=== PATIENT | female | born 1950 | race Caucasian/White ===

== ENCOUNTER 2020-03-03 10:57 | Outpatient (REF) | payer MEDICARE, SELFPAY ==
[2020-03-03 13:29] LABS: MANUAL DIFF FLAG NO
[2020-03-03 13:38] LABS: Basophils Percent Auto 0.2 % (0-2); Eosinophils Absolute Auto 0.1 X10*3/uL (0.0-0.4); Hematocrit 36.9 % (37-47); Hemoglobin 12.3 g/dl (12.0-16.0); Imm Gran Abs Auto 0.02 X10*3/uL (0.00-0.03); Imm Gran Pct Auto 0.3 % (0.0-0.4); Lymphocytes Absolute Auto 1.6 X10*3/uL (1.2-4.9); Lymphocytes Percent Auto 24.6 % (20-40); Mean Corpuscular HGB Conc 33.3 g/dl (31.0-35.0); Mean Corpuscular Hemoglobin 30.8 pg (27.0-33.0); Mean Corpuscular Volume 92.5 fL (80-98); Mean Platelet Volume 10.7 fL (9.4-12.3); Monocytes Absolute Auto 0.4 X10*3/uL (0.1-1.2); Monocytes Percent Auto 6.6 % (2-11); Neutrophils Absolute Auto 4.4 X10*3/uL (2.0-8.3); Neutrophils Percent Auto 66.3 % (45-73); Platelet Count 148 X10*3/uL (160-400); Red Blood Count 3.99 X10*6/uL (4.20-5.50); Red Cell Distribution Width 12.3 % (11.0-16.0); White Blood Count 6.6 X10*3/uL (4.8-10.8)
[2020-03-03 13:40] LABS: Estimated Average Glucose 189 mg/dL; Hemoglobin A1c % 8.2 %
[2020-03-03 13:51] LABS: Alanine Aminotransferase 34 U/L (0-31); Albumin Level 4.2 g/dL (3.5-5.0); Alkaline Phosphatase 72 U/L (39-117); Anion Gap 11 (12-20); Aspartate Amino Transferase 40 U/L (5-31); Bilirubin Total 0.8 mg/dL (0.0-1.0); Blood Urea Nitrogen 23 mg/dL (9-16); Calcium 8.8 mg/dL (8.4-10.2); Carbon Dioxide 27 mmol/L (22-29); Chloride 101 mmol/L (96-108); Estimated Glomerular Filt Rate 45; Glucose Random 300 mg/dL (60-115); Potassium 4.3 mmol/l (3.3-5.1); Sodium 135 mmol/L (135-145); Total Protein 8.7 g/dL (6.5-8.0)
== END 2020-03-03 10:58 | disposition home or self-care (01) ==
LOC: HO.LAB 10:57
PROVIDERS: PCP Internal Medicine; Visit Provider Internal Medicine
DX: N18.9 Chronic kidney disease, unspecified (principal); R79.89 Other specified abnormal findings of blood chemistry; E11.9 Type 2 diabetes mellitus without complications
CPT/HCPCS: 36415; 80053; 83036; 85025

== ENCOUNTER 2020-04-09 10:47 | Outpatient (REF) | payer MEDICARE, SELFPAY ==
[2020-04-09 11:32] LABS: Prothrombin Time 12.4 SEC (10.8-13.0)
[2020-04-09 11:50] LABS: Blood Urea Nitrogen 21 mg/dL (9-16); Estimated Glomerular Filt Rate 41
[2020-04-11 19:11] LABS: Alpha Fetoprotein 5.3 ng/mL
== END 2020-04-09 10:48 | disposition home or self-care (01) ==
LOC: HO.LAB 10:47
PROVIDERS: PCP Internal Medicine; Visit Provider Internal Medicine
DX: K74.60 Unspecified cirrhosis of liver (principal); K76.89 Other specified diseases of liver; R93.2 Abnormal findings on diagnostic imaging of liver and biliary tract
CPT/HCPCS: 36415; 82105; 82565; 84520; 85610

== ENCOUNTER 2020-04-14 08:09 | Outpatient (REF) | payer MEDICARE, SELFPAY ==
--- NOTE | 2020-04-14 08:15 | MR_ITS ---
EXAMINATION: MR ABDOMEN WITHOUT AND WITH CONTRAST CLINICAL INFORMATION: Cirrhosis of the liver with ascites. Liver nodule. COMPARISON: Multiple priors, most recently MRI from 10/15/2019 TECHNIQUE: MR abdomen was performed without and with use of 8 mL intravenous Gadavist gadolinium contrast. Postcontrast images are performed in multiphase dynamic sequences. Imaging was performed in 3 planes. FINDINGS: LUNG BASES: The visualized lung bases are unremarkable. LIVER, GALLBLADDER, AND BILIARY TREE: Cirrhotic morphology of the liver is again noted. There is signal dropout on out of phase imaging, consistent with hepatic steatosis. No biliary ductal dilatation. No focal arterially enhancing lesion. No areas of early washout. The portal vein is patent. The hepatic veins are patent. The gallbladder is absent. PANCREAS: Postsurgical changes of Whipple procedure. Mild atrophy of the pancreatic body and tail with no focal abnormality. SPLEEN: Normal. ADRENAL GLANDS: Normal. KIDNEYS AND URETERS: The kidneys are normal in size, shape, and enhance symmetrically. No hydronephrosis. No perinephric stranding. GASTROINTESTINAL TRACT: No bowel obstruction. No ascites or fluid collection. Postsurgical changes of the stomach with gastrojejunostomy. ABDOMINAL WALL: No significant hernia is appreciated. LYMPH NODES: No lymphadenopathy. Small lymph nodes posterior to the right lobe of the liver are again noted, similar to previous imaging. Mild stranded appearance of the root of the mesentery is similar to previous. VASCULAR: Unremarkable. OSSEOUS STRUCTURES: Marrow signal normal. MR/MR abdomen wo/w con IMPRESSION: Cirrhotic liver with no suspicious liver lesions. Postsurgical changes of Whipple procedure.
== END 2020-04-14 08:10 | disposition home or self-care (01) ==
LOC: HO.MRI 08:09
PROVIDERS: Visit Provider Internal Medicine
DX: K74.60 Unspecified cirrhosis of liver (principal); K76.89 Other specified diseases of liver; R93.2 Abnormal findings on diagnostic imaging of liver and biliary tract
CPT/HCPCS: 74183; A9585

== ENCOUNTER 2020-06-02 06:02 | Outpatient (REF) | payer MEDICARE, SELFPAY ==
[2020-06-02 07:26] LABS: MANUAL DIFF FLAG NO
[2020-06-02 07:42] LABS: Basophils Percent Auto 0.3 % (0-2); Eosinophils Absolute Auto 0.2 X10*3/uL (0.0-0.4); Eosinophils Percent Auto 2.9 % (0-4); Hematocrit 35.9 % (37-47); Imm Gran Abs Auto 0.02 X10*3/uL (0.00-0.03); Imm Gran Pct Auto 0.3 % (0.0-0.4); Lymphocytes Absolute Auto 1.8 X10*3/uL (1.2-4.9); Lymphocytes Percent Auto 28.8 % (20-40); Mean Corpuscular HGB Conc 33.4 g/dl (31.0-35.0); Mean Corpuscular Hemoglobin 30.3 pg (27.0-33.0); Mean Corpuscular Volume 90.7 fL (80-98); Mean Platelet Volume 10.4 fL (9.4-12.3); Monocytes Absolute Auto 0.5 X10*3/uL (0.1-1.2); Monocytes Percent Auto 7.6 % (2-11); Neutrophils Absolute Auto 3.7 X10*3/uL (2.0-8.3); Neutrophils Percent Auto 60.1 % (45-73); Platelet Count 158 X10*3/uL (160-400); Red Blood Count 3.96 X10*6/uL (4.20-5.50); Red Cell Distribution Width 12.5 % (11.0-16.0); White Blood Count 6.2 X10*3/uL (4.8-10.8)
[2020-06-02 07:42] LABS: Glucose Urine UA NEG (NEG); Leukocyte Esterase Urine NEG (NEG); Nitrite Urine NEG (NEG); PH 5.5 (5.0-8.0); Specific Gravity - Urine 1.025 (1.005-1.025); Urine Blood NEG (NEG); Urine Ketones NEG (NEG); Urine Protein NEG (NEG-TRACE)
[2020-06-02 07:43] LABS: Appearance Urine CLEAR; Color Urine YELLOW
[2020-06-02 08:00] LABS: Creatinine Urine 133.73 mg/dL; Microalbum/Creatinine Ratio Ur 7.4 ug/mg cr
[2020-06-02 08:09] LABS: Alanine Aminotransferase 39 U/L (0-31); Alkaline Phosphatase 76 U/L (39-117); Anion Gap 14 (12-20); Aspartate Amino Transferase 43 U/L (5-31); Bilirubin Total 0.7 mg/dL (0.0-1.0); Blood Urea Nitrogen 21 mg/dL (9-16); Calcium 8.8 mg/dL (8.4-10.2); Carbon Dioxide 27 mmol/L (22-29); Chloride 103 mmol/L (96-108); Cholesterol 118 mg/dL; Estimated Glomerular Filt Rate 46; Glucose Fasting 171 mg/dL (60-99); HDL Cholesterol 42 mg/dL; LDL Cholesterol Calculated 52 mg/dl; Potassium 4.7 mmol/l (3.3-5.1); Sodium 139 mmol/L (135-145); Total Protein 8.8 g/dL (6.5-8.0); Triglycerides 120 mg/dL
[2020-06-02 08:20] LABS: Free T4 (Free Thyroxine) 1.34 ng/dL (0.71-1.85); Thyroid Stimulating Hormone 2.21 uIU/mL (0.32-4.0)
[2020-06-02 08:48] LABS: Estimated Average Glucose 200 mg/dL; Hemoglobin A1c % 8.6 %
[2020-06-03 11:37] LABS: Alpha Fetoprotein 5.2 ng/mL
== END 2020-06-02 06:03 | disposition home or self-care (01) ==
LOC: HO.LAB 06:02
PROVIDERS: Visit Provider Internal Medicine
DX: E11.65 Type 2 diabetes mellitus with hyperglycemia (principal); I10 Essential (primary) hypertension; E03.9 Hypothyroidism, unspecified
CPT/HCPCS: 36415; 80053; 80061; 81003; 82043; 82105; 83036; 84439; 84443; 85025

== ENCOUNTER 2020-08-18 09:43 | Outpatient (REF) | payer MEDICARE, SELFPAY ==
[2020-08-18 10:54] LABS: MANUAL DIFF FLAG NO
[2020-08-18 11:03] LABS: Basophils Percent Auto 0.5 % (0-2); Eosinophils Absolute Auto 0.1 X10*3/uL (0.0-0.4); Hematocrit 35.1 % (37-47); Hemoglobin 11.8 g/dl (12.0-16.0); Imm Gran Abs Auto 0.02 X10*3/uL (0.00-0.03); Imm Gran Pct Auto 0.3 % (0.0-0.4); Lymphocytes Absolute Auto 1.7 X10*3/uL (1.2-4.9); Lymphocytes Percent Auto 24.9 % (20-40); Mean Corpuscular HGB Conc 33.6 g/dl (31.0-35.0); Mean Corpuscular Hemoglobin 30.4 pg (27.0-33.0); Mean Corpuscular Volume 90.5 fL (80-98); Mean Platelet Volume 10.5 fL (9.4-12.3); Monocytes Absolute Auto 0.3 X10*3/uL (0.1-1.2); Monocytes Percent Auto 5.1 % (2-11); Neutrophils Absolute Auto 4.5 X10*3/uL (2.0-8.3); Neutrophils Percent Auto 67.2 % (45-73); Platelet Count 142 X10*3/uL (160-400); Red Blood Count 3.88 X10*6/uL (4.20-5.50); Red Cell Distribution Width 12.8 % (11.0-16.0); White Blood Count 6.6 X10*3/uL (4.8-10.8)
[2020-08-18 11:19] LABS: Estimated Average Glucose 174 mg/dL; Hemoglobin A1c % 7.7 %
[2020-08-18 11:21] LABS: Alanine Aminotransferase 33 U/L (0-31); Albumin Level 4.1 g/dL (3.5-5.0); Alkaline Phosphatase 72 U/L (39-117); Anion Gap 13 (12-20); Aspartate Amino Transferase 36 U/L (5-31); Bilirubin Total 0.9 mg/dL (0.0-1.0); Blood Urea Nitrogen 21 mg/dL (9-16); Calcium 8.9 mg/dL (8.4-10.2); Carbon Dioxide 27 mmol/L (22-29); Chloride 101 mmol/L (96-108); Estimated Glomerular Filt Rate 46; Glucose Random 291 mg/dL (60-115); Potassium 4.7 mmol/L (3.3-5.1); Sodium 136 mmol/L (135-145)
== END 2020-08-18 09:44 | disposition home or self-care (01) ==
LOC: HO.LAB 09:43
PROVIDERS: PCP Internal Medicine; Visit Provider Internal Medicine
DX: I12.9 Hypertensive chronic kidney disease with stage 1 through stage 4 chronic kidney disease, or unspecified chronic kidney disease (principal); E11.22 Type 2 diabetes mellitus with diabetic chronic kidney disease; N18.9 Chronic kidney disease, unspecified; R79.89 Other specified abnormal findings of blood chemistry
CPT/HCPCS: 36415; 80053; 83036; 85025

== ENCOUNTER 2020-10-28 08:57 | Outpatient (REF) | payer MEDICARE, SELFPAY ==
[2020-10-28 10:17] LABS: Blood Urea Nitrogen 22 mg/dL (9-16); Estimated Glomerular Filt Rate 39
== END 2020-10-28 08:58 | disposition home or self-care (01) ==
LOC: HO.LAB 08:57
PROVIDERS: PCP Internal Medicine; Visit Provider Internal Medicine
DX: K74.60 Unspecified cirrhosis of liver (principal); K76.89 Other specified diseases of liver; I89.8 Other specified noninfective disorders of lymphatic vessels and lymph nodes; R93.2 Abnormal findings on diagnostic imaging of liver and biliary tract
CPT/HCPCS: 36415; 82105; 82565; 84520

== ENCOUNTER 2020-11-03 09:32 | Outpatient (REF) | payer MEDICARE, SELFPAY ==
--- NOTE | ~2020-11-03 | MR_ITS ---
EXAMINATION: MR ABDOMEN WITHOUT AND WITH CONTRAST CLINICAL INFORMATION: Cirrhosis with ascites. Question liver nodule seen on CT. COMPARISON: Previous abdominal MRI most recent March 2020, abdominal ultrasound February 2019, CT of the abdomen and pelvis November 2017 TECHNIQUE: MR abdomen was performed without and with use of 8 mL intravenous Gadavist gadolinium contrast. Postcontrast images are performed in multiphase dynamic sequences. Imaging was performed in 3 planes. FINDINGS: LUNG BASES: The visualized lung bases are clear. There are small right cardiophrenic angle or anterior diaphragmatic lymph nodes that are stable. The largest measures 4 x 5 mm. LIVER, GALLBLADDER, AND BILIARY TREE: The liver has a slightly irregular contour and there is hypertrophy of the left lobe of the liver suggestive of mild cirrhosis. There is signal loss in the liver on [id number] sequences suggestive of mild fatty infiltration. There are several areas of early arterial phase enhancement seen in the posterior segment of the right lobe of the liver. The largest measures 1 x 1.8 cm axial image 62 series 2. This is not seen on later sequences postcontrast and is not seen on precontrast-enhanced sequences and likely represents a transient perfusion effect. The gallbladder has been removed. There is no biliary duct dilatation. PANCREAS: Postsurgical changes from Whipple procedure. The remaining body and tail of the pancreas are unremarkable. The main pancreatic duct does not appear dilated. SPLEEN: Normal. ADRENAL GLANDS: Normal. KIDNEYS AND URETERS: The right renal pelvis is prominent. This is similar to previous exams. No renal mass seen. GASTROINTESTINAL TRACT: No bowel obstruction. No ascites or fluid collection. ABDOMINAL WALL: No significant hernia is appreciated. LYMPH NODES: Small periportal lymph nodes, similar to previous exam. Largest measures 1 cm axial image 42 series 100. Small right cardiophrenic angle and anterior diaphragmatic lymph nodes largest measuring 5 mm, also stable. There are small, small bowel mesentery lymph nodes and some abnormal signal in the small bowel mesentery. This is unchanged, as well. There is a small 4 mm peritoneal nodule adjacent to the right kidney and posterior segment of the right lobe of the liver, for example axial image 68 series 100 postcontrast. This does not demonstrate evidence of enhancement and is unchanged from old exams. There is no ascites. VASCULAR: Unremarkable. The hepatic veins are patent. There is question of a small amount of thrombus seen in the main portal vein axial image 58 postcontrast series 101 and 102. OSSEOUS STRUCTURES: There are degenerative changes of the spine. MR/MR abdomen wo/w con IMPRESSION: Cirrhotic-appearing liver with mild fatty infiltration. Several areas of early arterial phase enhancement seen in the posterior segment of the right lobe of the liver. These are not seen on later sequences postcontrast or on noncontrast sequences and likely represent transient perfusion effects. Question small thrombus in the main portal vein. No ascites. Stable small lymph nodes in the right cardiophrenic angle/anterior diaphragmatic, periportal and small bowel mesentery regions. Stable postsurgical changes following Whipple procedure. Stable fullness of the right renal pelvis.
== END 2020-11-03 09:33 | disposition home or self-care (01) ==
LOC: HO.MRI 09:32
PROVIDERS: PCP Internal Medicine; Visit Provider Internal Medicine
DX: K74.60 Unspecified cirrhosis of liver (principal); K76.89 Other specified diseases of liver; I89.8 Other specified noninfective disorders of lymphatic vessels and lymph nodes; R93.2 Abnormal findings on diagnostic imaging of liver and biliary tract
CPT/HCPCS: 74183; A9585

== ENCOUNTER 2020-12-01 09:02 | Outpatient (REF) | payer MEDICARE, SELFPAY ==
[2020-12-01 10:09] LABS: Imm Gran Abs Auto 0.02 X10*3/uL (0.00-0.03); Imm Gran Pct Auto 0.3 % (0.0-0.4); MANUAL DIFF FLAG SCAN; Mean Corpuscular Volume 91.7 fL (80-98); PLT CLUMP 1
[2020-12-01 10:11] LABS: Basophils Percent Auto 0.1 % (0-2); Eosinophils Absolute Auto 0.1 X10*3/uL (0.0-0.4); Eosinophils Percent Auto 1.7 % (0-4); Hematocrit 35.3 % (37-47); Hemoglobin 11.9 g/dl (12.0-16.0); Lymphocytes Absolute Auto 1.5 X10*3/uL (1.2-4.9); Lymphocytes Percent Auto 22.2 % (20-40); Mean Corpuscular HGB Conc 33.7 g/dl (31.0-35.0); Mean Corpuscular Hemoglobin 30.9 pg (27.0-33.0); Mean Platelet Volume 10.3 fL (9.4-12.3); Monocytes Absolute Auto 0.5 X10*3/uL (0.1-1.2); Monocytes Percent Auto 7.6 % (2-11); Neutrophils Absolute Auto 4.7 X10*3/uL (2.0-8.3); Neutrophils Percent Auto 68.1 % (45-73); Red Blood Count 3.85 X10*6/uL (4.20-5.50); Red Cell Distribution Width 12.9 % (11.0-16.0); White Blood Count 6.9 X10*3/uL (4.8-10.8)
[2020-12-01 10:15] LABS: Platelet Count 140 X10*3/uL (160-400)
[2020-12-01 10:18] LABS: Estimated Average Glucose 200 mg/dL; Hemoglobin A1c % 8.6 %
[2020-12-01 10:27] LABS: Anion Gap 13 (12-20); Blood Urea Nitrogen 15 mg/dL (9-16); Calcium 9.3 mg/dL (8.4-10.2); Carbon Dioxide 25 mmol/L (22-29); Chloride 103 mmol/L (96-108); Estimated Glomerular Filt Rate 48; Glucose Random 195 mg/dL (60-115); Iron 81 mcg/dL (30-160); Percent Iron Saturation 25 % (15-50); Potassium 4.5 mmol/L (3.3-5.1); Sodium 136 mmol/L (135-145); Total Iron Binding Capacity 323 mcg/dL (228-428); Unsaturated Iron Binding 242 ug/dL
[2020-12-01 10:33] LABS: Creatinine Urine 47.69 mg/dL; Microalbum/Creatinine Ratio Ur 46.1 ug/mg cr
[2020-12-01 10:36] LABS: SLIDE REVIEW VERIFIED
== END 2020-12-01 09:03 | disposition home or self-care (01) ==
LOC: HO.LAB 09:02
PROVIDERS: PCP Internal Medicine; Visit Provider Internal Medicine
DX: E11.22 Type 2 diabetes mellitus with diabetic chronic kidney disease (principal); N18.9 Chronic kidney disease, unspecified; D63.1 Anemia in chronic kidney disease
CPT/HCPCS: 36415; 80048; 82043; 83036; 83540; 85025

== ENCOUNTER 2020-12-08 09:36 | Outpatient (REF) | payer MEDICARE, SELFPAY ==
[2020-12-08 13:34] LABS: Glucose Urine UA 100 MG/DL (NEG); Leukocyte Esterase Urine NEG (NEG); Nitrite Urine POS (NEG); PH 5.5 (5.0-8.0); Specific Gravity - Urine 1.025 (1.005-1.025); UACC Culture Trigger YES; Urine Blood NEG (NEG); Urine Ketones NEG (NEG); Urine Protein 1+ MG/DL (NEG-TRACE)
[2020-12-08 13:35] LABS: Appearance Urine HAZY; Color Urine DARK YELLOW
[2020-12-08 14:01] LABS: Amorphous Sediment Urine 3+ /LPF; Bacteria Urine 1+ /LPF; RBC Urine 0 /HPF (0); Squamous Epithelial Cell Urine 3+ /LPF
== END 2020-12-08 09:37 | disposition home or self-care (01) ==
LOC: HO.10HDL 09:36
PROVIDERS: Visit Provider Internal Medicine
DX: R30.0 Dysuria (principal)
CPT/HCPCS: 81001; 81003; 87086

== ENCOUNTER 2020-12-22 08:54 | Outpatient (REF) | payer MEDICARE, SELFPAY ==
--- NOTE | ~2020-12-22 | MM_ITS ---
EXAMINATION: MM DIAGNOSTIC DIGITAL BREAST TOMOSYNTHESIS, BILATERAL CLINICAL INFORMATION: Due for yearly. Also follow-up probable benign calcifications right breast upper outer quadrant. The lifetime risk of breast cancer based on the Tyrer-Cuzick Model is 6%. COMPARISON: Mammography: 12/04/2019, 09/05/2018, 08/28/2018 (BI-RADS 0), 08/15/2017, 06/08/2016 TECHNIQUE: Digital breast tomosynthesis is performed in both the craniocaudal and mediolateral oblique views along with computer-aided detection (CAD). Synthesized 2D images are generated from the tomosynthesis. Additional right magnification CC and right magnification ML views are obtained. FINDINGS: There are scattered areas of fibroglandular density (ACR BI-RADS breast composition Category b). Parenchymal pattern is similar to prior studies. No developing density or interval mass or architectural. No interval abnormal calcifications. The calcifications on the right for follow-up are stable from prior diagnostic study and now considered benign. The axilla and skin contours are unremarkable. Results are provided to the patient at time of visit by the technologist. MM/MM tomosynthesis diagnostic BI IMPRESSION: 1. No mammographic evidence of malignancy. 2. The right breast calcifications for follow-up are stable from prior diagnostic exams and now considered to be benign. ASSESSMENT: BI-RADS 2: Benign RECOMMENDATION: Routine annual mammography screening. This patient's information was entered into a reminder system with a target due date for their next mammogram.
== END 2020-12-22 08:55 | disposition home or self-care (01) ==
LOC: HO.MAMMO 08:54
PROVIDERS: PCP Internal Medicine; Visit Provider Internal Medicine
DX: R92.1 Mammographic calcification found on diagnostic imaging of breast (principal)
CPT/HCPCS: 77062; 77066

== ENCOUNTER 2020-12-29 09:50 | Outpatient (REF) | payer MEDICARE, SELFPAY ==
[2020-12-29 11:09] LABS: Estimated Average Glucose 209 mg/dL; Hemoglobin A1c % 8.9 %
[2020-12-29 11:55] LABS: Anion Gap 11 (12-20); Blood Urea Nitrogen 17 mg/dL (9-16); Calcium 9.3 mg/dL (8.4-10.2); Carbon Dioxide 27 mmol/L (22-29); Chloride 103 mmol/L (96-108); Estimated Glomerular Filt Rate 39; Glucose Random 296 mg/dL (60-115); Sodium 136 mmol/L (135-145)
== END 2020-12-29 09:51 | disposition home or self-care (01) ==
LOC: HO.LAB 09:50
PROVIDERS: PCP Internal Medicine; Visit Provider Internal Medicine
DX: E11.9 Type 2 diabetes mellitus without complications (principal); N18.9 Chronic kidney disease, unspecified
CPT/HCPCS: 36415; 80048; 83036

== ENCOUNTER 2021-03-23 09:52 | Outpatient (REF) | payer MEDICARE, SELFPAY ==
[2021-03-23 13:54] LABS: MANUAL DIFF FLAG NO
[2021-03-23 14:06] LABS: Basophils Percent Auto 0.5 % (0-2); Eosinophils Absolute Auto 0.1 X10*3/uL (0.0-0.4); Eosinophils Percent Auto 1.6 % (0-4); Hematocrit 35.1 % (37-47); Imm Gran Abs Auto 0.02 X10*3/uL (0.00-0.03); Imm Gran Pct Auto 0.3 % (0.0-0.4); Lymphocytes Absolute Auto 1.7 X10*3/uL (1.2-4.9); Lymphocytes Percent Auto 26.6 % (20-40); Mean Corpuscular HGB Conc 34.2 g/dl (31.0-35.0); Mean Corpuscular Hemoglobin 31.4 pg (27.0-33.0); Mean Corpuscular Volume 91.9 fL (80-98); Monocytes Absolute Auto 0.5 X10*3/uL (0.1-1.2); Monocytes Percent Auto 7.6 % (2-11); Neutrophils Percent Auto 63.4 % (45-73); Platelet Count 135 X10*3/uL (160-400); Red Blood Count 3.82 X10*6/uL (4.20-5.50); Red Cell Distribution Width 12.5 % (11.0-16.0); White Blood Count 6.3 X10*3/uL (4.8-10.8)
[2021-03-23 14:10] LABS: Estimated Average Glucose 223 mg/dL; Hemoglobin A1c % 9.4 %
[2021-03-23 14:17] LABS: Appearance Urine CLEAR; Color Urine YELLOW; Glucose Urine UA 500 MG/DL (NEG); Leukocyte Esterase Urine NEG (NEG); Nitrite Urine NEG (NEG); PH 5.5 (5.0-8.0); Specific Gravity - Urine 1.025 (1.005-1.025); Urine Blood NEG (NEG); Urine Ketones NEG (NEG); Urine Protein TRACE MG/DL (NEG-TRACE)
[2021-03-23 14:46] LABS: Creatinine Urine 129.54 mg/dL; Microalbum/Creatinine Ratio Ur 59.4 ug/mg cr
[2021-03-23 14:49] LABS: Alanine Aminotransferase 55 U/L (0-31); Albumin Level 3.9 g/dL (3.5-5.0); Alkaline Phosphatase 80 U/L (39-117); Anion Gap 11 (12-20); Aspartate Amino Transferase 59 U/L (5-31); Blood Urea Nitrogen 18 mg/dL (9-16); C Reactive Protein 0.45 mg/dL (< or = 0.50); Calcium 8.8 mg/dL (8.4-10.2); Carbon Dioxide 26 mmol/L (22-29); Chloride 102 mmol/L (96-108); Estimated Glomerular Filt Rate 42; Glucose Random 330 mg/dL (60-115); Potassium 4.3 mmol/L (3.3-5.1); Sodium 135 mmol/L (135-145); Total Protein 8.9 g/dL (6.5-8.0)
[2021-03-23 14:57] LABS: Free T4 (Free Thyroxine) 1.57 ng/dL (0.71-1.85); Thyroid Stimulating Hormone 0.63 uIU/mL (0.32-4.0)
== END 2021-03-23 09:53 | disposition home or self-care (01) ==
LOC: HO.10HDL 09:52
PROVIDERS: Visit Provider Internal Medicine
DX: R10.9 Unspecified abdominal pain (principal); E03.9 Hypothyroidism, unspecified; E78.00 Pure hypercholesterolemia, unspecified; R79.89 Other specified abnormal findings of blood chemistry; I12.9 Hypertensive chronic kidney disease with stage 1 through stage 4 chronic kidney disease, or unspecified chronic kidney disease; E11.22 Type 2 diabetes mellitus with diabetic chronic kidney disease; N18.9 Chronic kidney disease, unspecified
CPT/HCPCS: 36415; 80053; 81003; 82043; 83036; 84439; 84443; 85025; 86140; 87086

== ENCOUNTER 2021-04-12 09:26 | Outpatient (REF) | payer MEDICARE, SELFPAY ==
--- NOTE | ~2021-04-12 | MR_ITS ---
EXAMINATION: MR ABDOMEN WITHOUT AND WITH CONTRAST CLINICAL INFORMATION: Cirrhosis of the liver with ascites. Liver nodule. COMPARISON: 11/03/2020 TECHNIQUE: MR abdomen was performed without and with use of 8 mL intravenous Gadavist gadolinium contrast. Postcontrast images are performed in multiphase dynamic sequences. Imaging was performed in 3 planes. FINDINGS: LUNG BASES: The visualized lung bases are clear. Small lymph nodes are again seen in the epicardial fat. LIVER, GALLBLADDER, AND BILIARY TREE: Slight nodularity to the contour of the liver is again noted. Left lobe hypertrophy consistent with the history of cirrhosis. There is signal dropout on out of phase imaging consistent with hepatic steatosis. The previous areas of subtle arterial hyperenhancement are no longer visualized. These may have been transient intensity differences. There is no focal hepatic lesion identified. No biliary ductal dilatation. There is redemonstration of the small filling defect within the main portal vein as seen on series 101 image 61. This is unchanged from prior. This could be artifactual from metal associated with previous surgery. The portal vein appears patent. The gallbladder is absent. There is no ascites at this time. PANCREAS: Postsurgical changes status post Whipple procedure. Somewhat atrophic body and tail. SPLEEN: Normal. ADRENAL GLANDS: Normal. KIDNEYS AND URETERS: The kidneys are normal in size, shape, and enhance symmetrically. No hydronephrosis. No perinephric stranding. GASTROINTESTINAL TRACT: Postsurgical changes associated with Whipple procedure. No bowel obstruction. No focal abnormality. ABDOMINAL WALL: No significant hernia is appreciated. LYMPH NODES: No lymphadenopathy. VASCULAR: Unremarkable. OSSEOUS STRUCTURES: Marrow signal normal. MR/MR abdomen wo/w con IMPRESSION: Cirrhotic liver. No ascites. No hepatic lesions identified. Additional chronic changes as above.
== END 2021-04-12 09:27 | disposition home or self-care (01) ==
LOC: HO.MRI 09:26
PROVIDERS: Visit Provider Internal Medicine
DX: K74.60 Unspecified cirrhosis of liver (principal); K76.89 Other specified diseases of liver; I89.8 Other specified noninfective disorders of lymphatic vessels and lymph nodes
CPT/HCPCS: 74183; A9585

== ENCOUNTER 2021-04-27 14:44 | Outpatient (REF) | payer MEDICARE, SELFPAY | END 2021-04-27 14:45 | disposition home or self-care (01) | LOC: HO.LAB 14:44 | PROVIDERS: PCP Internal Medicine; Visit Provider Internal Medicine | DX: Z20.822 Contact with and (suspected) exposure to COVID-19 (principal) | CPT/HCPCS: C9803; U0003; U0005 ==

== ENCOUNTER 2021-09-08 06:15 | Outpatient (REF) | payer MEDICARE, SELFPAY ==
[2021-09-08 06:57] LABS: MANUAL DIFF FLAG NO
[2021-09-08 07:30] LABS: Basophils Percent Auto 0.4 % (0-2); Eosinophils Absolute Auto 0.1 X10*3/uL (0.0-0.4); Eosinophils Percent Auto 2.4 % (0-4); Hematocrit 34.4 % (37.0-47.0); Hemoglobin 11.7 g/dl (12.0-16.0); Imm Gran Abs Auto 0.02 X10*3/uL (0.00-0.03); Imm Gran Pct Auto 0.4 % (0.0-0.4); Lymphocytes Absolute Auto 1.5 X10*3/uL (1.2-4.9); Lymphocytes Percent Auto 28.1 % (20-40); Mean Corpuscular Hemoglobin 31.3 pg (27.0-33.0); Mean Platelet Volume 10.2 fL (9.4-12.3); Monocytes Absolute Auto 0.4 X10*3/uL (0.1-1.2); Monocytes Percent Auto 6.8 % (2-11); Neutrophils Absolute Auto 3.4 x10*3/uL (2.0-8.3); Neutrophils Percent Auto 61.9 % (45-73); Platelet Count 125 X10*3/uL (160-400); Red Blood Count 3.74 X10*6/uL (4.20-5.50); Red Cell Distribution Width 12.9 % (11.0-16.0); White Blood Count 5.5 X10*3/uL (4.8-10.8)
[2021-09-08 07:38] LABS: Prothrombin Time 11.8 SEC (9.9-13.0)
[2021-09-08 07:48] LABS: Creatinine Urine 120.46 mg/dL; Microalbum/Creatinine Ratio Ur 82.1 ug/mg cr
[2021-09-08 07:54] LABS: Alanine Aminotransferase 62 U/L (0-31); Albumin Level 3.8 g/dL (3.5-5.0); Alkaline Phosphatase 77 U/L (39-117); Anion Gap 11 (12-20); Aspartate Amino Transferase 51 U/L (5-31); Bilirubin Direct 0.4 mg/dL (0.0-0.5); Bilirubin Total 0.6 mg/dL (0.0-1.0); Blood Urea Nitrogen 21 mg/dL (9-16); Carbon Dioxide 26 mmol/L (22-29); Chloride 104 mmol/L (96-108); Estimated Average Glucose 240 mg/dL; Estimated Glomerular Filt Rate 47; Glucose Random 224 mg/dL (60-115); Potassium 4.6 mmol/L (3.3-5.1); Sodium 136 mmol/L (135-145); Total Protein 9.2 g/dL (6.5-8.0)
[2021-09-12 12:42] LABS: Alpha Fetoprotein 6.8 ng/mL
== END 2021-09-08 06:16 | disposition home or self-care (01) ==
LOC: HO.LAB 06:15
PROVIDERS: PCP Internal Medicine; Visit Provider Internal Medicine
DX: I12.9 Hypertensive chronic kidney disease with stage 1 through stage 4 chronic kidney disease, or unspecified chronic kidney disease (principal); N18.9 Chronic kidney disease, unspecified; E11.22 Type 2 diabetes mellitus with diabetic chronic kidney disease; E03.9 Hypothyroidism, unspecified; K70.30 Alcoholic cirrhosis of liver without ascites
CPT/HCPCS: 36415; 80053; 82043; 82105; 82248; 83036; 84439; 84443; 85025; 85610

== ENCOUNTER 2021-10-11 07:54 | Outpatient (REF) | payer MEDICARE, SELFPAY ==
--- NOTE | ~2021-10-11 | MR_ITS ---
EXAMINATION: MR ABDOMEN WITHOUT AND WITH CONTRAST CLINICAL INFORMATION: Cirrhosis. Elevated liver enzymes. COMPARISON: Previous MR of the abdomen most recent March 2021 TECHNIQUE: MR abdomen was performed without and with use of 7.5 mL intravenous Gadavist gadolinium contrast. Postcontrast images are performed in multiphase dynamic sequences. Imaging was performed in 3 planes. FINDINGS: LUNG BASES: The visualized lung bases are unremarkable. LIVER, GALLBLADDER, AND BILIARY TREE: The liver appears cirrhotic. There is mild fatty infiltration of the liver. No focal liver lesion is seen. There is a small filling defect in the main portal vein questionable for small amount of thrombus versus metal artifact from previous surgery. This is similar to March 2021 exam. The portal and hepatic veins are otherwise patent. The gallbladder is not seen and has presumably been removed. There is no intra or extrahepatic biliary duct dilatation. PANCREAS: Postsurgical changes of Whipple procedure. No focal pancreatic mass or main pancreatic duct dilatation seen. SPLEEN: Normal. ADRENAL GLANDS: Normal. KIDNEYS AND URETERS: The kidneys are normal in size, shape, and enhance symmetrically. No hydronephrosis. No perinephric stranding. GASTROINTESTINAL TRACT: No bowel obstruction. No ascites or fluid collection. ABDOMINAL WALL: No significant hernia is appreciated. LYMPH NODES: There are inflammatory changes and small lymph nodes in the small bowel mesentery. There is no ascites. VASCULAR: The abdominal aorta is normal in caliber. Small amount of thrombus in the main portal vein. OSSEOUS STRUCTURES: Marrow signal normal. MR/MR abdomen wo/w con IMPRESSION: Cirrhotic appearing liver and mild fatty infiltration. No focal liver lesion. Stable small filling defect in the main portal vein questionable for small chronic thrombus versus metal artifact. Postsurgical changes from a Whipple procedure. Stable inflammatory changes in the small bowel mesentery
== END 2021-10-11 07:55 | disposition home or self-care (01) ==
LOC: HO.MRI 07:54
PROVIDERS: Visit Provider Internal Medicine
DX: K74.60 Unspecified cirrhosis of liver (principal); R74.8 Abnormal levels of other serum enzymes; K76.0 Fatty (change of) liver, not elsewhere classified; K76.9 Liver disease, unspecified; C17.0 Malignant neoplasm of duodenum
CPT/HCPCS: 74183; A9585

== ENCOUNTER 2021-12-14 08:37 | Outpatient (REF) | payer MEDICARE, SELFPAY ==
[2021-12-14 10:55] LABS: Estimated Average Glucose 163 mg/dL; Hemoglobin A1c % 7.3 %
[2021-12-14 10:59] LABS: Alanine Aminotransferase 34 U/L (0-31); Albumin Level 3.8 g/dL (3.5-5.0); Alkaline Phosphatase 76 U/L (39-117); Anion Gap 8 (12-20); Aspartate Amino Transferase 39 U/L (5-31); Bilirubin Total 0.8 mg/dL (0.0-1.0); Blood Urea Nitrogen 19 mg/dL (9-16); Calcium 8.6 mg/dL (8.4-10.2); Carbon Dioxide 27 mmol/L (22-29); Chloride 104 mmol/L (96-108); Estimated Glomerular Filt Rate 41; Glucose Random 220 mg/dL (60-115); Potassium 4.8 mmol/L (3.3-5.1); Sodium 134 mmol/L (135-145); Total Protein 9.7 g/dL (6.5-8.0)
== END 2021-12-14 08:38 | disposition home or self-care (01) ==
LOC: HO.10HDL 08:37
PROVIDERS: Visit Provider Internal Medicine
DX: I12.9 Hypertensive chronic kidney disease with stage 1 through stage 4 chronic kidney disease, or unspecified chronic kidney disease (principal); N18.9 Chronic kidney disease, unspecified; E11.22 Type 2 diabetes mellitus with diabetic chronic kidney disease
CPT/HCPCS: 36415; 80053; 83036

== ENCOUNTER 2021-12-28 07:24 | Outpatient (REF) | payer MEDICARE, SELFPAY ==
--- NOTE | ~2021-12-28 | MM_ITS ---
EXAMINATION: MM SCREENING DIGITAL BREAST TOMOSYNTHESIS, BILATERAL CLINICAL INFORMATION: Screening. Asymptomatic. The lifetime risk of breast cancer based on the Tyrer-Cuzick Model is 5.0%. COMPARISON: Mammography: December 22, 2020 and studies dating back to May 24, 2014 TECHNIQUE: Digital breast tomosynthesis is performed in both the craniocaudal and mediolateral oblique views along with computer-aided detection (CAD). Synthesized 2D images are generated from the tomosynthesis. FINDINGS: There are scattered areas of fibroglandular density (ACR BI-RADS breast composition Category b). There are no significant masses, abnormal calcifications, or other abnormalities. MM/MM tomosynthesis screening BI IMPRESSION: There are no significant changes from prior study. ASSESSMENT: BI-RADS 1: Negative RECOMMENDATION: Routine annual mammography screening. This patient's information was entered into a reminder system with a target due date for their next mammogram.
== END 2021-12-28 07:25 | disposition home or self-care (01) ==
LOC: HO.MAMMO 07:24
PROVIDERS: PCP Internal Medicine; Visit Provider Internal Medicine
DX: Z12.31 Encounter for screening mammogram for malignant neoplasm of breast (principal)
CPT/HCPCS: 77063; 77067

== ENCOUNTER 2022-04-06 06:12 | Outpatient (REF) | payer MEDICARE, SELFPAY ==
[2022-04-06 06:30] LABS: MANUAL DIFF FLAG NO
[2022-04-06 07:35] LABS: Basophils Percent Auto 0.3 % (0-2); Eosinophils Absolute Auto 0.2 X10*3/uL (0.0-0.4); Eosinophils Percent Auto 2.5 % (0-4); Hemoglobin 11.1 g/dl (12.0-16.0); Imm Gran Abs Auto 0.02 X10*3/uL (0.00-0.03); Imm Gran Pct Auto 0.3 % (0.0-0.4); Lymphocytes Percent Auto 31.6 % (20-40); Mean Corpuscular HGB Conc 34.7 g/dl (31.0-35.0); Mean Corpuscular Hemoglobin 31.9 pg (27.0-33.0); Monocytes Absolute Auto 0.4 X10*3/uL (0.1-1.2); Monocytes Percent Auto 6.2 % (2-11); Neutrophils Absolute Auto 3.8 x10*3/uL (2.0-8.3); Neutrophils Percent Auto 59.1 % (45-73); Platelet Count 154 X10*3/uL (160-400); Red Blood Count 3.48 X10*6/uL (4.20-5.50); Red Cell Distribution Width 12.4 % (11.0-16.0); White Blood Count 6.4 X10*3/uL (4.8-10.8)
[2022-04-06 07:42] LABS: INTERNATIONAL NORM RATIO 1.1 (0.9-1.1); Prothrombin Time 12.4 SEC (10.0-13.1)
[2022-04-06 07:52] LABS: Creatinine Urine 147.06 mg/dL; Microalbum/Creatinine Ratio Ur 30.5 ug/mg cr
[2022-04-06 07:57] LABS: Estimated Average Glucose 143 mg/dL; Hemoglobin A1c % 6.6 %
[2022-04-06 07:58] LABS: Alanine Aminotransferase 30 U/L (0-31); Albumin Level 3.8 g/dL (3.5-5.0); Alkaline Phosphatase 73 U/L (39-117); Anion Gap 12 (12-20); Aspartate Amino Transferase 35 U/L (5-31); Bilirubin Total 0.9 mg/dL (0.0-1.0); Blood Urea Nitrogen 21 mg/dL (9-16); Carbon Dioxide 26 mmol/L (22-29); Chloride 103 mmol/L (96-108); Cholesterol 121 mg/dL; Estimated Glomerular Filt Rate 49; Glucose Fasting 132 mg/dL (60-99); HDL Cholesterol 42 mg/dL; LDL Cholesterol Calculated 61 mg/dl; Potassium 4.9 mmol/L (3.3-5.1); Sodium 136 mmol/L (135-145); Total Protein 10.6 g/dL (6.5-8.0); Triglycerides 94 mg/dL
[2022-04-06 08:02] LABS: Alanine Aminotransferase 29 U/L (0-31); Albumin Level 3.7 g/dL (3.5-5.0); Alkaline Phosphatase 65 U/L (39-117); Aspartate Amino Transferase 32 U/L (5-31); Bilirubin Direct 0.3 mg/dL (0.0-0.5); Bilirubin Total 0.6 mg/dL (0.0-1.0); Blood Urea Nitrogen 21 mg/dL (9-16); Estimated Glomerular Filt Rate 49; Total Protein 10.4 g/dL (6.5-8.0)
[2022-04-06 08:13] LABS: Free T4 (Free Thyroxine) 1.45 ng/dL (0.71-1.85); Thyroid Stimulating Hormone 0.43 uIU/mL (0.32-4.0)
[2022-04-11 13:45] LABS: Alpha Fetoprotein 4.3 ng/mL
== END 2022-04-06 06:13 | disposition home or self-care (01) ==
LOC: HO.LAB 06:12
PROVIDERS: Absent Provider Internal Medicine; PCP Internal Medicine; Visit Provider Internal Medicine
DX: I12.9 Hypertensive chronic kidney disease with stage 1 through stage 4 chronic kidney disease, or unspecified chronic kidney disease (principal); E11.22 Type 2 diabetes mellitus with diabetic chronic kidney disease; N18.9 Chronic kidney disease, unspecified; E03.9 Hypothyroidism, unspecified
CPT/HCPCS: 36415; 80053; 80061; 80076; 82043; 82105; 82565; 83036; 84439; 84443; 84520; 85025; 85610

== ENCOUNTER 2022-04-26 08:05 | Outpatient (REF) | payer MEDICARE, SELFPAY ==
--- NOTE | ~2022-04-26 | MR_ITS ---
EXAMINATION: MR ABDOMEN WITHOUT AND WITH CONTRAST CLINICAL INFORMATION: Cirrhosis with ascites. Fatty liver. COMPARISON: Previous MR of the abdomen most recent September 2021 TECHNIQUE: MR abdomen was performed without and with use of 7 mL intravenous Gadavist gadolinium contrast. Postcontrast images are performed in multiphase dynamic sequences. Imaging was performed in 3 planes. FINDINGS: LUNG BASES: The visualized lung bases are unremarkable. LIVER, GALLBLADDER, AND BILIARY TREE: There are mild cirrhotic changes of the liver with hypertrophy of the left lobe and slightly lobular contour. Liver signal is normal. No focal liver lesion is seen. There is no intra or extrahepatic biliary duct dilatation. The gallbladder has been removed. PANCREAS: There are postsurgical changes following resection of the head of the pancreas. There are atrophic changes of the body and tail of the pancreas. No focal pancreatic lesion. No main pancreatic duct dilatation. SPLEEN: Normal. ADRENAL GLANDS: Normal. KIDNEYS AND URETERS: The kidneys are normal in size, shape, and enhance symmetrically. Small bilateral renal cysts. No hydronephrosis. No perinephric stranding. GASTROINTESTINAL TRACT: Question ahaustral appearance of the colon suggestive of inflammatory colitis. Postsurgical changes to the bowel. No bowel obstruction. No ascites or fluid collection. ABDOMINAL WALL: Postsurgical changes to the anterior abdominal wall. LYMPH NODES: There is mild fat stranding and small small bowel mesentery lymph nodes. This is unchanged. There are small periportal lymph nodes. No enlarged lymph nodes are seen.. VASCULAR: Unremarkable.. Signal loss adjacent to the main portal vein probably representing artifact from surgical clip. OSSEOUS STRUCTURES: Marrow signal normal. MR/MR abdomen wo/w con IMPRESSION: Mild cirrhotic changes of the liver. No ascites. No evidence of fatty infiltration of the liver. Stable postsurgical changes from Whipple procedure. Mild fat stranding of the small bowel mesentery and shotty lymphadenopathy that is stable. Small stable periportal and peripancreatic lymph nodes. No enlarged lymph nodes. New ahaustral appearance of the colon and wall thickening questionable for inflammatory colitis.
== END 2022-04-26 08:06 | disposition home or self-care (01) ==
LOC: HO.MRI 08:05
PROVIDERS: Visit Provider Internal Medicine
DX: K74.60 Unspecified cirrhosis of liver (principal); K76.0 Fatty (change of) liver, not elsewhere classified
CPT/HCPCS: 74183; A9585

== ENCOUNTER 2022-08-27 10:30 | Outpatient (REF) | payer MEDICARE, SELFPAY ==
[2022-08-27 10:52] LABS: MANUAL DIFF FLAG NO
[2022-08-27 11:52] LABS: Estimated Average Glucose 134 mg/dL; Hemoglobin A1c % 6.3 %
[2022-08-27 12:00] LABS: Basophils Percent Auto 0.2 % (0-2); Eosinophils Absolute Auto 0.1 X10*3/uL (0.0-0.4); Eosinophils Percent Auto 1.6 % (0-4); Hematocrit 29.2 % (37.0-47.0); Hemoglobin 9.8 g/dl (12.0-16.0); Imm Gran Abs Auto 0.03 X10*3/uL (0.00-0.03); Imm Gran Pct Auto 0.5 % (0.0-0.4); Lymphocytes Absolute Auto 1.7 X10*3/uL (1.2-4.9); Lymphocytes Percent Auto 26.8 % (20-40); Mean Corpuscular HGB Conc 33.6 g/dl (31.0-35.0); Mean Corpuscular Hemoglobin 31.6 pg (27.0-33.0); Mean Corpuscular Volume 94.2 fL (80.0-98.0); Mean Platelet Volume 9.9 fL (9.4-12.3); Monocytes Absolute Auto 0.5 X10*3/uL (0.1-1.2); Monocytes Percent Auto 8.6 % (2-11); Neutrophils Absolute Auto 3.8 x10*3/uL (2.0-8.3); Neutrophils Percent Auto 62.3 % (45-73); Platelet Count 139 X10*3/uL (160-400); Red Cell Distribution Width 13.4 % (11.0-16.0); White Blood Count 6.2 X10*3/uL (4.8-10.8)
[2022-08-27 12:13] LABS: Alanine Aminotransferase 27 U/L (0-31); Albumin Level 3.6 g/dL (3.5-5.0); Alkaline Phosphatase 72 U/L (39-117); Anion Gap 7 (12-20); Aspartate Amino Transferase 34 U/L (5-31); Bilirubin Total 0.8 mg/dL (0.0-1.0); Blood Urea Nitrogen 20 mg/dL (9-16); Calcium 8.8 mg/dL (8.4-10.2); Carbon Dioxide 26 mmol/L (22-29); Chloride 105 mmol/L (96-108); Estimated Glomerular Filt Rate 42; Glucose Random 121 mg/dL (60-115); Potassium 4.4 mmol/L (3.3-5.1); Sodium 134 mmol/L (135-145); Total Protein 11.1 g/dL (6.5-8.0)
[2022-08-27 14:24] LABS: Creatinine Urine 265.58 mg/dL; Microalbum/Creatinine Ratio Ur 48.9 ug/mg cr
== END 2022-08-27 10:31 | disposition home or self-care (01) ==
LOC: HO.LAB 10:30
PROVIDERS: PCP Internal Medicine; Visit Provider Internal Medicine
DX: E11.9 Type 2 diabetes mellitus without complications (principal); I10 Essential (primary) hypertension
CPT/HCPCS: 36415; 80053; 82043; 83036; 85025

== ENCOUNTER 2022-09-13 12:06 | Outpatient (REF) | payer MEDICARE, SELFPAY ==
[2022-09-13 13:19] LABS: Free T4 (Free Thyroxine) 1.39 ng/dL (0.71-1.85); Thyroid Stimulating Hormone 0.11 uIU/mL (0.32-4.0)
[2022-09-18 21:43] LABS: IgA 75 mg/dL (70-320); IgG 6344 mg/dL (600-1540); IgM 25 mg/dL (50-300)
== END 2022-09-13 12:07 | disposition home or self-care (01) ==
LOC: HO.LAB 12:06
PROVIDERS: PCP Internal Medicine; Visit Provider Internal Medicine
DX: E88.09 Other disorders of plasma-protein metabolism, not elsewhere classified (principal); E03.9 Hypothyroidism, unspecified
CPT/HCPCS: 36415; 82784; 84439; 84443; 86334

== ENCOUNTER 2022-12-08 10:24 | Outpatient (REF) | payer MEDICARE, SELFPAY ==
[2022-12-08 10:47] LABS: MANUAL DIFF FLAG NO
[2022-12-08 11:01] LABS: Basophils Percent Auto 0.2 % (0-2); Eosinophils Absolute Auto 0.1 X10*3/uL (0.0-0.4); Eosinophils Percent Auto 2.1 % (0-4); Hematocrit 29.7 % (37.0-47.0); Hemoglobin 10.1 g/dl (12.0-16.0); Imm Gran Abs Auto 0.03 X10*3/uL (0.00-0.03); Imm Gran Pct Auto 0.7 % (0.0-0.4); Lymphocytes Absolute Auto 1.2 X10*3/uL (1.2-4.9); Lymphocytes Percent Auto 29.1 % (20-40); Mean Corpuscular Hemoglobin 31.9 pg (27.0-33.0); Mean Corpuscular Volume 93.7 fL (80.0-98.0); Monocytes Absolute Auto 0.6 X10*3/uL (0.1-1.2); Monocytes Percent Auto 14.6 % (2-11); Neutrophils Absolute Auto 2.2 x10*3/uL (2.0-8.3); Neutrophils Percent Auto 53.3 % (45-73); Platelet Count 127 X10*3/uL (160-400); Red Blood Count 3.17 X10*6/uL (4.20-5.50); Red Cell Distribution Width 14.8 % (11.0-16.0); White Blood Count 4.2 X10*3/uL (4.8-10.8)
[2022-12-08 11:13] LABS: Estimated Average Glucose 137 mg/dL; Hemoglobin A1c % 6.4 %
[2022-12-08 11:48] LABS: Alanine Aminotransferase 46 U/L (0-31); Albumin Level 3.8 g/dL (3.5-5.0); Alkaline Phosphatase 117 U/L (39-117); Anion Gap 11 (12-20); Aspartate Amino Transferase 32 U/L (5-31); Bilirubin Total 0.6 mg/dL (0.0-1.0); Blood Urea Nitrogen 21 mg/dL (9-16); Calcium 9.3 mg/dL (8.4-10.2); Carbon Dioxide 27 mmol/L (22-29); Chloride 107 mmol/L (96-108); Estimated Glomerular Filt Rate > 60; Glucose Random 102 mg/dL (60-115); Magnesium 2.5 mg/dL (1.6-2.6); Potassium 3.6 mmol/L (3.3-5.1); Sodium 141 mmol/L (135-145); Total Protein 7.3 g/dL (6.5-8.0)
[2022-12-08 12:07] LABS: Free T4 (Free Thyroxine) 1.26 ng/dL (0.71-1.85); Thyroid Stimulating Hormone 1.38 uIU/mL (0.32-4.0); Vitamin B12 541 pg/mL (200-900)
== END 2022-12-08 10:25 | disposition home or self-care (01) ==
LOC: HO.LAB 10:24
PROVIDERS: PCP Internal Medicine; Visit Provider Internal Medicine
DX: I12.9 Hypertensive chronic kidney disease with stage 1 through stage 4 chronic kidney disease, or unspecified chronic kidney disease (principal); E11.22 Type 2 diabetes mellitus with diabetic chronic kidney disease; N18.9 Chronic kidney disease, unspecified; E03.9 Hypothyroidism, unspecified
CPT/HCPCS: 36415; 80053; 82607; 83036; 83735; 84439; 84443; 85025

== ENCOUNTER → 2022-12-21 06:57 | Outpatient (REF) | payer MEDICARE, SELFPAY ==
--- NOTE | 2022-12-21 07:00 | HM_ITS ---
Conclusion: 1. Patient was monitored for total period of 3 days 2. Baseline was normal sinus rhythm with average heart of 67 beats per minute 3. Rare PACs noted 4. 1 pause of 3.13 seconds noted at 15:49 on day 1 5. No patient reported events MTDD
== END ==
LOC: HO.CARD 06:57
PROVIDERS: PCP Internal Medicine; Visit Provider Internal Medicine
DX: R00.2 Palpitations (principal)
CPT/HCPCS: 93242

== ENCOUNTER → 2022-12-21 07:00 | Outpatient (BNV) | payer MEDICARE, SELFPAY | PROVIDERS: PCP Internal Medicine; Visit Provider Internal Medicine Cardiovascular Disease | DX: I49.1 Atrial premature depolarization (principal) | CPT/HCPCS: 93244 ==

== ENCOUNTER 2023-01-18 07:57 | Outpatient (REF) | payer MEDICARE, SELFPAY ==
--- NOTE | ~2023-01-18 | MM_ITS ---
EXAMINATION: MM SCREENING DIGITAL BREAST TOMOSYNTHESIS, BILATERAL CLINICAL INFORMATION: Screening. Asymptomatic. COMPARISON: Mammography: This study is compared with prior exams dating back to 2019. TECHNIQUE: Digital breast tomosynthesis is performed in both the craniocaudal and mediolateral oblique views along with computer-aided detection (CAD). Synthesized 2D images are generated from the tomosynthesis. FINDINGS: There are scattered areas of fibroglandular density (ACR BI-RADS breast composition Category b). There are no significant masses, abnormal calcifications, or other abnormalities. There are unchanged, benign calcifications in the lateral aspect of the right breast. MM/MM tomosynthesis screening BI IMPRESSION: No mammographic evidence of malignancy. ASSESSMENT: BI-RADS BI-RADS 2 - Benign Findings RECOMMENDATION: Routine annual mammography screening. 1 year F/U This examination should not preclude the clinical evaluation of a suspicious palpable abnormality. This patient's information was entered into a reminder system with a target due date for their next mammogram.
== END 2023-01-18 07:58 | disposition home or self-care (01) ==
LOC: HO.MAMMO 07:57
PROVIDERS: PCP Internal Medicine; Visit Provider Internal Medicine
DX: Z12.31 Encounter for screening mammogram for malignant neoplasm of breast (principal)
CPT/HCPCS: 77063; 77067

== ENCOUNTER → 2023-01-18 08:00 | Outpatient (BNV) | payer MEDICARE, SELFPAY | PROVIDERS: PCP Internal Medicine; Visit Provider Radiology Diagnostic Radiology | DX: Z12.31 Encounter for screening mammogram for malignant neoplasm of breast (principal) | CPT/HCPCS: 77063; 77067 ==

== ENCOUNTER 2023-03-08 10:03 | Outpatient (REF) | payer MEDICARE, SELFPAY ==
[2023-03-08 10:47] LABS: Appearance Urine Clear; Color Urine Dark Yellow; Glucose Urine UA >=1000 mg/dL (Negative); Leukocyte Esterase Urine Negative (Negative); Nitrite Urine Negative (Negative); PH 5.5 (5.0-9.0); Specific Gravity - Urine >= 1.030 (1.005-1.025); UMIC TRIGGER UACC YES; Urine Blood Negative (Negative); Urine Ketones Negative (Negative); Urine Protein 30 (1+) mg/dL (Neg-Trace)
[2023-03-08 10:52] LABS: Bacteria Urine None Seen (None Seen); Hyaline Casts Urine 0-2 /LPF (0-2); WBC Urine 0-5 /HPF (0-5)
[2023-03-08 12:05] LABS: Estimated Average Glucose 128 mg/dL; Hemoglobin A1c % 6.1 % (<6.0)
[2023-03-08 12:25] LABS: Alanine Aminotransferase 48 U/L (0-31); Albumin Level 4.1 g/dL (3.5-5.0); Alkaline Phosphatase 99 U/L (39-117); Anion Gap 16 (12-20); Aspartate Amino Transferase 32 U/L (5-31); Bilirubin Total 1.1 mg/dL (0.0-1.0); Blood Urea Nitrogen 18 mg/dL (9-16); Calcium 8.8 mg/dL (8.4-10.2); Carbon Dioxide 24 mmol/L (22-29); Chloride 105 mmol/L (96-108); Estimated Glomerular Filt Rate > 60; Glucose Random 262 mg/dL (60-115); Potassium 3.9 mmol/L (3.3-5.1); Sodium 141 mmol/L (135-145); Total Protein 6.1 g/dL (6.5-8.0)
[2023-03-08 12:32] LABS: Free T4 (Free Thyroxine) 1.26 ng/dL (0.71-1.85); Thyroid Stimulating Hormone 0.13 uIU/mL (0.32-4.0)
== END 2023-03-08 10:04 | disposition home or self-care (01) ==
LOC: HO.10HDL 10:03
PROVIDERS: Visit Provider Internal Medicine
DX: E11.22 Type 2 diabetes mellitus with diabetic chronic kidney disease (principal); I12.9 Hypertensive chronic kidney disease with stage 1 through stage 4 chronic kidney disease, or unspecified chronic kidney disease; N18.9 Chronic kidney disease, unspecified; R79.89 Other specified abnormal findings of blood chemistry; R31.9 Hematuria, unspecified; E03.9 Hypothyroidism, unspecified
CPT/HCPCS: 36415; 80053; 81001; 83036; 84439; 84443; 87086

== ENCOUNTER 2023-06-07 09:43 | Outpatient (REF) | payer MEDICARE, SELFPAY ==
[2023-06-07 10:36] LABS: Basophils Percent Auto 0.6 % (0-2); Eosinophils Absolute Auto 0.1 X10*3/uL (0.0-0.4); Eosinophils Percent Auto 7.9 % (0-4); Hematocrit 29.2 % (37.0-47.0); Hemoglobin 10.1 g/dl (12.0-16.0); Imm Gran Abs Auto 0.01 X10*3/uL (0.00-0.03); Imm Gran Pct Auto 0.6 % (0.0-0.4); Lymphocytes Absolute Auto 0.6 X10*3/uL (1.2-4.9); Lymphocytes Percent Auto 31.6 % (20-40); MANUAL DIFF FLAG SCAN; Mean Corpuscular HGB Conc 34.6 g/dl (31.0-35.0); Mean Corpuscular Hemoglobin 32.8 pg (27.0-33.0); Mean Corpuscular Volume 94.8 fL (80.0-98.0); Mean Platelet Volume 11.8 fL (9.4-12.3); Monocytes Absolute Auto 0.3 X10*3/uL (0.1-1.2); Monocytes Percent Auto 16.4 % (2-11); Neutrophils Absolute Auto 0.8 x10*3/uL (2.0-8.3); Neutrophils Percent Auto 42.9 % (45-73); Red Blood Count 3.08 X10*6/uL (4.20-5.50); Red Cell Distribution Width 14.6 % (11.0-16.0); SCAN SMEAR FLAG 1
[2023-06-07 10:38] LABS: White Blood Count 1.8 X10*3/uL (4.8-10.8)
[2023-06-07 10:47] LABS: Estimated Average Glucose 105 mg/dL; Hemoglobin A1c % 5.3 % (<6.0)
[2023-06-07 10:49] LABS: Appearance Urine Clear; Color Urine Dark Yellow; Glucose Urine UA Negative (Negative); Leukocyte Esterase Urine Negative (Negative); Nitrite Urine Negative (Negative); PH 5.5 (5.0-9.0); Specific Gravity - Urine 1.025 (1.005-1.025); UMIC TRIGGER UA YES; Urine Blood Negative (Negative); Urine Ketones Negative (Negative); Urine Protein 30 (1+) mg/dL (Neg-Trace)
[2023-06-07 10:53] LABS: Bacteria Urine 1+ (None Seen); Hyaline Casts Urine 0-2 /LPF (0-2); RBC Urine 0-2 /HPF (0-2); WBC Urine 0-5 /HPF (0-5)
[2023-06-07 11:09] LABS: Alanine Aminotransferase 48 U/L (0-31); Albumin Level 3.7 g/dL (3.5-5.0); Alkaline Phosphatase 126 U/L (39-117); Anion Gap 11 (12-20); Aspartate Amino Transferase 47 U/L (5-31); Bilirubin Total 1.4 mg/dL (0.0-1.0); Blood Urea Nitrogen 21 mg/dL (9-16); Calcium 8.9 mg/dL (8.4-10.2); Carbon Dioxide 30 mmol/L (22-29); Chloride 105 mmol/L (96-108); Estimated Glomerular Filt Rate > 60; Glucose Random 170 mg/dL (60-115); Potassium 3.7 mmol/L (3.3-5.1); Sodium 142 mmol/L (135-145); Total Protein 5.6 g/dL (6.5-8.0)
[2023-06-07 11:10] LABS: Platelet Count 85 X10*3/uL (160-400)
[2023-06-07 11:11] LABS: SLIDE REVIEW VERIFIED
[2023-06-07 11:25] LABS: Free T4 (Free Thyroxine) 1.22 ng/dL (0.71-1.85); Thyroid Stimulating Hormone 0.64 uIU/mL (0.32-4.0)
[2023-06-07 11:28] LABS: Creatinine Urine 175.01 mg/dL; Microalbum/Creatinine Ratio Ur 50.2 ug/mg cr (<30)
== END 2023-06-07 09:44 | disposition home or self-care (01) ==
LOC: HO.10HDL 09:43
PROVIDERS: Visit Provider Internal Medicine
DX: E11.9 Type 2 diabetes mellitus without complications (principal); D64.9 Anemia, unspecified; E03.9 Hypothyroidism, unspecified
CPT/HCPCS: 36415; 80053; 81001; 82043; 82570; 83036; 84439; 84443; 85025

== ENCOUNTER 2023-06-14 11:29 | Outpatient (REF) | payer MEDICARE, SELFPAY ==
[2023-06-19 08:13] LABS: Alpha Fetoprotein 4.3 ng/mL
== END 2023-06-14 11:30 | disposition home or self-care (01) ==
LOC: HO.10HDL 11:29
PROVIDERS: Visit Provider Internal Medicine
DX: K74.60 Unspecified cirrhosis of liver (principal)
CPT/HCPCS: 36415; 82105

== ENCOUNTER 2024-01-24 08:10 | Outpatient (REF) | payer MEDICARE, SELFPAY ==
--- NOTE | ~2024-01-24 | MM_ITS ---
EXAMINATION: MM SCREENING DIGITAL BREAST TOMOSYNTHESIS, BILATERAL CLINICAL INFORMATION: Screening. Asymptomatic. COMPARISON: Mammography: Comparison is made with available priors TECHNIQUE: Digital breast tomosynthesis is performed in both the craniocaudal and mediolateral oblique views along with computer-aided detection (CAD). Synthesized 2D images are generated from the tomosynthesis. FINDINGS: There are scattered areas of fibroglandular density (ACR BI-RADS breast composition Category b). There are no significant masses, abnormal calcifications, or other abnormalities. MM/MM tomosynthesis screening BI IMPRESSION: No mammographic evidence of malignancy. ASSESSMENT: BI-RADS BI-RADS 1 - Negative RECOMMENDATION: Routine annual mammography screening. 1 year F/U This examination should not preclude the clinical evaluation of a suspicious palpable abnormality. This patient's information was entered into a reminder system with a target due date for their next mammogram. Electronically signed by: Charlene Colorado DO 02/14/2024 10:12 PM EDT
== END 2024-01-24 08:11 | disposition home or self-care (01) ==
LOC: HO.MAMMO 08:10
PROVIDERS: PCP Internal Medicine; Visit Provider Internal Medicine
DX: Z12.31 Encounter for screening mammogram for malignant neoplasm of breast (principal)
CPT/HCPCS: 77063; 77067

== ENCOUNTER → 2024-01-24 08:15 | Outpatient (BNV) | payer MEDICARE, SELFPAY | PROVIDERS: PCP Internal Medicine; Visit Provider Internal Medicine | DX: Z12.31 Encounter for screening mammogram for malignant neoplasm of breast (principal) | CPT/HCPCS: 77063; 77067 ==

== ENCOUNTER 2024-01-29 15:08 | Outpatient (REF) | payer MEDICARE, SELFPAY ==
[2024-01-29 16:15] LABS: Estimated Average Glucose 111 mg/dL; Hemoglobin A1c % 5.5 % (<6.0)
[2024-01-29 16:46] LABS: Alanine Aminotransferase 66 U/L (0-31); Albumin Level 4.1 g/dL (3.5-5.0); Alkaline Phosphatase 190 U/L (39-117); Anion Gap 14 (12-20); Aspartate Amino Transferase 46 U/L (5-31); Bilirubin Total 1.3 mg/dL (0.0-1.0); Blood Urea Nitrogen 22 mg/dL (9-16); Calcium 9.8 mg/dL (8.4-10.2); Carbon Dioxide 26 mmol/L (22-29); Chloride 110 mmol/L (96-108); Estimated Glomerular Filt Rate 47; Glucose Random 158 mg/dL (60-115); Potassium 4.9 mmol/L (3.3-5.1); Sodium 145 mmol/L (135-145); Total Protein 6.1 g/dL (6.5-8.0)
[2024-01-29 17:02] LABS: Free T4 (Free Thyroxine) 1.16 ng/dL (0.71-1.85); Thyroid Stimulating Hormone 0.44 uIU/mL (0.32-4.0)
== END 2024-01-29 15:09 | disposition home or self-care (01) ==
LOC: HO.LAB 15:08
PROVIDERS: PCP Internal Medicine; Visit Provider Internal Medicine
DX: E11.9 Type 2 diabetes mellitus without complications (principal); I10 Essential (primary) hypertension; E03.9 Hypothyroidism, unspecified
CPT/HCPCS: 36415; 80053; 83036; 84439; 84443

== ENCOUNTER 2024-02-14 09:27 | Outpatient (REF) | payer MEDICARE, SELFPAY ==
[2024-02-14 11:35] LABS: Blood Urea Nitrogen 16 mg/dL (9-16); Estimated Glomerular Filt Rate > 60
[2024-02-17 13:08] LABS: Alpha Fetoprotein 3.4 ng/mL
== END 2024-02-14 09:28 | disposition home or self-care (01) ==
LOC: HO.LAB 09:27
PROVIDERS: PCP Internal Medicine; Visit Provider Internal Medicine
DX: I89.8 Other specified noninfective disorders of lymphatic vessels and lymph nodes (principal); K74.60 Unspecified cirrhosis of liver; R93.2 Abnormal findings on diagnostic imaging of liver and biliary tract; K76.89 Other specified diseases of liver; K76.9 Liver disease, unspecified
CPT/HCPCS: 36415; 82105; 82565; 84520

== ENCOUNTER 2024-02-21 09:39 | Outpatient (REF) | payer MEDICARE, SELFPAY ==
--- NOTE | ~2024-02-21 | MR_ITS ---
EXAMINATION: MR ABDOMEN WITHOUT AND WITH CONTRAST CLINICAL INFORMATION: Multiple myeloma. Ascites. Cirrhosis. Abnormal liver. COMPARISON: MRI abdomen dated April 26, 2022 TECHNIQUE: MR abdomen was performed without and with use of 6.5 mL intravenous Gadavist gadolinium contrast without reported immediate complications. Postcontrast images are performed in multiphase dynamic sequences. Imaging was performed in 3 planes. FINDINGS: . Submitted for interpretation on March 27, 2024. There are a few, less than 4 mm enhancing nodules in the right lung base/middle lung lobe right anterior lateral mediastinum region. There is a 6 mm enhancing nodule in the posterior right perihepatic region. LIVER, GALLBLADDER, AND BILIARY TREE: Liver measures 14 cm. There is a subtle nodular surface. There is a parenchymal defect abnormality in the right hepatic lobe without focal enhancing lesion or restricted diffusion. The portal vein, hepatic veins and intrahepatic portion of the IVC are patent. No intrahepatic biliary ductal dilatation. Gallbladder is absent.. PANCREAS: No focal pancreatic mass in the body or tail no or peripancreatic fluid collections or main pancreatic ductal dilatation. SPLEEN: Measures 11 cm without mass. ADRENAL GLANDS: No nodular lesions. KIDNEYS AND URETERS: No enhancing renal mass. No hydronephrosis. Subcentimeter cyst, both kidneys. GASTROINTESTINAL TRACT: Stool within the large intestine. No intestinal obstruction pattern. Trace amount of ascites in the perihepatic and perisplenic. ABDOMINAL WALL: Diastases abdominal rectus muscles in the periumbilical region. LYMPH NODES: No retroperitoneal lymphadenopathy. VASCULAR: No aneurysm or dissection, abdominal aorta. MR/MR abdomen wo/w con IMPRESSION: Perihepatic nodules, the largest in the posterior right perihepatic region measures 8 mm. Tumor infiltration cannot be excluded. Stable appearance of the liver without enhancing mass. Ascites, trace volume. Electronically signed by: Arvind Alcantar MD 03/27/2024 01:45 PM EDT
[2024-02-21] MEDS: gadobutroL 7.5 ML VIAL IVPUSH (10:28)
== END 2024-02-21 09:40 | disposition home or self-care (01) ==
LOC: HO.MRI 09:39
PROVIDERS: PCP Internal Medicine; Visit Provider Internal Medicine
DX: I89.8 Other specified noninfective disorders of lymphatic vessels and lymph nodes (principal); K74.60 Unspecified cirrhosis of liver
CPT/HCPCS: 74183; A9585

== ENCOUNTER → 2024-02-21 10:00 | Outpatient (BNV) | payer MEDICARE, SELFPAY | PROVIDERS: PCP Internal Medicine; Visit Provider Radiology Diagnostic Radiology | DX: K76.89 Other specified diseases of liver (principal); R18.8 Other ascites | CPT/HCPCS: 74183 ==

== ENCOUNTER 2024-06-08 11:32 | Outpatient (REF) | payer MEDICARE, SELFPAY ==
--- NOTE | ~2024-06-08 | XR_ITS ---
EXAMINATION: XR RIBS, LEFT, chest CLINICAL INFORMATION: S/P FALL COMPARISON: None available. TECHNIQUE: 3 views of the left ribs were obtained. FINDINGS: Lungs are clear. No consolidation, pneumothorax, or pleural effusion. The cardiomediastinal silhouette and pulmonary vasculature are normal. There is a right central venous port with its tip in mid SVC. There is moderate spondylosis mid dorsal spine. Multiple views of left ribs reveal no visible fracture or bony abnormality. XR/XR ribs LT min 3V w CXR1V IMPRESSION: Aidan chest exam. No right rib fractures seen. Electronically signed by: Washington Marrufo MD 06/08/2024 12:09 PM EST
--- OUTSIDE RECORDS SUMMARY | 2024-06-08 13:42 | XMS_ITS ---
Author Organization [facility] Address [address] [place] [address] Care Team Providers Care Ediphone Operator Name Role Phone Emiliano Guzman MD Primary Care Provider Guille Martin [phone] ALLERGIES Allergen (clinical drug ingredient) Drug/Non Drug Allergy documented on EMR Reaction Allergy Type Onset Date Status Sulfa Unknown Drug Allergy Active meperidine Demerol Unknown Drug Allergy Active sulfamethoxazole / trimethoprim Bactrim Unknown Drug Allergy Active CT scan dye (uncoded) Unknown Allergy Active Shellfish (FN) shrimp (uncoded) Unknown Allergy Active REASON FOR VISIT Patient presents today for CIRRHOSIS MEDICATIONS Medication SIG (Take, Route, Frequency, Duration) Notes Start Date End Date Status Carvedilol 6.25 MG 1 Orally BID Active Furosemide 20mg 1 tablet Once a day Active Levothyroxine Sodium 150 MCG 1 tablet in the morning on an empty stomach Orally Once a day for 30 day(s) Active amLODIPine Besylate 5 MG 1 tablet Orally Once a day Active LORazepam 1 MG 1 tablet Orally prn Active dexAMETHasone Active Aspirin Low Dose 81 MG TAKE 1 TABLET BY MOUTH EVERY DAY Oral for 90 Active Ozempic (0.25 or 0.5 MG/DOSE) 2 MG/3ML INJECT 0.25 MG SUBCUTANEOUSLY ONE TIME PER WEEK Subcutaneous for 28 Active Daratumumab Active Velcade Active glipiZIDE 10 MG 1 tablet Orally twic e a day Active Valsartan 160 MG 1 null Orally Once a day for 30 day(s) Active Vitamin D 1000 UNIT 1 tablet Orally Once a day for 30 day(s) Not-Taking Acyclovir 400 MG Oral for 90 A ctive Lenalidomide 25 MG Oral for 28 Active VITAL SIGNS BMI 25.86 kg/m2 01/31/2024 Blood pressure systolic 00 mm Hg 01/31/20 24 Blood pressure diastolic 00 mm Hg 024 Height 63 in 01/31/2024 Weight 146 lbs 01/31/2024 Encounters Encounter Location Date Provider Diagnosis [facility] [address] [place] [address] 01/31/2024 Guille Schuler Chylous ascites I89. 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) 01/31/2024 Cirrhosis of liver with ascites, unspecified hepatic cirrhosis type (ICD-10 - K74.60) 01/31/[address] of liver (ICD-10 - R93.2) 01/31/2024 Liver nodule (ICD-10 - K76.89) 01/31/2024 Liver lesion (ICD-10 - K76.9) PLAN OF TREATMENT Pending Test Test Name Order Date BUN 01/31/2024 ALPHA-FETOPROTEIN,TUMOR MARKER MRI ABD W&WO CONTRAST 01/31/2024 Creatinine 01/31/2024 Next Appt Details Follow Up: 6 Months, Reason: Provider Name:Guille Schuler , 08/07/2024 02:40:00 PM, [address], [address], [place], [address], Progress Notes * Examination Category Sub-Category Detail Notes General Examination GENERAL APPEARANCE: pleasant , well nourished, well developed, in no acute distress EYES: sclera non-icteric NECK/THYROID: no cervical lymphade nopathy, neck supple HEART: S1, S2 normal LUNGS: clear to auscultatio n bilaterally ABDOMEN: normal bowel sounds, no guarding or rigidity, no hepatosplenomegaly, no masses palpable, soft, nontender, nondistended NEUROLOGIC: alert and oriented SKIN: nonjaundiced, no spi peter angiomata. EXTREMITIES: no edema ORAL CAVITY: mucosa moist
--- OUTSIDE RECORDS SUMMARY | 2024-06-08 13:42 | XMS_ITS | Continuity of Care Document ---
Author Organization [facility] Address [address] [place] [address]- Care Team Providers Care Carbon Accountant Name Role Phone Emiliano Guzman MD Primary Care Physician [phone] Encounter [facility] [place] Date(s): 09/09/23 - 05/15/24 [facility] [address] [place] [id number] Discharge Disposition: A-D/C Home Attending Physician: Leonora BERKOWITZ(Hem/Onc), [facility] Admitting Physician: Leonora BERKOWITZ(Hem/Onc), [facility] Referring Physician: Emiliano Guzman MD Encounter Type: Disch Recurring OP Allergies, Adverse Reactions, Alerts Substance Criticality Severity Reaction Reaction Severity Status sulfa drugs Active Demerol HCl Active Shrimp Facial swelling Acti ve Contrast Dye Hives Active Immunizations Given and Recorded Vaccine Date Status Refusal Reason influenza virus vaccine, inactivated 03/07/23 Give n SARS-CoV-2 (COVID-19) mRNA BNT-162b2 vac 09/21/21 Recorded SARS-CoV-2 (COVID-19) mRNA BNT-162b2 vac 02/17/21 Recorded SARS-CoV-2 (COVID-19) mRNA BNT-162b2 vac 07/14/20 Recorded SARS-CoV-2 (COVID-19) mRNA BNT-162b2 vac 06/23/20 Recorded Medications Acetaminophen Tablet 650 mg, Tablet, By Mouth, Chemo To Be Scheduled, Day 1, Routine, 04/09/24 9:00:00 AM EST Start Date: 04/09/24 Stop Date: 04/16/24 Status: Completed Repeat number: 1 acyclovir 400 mg oral tablet 1 tablet, By Mouth, 2 times a day, PLENTY OF FLUIDS., # 180 tablet, 2 Refills, Maintenance, 02/03/24 7:48:00 AM EDT, [id number], 167.64, cm, 01/23/24 8:49:00 EDT, Height, 65.5, kg, 01/09/24 8:47:00 EDT, Dry Weight Start Date: 02/03/24 Status: Ordered Quantity: 180.0 Unit: tablet Repeat number: 1 amLODIPine 2.5 mg oral tablet 2.5 mg, 1, tablet, By Mouth, Daily, Refills 0, Maintenance, 01/24/23 2:35:00 PM EDT, Partial fill upon patient request if the prescription is for a schedule II opioid drug. Start Date: 01/24/23 Status: Ordered Repeat number: 1 AmLODipine Tablet 5 mg, By Mouth, Daily in AM, Maintenance, 12/14/11 3:35:38 PM EDT Start Date: 12/14/11 Status: Ordered Repeat number: 1 Aspirin Low Dose 81 mg oral delayed release tablet 1 tablet, By Mouth, Daily, # 90 tablet, 3 Refills, Maintenance, 10/15/23 4:32:00 PM EDT, [facility]/pharmacy #[id number], 167.64, cm, 10/03/23 8:58:00 EDT, Height, 67, kg, 09/05/23 10:25:00 EDT, Dry Weight Start Date: 10/15/23 Status: Ordered Quantity: 90.0 Unit: tablet Repeat number: 4 Ativan Tablet PRN Sleep, 0 Refills, Maintenance, 12/14/11 3:37:13 PM EDT Start Date: 12/14/11 Status: Ordered Repeat number: 1 biotin 5000 mcg oral capsule 1 capsule = 5,000 mcg, By Mouth, Daily in AM, 0 Refills, Maintenance, 05/02/22 12:16:00 PM EST, Partial fill upon patient request if the prescription is for a schedule II opioid drug. Start Date: 05/02/22 Status: Ordered Repeat number: 1 carvedilol 6.25 mg oral tablet 6.25 mg, 1, tablet, By Mouth, 2 times a day, Refills 0, Maintenance, 05/02/22 12:14:00 PM EST, Partial fill upon patient request if the prescription is for a schedule II opioid drug. Start Date: 05/02/22 Status: Ordered Repeat number: 1 dexamethasone 4 mg oral tablet See Instructions, take 2 tablets by mouth on day 2 and day 16 of each chemotherapy cycle. Take withfood., # 30 tablet, 1 Refills, Maintenance, 03/19/24 9:27:00 AM EDT, [facility] ([facility]) #[id number], Partial fill upon patient request if the prescription is for a schedule II opioid drug., 167.64, cm, 03/19/24 8:56:00 EDT, Height, 65.6, kg, 03/05/24 8:25:00 EDT, Dry Weight Start Date: 03/19/24 Status: Ordered Quantity: 30.0 Unit: tablet Repeat number: 2 Furosemide Tablet 20 mg, By Mouth, Daily in AM, Maintenance, 12/14/11 3:35:58 PM EDT Start Date: 12/14/11 Status: Ordered Repeat number: 1 glipiZIDE 5 mg oral tablet 5 mg, 1, tablet, By Mouth, 2 times a day, Refills 0, Maintenance, 05/02/22 12:12:00 PM EST, Partial fill upon patient request if the prescription is for a schedule II opioid drug. Start Date: 05/02/22 Status: Ordered Repeat number: 1 lidocaine-prilocaine 2.5%-2.5% topical cream See Instructions, Apply dime-sized amount over port and cover with plastic, 1 hour before port use,# 30 Gm, 1 Refills, Maintenance, 10/03/23 4:37:00 PM EDT, [facility]/pharmacy #[id number], Partial fill upon patient request if the prescription is for a schedule II opioid drug., Apply dime-sized amount over port and cover with plastic, 1 hour before port use, 167.64, cm, 10/03/23 8:58:00 EDT, Height, 67, kg, 09/05/23 10:25:00 EDT, Dry Weight Start Date: 10/03/23 Status: Ordered Quantity: 30.0 Unit: g Repeat number: 2 Ozempic = 0.25 mg, Subcutaneous Infusion, Every 7 days, takes on Saturday, 0 Refills, Maintenance, 05/02/22 12:13:00 PM EST, Partial fill upon patient request if the prescription is for a schedule II opioid drug. Start Date: 05/02/22 Status: Ordered Repeat number: 1 prochlorperazine 5 mg oral tablet 1 or 2 tablets, By Mouth, Every 6 hours, PRN Nausea, # 30 tablet, 1 Refills, Maintenance, 11/09/22 8:21:00 AM EDT, [facility]/pharmacy #[id number], Partial fill upon patient request if the prescription is for a schedule II opioid drug., 167.64, cm, 10/17/22 9:17:00 EDT, Height, 68, kg, 10/17/22 9:17:00 EDT, Dry Weight Start Date: 11/09/22 Status: Ordered Quantity: 30.0 Unit: tablet Repeat number: 2 Revlimid 25 mg oral capsule 1 capsule = 25 mg, By Mouth, Daily, Take for 21 days. Then break for 7 days do not break, chew, or open capsules., # 21 capsule, 0 Refills, Maintenance, 05/13/24 9:16:00 AM EST, Capsule, [facility] ([facility]) #[id number], Auth # [id number], 167.64, cm, 04/30/24 10:15:00 EST, Height, 65.1, kg, 04/16/24 8:49:00 EST, Dry Weight Start Date: 05/13/24 Stop Date: 06/03/24 Status: Ordered Quantity: 21.0 Unit: capsule Repeat number: 1 Revlimid 25 mg oral capsule 1 capsule = 25 mg, By Mouth, Daily, Take for 21 days. The off x 7 days, # 21 capsule, 0 Refills, Maintenance, 08/05/23 12:48:00 PM EDT, Capsule, Partial fill upon patient request if the prescription is for a schedule II opioid drug. Start Date: 08/05/23 Stop Date: 09/02/23 Status: Ordered Quantity: 21.0 Unit: capsule Repeat number: 1 Synthroid Tablet = 150 mcg, By Mouth, Daily in AM, 0 Refills, Maintenance, 12/14/11 3:34:04 PM EDT Start Date: 12/14/11 Status: Ordered Repeat number: 1 valsartan 320 mg oral tablet 1 tablet = 320 mg, By Mouth, Daily, # 90 tablet, 3 Refills, Maintenance, 12/21/13 9:41:18 AM EDT, [facility] Start Date: 7/28/14 Stop Date: 12/16/14 Status: Ordered Quantity: 90.0 Unit: tablet Repeat number: 4 Problem List Condition Confirmation Course Effective Dates Status H ealth Status Informant Acquired hypothyroidism Confirmed Active Benign Essential Hypertension Confirmed Active Duodenal cancer Confirmed Active Hyperlipidemia Confirmed Active Vital Signs Most recent to oldest [Reference Range]: 1 2 3 Height 167.64 cm (05/14/24 10:50 AM) 167.64 cm (05/14/24 8:23 AM) 167.64 cm (04/30/24 9:14 AM) Weight 64.2 kg (05/14/24 8:23 AM) 65.1 kg (04/16/24 8:40 AM) 65.6 kg (03/05/24 8:25 AM) Oxygen Saturation [94-100 %] 100 % (05/14/24 8:23 AM) 100 % (04/30/24 9:14 AM) 100 % (04/16/24 8:40 AM) Pulse Rate [55-90 bpm] 60 bpm (05/14/24 8:23 AM) 64 bpm (04/30/24 9:14 AM) 63 bpm (04/16/24 8:40 AM) Body Mass Index [18.5-24.99 kg/m2] 22.84 kg/m2 (05/14/24 8:23 AM) 23.16 kg/m2 (04/16/24 8:40 AM) 23.34 kg/m2 (03/05/24 8:25 AM) Blood Pressure [90-138/55-84 mm Hg] 142/80mm Hg *H* (05/14/24 8:23 AM) 144/62mm Hg *H* (04/30/24 9:14 AM) 160/55mm Hg *H* (04/16/24 9:10 AM) Respiratory Rate [16-30 br/min] 20 br/min (04/30/24 9:14 AM) 20 br/min (04/16/24 10:55 AM) 18 br/min (03/19/24 8:56 AM) Temperature [96.8-100.4 DegF] 97.3 DegF (05/14/24 8:23 AM) 97.2 DegF (04/30/24 9:14 AM) 97.6 DegF (04/16/24 8:40 AM) Mode of Delivery (Oxygen) Room air (05/14/24 8:23 AM) Room air (04/30/24 9:14 AM) Room air (04/16/24 8:40 AM) Blood pressure sites Arm, left (05/14/24 8:23 AM) Arm, right (04/30/24 9:14 AM) Arm, right (04/16/24 9:10 AM) Temperature Route Temporal (05/14/24 10:50 AM) Temporal (05/14/24 8:23 AM) Temporal (04/30/24 9:14 AM) Dry Weight 64.2 kg (05/14/24 8:23 AM) 65.1 kg (04/16/24 8:40 AM) 65.6 kg (03/05/24 8:25 AM) Weight Obtained Via Standing scale (05/14/24 8:23 AM) Standing scale (04/16/24 8:40 AM) Standing scale (03/05/24 8:25 AM) Dry Weight Obtained Via Standing scale (05/14/24 8:23 AM) Standing scale (04/16/24 8:40 AM) Standing scale (03/05/24 8:25 AM) Social History Social History Type Response Smoking Status Former smoker, quit more than 30 days ago entered on: 04/11/23 Sex Sex Representation Female (finding) Patient Care team information Care Team Personnel Name: Emiliano Green MD Position: [facility] Physician - General Surgery Member Role: Lifetime Consulting Physician Name: Emiliano Guzman MD Position: [facility] Outreach Member Role: PCP Address: [address] [place] [address] [place] [address] [place] Telecom: Name: Elizabeth Choe RN Position: [facility] Onco RN Member Role: Primary Care Nurse Name: Desire Cheek RN Position: [facility] Onco RN Member Role: Primary Care Nurse Name: Kyle Kent RN Position: [facility] Onco RN Member Role: Primary Care Nurse Name: Janine Maldonado RN Position: [facility] Onco RN Member Role: Primary Care Nurse Name: Otoniel Young MD Position: [facility] Cardiology MD Member Role: Lifetime Consulting Physician Address: [address] [place] [address] [place] [address] Telecom: Name: Anastacia Trevizo RN Position: [facility] RN Member Role: Primary Care Nurse Care Team Related Persons Name: CRISTINE SNOW Insurance Providers Guarantor name: JAMES SNOW [employer] Plan Information #: 1 Payer: MEDICARE PART B OUTPT Member Number: [id number] Policy Number: NA Group Number: Health Plan Information #: 2 Payer: MEDEX Member Number: [id number] Policy Number: NA Group Number: [id number]
--- OUTSIDE RECORDS SUMMARY | 2024-06-08 13:42 | XMS_ITS ---
Author Organization [facility] Address [address] [place] [address] Care Team Providers Care Medical Review Coordinator Name Role Phone Emiliano Guzman MD Primary Care Provider Guille Martin Unavailable [phone] REASON FOR VISIT MRI 04/13 left msg Encounters Encounter Location Date Provider Diagnosis [facility] [address] [place] [address] 04/10/2024 Guille Schuler PLAN OF TREATMENT Next Appt Details Provider Name:Guille Schuler , 08/07/2024 02:40:00 PM, [address], [address], [place], [address],
--- OUTSIDE RECORDS SUMMARY | 2024-06-08 13:42 | XMS_ITS ---
Author Organization [facility] Address [address] [place] [address] Care Team Providers Care Flight Manager Name Role Phone Emiliano Guzman MD Primary Care Provider Guille Martin [phone] ALLERGIES Allergen (clinical drug ingredient) Drug/Non Drug Allergy documented on EMR Reaction Allergy Type Onset Date Status Sulfa Unknown Drug Allergy Active meperidine Demerol Unknown Drug Allergy Active sulfamethoxazole / trimethoprim Bactrim Unknown Drug Allergy Active CT scan dye (uncoded) Unknown Allergy Active Shellfish (FN) shrimp (uncoded) Unknown Allergy Active REASON FOR VISIT Patient presents today for a f/u for cirrhosis MEDICATIONS Medication SIG (Take, Route, Frequency, Duration) Notes Start Date End Date Status Carvedilol 6.25 MG 1 Orally BID Active LORazepam 1 MG 1 tablet Orally prn Active glipiZIDE 10 MG 1 tablet Orally twic e a day Active Furosemide 20mg 1 tablet Once a day Active amLODIPine Besylate 5 MG 1 tablet Orally Once a day Active Levothyroxine Sodium 150 MCG 1 tablet in the morning on an empty stomach Orally Once a day for 30 day(s) Active Ozempic (0.25 or 0.5 MG/DOSE) 2 MG/3ML INJECT 0.25 MG SUBCUTANEOUSLY ONE TIME PER WEEK Subcutaneous for 28 Active Ozempic Active Aspirin Low Dose 81 MG TAKE 1 TABLET BY MOUTH EVERY DAY Oral for 90 Active glipiZIDE ER 10 MG Oral for 90 Active Vitamin D 1000 UNIT 1 tablet Orally Once a day for 30 day(s) Active Valsartan 160 MG 1 null Orally Once a day for 30 day(s) Active Lenalidomide 25 MG Oral for 28 Active Acyclovir 400 MG Oral for 90 A ctive VITAL SIGNS BMI 25.15 kg/m2 05/31/2023 Blood pressure systolic 000 mm Hg 05/31/19 24 Blood pressure diastolic 00 mm Hg 024 Height 63 in 05/31/2023 Weight 142 lbs 05/31/2023 Encounters Encounter Location Date Provider Diagnosis [facility] [address] [place] [address] 05/31/2023 Guille Schuler Cirrhosis of liver with ascites, unspecified hepatic cirrhosis type K74.60 ; Other ascites R18.8 ; Fatty liver K76.0 and Elevated liver enzymes R74.8 ASSESSMENTS Encounter Date Diagnosis Assessment Notes Treatment Notes Treatment Clinical Notes 05/31/2023 Cirrhosis of liver with ascites, unspecified hepatic cirrhosis type (ICD-10 - K74.60) Have them send me a copy of your next scan from [facility]. 05/31/2023 Other ascites (ICD-10 - R18.8) 05/31/2023 Fatty liver (ICD-10 - K76.0) 05/31/2023 Elevated liver enzymes (ICD-10 - R74.8) PLAN OF TREATMENT Treatment Notes Assessment Notes Cirrhosis of liver with asci dulce, unspecified hepatic cirrhosis type Have them send me a copy of your next scan from [facility]. Pending Test Test Name Order Date Alpha Fetoprotein 05/31/2023 Next Appt Details Follow Up: 2014, Reaso n: Provider Name:Guille Schuler , 08/07/2024 02:40:00 PM, [address], [address], [place], [address], Progress Notes * Examination Category Sub-Category Detail [...]
--- OUTSIDE RECORDS SUMMARY | 2024-06-08 13:42 | XMS_ITS | Patient Health Record ---
Author Organization [facility] Address [address] [place] [address] Care Team Providers Care Milk Vendor Name Role Phone Emiliano Guzman MD Primary Care Provider Guille Martin [phone] ALLERGIES Allergen (clinical drug ingredient) Drug/Non Drug Allergy documented on EMR Reaction Allergy Type Onset Date Status Sulfa Unknown Drug Allergy Active meperidine Demerol Unknown Drug Allergy Active sulfamethoxazole / trimethoprim Bactrim Unknown Drug Allergy Active CT scan dye (uncoded) Unknown Allergy Active Shellfish (FN) shrimp (uncoded) Unknown Allergy Active RESULTS Component Value Reference Range Notes Alpha Fetoprotein Reviewed date:06/19/2023 04:01:51 PM Interpretation: Performing Lab:[address] [address] Notes/Report: Alpha Fetoprotein 4.3 Reference Range: <6.1 The use of AFP as a tumor marker in females is not recommended. This test was performed using the Melvin Gricel chemiluminescent method. Values obtained from different assay methods cannot be used interchangeably. AFP levels, regardless of value, should not be interpreted as absolute evidence of the presence or absence of disease. THIS TEST WAS PERFORMED AT: [facility] [address] [place] [phone] KAMLA ALONSO MD Blood Urea Nitrogen Reviewed date:02/14/2024 04:45:03 PM Interpretation: Performing Lab:[address] [address] Notes/Report: Blood Urea Nitrogen 16 9-16 mg/dL Creatinine Reviewed date:02/14/2024 04:45:11 PM Interpretation: Performing Lab:[facility], [address] [place] [address] Notes/Report: Creatinine 0.82 0.5-1.4 mg/dL Estimated Glomerular Filt Rate > 60 NOTE: For -[place]val[place] individuals, multiply the result by 1.210. Chronic Kidney Disease: Estimated GFR < 60 mL/min/1.73m2 Severe Kidney Disease: Estimated GFR < 15 mL/min/1.73m2 Alpha Fetoprotein Reviewed date:02/17/2024 11:29:32 PM Interpretation: Performing Lab:[facility], [address] [place] [address] Notes/Report: Alpha Fetoprotein 3.4 Reference Range: <6.1 The use of AFP as a tumor marker in females is not recommended. This test was performed using the Melvin Gricel chemiluminescent method. Values obtained from different assay methods cannot be used interchangeably. AFP levels, regardless of value, should not be interpreted as absolute evidence of the presence or absence of disease. THIS TEST WAS PERFORMED AT: [facility] [address] [place] [address] KAMLA ALONSO MD MR abdomen wo/w con Reviewed date:04/12/2024 09:12:20 PM Interpretation: Performing Lab: Notes/Report: [address] [address] Magnetic Resonance Report Signed Patient: James Snow MR#: [id number] : 1950 Acct:[id number] Age/Sex: 73 / F ADM Date: 02/21/24 Loc: HO.MRI Attending Dr: Guille Schuler MD Ordering Physician: Guille Schuler MD Date of Service: 02/21/24 Procedure(s): MR abdomen wo/w con Accession Number(s): [id number] cc: Emiliano Guzman MD; Guille Schuler MD EXAMINATION: MR ABDOMEN WITHOUT AND WITH CONTRAST CLINICAL INFORMATION: Multiple myeloma. Ascites. Cirrhosis. Abnormal liver. COMPARISON: MRI abdomen dated April 26, 2022 TECHNIQUE: MR abdomen was performed without and with use of 6.5 mL intravenous Gadavist gadolinium contrast without reported immediate complications. Postcontrast images are performed in multiphase dynamic sequences. Imaging was performed in 3 planes. FINDINGS: . Submitted for interpretation on March 27, 2024. There are a few, less than 4 mm enhancing nodules in the right lung base/middle lung lobe right anterior lateral mediastinum region. There is a 6 mm enhancing nodule in the posterior right perihepatic region. LIVER, GALLBLADDER, AND BILIARY TREE: Liver measures 14 cm. There is a subtle nodular surface. There is a parenchymal defect abnormality in the right hepatic lobe without focal enhancing lesion or restricted diffusion. The portal vein, hepatic veins and intrahepatic portion of the IVC are patent. No intrahepatic biliary ductal dilatation. Gallbladder is absent.. PANCREAS: No focal pancreatic mass in the body or tail no or peripancreatic fluid collections or main pancreatic ductal dilatation. SPLEEN: Measures 11 cm without mass. ADRENAL GLANDS: No nodular lesions. KIDNEYS AND URETERS: No enhancing renal mass. No hydronephrosis. Subcentimeter cyst, both kidneys. GASTROINTESTINAL TRACT: Stool within the large intestine. No intestinal obstruction pattern. Trace amount of ascites in the perihepatic and perisplenic. ABDOMINAL WALL: Diastases abdominal rectus muscles in the periumbilical region. LYMPH NODES: No retroperitoneal lymphadenopathy. VASCULAR: No aneurysm or dissection, abdominal aorta. MR/MR abdomen wo/w con IMPRESSION: Perihepatic nodules, the largest in the posterior right perihepatic region measures 8 mm. Tumor infiltration cannot be excluded. Stable appearance of the liver without enhancing mass. Ascites, trace volume. Electronically signed by: Arvind Alcantar MD 03/27/2024 01:45 PM EDT Dictated By: Arvind Workman Signed By: <Electronically signed by Arvind Light in OV> 03/27/24 1345 DD/ 1000 TD/TT: 02/21/24 1018 Religious Education Director: REASON FOR REFERRAL No Information MEDICATIONS Medication SIG (Take, Route, Frequency, Duration) Notes Start Date End Date Status Carvedilol 6.25 MG 1 Orally BID Active Furosemide 20mg 1 tablet Once a day Active glipiZIDE 10 MG 1 tablet Orally twic e a day Active Valsartan 160 MG 1 null Orally Once a day for 30 day(s) Active Vitamin D 1000 UNIT 1 tablet Orally Once a day for 30 day(s) Not-Taking dexAMETHasone Active Acyclovir 400 MG Oral for 90 A ctive Lenalidomide 25 MG Oral for 28 Active Aspirin Low Dose 81 MG TAKE 1 TABLET BY MOUTH EVERY DAY Oral for 90 Active Ozempic (0.25 or 0.5 MG/DOSE) 2 MG/3ML INJECT 0.25 MG SUBCUTANEOUSLY ONE TIME PER WEEK Subcutaneous for 28 Active Daratumumab Active Velcade Active Levothyroxine Sodium 150 MCG 1 tablet in the morning on an empty stomach Orally Once a day for 30 day(s) Active amLODIPine Besylate 5 MG 1 tablet Orally Once a day Active LORazepam 1 MG 1 tablet Orally prn Active IMMUNIZATIONS Vaccine Route Administration Date Status Comme nts Influenza Unknown 01/25/2018 Administered Influenza Unknown 03/27/2020 Administered Influenza Unknown 02/24/2021 Administered Influenza Unknown 03/29/2022 Administered Influenza Unknown 03/13/2023 Administered SOCIAL HISTORY Sex Assigned At : Social History Observation Description Sex Assigned At Unknown PROBLEMS Problem Type ICD Code Onset Dates Problem Status W/U Status Risk SNOMED Code Notes Problem Gastro-esophageal reflux disease without esophagitis (K21.9) Active confirmed 277827243 Problem Encounter for screening for malignant neoplasm of colon (Z12.11) Active confirmed 894891044 Problem History of adenomatous polyp of colon (Z86.010) Active confirmed 452375333 Problem 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 069598153 Problem Other cirrhosis of liver (K74.69) Active confirmed 61296534 Problem Other ascites (R18.8) Active confirmed 425522057 Problem Abnormal findings on diagnostic imaging of liver and biliary tract (R93.2) Active confirmed 239879505 Problem Abnormal CT of liver (R93.2) Active confirmed 336900420 Problem Gastroesophageal reflux disease without esophagitis (K21.9) Active confirmed 558015078 Problem Elevated liver enzymes (R74.8) Active confirmed 952628813 Problem Fatty liver (K76.0) Active confirmed 19 4657961 Problem Cirrhosis of liver with ascites, unspecified hepatic cirrhosis type (K74.60) Active confirmed 20899090 Problem Liver lesion (K76.9) Active confirmed 3 80557761 Problem 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 8 ; Cirrhosis of liver with ascites, unspecified hepatic cirrhosis type K74.60 ; Abnormal CT of liver R93.2 ; Liver nodule K76.89 and Liver lesion K76.9 [facility] [address] [place] [address] 04/10/2024 Guille Schuler ASSESSMENTS Encounter Date Diagnosis Assessment Notes Treatment Notes Treatment Clinical Notes 01/31/2024 Cirrhosis of liver with ascites, unspecified hepatic cirrhosis type (ICD-10 - K74.60) 01/31/2024 Chylous ascites (ICD-10 - I89.8) 01/31/[address] of liver (ICD-10 - R93.2) 01/31/2024 Liver nodule (ICD-10 - K76.89) 01/31/2024 Liver lesion (ICD-10 - K76.9) PLAN OF TREATMENT Pending Test Test Name Order Date CHEM 7 PROFILE 07/26/2016 CHEM 7 PROFILE 05/04/2016 CHEM 7 PROFILE 07/26/2015 ELECTROLYTES 08/11/2015 BUN 07/05/2017 BUN 07/30/2018 BUN 08/13/2019 BUN 01/31/2024 BUN 02/07/2018 BUN 11/02/2016 BUN 10/05/2021 BUN 04/06/2021 BUN 03/23/2019 BUN 10/20/2020 BUN 08/11/2015 BUN 04/07/2020 BUN 04/05/2022 CREATININE 10/20/2020 CREATININE 08/11/2015 CREATININE 04/07/2020 CREATININE 07/05/2017 CREATININE 07/30/2018 CREATININE 08/13/2019 CREATININE 02/07/2018 CREATININE 11/02/2016 CREATININE 04/06/2021 CREATININE 03/23/2019 LIVER PROFILE 04/05/2022 LIVER PROFILE 07/26/2016 LIVER PROFILE 05/04/2016 LIVER PROFILE 09/05/2014 LIVER PROFILE 07/30/2018 TRIGLYCERIDE 06/30/2015 CBC w DIFF 04/05/2022 CBC w DIFF 07/26/2016 CBC w DIFF 07/30/2018 CELL COUNT FLUID 07/12/2015 CELL COUNT FLUID 08/04/2015 PROTHROMBIN TIME (PT, INR) 04/07/2020 PROTHROMBIN TIME (PT, INR) 02/07/2018 PROTHROMBIN TIME (PT, INR) 05/04/2016 PROTHROMBIN TIME (PT, INR) 07/26/2016 PROTHROMBIN TIME (PT, INR) 07/30/2018 ALPHA-FETOPROTEIN,TUMOR MARKER 1 ALPHA-FETOPROTEIN,TUMOR MARKER 9 ALPHA-FETOPROTEIN,TUMOR MARKER 4 ALPHA-FETOPROTEIN,TUMOR MARKER 8 ALPHA-FETOPROTEIN,TUMOR MARKER 9 ALPHA-FETOPROTEIN,TUMOR MARKER 0 ALPHA-FETOPROTEIN,TUMOR MARKER 2 ALPHA-FETOPROTEIN,TUMOR MARKER 0 ALPHA-FETOPROTEIN,TUMOR MARKER 7 ALPHA-FETOPROTEIN,TUMOR MARKER 8 ALPHA-FETOPROTEIN,TUMOR MARKER 6 ALPHA-FETOPROTEIN,TUMOR MARKER 7 GRAM STAIN 08/04/2015 GRAM STAIN 07/12/2015 ROUTINE CULTURE 08/04/2015 ROUTINE CULTURE 07/12/2015 MRI ABD W&WO CONTRAST 05/04/2016 MRI ABD W&WO CONTRAST 03/23/2019 MRI ABD W&WO CONTRAST 07/26/2016 MRI ABD W&WO CONTRAST 04/06/2021 MRI ABD W&WO CONTRAST 07/30/2018 MRI ABD W&WO CONTRAST 10/20/2020 MRI ABD W&WO CONTRAST 07/05/2017 MRI ABD W&WO CONTRAST 04/07/2020 MRI ABD W&WO CONTRAST 04/05/2022 MRI ABD W&WO CONTRAST 08/13/2019 MRI ABD W&WO CONTRAST 01/31/2024 MRI ABD W&WO CONTRAST 10/05/2021 MRI ABD W&WO CONTRAST 11/02/2016 MRI ABD W&WO CONTRAST 02/07/2018 US PARACENTESIS GUIDE 08/04/2015 US PARACENTESIS GUIDE 07/12/2015 US PARACENTESIS GUIDE 06/30/2015 Creatinine 01/31/2024 Creatinine 10/05/2021 Alpha Fetoprotein 10/20/2020 Alpha Fetoprotein 05/31/2023 Future Test Test Name Order Date UPPER GI ENDOSCOPY 05/21/2013 COLONOSCOPY 07/05/2017 UPPER GI ENDOSCOPY 07/11/2017 Next Appt Details Provider Name:Guille Schuler , 08/07/2024 02:40:00 PM, [address], [address], [place], [address], Insurance Providers Payer Name Payer Address Payer Phone Subscriber Number Group Number Insured Name Patient Relationship to Insured Coverage Start Date Coverage End Date MEDICARE OF [place] [address] [place] [address] [phone] [id number] JUAN MANUELJAMES REIS Self - patient is the insured MED[employer] ATTN CLAIMS [address] [place] [address] [id number] JAMES SNOW Self - patient is the insured MEDICAL (GENERAL) HISTORY Medical History History ICD Code 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 w/u for hemochromatosis---started Tamica in 08/2014 Denies [place],CVA,Lung disease,renal disease Tubular adenoma removed by colonoscopy i n 09/2011--no colitis NIDDM Neg. colonoscopy in 2002 EGD in 04/2013--s/p Whipple- -anastomosis WNL--inflammatory gastric polyps, minimal HH--improved on a course of Carafate Cirrhosis--liver biopsy in ebruary 2015 revealed significant bridging fibrosis and areas of early cirrhosis in relation to fatty liver and an ongoing hepatitis-onset of ascites in 05/2015--paracentesis in 06/2015--negative cytology--c/w chylous ascites--- she is being followed by Dr. Blanca Carpenter at [facility] hepatology clinic as well Colonoscopy in August of 2017 revealed on ly a hyperplastic polyp EGD in August 2017 revealed g rade 1 esophageal varices--she has been on carvedilol for her beta oleg Multiple myeloma diagnosed 2 023- starting chemo after November 08, 2022- Dr. Lea at [facility] neuropathy bilateral feet Surgical History Surgery Date(Month/Year) Whipple procedure done for d uodenal adenocarcinoma in 02/2010--done by Dr. Min at [facility] Cholecystectomy the Umbilical hernia surgery Tubal ligation C-sections Hemorrhoidectomy Hysterectomy Cataracts 2011 Incisional hernia repair 05/[address] Amin--limited small bowel resection as well Incisional hernia repair--Dr Cyrus Hancock---negative cytology on the ascites--needed a temporary drain for the ascites jun 15 2015 Hernia repair with mesh 2015 Right rotator cuff 04/2022 port put in right of chest november
== END 2024-06-08 11:33 | disposition home or self-care (01) ==
LOC: HO.XRAY 11:32
PROVIDERS: PCP Internal Medicine; Visit Provider Internal Medicine
DX: Z13.828 Encounter for screening for other musculoskeletal disorder (principal); Z91.81 History of falling
CPT/HCPCS: 71101

== ENCOUNTER → 2024-06-08 11:39 | Outpatient (BNV) | payer MEDICARE, SELFPAY | PROVIDERS: PCP Internal Medicine; Visit Provider Radiology Diagnostic Radiology | DX: R07.9 Chest pain, unspecified (principal); W19.XXXA Unspecified fall, initial encounter | CPT/HCPCS: 71101 ==

== ENCOUNTER 2024-09-11 14:59 | Outpatient (AMB) | payer MEDICARE, SELFPAY ==
--- NOTE | 2024-09-11 15:06 | MHC.PC.OV ---
Vital Signs 09/11/24 15:07 Height 5 ft 3 in Weight 139 lb BMI 24.6 BP 128/70 Blood Pressure Location Lt brachial Position Sitting Pulse 78 Pulse Source Pulse Oximeter Temp 97.5 F Temp Source Temporal Artery Scan Pulse Oximetry (%) 97 Oxygen Delivery Method Room Air Intake Visit Reasons: Routine Business Intelligence Developer Required: No Accompanied by: Self / Same As Patient Allergies shrimp Allergy (Severe, Unverified 09/11/24 15:09) SEVERE EDEMA FACE, NECK AND HEAD Sulfa (Sulfonamide Antibiotics) [SULFA (SULFONAMIDE ANTIBIOTICS)] Allergy (Severe, Unverified 09/11/24 15:09) VASCULITIS ON BOTH LEGS WITH BLOTCHES AND RASH, vasculitis, vasculitis, vasculitis, vasculitis sulfamethoxazole [From BACTRIM] Allergy (Unknown, Unverified 09/11/24 15:09) UNKNOWN trimethoprim [From BACTRIM] Allergy (Unknown, Unverified 09/11/24 15:09) UNKNOWN Iodinated Contrast Media [IV CONTRAST] Adverse Reaction (Severe, Unverified 09/11/24 15:09) VASOVAGAL REACTION meperidine [From DEMEROL] Adverse Reaction (Severe, Unverified 09/11/24 15:09) SEVERE VOMITING AFTER ONE DOSE Contrast dye Allergy (Unknown, Uncoded 09/11/24 15:09) Unknown contrast dye Allergy (Unknown, Uncoded 09/11/24 15:09) shaking, syncope shellfish Allergy (Unknown, Uncoded 09/11/24 15:09) anaphylaxis Shrimp Allergy (Unknown, Uncoded 09/11/24 15:09) Unknown Tobacco use date assessed: 09/11/24 Fall risk assessment: 1 Fall in past year Last assessed Fall Risk: 09/11/24 Dental Screening Dental Screen Date: 09/11/24 Did you have a dental visit in the last 12 months?: Yes Did you have a dental problem in the last 6 months where you did not have access to dental care?: No HPI HPI Comments History of Present Illness Details The patient is a 73 year old female with a past medical history of diabetes, hypertension,hypothyroid, MM, history of whipple procedure, cirrhosis, CKD, colon polyps, duodenal cancer presenting for follow up. Last seen for annual in Apr with pcp Diabetes: On glipizide 10mg twice daily, ozempic 0.25mg weekly. Last A1C 5.6%. Due CV: on norvasc 5mg, valsartan, coreg, lasix. 128/70. Denies chest pain, exertional dypsnea Hypothyroid-on levothyroxine 150mcg daily. last TSH Anxiety-On lorazepam bid prn Heme/On[facility], Dr Muse-Monisha Paz. Also follows regularly with Dr Schuler. History of duodenal cancer. Colonoscopy 2018 Dr Schuler 5 year [id number] repeat. ROS CONSTITUTIONAL: Denies weight loss, fever and chills. HEENT: Denies changes in vision and hearing. RESPIRATORY: Denies SOB and cough. CV: Denies palpitations and CP GI: Denies abdominal pain, nausea, vomiting and diarrhea. : Denies dysuria and urinary frequency. MSK: Denies new myalgia and joint pain. SKIN: Denies rash and pruritus. NEUROLOGICAL: Denies headache PSYCHIATRIC: Denies recent changes in mood. PHYSICAL EXAM: GENERAL: Alert and oriented x 3. NAD EYES: EOMI. Anicteric. HENT: Moist mucous membranes. No scleral icterus. No cervical lymphadenopathy. LUNGS: Clear to auscultation bilaterally. CARDIOVASCULAR: Regular rate and rhythm. No murmur. No JVD. ABDOMEN: Soft, non-tender +bs EXTREMITIES: No edema. Non-tender. SKIN: No rashes or lesions. Warm. NEUROLOGIC: No focal neurological deficits. CN II-XII grossly intact PSYCHIATRIC: Cooperative. Appropriate mood and affect [facility] Surgical History History of colonoscopy (~09/13/17) Family History Mother No problems noted. Father No problems noted. Social History Housing: House Patient Tobacco Use Status: Never used Tobacco e-Cigarette/Vaping Use: Never Used service: No Current occupational status: employed Cognitive needs: No Hearing needs: No Vision needs: Yes (reading glasses) Questionnaire PHQ-9 Over the last 2 weeks, how often have you been bothered by any of the following problems? 1. Little interest or pleasure in doing things: not at all 2. Feeling down, depressed, or hopeless: not at all 3. Trouble falling or staying asleep, or sleeping too much: not at all 4. Feeling tired or having little energy: not at all 5. Poor appetite or overeating: not at all 6. Feeling bad about yourself - or that you are a failure or have let yourself or your family down: not at all 7. Trouble concentrating on things, such as reading the newspaper or watching television: not at all 8. Moving or speaking so slowly that other people could have noticed. Or the opposite - being so fidgety or restless that you have been moving around a lot more than usual: not at all 9. Thoughts that you would be better off or of hurting yourself in some way: not at all Total score: 0 Depression Screening Interpretation: Negative Depression Screening Done: Yes 84544 - PHQ-9 Billing: Yes Source: Developed by Drs. Guille Willoughby, Linh Armijo, Yang Taylor and colleagues, with an educational maki from [employer]. Thrive Questionnaire Date Thrive assessed: 09/11/24 I am a: Patient Within the past 12 months, did the food you bought not last and you didn't have the money to get more?: Never true Within the past 12 months, did you worry whether your food would run out before you got money to buy more?: Never true Do you have trouble paying for medicines?: No Do you have trouble getting transportation to medical appointments?: No Do you have trouble paying your heating and electricity bill?: No Do you have trouble taking care of your child, family member or friend?: No Do you have trouble with day-to-day activities such as bathing, preparing meals, shopping, managing finances, etc.?: No Are you currently unemployed and looking for a job?: No Are you interested in more education?: No THRIVE Score: 0 AUDIT C Alcohol Use Questionnaire (AUDIT-C) 1. How often do you have a drink containing alcohol?: Never 3. How often do you have six or more drinks on one occasion?: Never Total Score: 0 ABHINAV-7 AMB Questionnaire ABHINAV-7 Date ABHINAV - 7 assessed: 09/11/24 Feeling nervous, anxious, or on edge: 0 = Not at all Not being able to stop or control worryin = Not at all Worrying too much about different things: 0 = Not at all Trouble relaxin = Not at all Being so restless that it is hard to sit still: 0 = Not at all Becoming easily annoyed or irritable: 0 = Not at all Feeling afraid as if something awful might happen: 0 = Not at all Total ABHINAV-7 score (0-4 normal; 5-9 mild; 10-14 moderate; 15-21 severe): 0 Source: Developed by Drs. Guille Willoughby, Linh Armijo, Yang Taylor and colleagues, with an educational maki from [employer]. Physical exam (Primary Care) Vital Signs: Last Vital Signs Temp 97.5 F 09/11/24 15:07 Pulse 78 09/11/24 15:07 BP 128/70 09/11/24 15:07 Pulse Ox 97 09/11/24 15:07 Oxygen Delivery Method Room Air 09/11/24 15:07 BMI result Body Mass Index 24.6 Tobacco/Smoking Status: Tobacco use Status Tobacco use date assessed 09/11/24 09/11/24 15:10 Patient Tobacco Use Status Never used Tobacco 09/11/24 15:10 e-Cigarette/Vaping Use Never Used 09/11/24 15:10 PHQ-9: PHQ-9 Score PHQ-9: Total score 0 09/17/24 13:37 Depression Screening Interpretation: Negative Thrive Assessment: Date of Thrive Assessment Date Thrive assessed 09/11/24 09/11/24 15:10 Coding Level of Care Code New Pt Level 4 (94742) Diagnoses Type 2 diabetes mellitus with hyperglycemia, unspecified whether exterminator helper insulin use E11.65 Diabetes mellitus complication status: with hyperglycemia Diabetes mellitus exterminator helper insulin use: unspecified mcc insulin use status Primary hypertension I10 Hypertension type: primary hypertension Hyperlipidemia, unspecified hyperlipidemia type E78.5 Hyperlipidemia type: unspecified Hepatic cirrhosis, unspecified hepatic cirrhosis type, unspecified whether ascites present K74.60 Ascites presence: unspecified Hepatic cirrhosis type: unspecified hepatic cirrhosis Multiple myeloma, remission status unspecified C90.00 Multiple myeloma remission status: unspecified Additional Codes PHQ-9 - 15733 - PHQ-9 Billing: Yes ([id number]) Assessment & Plan Assessment & Plan (1) Type 2 diabetes mellitus: Code(s): E11.9 - Type 2 diabetes mellitus without complications Category: Medical Qualifiers: Diabetes mellitus complication status: with hyperglycemia Diabetes mellitus mcc insulin use: unspecified mcc insulin use status Qualified Code(s): E11.65 - Type 2 diabetes mellitus with hyperglycemia (2) Hypertension: Code(s): I10 - Essential (primary) hypertension Category: Medical Qualifiers: Hypertension type: primary hypertension Qualified Code(s): I10 - Essential (primary) hypertension (3) Hyperlipidemia: Code(s): E78.5 - Hyperlipidemia, unspecified Category: Medical Qualifiers: Hyperlipidemia type: unspecified Qualified Code(s): E78.5 - Hyperlipidemia, unspecified (4) Cirrhosis: Code(s): K74.60 - Unspecified cirrhosis of liver Category: Medical Qualifiers: Ascites presence: unspecified Hepatic cirrhosis type: unspecified hepatic cirrhosis Qualified Code(s): K74.60 - Unspecified cirrhosis of liver (5) Multiple myeloma: Code(s): C90.00 - Multiple myeloma not having achieved remission Category: Medical Qualifiers: Multiple myeloma remission status: unspecified Qualified Code(s): C90.00 - Multiple myeloma not having achieved remission Plan 73 y/o to establish care Past medical, surgical, social reviewed DM-controlled MM, h/o GI malignancy-following with heme/onc Orders: Orders TSH reflex Free T4 09/12/24 C90.00 - Multiple myeloma not having achieved remission, E11.9 - Type 2 diabetes mellitus without complications, E78.5 - Hyperlipidemia, unspecified, I10 - Essential (primary) hypertension, K74.60 - Unspecified cirrhosis of liver Lipid Panel 09/12/24 C90.00 - Multiple myeloma not having achieved remission, E11.9 - Type 2 diabetes mellitus without complications, E78.5 - Hyperlipidemia, unspecified, I10 - Essential (primary) hypertension Hemoglobin A1c 6 Months C90.00 - Multiple myeloma not having achieved remission, E11.9 - Type 2 diabetes mellitus without complications, E78.5 - Hyperlipidemia, unspecified, I10 - Essential (primary) hypertension TSH reflex Free T4 6 Months C90.00 - Multiple myeloma not having achieved remission, E11.9 - Type 2 diabetes mellitus without complications, E78.5 - Hyperlipidemia, unspecified, I10 - Essential (primary) hypertension Hemoglobin A1c 09/12/24 C90.00 - Multiple myeloma not having achieved remission, E11.9 - Type 2 diabetes mellitus without complications, E78.5 - Hyperlipidemia, unspecified, I10 - Essential (primary) hypertension, K74.60 - Unspecified cirrhosis of liver Comprehensive Met. Panel 09/12/24 C90.00 - Multiple myeloma not having achieved remission, E11.9 - Type 2 diabetes mellitus without complications, E78.5 - Hyperlipidemia, unspecified, I10 - Essential (primary) hypertension, K74.60 - Unspecified cirrhosis of liver Comprehensive Met. Panel 6 Months C90.00 - Multiple myeloma not having achieved remission, E11.9 - Type 2 diabetes mellitus without complications, E78.5 - Hyperlipidemia, unspecified, I10 - Essential (primary) hypertension
[2024-09-11 15:07] VITALS: BP 128/70; PULSE 78; TEMP 36.4; O2SAT 97; BMI 24.6
--- OUTSIDE RECORDS SUMMARY | 2024-09-11 15:07 | XMS_ITS ---
Author Organization [facility] Address [address] [place] [address] Care Team Providers Care Web Design Intern Name Role Phone Emiliano Guzman MD Primary Care Provider Guille Martin [phone] REASON FOR VISIT No show Encounters Encounter Location Date Provider Diagnosis [facility] 10 [facility] [address] [place] [phone] 08/07/2024 Guille Schuler Plan Of Treatment Next Appt Details Provider Name:Guille Schuler , 12/04/2024 01:20:00 PM, [address], [address], [place], [address], Progress Notes * JAMES SNOW RDOB:1950 (73 yo F)Acc No.[id number]:08/07/2024 Patient:?JAMES SNOW :1950???Age:73 Y???Sex:Female Address:[address] [place] [address] * true * Date:? Generated for Printi mookie/Paulina/eTransmitting on:?09/11/2024 03:07 PM EDT
--- OUTSIDE RECORDS SUMMARY | 2024-09-11 15:07 | XMS_ITS | Encounter Summary ---
Author Organization [facility] and [facility] Address [address] [place] [address] Care Team Providers Care Multimedia Authoring Specialist Name Role Phone Maged Guzman MD Primary Care Provider [phone] Encounter Details Date Type Department Care Team (Late st Contact Info) Description 10/28/2022 Scanned Document [facility] 40 [facility] [address] [place] [address] Main Lea MD [address] [place] [address] Social History Tobacco Use Types Packs/Day Years [...] Diagnoses Not on filedocumented in this encounter Care Teams Multimedia Authoring Specialist Relationship Specialty Start Date End Date Maged Guzman MD [address] [place] [address] Dr Fregoso Mitali RADHA [address] PCP - General Internal Medicine 06/07/14 documented as of this encounter
--- OUTSIDE RECORDS SUMMARY | 2024-09-11 15:07 | XMS_ITS | Encounter Summary ---
Author Organization [facility] and [facility] Address [address] [place] [address] Care Team Providers Care Erecting Crane Operator Name Role Phone Maged Guzman MD Primary Care Provider [phone] Encounter Details Date Type Department Care Team (Late st Contact Info) Description 09/20/2022 Scanned Document [facility] [address] [place] [address] Main Lea MD [address] [place] [address] Social History Tobacco Use Types Packs/Day Years [...] on filedocumented in this encounter Care Teams Erecting Crane Operator Relationship Specialty Start Date End Date Maged Guzman MD [address] [place] [address] [place] [address] PCP - General Internal Medicine 06/07/14 documented as of this encounter
--- OUTSIDE RECORDS SUMMARY | 2024-09-11 15:07 | XMS_ITS | Encounter Summary ---
Author Organization [facility] Address [address] [place] [address] Care Team Providers Care Housekeeping Assistant Name Role Phone Maged Guzman MD Primary Care Provider [phone] Encounter Details Date Type Department Care Team (Late st Contact Info) Description 07/05/2015 Scanned Document [facility] Health Information Management [address] [place] [phone] External, Provider Social History Tobacco Use Types Packs/Day Years Used Date Smoking Tobacco: Former Cigarettes 0.5 10 0 06/09/1973 - 06/09/1983 Smokeless Tobacco: Never Alcohol Use Standard Drinks/Week Comments Not Asked 0 (1 standard drink = 0.6 oz pur e alcohol) Comments Unknown Sex and Gender Information Value Date Recorded Sex Assigned at Not on file Legal Sex Female 6:21 AM EST Gender Identity Not on file Sexual Orientation Not on file documented as of this encounter Plan of Treatment Not on file documented as of this encounter Procedures Procedure Name Priority Date/Time Associated Diagnosis Comments LAB SCAN Routine 07/05/2015 LAB SCAN Routine 07/05/2015 documented in this encounter Results * Lab Scan (07/05/2015) Blood specimen (specimen) us Provider External LAB BLOOD ORDERABLES Final Res ult [facility] [place], [place], [place] * Lab Scan (07/05/2015) Blood specimen (specimen) us Provider External LAB BLOOD ORDERABLES Final Res ult [facility] documented in this encounter Visit Diagnoses Not on filedocumented in this encounter Care Teams Housekeeping Assistant Relationship Specialty Start Date End Date Maged Guzman MD [address] [place] [address] [place] [phone] PCP - General Internal Medicine 06/07/14 documented as of this encounter
--- OUTSIDE RECORDS SUMMARY | 2024-09-11 15:07 | XMS_ITS | Encounter Summary ---
Author Organization [facility] and [facility] Address [address] [place] [address] Care Team Providers Care Launch Operator Name Role Phone Maged Guzman MD Primary Care Provider [phone] Encounter Details Date Type Department Care Team (Late st Contact Info) Description 08/07/2018 Scanned Document [facility] Health Information Management [address] [place] [phone] External, Provider Social History Tobacco Use Types [...] on filedocumented in this encounter Care Teams Launch Operator Relationship Specialty Start Date End Date Maged Guzman MD [address] [place] [address] Dr Fregoso MitaliRADHA [phone] PCP - General Internal Medicine 06/07/14 documented as of this encounter
--- OUTSIDE RECORDS SUMMARY | 2024-09-11 15:07 | XMS_ITS ---
Author Organization [facility] Address [address] [place] [address] Care Team Providers Care Cpo Name Role Phone Megan BERKOWITZ, Emiliano Primary Care Provider Guille Martin [phone] REASON FOR VISIT Patient presents today for abn ct liver Encounters Encounter Location Date Provider Diagnosis [facility] 10 [facility] [address] [place] [address] 08/07/2024 Guille Schuler Plan Of Treatment Next Appt Details Provider Name:Guille Schuler , 12/04/2024 01:20:00 PM, [address], [address], [place], [address], Progress Notes * KOKOMAXGRISELDAE RDOB:1950 (73 yo F)Acc No.[id number]:08/07/2024 Progress Notes Patient:?JAMES SNOW Provider:?Guille Schuler MD :1950???Age:73 Y???Sex:Female D ate:08/07/2024 Address:[address] [place], [place] [phone] Pcp:Emiliano Guzman MD Subjective: * Chief Complaints: * ???1. Patient presents today for abn ct liver. * Medical History:? Objective: * Vitals:? Assessment: Plan: * Treatment: * * The named appointment provid er may or may not be the originator of this progress note, and it is not deemed complete until electronically signed by the appointment provider. Sign off status: Pending * Provider:?Guille Schuler MD Date:? 025 Generated for Tru damico/Paulina/Renuitting on:?09/11/2024 03:07 PM EDT
--- OUTSIDE RECORDS SUMMARY | 2024-09-11 15:07 | XMS_ITS | Encounter Summary ---
Author Organization [facility] [employer] [facility] and [facility] Address [address] [place] [address] Care Team Providers Care Journeyman Pipefitter Name Role Phone Maged Guzman MD Primary Care Provider Encounter Details Date Type Department Care Team (Late st Contact Info) Description 09/01/2021 Scanned Document [facility] 40 [facility] [address] [place] [address] External, Provider Social History Tobacco Use Types [...] Procedure Name Priority Date/Time Associated Diagnosis Comments MRI RESULT SCAN Routine 04/12/2021 LAB SCAN Routine 03/23/2021 documented in this encounter Results * MRI Result Scan (04/12/2021) us Provider External IMG SCAN REPORTS Final Result * Lab Scan (03/23/2021) us Provider External LAB BLOOD ORDERABLES Final Res ult documented in this encounter Visit Diagnoses Not on filedocumented in this encounter Care Teams Journeyman Pipefitter Relationship Specialty Start Date End Date Maged Guzman MD [address] [place] [address] [place] [address] PCP - General Internal Medicine 06/07/14 documented as of this encounter
--- OUTSIDE RECORDS SUMMARY | 2024-09-11 15:07 | XMS_ITS | Encounter Summary ---
Author Organization [facility] [employer] [facility] and [facility] Address [address] [place] [address] Care Team Providers Care Culinary Worker Name Role Phone Maged Guzman MD Primary Care Provider [phone] Encounter Details Date Type Department Care Team ([facility] st Contact Info) Description 02/20/2019 Scanned Document [facility] [address] [address] Blanca Carpenter MD [address] [place] [phone] Social History Tobacco Use Types Packs/Day Years [...] Date/Time Associated Diagnosis Comments LAB SCAN Routine 01/29/2019 documented in this encounter Results * Lab Scan (01/29/2019) Blanca Carpenter MD LAB BLOOD ORDERABLES Final Result documented in this encounter Visit Diagnoses Not on filedocumented in this encounter Care Teams Culinary Worker Relationship Specialty Start Date End Date Maged Guzman MD [address] [place] [address] [place] [address] PCP - General Internal Medicine 06/07/14 documented as of this encounter
--- OUTSIDE RECORDS SUMMARY | 2024-09-11 15:07 | XMS_ITS | Clinical Summary ---
Author Organization [address] Address [address] [place] [phone] Phone Care Team Providers Care Surgical Brace Maker Name Role Phone Maged Guzman MD Primary Care Provider [phone] Allergies Active Allergy Reactions Criticality Noted Date Comments Iodinated Contrast Media 11/28/2012 Meperidine 12/03/2012 Sulfa (Sulfonamide Antibiotics) 11/24 Medications amLODIPine (NORVASC) 5 MG tablet Take 1 tablet (5 mg total) by mouth daily. 3 Active furosemide (LASIX) 20 MG tablet Take 1 tablet (20 mg total) by mouth daily. 3 Active SYNTHROID 200 mcg tablet Take 150 mcg by mouth daily.. 3 Active LORazepam (ATIVAN) 1 MG tablet Take 1 tablet (1 mg total) by mouth nightly. 3 Active carvedilol (COREG) 6.25 MG Immediate Release tablet Take 1 tablet (6.25 mg total) by mouth 2 (two) times daily with breakfast and dinner. Active glipiZIDE (GLUCOTROL XL) 5 MG 24 hr tablet Take 2 tablets (10 mg total) by mouth daily. Active valsartan (DIOVAN) 160 MG tablet Take 1 tablet (160 mg total) by mouth daily. Active OZEMPIC 0.25 mg or 0.5 mg(2 mg/1.5 mL) pen injector Inject 0.25 mg under the skin once a week. 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 Immunizations Name Administration Dates Next Due Influenza, high dose, quad, 0.7 mL, preservative free 03/17/2020 Influenza, trivalent, 0.25 m L (6-35MO) injectable, contains preservative 02/01/2016,05/11/2010 ZOSTER LIVE (Zostavax) 11/11/2015 Social History Tobacco Use Types Packs/Day Years Used Date Smoking Tobacco: Former Cigarettes 0.5 10 0 06/09/1973 - 06/09/1983 Smokeless Tobacco: Never Tobacco Cessation:Counseling Given: Not Answered Alcohol Use Standard Drinks/Week Comments No 0 (1 standard drink = 0.6 oz pur e alcohol) Comments Unknown Sex and Gender Information Value Date Recorded Sex Assigned at Not on file Legal Sex Female 6:21 AM EST Gender Identity Not on file Sexual Orientation Not on file Last Filed Vital Signs Vital Sign Reading Time Taken Comments Blood Pressure 150/70 09/07/2022 7:57 AM EDT Pulse 101 09/07/2022 7:57 AM EDT Temperature 36.6 ??C (97.8 ??F) 02/16/2016 2:40 PM ED T Respiratory Rate 20 02/16/2016 2:40 PM EDT Oxygen Saturation 98% 02/16/2016 2:40 PM EDT Inhaled Oxygen Concentration - - Weight 71.2 kg (157 lb) 09/07/2022 7:57 AM EDT Height 160 cm (5' 3 ) 09/07/2022 7:57 AM EDT Body Mass Index 27.81 09/07/2022 7:57 AM EDT Plan of Treatment Health Maintenance Due Date Last Done Comments Diabetic eye exam 10/02/1961 Diabetic foot exam 10/02/1961 Hemoglobin A1C 10/02/1961 LDL monitoring 10/02/1961 Urine Microalbumin 10/02/1961 HIV screening 10/02/1964 Hepatitis C screening 10/02/1969 Pneumococcal Vaccine (50+ years) (1 of 2 - PCV) 10/02/1970 Tetanus adult (Td q 10,TDAP once) 1971 Breast cancer screening 1991 Colon cancer screening, Colonoscopy 10/02/1996 RSV Immunization (1 - Risk 60-74 years 1-dose series) 2011 Shingles vaccine (Shingrix) (1 of 2 - Shingrix (RZV) 2 Dose Standard Series) 01/11/2016 Osteoporosis screening (bone density) 10/02/2016 Covid-19 vaccine series (1 - 2023- season) 2024 Influenza vaccine 01/25/2025 03/29/2022, , 03/27/2020, Additional history exists Shingles vaccine (Zostavax) Discontinued 11/11/2015 Cervical cancer screening Discontinued Meningococcal Vaccine Aged Out No shakila francisco eligible based on patient's age to complete this topic Insurance MEDICARE [facility] MEDICARE [facility] MEDICARE [facility] Care Teams Surgical Brace Maker Relationship Specialty Start Date End Date Maged Guzman MD [address] [place] [address] [place] [phone] PCP - General Internal Medicine 06/07/14
--- OUTSIDE RECORDS SUMMARY | 2024-09-11 15:07 | XMS_ITS | Encounter Summary ---
Author Organization [facility] and [facility] Address [address] [place] [address] Care Team Providers Care Electrical Superintendent Name Role Phone Maged Guzman MD Primary Care Provider [phone] Encounter Details Date Type Department Care Team (Late st Contact Info) Description 06/30/2015 Scanned Document [facility] Health Information Management [address] [place] [phone] External, Provider Social History Tobacco Use Types [...] on filedocumented in this encounter Care Teams Electrical Superintendent Relationship Specialty Start Date End Date Maged Guzman MD [address] [place] [address] [place] [address] PCP - General Internal Medicine 06/07/14 documented as of this encounter
--- OUTSIDE RECORDS SUMMARY | 2024-09-11 15:07 | XMS_ITS | Encounter Summary ---
Author Organization [facility] [employer] [facility] and [facility] Address [address] [place] [address] Care Team Providers Care Curriculum Developer Name Role Phone Maged Guzman MD Primary Care Provider [phone] Encounter Details Date Type Department Care Team (Late st Contact Info) Description 10/08/2016 Scanned Document [facility] [address] [place] [address] External, Provider Social History Tobacco Use Types [...] Date/Time Associated Diagnosis Comments LAB SCAN Routine 07/26/2016 documented in this encounter Results * Lab Scan (07/26/2016) Blood specimen (specimen) us Provider External LAB BLOOD ORDERABLES Final Res ult documented in this encounter Visit Diagnoses Not on filedocumented in this encounter Care Teams Curriculum Developer Relationship Specialty Start Date End Date Maged Guzman MD [address] [place] [address] [place] [address] PCP - General Internal Medicine 06/07/14 documented as of this encounter
--- OUTSIDE RECORDS SUMMARY | 2024-09-11 15:07 | XMS_ITS | Encounter Summary ---
Author Organization [facility] [employer] [facility] and [facility] Address [address] [place] [address] Care Team Providers Care Manager Mission Name Role Phone Unavailable Primary Care Provider Unavailabl e Encounter Details Date Type Department Care Team (Late st Contact Info) Description 10/13/2010 8:30 AM EDT Hospital Encounter INTERFACE DEFAULT [address] [place] [phone] Social History Tobacco Use Types Packs/Day Years [...]
--- OUTSIDE RECORDS SUMMARY | 2024-09-11 15:07 | XMS_ITS | Encounter Summary ---
Author Organization [facility] Address [address] [place] [address] Care Team Providers Care Animal Nutrition Consultant Name Role Phone Maged Guzman MD Primary Care Provider [phone] Encounter Details Date Type Department Care Team (Late st Contact Info) Description 07/06/2015 Scanned Document [facility] Health Information Management [address] [place] [phone] External, Provider Social History Tobacco Use Types [...] Procedure Name Priority Date/Time Associated Diagnosis Comments PATHOLOGY/CYTOLOGY SCAN Routine 07/06/2015 documented in this encounter Results * Pathology/Cytology Scan (07/06/2015) us Provider External PATHOLOGY/CYTOLOGY ORDERABLES Final Result [facility] [place], [place], [facility] documented in this encounter Visit Diagnoses Not on filedocumented in this encounter Care Teams Animal Nutrition Consultant Relationship Specialty Start Date End Date Maged Guzman MD [address] [place] [address] [place] [address] PCP - General Internal Medicine 06/07/14 documented as of this encounter
--- OUTSIDE RECORDS SUMMARY | 2024-09-11 15:07 | XMS_ITS | Encounter Summary ---
Author Organization [facility] [employer] [facility] and [facility] Address [address] [place] [address] Care Team Providers Care Field Checker Name Role Phone Maged Guzman MD Primary Care Provider [phone] Encounter Details Date Type Department Care Team (Late st Contact Info) Description 09/28/2015 Scanned Document [facility] at [address] [address] Jose Min MD [address] [place] [phone] Social History Tobacco Use Types Packs/Day Years [...] on filedocumented in this encounter Care Teams Field Checker Relationship Specialty Start Date End Date Maged Guzman MD [address] [place] [address] Dr Fregoso Mitali RADHA [phone] PCP - General Internal Medicine 06/07/14 documented as of this encounter
--- OUTSIDE RECORDS SUMMARY | 2024-09-11 15:07 | XMS_ITS ---
Author Organization [facility] Address [address] [place] [address] Care Team Providers Care Associate Business Analyst Name Role Phone Emiliano Guzman MD Primary Care Provider Guille Martin [phone] REASON FOR VISIT abnormal liver CT scan Encounters Encounter Location Date Provider Diagnosis [facility] 10 [facility] [address] [place] [phone] 07/31/2024 Guille Schuler Plan Of Treatment Next Appt Details Provider Name:Guille Schuler , 12/04/2024 01:20:00 PM, [address], [address], [place], [address], Progress Notes * JAMES SNOW RDOB:1950 (73 yo F)Acc No.[id number]:07/31/2024 Progress Notes Patient:?JAMES SNOW Provider:?Guille Schuler MD :1950???Age:73 Y???Sex:Female D ate:07/31/2024 Address:[address] [place] [phone] Pcp:Emiliano Guzman MD Subjective: * Chief Complaints: * ???1. abnormal liver CT scan . * Medical History:? Objective: * Vitals:? Assessment: Plan: * Treatment: * * The named appointment provid er may or may not be the originator of this progress note, and it is not deemed complete until electronically signed by the appointment provider. Sign off status: Pending * Provider:?Guille Schuler MD Date:?03/07/2 025 Generated for Tru damico/Paulina/Mehul on:?09/11/2024 03:07 PM EDT
--- OUTSIDE RECORDS SUMMARY | 2024-09-11 15:07 | XMS_ITS | Encounter Summary ---
Author Organization [facility] [facility] and [facility] Address [address] [place] [phone] Care Team Providers Care Hosiery Operator Name Role Phone Maged Guzman MD Primary Care Provider [phone] Encounter Details Date Type Department Care Team (Late st Contact Info) Description 11/02/2016 Scanned Document [facility] Health Information Management [address] [place] [phone] External, Provider Social History Tobacco Use Types [...] on filedocumented in this encounter Care Teams Hosiery Operator Relationship Specialty Start Date End Date Maged Guzman MD [address] [place] [address] Dr Fregoso MitaliRADHA [phone] PCP - General Internal Medicine 06/07/14 documented as of this encounter
--- OUTSIDE RECORDS SUMMARY | 2024-09-11 15:07 | XMS_ITS | Encounter Summary ---
Author Organization [facility] [facility] and [facility] Address [address] [place] [phone] Care Team Providers Care Solution Engineer Name Role Phone Maged Guzman MD Primary Care Provider [phone] Encounter Details Date Type Department Care Team (Late st Contact Info) Description 2015 Scanned Document [facility] Health Information Management [address] [place] [phone] External, Provider Social History Tobacco Use Types [...] on filedocumented in this encounter Care Teams Solution Engineer Relationship Specialty Start Date End Date Maged Guzman MD [address] [place] [address] [place] [phone] PCP - General Internal Medicine 06/07/14 documented as of this encounter
--- OUTSIDE RECORDS SUMMARY | 2024-09-11 15:07 | XMS_ITS | Encounter Summary ---
Author Organization [facility] and [facility] Address [address] [place] [phone] Care Team Providers Care Road Machinery Inspector Name Role Phone Maged Guzman MD Primary Care Provider [phone] Encounter Details Date Type Department Care Team (Late st Contact Info) Description 07/05/2015 Scanned Document [facility] Health Information Management [address] [place] [phone] External, Provider Social History Tobacco Use Types [...] Procedure Name Priority Date/Time Associated Diagnosis Comments US RESULT SCAN Routine 07/05/2015 documented in this encounter Results * US Result Scan (07/05/2015) us Provider External IMG SCAN REPORTS Final Result [facility] [place], [place], [facility] documented in this encounter Visit Diagnoses Not on filedocumented in this encounter Care Teams Road Machinery Inspector Relationship Specialty Start Date End Date Maged Guzman MD [address] [place] [address] [place] [address] PCP - General Internal Medicine 06/07/14 documented as of this encounter
--- OUTSIDE RECORDS SUMMARY | 2024-09-11 15:07 | XMS_ITS | Encounter Summary ---
Author Organization [facility] [facility] and [facility] Address [address] [place] [phone] Care Team Providers Care Research And Development Chemist Name Role Phone Maged Guzman MD Primary Care Provider [phone] Reason for Referral * Imaging (Routine) - Closed Specialty Diagnoses / Procedures Referred By Contkenna t Referred To Contact Diagnostic Radiology Procedures US Abdomen Complete Guille Schuler MD [address] [place] [address] Dr Rosen [facility] [place] [address] Phone: tel: fax: Referral ID Status Reason Start Date Expiration Date Visits Re quested Visits Authorized [id number] Closed 03/23/2019 03/22/2020 1 1 Encounter Details Date Type Department Care Team (Late st Contact Info) Description 03/23/2019 Scanned Document [facility] [address] [facility] [address] [place] [address] Guille Schuler MD [address] [place] [address] Dr Rosen [address] [place] [address] [place] [phone] Social History Tobacco Use Types Packs/Day Years [...] Name Priority Date/Time Associated Diagnosis Comments US ABDOMEN COMPLETE Routine 02/26/2019 documented in this encounter Results * US Abdomen Complete (02/26/2019) Anatomical Region Laterality Modality Abdomen, RCC Abdomen/Pelvis Ultr asound Guille Schuler MD IMG US ORDERABLES Final Result documented in this encounter Visit Diagnoses Not on filedocumented in this encounter Care Teams Research And Development Chemist Relationship Specialty Start Date End Date Maged Guzman MD [address] [place] [address] [place] [phone] PCP - General Internal Medicine 06/07/14 documented as of this encounter
--- OUTSIDE RECORDS SUMMARY | 2024-09-11 15:07 | XMS_ITS | Encounter Summary ---
Author Organization [facility] [employer] [facility] and [facility] Address [address] [place] [phone] Care Team Providers Care Professor Of Management Name Role Phone Maged Guzman MD Primary Care Provider [phone] Reason for Referral * Imaging (Routine) - Closed Specialty Diagnoses / Procedures Referred By Too t Referred To Contact Diagnostic Radiology Procedures MRI Abdomen w wo IV Contrast Guille Schuler MD [address] [place] [address] Dr Rosen [address] [place] [phone] Phone: tel: fax: Referral ID Status Reason Start Date Expiration Date Visits Re quested Visits Authorized [id number] Closed 01/06/2019 01/06/2020 1 1 Encounter Details Date Type Department Care Team (Late st Contact Info) Description 01/06/2019 Scanned Document [facility] [address] [place] [address] [address] [place] [address] Guille Schuler MD [address] [place] [address] Dr Rosen [address] [place] [phone] Social History Tobacco Use Types Packs/Day [...] Name Priority Date/Time Associated Diagnosis Comments MRI ABDOMEN W WO IV CONTRAST Routine 09/04/2018 documented in this encounter Results * MRI Abdomen w wo IV Contrast (09/04/2018) Anatomical Region Laterality Modality Abdomen, RCC Abdomen/Pelvis Magn etic Resonance us Guille Schuler MD IMG MRI ORDERABLES Final Resul t documented in this encounter Visit Diagnoses Not on filedocumented in this encounter Care Teams Professor Of Management Relationship Specialty Start Date End Date Maged Guzman MD [address] [place] [address] [place] [phone] PCP - General Internal Medicine 06/07/14 documented as of this encounter
--- OUTSIDE RECORDS SUMMARY | 2024-09-11 15:07 | XMS_ITS | Encounter Summary ---
Author Organization [facility] [employer] [facility] and [facility] Address [address] [place] [phone] Care Team Providers Care Material Cutter Name Role Phone Maged Guzman MD Primary Care Provider [phone] Encounter Details Date Type Department Care Team (Late st Contact Info) Description 06/14/2012 Abstract [facility] Health Information Management [address] [place] [phone] [place], Primary Care [address] [place] [phone] Social History Tobacco Use Types Packs/Day Years Used Date Smoking Tobacco: Never Assessed Comments Unknown Sex and Gender Information Value Date Recorded Sex Assigned at Not on file Legal Sex Female 6:21 AM EST Gender Identity Not on file Sexual Orientation Not on file documented as of this encounter Last Filed Vital Signs Vital Sign Reading Time Taken Comments Blood Pressure - - Pulse - - Temperature - - Respiratory Rate - - Oxygen Saturation - - Inhaled Oxygen Concentration - - Weight 76.8 kg (169 lb 5 oz) 06/04/2012 12:01 AM EST Height 161 cm (5' 3.39 ) 03/09/2010 12:01 AM EDT Body Mass Index 29.63 03/09/2010 12:01 AM EDT documented in this encounter Plan of Treatment Not on file documented as of this encounter Visit Diagnoses Not on filedocumented in this encounter Care Teams Material Cutter Relationship Specialty Start Date End Date Maged Guzman MD [address] [place] [address] [place] [phone] PCP - General Internal Medicine 06/07/14 documented as of this encounter
--- OUTSIDE RECORDS SUMMARY | 2024-09-11 15:07 | XMS_ITS | Encounter Summary ---
Author Organization [facility] [employer] [facility] and [facility] Address [address] [place] [address] Care Team Providers Care Sales Marketing Manager Name Role Phone Maged Guzman MD Primary Care Provider [phone] Encounter Details Date Type Department Care Team (Late st Contact Info) Description 09/07/2022 Scanned Document [facility] [address] [place] [address] External, Provider Social History Tobacco Use Types [...] Date/Time Associated Diagnosis Comments LAB SCAN Routine 08/27/2022 MRI RESULT SCAN Routine 04/27/2022 LAB SCAN Routine 04/06/2022 documented in this encounter Results * Lab Scan (08/27/2022) us Provider External LAB BLOOD ORDERABLES Final Res ult * MRI Result Scan (04/27/2022) us Provider External IMG SCAN REPORTS Final Result * Lab Scan (04/06/2022) us Provider External LAB BLOOD ORDERABLES Final Res ult documented in this encounter Visit Diagnoses Not on filedocumented in this encounter Care Teams Sales Marketing Manager Relationship Specialty Start Date End Date Maged Guzman MD [address] [place] [address] [place] [phone] PCP - General Internal Medicine 06/07/14 documented as of this encounter
--- OUTSIDE RECORDS SUMMARY | 2024-09-11 15:07 | XMS_ITS | Encounter Summary ---
Author Organization [facility] and [facility] Address [address] [place] [phone] Care Team Providers Care Care Manager Cna Name Role Phone Maged Guzman MD Primary Care Provider [phone] Encounter Details Date Type Department Care Team (Late st Contact Info) Description 08/23/2016 Scanned Document [facility] at [address] [address] Guille Schuler MD [address] [place] [phone] Social History Tobacco Use Types Packs/Day Years [...] Associated Diagnosis Comments MRI RESULT SCAN Routine 08/17/2016 documented in this encounter Results * MRI Result Scan (08/17/2016) us Guille Schuler MD IMG SCAN REPORTS Final Result [facility] [place], [place], [facility] documented in this encounter Visit Diagnoses Not on filedocumented in this encounter Care Teams Care Manager Cna Relationship Specialty Start Date End Date Maged Guzman MD [address] [place] [address] [place] [phone] PCP - General Internal Medicine 06/07/14 documented as of this encounter
--- OUTSIDE RECORDS SUMMARY | 2024-09-11 15:07 | XMS_ITS | Encounter Summary ---
Author Organization [facility] and [facility] Address [address] [place] [phone] Care Team Providers Care Forward Air Controller/Air Officer Name Role Phone Maged Guzman MD Primary Care Provider [phone] Encounter Details Date Type Department Care Team (Late st Contact Info) Description 11/14/2015 Scanned Document [facility] [address] [facility] [address] [place] [address] External, Provider Social History Tobacco Use Types [...] Procedure Name Priority Date/Time Associated Diagnosis Comments PATHOLOGY REPORT (L) Routine 07/22/2015 documented in this encounter Results * Pathology report (L) (07/22/2015) Blood specimen (specimen) us Provider External PATHOLOGY/CYTOLOGY ORDERABLES Final Result [facility] [place], [place], [place] documented in this encounter Visit Diagnoses Not on filedocumented in this encounter Care Teams Forward Air Controller/Air Officer Relationship Specialty Start Date End Date Maged Guzman MD [address] [place] [address] [place] [phone] PCP - General Internal Medicine 06/07/14 documented as of this encounter
--- OUTSIDE RECORDS SUMMARY | 2024-09-11 15:07 | XMS_ITS | Encounter Summary ---
Author Organization [facility] and [facility] Address [address] [place] [phone] Care Team Providers Care Fellmongering Machine Operator Name Role Phone Maged Guzman MD Primary Care Provider [phone] Encounter Details Date Type Department Care Team (Late st Contact Info) Description 01/21/2016 Scanned Document [facility] Health Information Management [address] [place] [phone] External, Provider Social History Tobacco Use Types [...] Date/Time Associated Diagnosis Comments LAB SCAN Routine 01/21/2016 documented in this encounter Results * Lab Scan (01/21/2016) Blood specimen (specimen) us Provider External LAB BLOOD ORDERABLES Final Res ult [facility] [place], [place], [facility] documented in this encounter Visit Diagnoses Not on filedocumented in this encounter Care Teams Fellmongering Machine Operator Relationship Specialty Start Date End Date Maged Guzman MD [address] [place] [address] [place] [phone] PCP - General Internal Medicine 06/07/14 documented as of this encounter
--- OUTSIDE RECORDS SUMMARY | 2024-09-11 15:08 | XMS_ITS | Encounter Summary ---
Author Organization [facility] [employer] [facility] and [facility] Address [address] [place] [phone] Care Team Providers Care Co Founder And Chief Strategy Officer Name Role Phone Maged Guzman MD Primary Care Provider [phone] Encounter Details Date Type Department Care Team (Late st Contact Info) Description 08/01/2017 Scanned Document [facility] Health Information Management [address] [place] [phone] External, Provider Social History Tobacco Use Types [...] Date/Time Associated Diagnosis Comments LAB SCAN Routine 07/27/2017 documented in this encounter Results * Lab Scan (07/27/2017) Blood specimen (specimen) us Provider External LAB BLOOD ORDERABLES Final Res ult documented in this encounter Visit Diagnoses Not on filedocumented in this encounter Care Teams Co Founder And Chief Strategy Officer Relationship Specialty Start Date End Date Maged Guzman MD [address] [place] [address] Dr MckeonyoRADHA rivera [phone] PCP - General Internal Medicine 06/07/14 documented as of this encounter
--- OUTSIDE RECORDS SUMMARY | 2024-09-11 15:08 | XMS_ITS | Encounter Summary ---
Author Organization [facility] [employer] [facility] and [facility] Address [address] [place] [address] Care Team Providers Care Wood Mill Supervisor Name Role Phone Maged Guzman MD Primary Care Provider [phone] Encounter Details Date Type Department Care Team (Late st Contact Info) Description 03/08/2017 Scanned Document [facility] [address] [facility] [address] [place] [address] External, Provider Social History Tobacco Use Types [...] Associated Diagnosis Comments MRI RESULT SCAN Routine 02/15/2017 LAB SCAN Routine 01/18/2017 documented in this encounter Results * MRI Result Scan (02/15/2017) us Provider External IMG SCAN REPORTS Final Result * Lab Scan (01/18/2017) Blood specimen (specimen) us Provider External LAB BLOOD ORDERABLES Final Res ult documented in this encounter Visit Diagnoses Not on filedocumented in this encounter Care Teams Wood Mill Supervisor Relationship Specialty Start Date End Date Maged Guzman MD [address] [place] [address] [place] [phone] PCP - General Internal Medicine 06/07/14 documented as of this encounter
--- OUTSIDE RECORDS SUMMARY | 2024-09-11 15:08 | XMS_ITS | Encounter Summary ---
Author Organization [facility] [employer] [facility] and [facility] Address [address] [place] [phone] Care Team Providers Care Head Housekeeper Name Role Phone Maged Guzman MD Primary Care Provider [phone] Reason for Referral * Imaging (Routine) - Closed Specialty Diagnoses / Procedures Referred By Too flood Referred To Contact Diagnostic Radiology Procedures MRI Abdomen w wo IV Contrast MRCP Guille Schuler MD [address] [place] [address] Dr Rosen [address] [place] [phone] Phone: tel: fax: Referral ID Status Reason Start Date Expiration Date Visits Re quested Visits Authorized [id number] Closed 06/05/2019 06/04/2020 1 1 Encounter Details Date Type Department Care Team (Late st Contact Info) Description 06/05/2019 Scanned Document [facility] [address] [place] [address] [address] [place] [address] Guille Schuler MD [address] [place] [address] Dr Rosen [address] [place] [phone] Social History Tobacco Use Types Packs/Day [...] Comments MRI ABDOMEN W WO IV CONTRAST MRCP Routine 04/09/2019 documented in this encounter Results * MRI Abdomen w wo IV Contrast MRCP (04/09/2019) Anatomical Region Laterality Modality Abdomen, RCC Abdomen/Pelvis Magn etic Resonance us Guille Schuler MD IMG MRI ORDERABLES Final Resul t documented in this encounter Visit Diagnoses Not on filedocumented in this encounter Care Teams Head Housekeeper Relationship Specialty Start Date End Date Maged Guzman MD [address] [place] [address] [place] [phone] PCP - General Internal Medicine 06/07/14 documented as of this encounter
--- OUTSIDE RECORDS SUMMARY | 2024-09-11 15:08 | XMS_ITS | Encounter Summary ---
Author Organization [facility] [employer] [facility] and [facility] Address [address] [place] [address] Care Team Providers Care Neuroscientist Name Role Phone Maged Guzman MD Primary Care Provider [phone] Encounter Details Date Type Department Care Team (Late st Contact Info) Description 02/28/2018 Scanned Document [facility] [address] [place] [address] Maged Guzman MD [address] [place] [address] [place] [phone] Social History Tobacco Use Types Packs/Day Years [...] Date/Time Associated Diagnosis Comments LAB SCAN Routine 02/21/2018 LAB SCAN Routine 01/31/2018 CT RESULT SCAN Routine 12/19/2017 documented in this encounter Results * Lab Scan (02/21/2018) Blood specimen (specimen) us Maged Guzman MD LAB BLOOD ORDERABLES Final Resul t * Lab Scan (01/31/2018) Blood specimen (specimen) us Maged Guzman MD LAB BLOOD ORDERABLES Final Resul t * CT Result Scan (12/19/2017) us Keren Hancock MD IMG SCAN REPORTS Final Result documented in this encounter Visit Diagnoses Not on filedocumented in this encounter Care Teams Neuroscientist Relationship Specialty Start Date End Date Maged Guzman MD [address] [place] [address] [place] [phone] PCP - General Internal Medicine 06/07/14 documented as of this encounter
--- OUTSIDE RECORDS SUMMARY | 2024-09-11 15:08 | XMS_ITS | Encounter Summary ---
Author Organization [facility] [employer] [facility] and [facility] Address [address] [place] [phone] Care Team Providers Care Water Pump Operator Name Role Phone Maged Guzman MD Primary Care Provider [phone] Encounter Details Date Type Department Care Team (Late st Contact Info) Description 07/05/2017 Scanned Document [facility] Health Information Management [address] [place] [phone] External, Provider Social History Tobacco Use Types [...] on filedocumented in this encounter Care Teams Water Pump Operator Relationship Specialty Start Date End Date Maged Guzman MD [address] [place] [address] Dr Fregoso MitaliRADHA [phone] PCP - General Internal Medicine 06/07/14 documented as of this encounter
--- OUTSIDE RECORDS SUMMARY | 2024-09-11 15:08 | XMS_ITS | Encounter Summary ---
Author Organization [facility] [employer] [facility] and [facility] Address [address] [place] [phone] Care Team Providers Care Welder Tack Name Role Phone Maged Guzman MD Primary Care Provider [phone] Reason for Referral * Imaging (Routine) - Closed Specialty Diagnoses / Procedures Referred By Contac t Referred To Contact Diagnostic Radiology Procedures MRI Abdomen Pelvis w wo IV Contrast([facility] Guille Schuler MD [address] [place] [address] Dr Rosen [address] [place] [phone] Phone: tel: fax: Referral ID Status Reason Start Date Expiration Date Visits Re quested Visits Authorized [id number] Closed 09/06/2017 09/06/2018 1 1 Encounter Details Date Type Department Care Team (Late st Contact Info) Description 09/06/2017 Scanned Document [facility] [address] [place] [address] [address] [place] [address] Guille Schuler MD [address] [place] [address] Dr Rosen [address] [place] [phone] Social History Tobacco Use Types Packs/Day [...] Priority Date/Time Associated Diagnosis Comments MRI ABDOMEN PELVIS W WO IV CONTRAST([facility]) Routine 08/01/2017 LAB SCAN Routine 07/27/2017 documented in this encounter Results * MRI Abdomen Pelvis w wo IV Contrast([facility]) (08/01/2017) Anatomical Region Laterality Modality Abdomen, Pelvis, Ortho Pelvi s, Abdomen and Pelvis, RCC Abdomen/Pelvis Magnetic Resonance us Guille Schuler MD IMG MRI ORDERABLES Final Resul t * Lab Scan (07/27/2017) Blood specimen (specimen) us Guille Schuler MD LAB BLOOD ORDERABLES Final Res ult documented in this encounter Visit Diagnoses Not on filedocumented in this encounter Care Teams Welder Tack Relationship Specialty Start Date End Date Maged Guzman MD [address] [place] [address] [place] [phone] PCP - General Internal Medicine 06/07/14 documented as of this encounter
--- OUTSIDE RECORDS SUMMARY | 2024-09-11 15:08 | XMS_ITS | Encounter Summary ---
Author Organization [facility] [employer] [facility] and [facility] Address [address] [place] [phone] Care Team Providers Care Cover Machine Operator Name Role Phone Maged Guzman MD Primary Care Provider [phone] Encounter Details Date Type Department Care Team (Late st Contact Info) Description 08/01/2017 Scanned Document [facility] Health Information Management [address] [place] [phone] External, Provider Social History Tobacco Use Types [...] Associated Diagnosis Comments MRI RESULT SCAN Routine 08/01/2017 documented in this encounter Results * MRI Result Scan (08/01/2017) us Provider External IMG SCAN REPORTS Final Result documented in this encounter Visit Diagnoses Not on filedocumented in this encounter Care Teams Cover Machine Operator Relationship Specialty Start Date End Date Maged Guzman MD [address] [place] [address] [place] [phone] PCP - General Internal Medicine 06/07/14 documented as of this encounter
--- OUTSIDE RECORDS SUMMARY | 2024-09-11 15:08 | XMS_ITS | Patient Health Record ---
Author Organization [facility] Address [address] [place] [address] Care Team Providers Care Programmer Developer Name Role Phone Emiliano Guzman MD Primary Care Provider Guille Martin [phone] Allergies Allergen (clinical drug ingredient) Drug/Non Drug Allergy documented on EMR Reaction Allergy Type Onset Date Status Sulfa Unknown Drug Allergy Active meperidine Demerol Unknown Drug Allergy Active sulfamethoxazole / trimethoprim Bactrim Unknown Drug Allergy Active CT scan dye (uncoded) Unknown Allergy Active Shellfish (FN) shrimp (uncoded) Unknown Allergy Active Results Component Value Reference Range Notes Blood Urea Nitrogen Reviewed date:02/14/2024 04:45:03 PM Interpretation: Performing Lab:[facility], [address] [place] [phone] Notes/Report: Blood Urea Nitrogen 16 9-16 mg/dL Creatinine Reviewed date:02/14/2024 04:45:11 PM Interpretation: Performing Lab:[facility], [address] [place] [phone] Notes/Report: Creatinine 0.82 0.5-1.4 mg/dL Estimated Glomerular Filt Rate > 60 NOTE: For -[place] individuals, multiply the result by 1.210. Chronic Kidney Disease: Estimated GFR < 60 mL/min/1.73m2 Severe Kidney Disease: Estimated GFR < 15 mL/min/1.73m2 Alpha Fetoprotein Reviewed date:02/17/2024 11:29:32 PM Interpretation: Performing Lab:[facility], [address] [place] [phone] Notes/Report: Alpha Fetoprotein 3.4 Reference Range: <6.1 [...] of disease. THIS TEST WAS PERFORMED AT: [facility] [address] [place] [phone] KAMLA ALONSO MD MR abdomen wo/w con Reviewed date:04/12/2024 09:12:20 PM Interpretation: Performing Lab: Notes/Report: [address] [address] Magnetic Resonance Report Signed Patient: James Snow MR#: [id number] : 1950 Acct:[id number] Age/Sex: 73 / F ADM Date: 02/21/24 Loc: HO.MRI Attending Dr: Guille Schuler MD Ordering Physician: Guille Schuler MD Date of Service: 02/21/24 Procedure(s): MR abdomen wo/w con Accession Number(s): [id number] cc: Emiliano Guzman MD; Guille Schuler MD [...] Arvind Alcantar MD 03/27/2024 01:45 PM EDT RP Dictated By: Arvind Workman Signed By: <Electronically signed by Arvind Light in [place]> 03/27/24 1345 DD/ 1000 TD/TT: 02/21/24 1018 [facility] Practitioner: [place] [id number] Magnetic Resonance Report Signed Patient: Jacque Snow MR#: [id number] : 1950 Acct:[id number] Age/Sex: 73 / F ADM Date: 02/21/24 Loc: HO.MRI Attending Dr: Guille Schuler MD Ordering Physician: Guille Schuler MD Date of Service: 02/21/24 Procedure(s): MR abd omen wo/w con Accession Number(s): [id number] cc: Emiliano Guzman MD ; Guille Schuler MD EXAMINATION: MR ABDOMEN WITHOUT A ND WITH CONTRAST CLINICAL INFORMATION: Multiple myeloma. Ascites. Cirrhosis. Abnormal liver. COMPARISON: MRI abdomen dated April 26, 2022 TECHNIQUE: MR abdomen was perfo rmed without and with use of 6.5 mL intravenous Gadavist gadolinium contrast without reported immediate complications. Postcontrast images are performed in multiphase dynamic sequences. Imaging was performe d in 3 planes. FINDINGS: . Submitted for interpretation on March 27, 2024. There are a few, les s than 4 mm enhancing nodules in the right lung base/middle lung lob e right anterior lateral mediastinum region. There is a 6 mm enhancing nodule in the posterior right perihepatic region. LIVER, GALLBLADDER, AND BILIARY TREE: Liver measures 14 cm. There is a subtle nodular surfa ce. There is a parenchymal defect abnormality in the right hepatic lo be without focal enhancing lesion or restricted diffusion. The jeromy l vein, hepatic veins and intrahepatic portion of [...] No hydronephrosis. Subcentimeter cyst, both kidneys. GASTROINTESTINAL TRA CT: Stool within the large intestine. No intestinal obstruction pattern. Trace amount of ascites in the perihepatic and perisplenic. ABDOMINAL WALL: Draper tases abdominal rectus muscles in the periumbilical region. LYMPH NODES: No retroperitoneal lymphadenopathy. VASCULAR: No aneurys m or dissection, abdominal aorta. M R/MR abdomen wo/w con IMPRESSION: Perihepatic nodules, the largest in the posterior right perihepatic region measures 8 mm . Tumor infiltration cannot be excluded. Stable appearance of the liver without enhancing mass. Ascites, trace volume. Electronically elizabeth d by: Arvind Alcantar MD 03/27/2024 01:45 PM EDT RP Dictated By: Arvind Odonnell Signed By: <Electronically signed by Arvind Light in [place]> 03/27/24 1345 DD/ 1000 TD/TT: 02/21/24 1018 [facility] Practitioner: Reason For Referral No Information Medications Medication SIG (Take, Route, Frequency, Duration) Notes [...] 1 MG 1 tablet Orally prn Active Immunizations Vaccine Route Administration Date Status Comme nts Influenza Unknown 01/25/2018 Administered Influenza Unknown 03/27/2020 Administered Influenza Unknown 02/24/2021 Administered Influenza Unknown 03/29/2022 Administered Influenza Unknown 03/13/2023 Administered Problems Problem Type SNOMED Code ICD Code Onset Dates Problem Status W/U Status Risk Notes Problem 921816844 Gastro-esophagea l reflux disease without esophagitis (K21.9) Active confirmed Problem 388736986 Encounter for screening for malignant neoplasm of colon (Z12.11) Active confirmed Problem 974561471 History of adenomatous polyp of colon (Z86.010) Active confirmed Problem 658200811 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 Problem 52771377 Other cirrhosis of liver (K74.69) Active confirmed Problem 329175300 Other ascites (R18.8) Active confirmed Problem 922924924 Abnormal finding s on diagnostic imaging of liver and biliary tract (R93.2) Active confirmed Problem 092544145 Abnormal CT of l iver (R93.2) Active confirmed Problem 167540536 Gastroesophageal reflux disease without esophagitis (K21.9) Active confirmed Problem 679694630 Elevated liver enzymes (R74.8) Active confirmed Problem 761849163 Fatty liver (K76.0) Active confirmed Problem 12199803 Cirrhosis of judah er with ascites, unspecified hepatic cirrhosis type (K74.60) Active confirmed Problem 981395123 Liver lesion (K76.9) Active confirmed Problem 352458027 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 8 ; Cirrhosis of liver with ascites, unspecified hepatic cirrhosis type K74.60 ; Abnormal CT of liver R93.2 ; Liver nodule K76.89 and Liver lesion K76.9 [facility] [address] [place] [address] 04/10/2024 Guille Schuler [facility] [address] [place] [address] 08/07/2024 Guille Schuler Assessments Encounter Date Diagnosis (ICD Code) Assessment Notes Treatment Notes Treatment Clinical Notes Section Notes 01/31/2024 Cirrhosis of liver with ascites, unspecified hepatic cirrhosis type (ICD-10 - K74.60) Overall, James appears to be doing reasonably well considering her underlying diagnosis of myeloma and weekly need for chemotherapy. Her liver disease with associated cirrhosis appears to be stable and well-compensated at the present time without any signs of worsening ascites or jaundice. Given her recent laboratories from earlier this week, I would only recommend an alpha-fetoprotein level for followup In regard to the underlying cirrhosis. I would also recommend followup imaging of her liver given the previous abnormalities with multiple nodules in the underlying cirrhosis. She will be scheduled for a MRI of the liver with and without contrast. It may be a somewhat moot issue given her ongoing treatment for the myeloma, but nonetheless I think it would be helpful to be sure her liver has remained stable in regard to any potential for hepatoma. If things remains stable I will plan to see her in 6 months for a followup visit. I did advise her to certainly Call in the interim if she has any problems or questions I can be of assistance with. James was comfortable with this plan. Thank you again for allowing me to participate in James's care. I shall continue to keep you advised of her progress. 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 Her liver disease with associated cirrhosis appears to be stable and well-compensated at the present time without any signs of worsening ascites or jaundice. Given her recent laboratories from earlier this week, I would only recommend an alpha-fetoprotein level for followup In regard to the underlying cirrhosis. I would also recommend followup imaging of her liver given the previous abnormalities with multiple nodules in the underlying cirrhosis. She will be scheduled for a MRI of the liver with and without contrast. It may be a somewhat moot issue given her ongoing treatment for the myeloma, but nonetheless I think it would be helpful to be sure her liver has remained stable in regard to any potential for hepatoma. If things remains stable I will plan to see her in 6 months for a followup visit. I did advise her to certainly Call in the interim if she has any problems or questions I can be of assistance with. James was comfortable with this plan. Thank you again for allowing me to participate in James's care. I shall continue to keep you advised of her progress. 01/31/[address] of liver (ICD-10 - R93.2) Overall, James appears to be doing reasonably well considering her underlying diagnosis of myeloma and weekly need for chemotherapy. Her liver disease with associated cirrhosis appears to be stable and well-compensated at the present time without any signs of worsening ascites or jaundice. Given her recent laboratories from earlier this week, I would only recommend an alpha-fetoprotein level for followup In regard to the underlying cirrhosis. I would also recommend followup imaging of her liver given the previous abnormalities with multiple nodules in the underlying cirrhosis. She will be scheduled for a MRI of the liver with and without contrast. It may be a somewhat moot issue given her ongoing treatment for the myeloma, but nonetheless I think it would be helpful to be sure her liver has remained stable in regard to any potential for hepatoma. If things remains stable I will plan to see her in 6 months for a followup visit. I did advise her to certainly Call in the interim if she has any problems or questions I can be of assistance with. James was comfortable with this plan. Thank you again for allowing me to participate in James's care. I shall continue to keep you advised of her progress. 01/31/2024 Liver nodule (ICD-10 - K76.89) Overall, James appears to be doing reasonably well considering her underlying diagnosis of myeloma and weekly need for chemotherapy. Her liver disease with associated cirrhosis appears to be stable and well-compensated at the present time without any signs of worsening ascites or jaundice. Given her recent laboratories from earlier this week, I would only recommend an alpha-fetoprotein level for followup In regard to the underlying cirrhosis. I would also recommend followup imaging of her liver given the previous abnormalities with multiple nodules in the underlying cirrhosis. She will be scheduled for a MRI of the liver with and without contrast. It may be a somewhat moot issue given her ongoing treatment for the myeloma, but nonetheless I think it would be helpful to be sure her liver has remained stable in regard to any potential for hepatoma. If things remains stable I will plan to see her in 6 months for a followup visit. I did advise her to certainly Call in the interim if she has any problems or questions I can be of assistance with. James was comfortable with this plan. Thank you again for allowing me to participate in James's care. I shall continue to keep you advised of her progress. 01/31/2024 Liver lesion (ICD-10 - K76.9) Overall, James appears to be doing reasonably well considering her underlying diagnosis of myeloma and weekly need for chemotherapy. Her liver disease with associated cirrhosis appears to be stable and well-compensated at the present time without any signs of worsening ascites or jaundice. Given her recent laboratories from earlier this week, I would only recommend an alpha-fetoprotein level for followup In regard to the underlying cirrhosis. I would also recommend followup imaging of her liver given the previous abnormalities with multiple nodules in the underlying cirrhosis. She will be scheduled for a MRI of the liver with and without contrast. It may be a somewhat moot issue given her ongoing treatment for the myeloma, but nonetheless I think it would be helpful to be sure her liver has remained stable in regard to any potential for hepatoma. If things remains stable I will plan to see her in 6 months for a followup visit. I did advise her to certainly Call in the interim if she has any problems or questions I can be of assistance with. James was comfortable with this plan. Thank you again for allowing me to participate in James's care. I shall continue to keep you advised of her progress. Plan Of Treatment Pending Test Test Name Order Date CHEM 7 PROFILE 05/04/2016 CHEM 7 PROFILE 07/26/2016 CHEM 7 PROFILE 07/26/2015 ELECTROLYTES 08/11/2015 BUN 07/30/2018 BUN 10/05/2021 BUN 07/05/2017 BUN 04/06/2021 BUN 04/07/2020 BUN 11/02/2016 BUN 08/11/2015 BUN 10/20/2020 BUN 08/13/2019 BUN 03/23/2019 BUN 04/05/2022 BUN 01/31/2024 BUN 02/07/2018 CREATININE 02/07/2018 CREATININE 07/30/2018 CREATININE 07/05/2017 CREATININE 04/06/2021 CREATININE 04/07/2020 CREATININE 03/23/2019 CREATININE 11/02/2016 CREATININE 08/11/2015 CREATININE 10/20/2020 CREATININE 08/13/2019 LIVER PROFILE 05/04/2016 LIVER PROFILE 07/30/2018 LIVER PROFILE 09/05/2014 LIVER PROFILE 04/05/2022 LIVER PROFILE 07/26/2016 TRIGLYCERIDE 06/30/2015 CBC w DIFF 04/05/2022 CBC w DIFF 07/26/2016 CBC w DIFF 07/30/2018 CELL COUNT FLUID 07/12/2015 CELL COUNT FLUID 08/04/2015 PROTHROMBIN TIME (PT, INR) 07/26/2016 PROTHROMBIN TIME (PT, INR) 02/07/2018 PROTHROMBIN TIME (PT, INR) 05/04/2016 PROTHROMBIN TIME (PT, INR) 04/07/2020 PROTHROMBIN TIME (PT, INR) 07/30/2018 ALPHA-FETOPROTEIN,TUMOR MARKER 9 ALPHA-FETOPROTEIN,TUMOR MARKER 9 ALPHA-FETOPROTEIN,TUMOR MARKER 4 ALPHA-FETOPROTEIN,TUMOR MARKER 2 ALPHA-FETOPROTEIN,TUMOR MARKER 8 ALPHA-FETOPROTEIN,TUMOR MARKER 7 ALPHA-FETOPROTEIN,TUMOR MARKER 1 ALPHA-FETOPROTEIN,TUMOR MARKER 8 ALPHA-FETOPROTEIN,TUMOR MARKER 7 ALPHA-FETOPROTEIN,TUMOR MARKER 0 ALPHA-FETOPROTEIN,TUMOR MARKER 6 ALPHA-FETOPROTEIN,TUMOR MARKER 0 GRAM STAIN 07/12/2015 GRAM STAIN 08/04/2015 ROUTINE CULTURE 07/12/2015 ROUTINE CULTURE 08/04/2015 MRI ABD W&WO CONTRAST 05/04/2016 MRI ABD W&WO CONTRAST 04/07/2020 MRI ABD W&WO CONTRAST 10/05/2021 MRI ABD W&WO CONTRAST 07/30/2018 MRI ABD W&WO CONTRAST 01/31/2024 MRI ABD W&WO CONTRAST 04/05/2022 MRI ABD W&WO CONTRAST 03/23/2019 MRI ABD W&WO CONTRAST 10/20/2020 MRI ABD W&WO CONTRAST 07/05/2017 MRI ABD W&WO CONTRAST 07/26/2016 MRI ABD W&WO CONTRAST 04/06/2021 MRI ABD W&WO CONTRAST 02/07/2018 MRI ABD W&WO CONTRAST 11/02/2016 MRI ABD W&WO CONTRAST 08/13/2019 US PARACENTESIS GUIDE 07/12/2015 US PARACENTESIS GUIDE 08/04/2015 US PARACENTESIS GUIDE 06/30/2015 Creatinine 10/05/2021 Creatinine 01/31/2024 Alpha Fetoprotein 05/31/2023 Alpha Fetoprotein 10/20/2020 Future Test Test Name Order Date UPPER GI ENDOSCOPY 05/21/2013 COLONOSCOPY 07/05/2017 UPPER GI ENDOSCOPY 07/11/2017 Next Appt Details Provider Name:Guille Schuler , 12/04/2024 01:20:00 PM, [address] [place] [address], [address], [place], [address], Insurance Providers Payer Name Payer Address Payer Phone Subscriber Number Group Number Insured Name Patient Relationship to Insured Coverage Start Date Coverage End Date MEDICARE OF [place] [address] [facility] [place] [address] [id number] JAMES SNOW Self - patient is the insured [employer] ATT[employer] CLAIMS [address] [place] [address] [id number] EDY JAMES Self - patient is the insured Medical (General) History Medical History History ICD Code 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 w/u for hemochromatosis---started Tamica in 08/2014 Denies [place],CVA,Lung disease,renal disease Tubular adenoma removed by colonoscopy i n 09/2011--no colitis NIDDM Neg. colonoscopy in 2002 EGD in 04/2013--s/p Whipple- -anastomosis WNL--inflammatory gastric polyps, minimal HH--improved on a course of Carafate Cirrhosis--liver biopsy in F ebruary of 2015 revealed significant bridging fibrosis and areas of early cirrhosis in relation to fatty liver and an ongoing hepatitis-onset of ascites in 05/2015--paracentesis in 06/2015--negative cytology--c/w chylous ascites--- she is being followed by Dr. Blanca Carpenter at [facility] hepatology clinic as well Colonoscopy in August of 2017 revealed on ly a hyperplastic polyp EGD in August 2017 revealed g rade 1 esophageal varices--she has been on carvedilol for her beta oleg Multiple myeloma diagnosed 2 - starting chemo after November 08, 2022- Dr. Lea at [facility] neuropathy bilateral feet Surgical History Surgery Date(Month/Year) Whipple procedure done for d uodenal adenocarcinoma in 02/2010--done by Dr. Min at [facility] Cholecystectomy the Umbilical hernia surgery Tubal ligation [...]
== END 2024-09-11 15:32 | disposition home or self-care (01) ==
LOC: HO.HMCHD 14:59
PROVIDERS: PCP Internal Medicine; Visit Provider Internal Medicine
DX: E11.65 Type 2 diabetes mellitus with hyperglycemia (principal); I10 Essential (primary) hypertension; E78.5 Hyperlipidemia, unspecified; K74.60 Unspecified cirrhosis of liver; C90.00 Multiple myeloma not having achieved remission

== ENCOUNTER → 2024-09-11 14:59 | Outpatient (BNVA) | payer MEDICARE, SELFPAY | PROVIDERS: PCP Internal Medicine; Visit Provider Internal Medicine | DX: E11.65 Type 2 diabetes mellitus with hyperglycemia (principal); E11.22 Type 2 diabetes mellitus with diabetic chronic kidney disease; I12.9 Hypertensive chronic kidney disease with stage 1 through stage 4 chronic kidney disease, or unspecified chronic kidney disease; N18.9 Chronic kidney disease, unspecified; E03.9 Hypothyroidism, unspecified; E78.5 Hyperlipidemia, unspecified; K74.60 Unspecified cirrhosis of liver; C90.00 Multiple myeloma not having achieved remission; Z86.0100 Personal history of colon polyps, unspecified | CPT/HCPCS: 96127; 99202 ==

== ENCOUNTER 2024-09-12 07:16 | Outpatient (REF) | payer MEDICARE, SELFPAY ==
--- OUTSIDE RECORDS SUMMARY | 2024-09-12 07:20 | XMS_ITS | Patient Health Record ---
Author Organization [facility] Address [address] [place] [address] Care Team Providers Care Pawn Shop Keeper Name Role Phone Emiliano Guzman MD Primary Care Provider Guille Martin [phone] Allergies Allergen (clinical drug ingredient) Drug/Non Drug [...] Nitrogen Reviewed date:02/14/2024 04:45:03 PM Interpretation: Performing Lab:[facility], [address] [place] [phone] Notes/Report: Blood Urea Nitrogen 16 9-16 mg/dL Creatinine Reviewed date:02/14/2024 04:45:11 PM Interpretation: Performing Lab:[facility], [address] [place] [address] Notes/Report: Creatinine 0.82 0.5-1.4 mg/dL Estimated Glomerular Filt Rate > 60 NOTE: For -Thai individuals, multiply the result by 1.210. Chronic Kidney Disease: Estimated GFR < 60 mL/min/1.73m2 Severe Kidney Disease: Estimated GFR < 15 mL/min/1.73m2 Alpha Fetoprotein Reviewed date:02/17/2024 11:29:32 PM Interpretation: Performing Lab:[facility], [address] [place] [address] Notes/Report: Alpha Fetoprotein 3.4 Reference Range: <6.1 [...] of disease. THIS TEST WAS PERFORMED AT: [facility] [address] [place] [phone] KAMLA ALONSO MD MR abdomen wo/w con Reviewed date:04/12/2024 09:12:20 PM Interpretation: Performing Lab: Notes/Report: [address] [address] Magnetic Resonance Report Signed Patient: James Snow MR#: [id number] : 1950 Acct:[id number] Age/Sex: 73 / F ADM Date: 02/21/24 Loc: HO.MRI Attending Dr: Guille Schuler MD Ordering Physician: Guille Schuler MD Date of Service: 02/21/24 Procedure(s): MR abdomen wo/w con Accession Number(s): [id number] cc: Emiliano Guzman MD; Guille Schuler MD [...] 03/27/24 1345 DD/ 1000 TD/TT: 02/21/24 1018 Side Guider: [place] [address] Magnetic Resonance Report Signed Patient: Jacque Snow MR#: [id number] : 1950 Acct:[id number] Age/Sex: 73 / F ADM Date: 02/21/24 Loc: HO.MRI Attending Dr: Guille Schuler MD Ordering Physician: Guille Schuler MD Date of Service: 02/21/24 Procedure(s): MR abd omen wo/w con Accession Number(s): [id number] cc: Emiliano Guzman MD ; Guille Schuler [...] 03/27/24 1345 DD/ 1000 TD/TT: 02/21/24 1018 Side Guider: Reason For Referral No Information Medications Medication [...] Problem Status W/U Status Risk Notes Problem 544547173 Gastro-esophagea l reflux disease without esophagitis (K21.9) Active confirmed Problem 279041488 Encounter for screening for malignant neoplasm of colon (Z12.11) Active confirmed Problem 793715297 History of adenomatous polyp of colon (Z86.010) Active confirmed Problem 684426896 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 Problem 62522831 Other cirrhosis of liver (K74.69) Active confirmed Problem 890549784 Other ascites (R18.8) Active confirmed Problem 639560840 Abnormal finding s on diagnostic imaging of liver and biliary tract (R93.2) Active confirmed Problem 805664305 Abnormal CT of l iver (R93.2) Active confirmed Problem 580018578 Gastroesophageal reflux disease without esophagitis (K21.9) Active confirmed Problem 801859451 Elevated liver enzymes (R74.8) Active confirmed Problem 010886019 Fatty liver (K76.0) Active confirmed Problem 98848655 Cirrhosis of judah er with ascites, unspecified hepatic cirrhosis type (K74.60) Active confirmed Problem 315992791 Liver lesion (K76.9) Active confirmed Problem 261729999 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 8 ; Cirrhosis of liver with ascites, unspecified hepatic cirrhosis type K74.60 ; Abnormal CT of liver R93.2 ; Liver nodule K76.89 and Liver lesion K76.9 [facility] [address] [place] [address] 04/10/2024 Guille Schuler [facility] [address] [place] [address] 08/07/2024 Guille Schuler Assessments Encounter Date Diagnosis [...] Provider Name:Guille Schuler , 12/04/2024 01:20:00 PM, [address] [place] [address], [address], [place], [address], Insurance Providers Payer Name Payer Address Payer Phone Subscriber Number Group Number Insured Name Patient Relationship to Insured Coverage Start Date Coverage End Date MEDICARE OF [place] [address] 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. 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 w/u for hemochromatosis---started Tamica in 08/2014 Denies OR,CVA,Lung disease,renal disease Tubular adenoma removed by colonoscopy [...] being followed by Dr. Blanca Carpenter at [facility] hepatology clinic as well Colonoscopy in August of 2017 revealed on ly a hyperplastic polyp EGD in August 2017 revealed g rade 1 esophageal varices--she has been on carvedilol for her beta oleg Multiple myeloma diagnosed 2 - starting chemo after November 08, 2022- Dr. Lea at [facility] neuropathy bilateral feet Surgical History Surgery Date(Month/Year) Whipple procedure done for d uodenal adenocarcinoma in 02/2010--done by Dr. Min at [facility] Cholecystectomy the Umbilical hernia surgery Tubal ligation C-sections Hemorrhoidectomy Hysterectomy Cataracts 2011 Incisional hernia repair 05/[address] Amin--limited small bowel resection as well Incisional hernia repair--Dr yCrus Hancock---negative cytology on the ascites--needed a temporary drain for the ascites jun 15 2015 Hernia repair with mesh 2015 Right rotator cuff 04/2022 port put in right of chest november
--- OUTSIDE RECORDS SUMMARY | 2024-09-12 07:20 | XMS_ITS ---
Author Organization [facility] Address [address] [place] [address] Care Team Providers Care Veneer Joiner Name Role Phone Emiliano Guzman MD Primary Care Provider Guille Martin [phone] REASON FOR VISIT No show Encounters Encounter Location Date Provider Diagnosis [facility] 10 [facility] [address] [place] [address] 08/07/2024 Guille Schuler Plan Of Treatment Next Appt Details Provider Name:Guille Schuler , 12/04/2024 01:20:00 PM, [address], [address], [place], [address], Progress Notes * JAMES SNOW RDOB:1950 (73 yo F)Acc No.[id number]:08/07/2024 Patient:?JAMES SNOW :1950???Age:73 Y???Sex:Female Address:[address] [place] [address] * true * Date:? Generated for Baironi mookie/Paulina/eTransmitting on:?09/12/2024 07:20 AM EDT
--- OUTSIDE RECORDS SUMMARY | 2024-09-12 07:20 | XMS_ITS ---
Author Organization [facility] Address [address] [place] [address] Care Team Providers Care Sanding Machine Operator Name Role Phone Emiliano Guzman MD Primary Care Provider Guille Martin [phone] REASON FOR VISIT abnormal liver CT scan Encounters Encounter Location Date Provider Diagnosis [facility] 10 [facility] [address] [place] [phone] 07/31/2024 Guille Schuler Plan Of Treatment Next Appt Details Provider Name:Guille Schuler , 12/04/2024 01:20:00 PM, [address], [address], [place], [address], Progress Notes * JAMES SNOW RDOB:1950 (73 yo F)Acc No.[id number]:07/31/2024 Progress Notes Patient:?JAMES SNOW Provider:?Guille Schuler MD :1950???Age:73 Y???Sex:Female D ate:07/31/2024 Address:[address] [place], [place] [id number] Pcp:Emiliano Guzman MD Subjective: * Chief Complaints: [...] MD Date:?03/07/2 025 Generated for Tru damico/Paulina/Mehul on:?09/12/2024 07:20 AM EDT
--- OUTSIDE RECORDS SUMMARY | 2024-09-12 07:21 | XMS_ITS ---
Author Organization [facility] Address [address] [place] [address] Care Team Providers Care Technical Support Associate Name Role Phone Megan BERKOWITZ, Emiliano Primary Care Provider Guille Martin [phone] REASON FOR VISIT Patient presents today for abn ct liver Encounters Encounter Location Date Provider Diagnosis [facility] 10 [facility] [address] [place] [address] 08/07/2024 Guille Schuler Plan Of Treatment Next Appt Details Provider Name:Guille Schuler , 12/04/2024 01:20:00 PM, [address], [address], [place], [address], Progress Notes * JUAN MANUELROSEMAXGRISELDAE RDOB:1950 (73 yo F)Acc No.[id number]:08/07/2024 Progress Notes Patient:?JAMES SNOW Provider:?Guille Schuler MD :1950???Age:73 Y???Sex:Female D ate:08/07/2024 Address:[address] [place], [place] [phone] Pcp:Emiliano Guzman MD Subjective: * Chief Complaints: [...] MD Date:? 025 Generated for Tru damico/Paulina/Renuitting on:?09/12/2024 07:20 AM EDT
[2024-09-12 07:52] LABS: Estimated Average Glucose 114 mg/dL; Hemoglobin A1C 109.2784 umol/L; Hemoglobin A1c % 5.6 % (<6.0); Total Hemoglobin (HGBA1C) 2930.1525 umol/L
[2024-09-12 08:10] LABS: Alanine Aminotransferase 40 U/L (0-31); Albumin Level 3.6 g/dL (3.5-5.0); Alkaline Phosphatase 155 U/L (39-117); Aspartate Amino Transferase 31 U/L (5-31); Bilirubin Total 1.3 mg/dL (0.0-1.0); Blood Urea Nitrogen 11 mg/dL (9-16); Calcium 8.7 mg/dL (8.4-10.2); Cholesterol 100 mg/dL (<200); Estimated Glomerular Filt Rate > 60; Glucose Random 135 mg/dL (60-115); HDL Cholesterol 43 mg/dL (>40); LDL Cholesterol Calculated 44 mg/dL (<100); Total Protein 5.3 g/dL (6.5-8.0); Triglycerides 69 mg/dL (<150)
[2024-09-12 08:22] LABS: Anion Gap 11 (12-20); Carbon Dioxide 27 mmol/L (22-29); Chloride 110 mmol/L (96-108); Potassium 4.8 mmol/L (3.3-5.1); Sodium 143 mmol/L (135-145)
[2024-09-12 08:34] LABS: TSH reflex Free T4 0.45 uIU/mL (0.32-4.0)
== END 2024-09-12 07:17 | disposition home or self-care (01) ==
LOC: HO.LAB 07:16
PROVIDERS: PCP Internal Medicine; Visit Provider Internal Medicine
DX: E11.9 Type 2 diabetes mellitus without complications (principal); I10 Essential (primary) hypertension; E78.5 Hyperlipidemia, unspecified; C90.00 Multiple myeloma not having achieved remission; K74.60 Unspecified cirrhosis of liver
CPT/HCPCS: 36415; 80053; 80061; 83036; 84443

== ENCOUNTER 2024-11-20 10:36 | Outpatient (REF) | payer MEDICARE, SELFPAY ==
[2024-11-20 11:01] LABS: MANUAL DIFF FLAG NO
--- OUTSIDE RECORDS SUMMARY | 2024-11-20 11:29 | XMS_ITS | Encounter Summary ---
Author Organization [facility] Address [address] [place] [address] Care Team Providers Care Furniture Associate Name Role Phone Maged Guzman MD Primary Care Provider [phone] Encounter Details Date Type Department Care Team (Late st Contact Info) Description 08/23/2016 Scanned Document [facility] at [address] [address] Guille Schuler MD [address] [place] [phone] Social History Tobacco Use Types Packs/Day Years [...] Schuler MD IMG SCAN REPORTS Final Result [facility] [place], [place], [facility] documented in this encounter Visit Diagnoses Not on filedocumented in this encounter Care Teams Furniture Associate Relationship Specialty Start Date End Date Maged Guzman MD [address] [place] [address] [place] [address] PCP - General Internal Medicine 06/07/14 documented as of this encounter
[2024-11-20 11:41] LABS: Basophils Percent Auto 0.4 % (0-2); Eosinophils Absolute Auto 0.1 X10*3/uL (0.0-0.4); Hematocrit 32.3 % (37.0-47.0); Hemoglobin 11.1 g/dl (12.0-16.0); Imm Gran Abs Auto 0.02 X10*3/uL (0.00-0.03); Imm Gran Pct Auto 0.3 % (0.0-0.4); Lymphocytes Absolute Auto 1.1 X10*3/uL (1.2-4.9); Lymphocytes Percent Auto 13.2 % (20-40); Mean Corpuscular HGB Conc 34.4 g/dl (31.0-35.0); Mean Corpuscular Hemoglobin 32.8 pg (27.0-33.0); Mean Corpuscular Volume 95.6 fL (80.0-98.0); Mean Platelet Volume 10.7 fL (9.4-12.3); Monocytes Absolute Auto 0.4 X10*3/uL (0.1-1.2); Monocytes Percent Auto 5.5 % (2-11); Neutrophils Absolute Auto 6.4 x10*3/uL (2.0-8.3); Neutrophils Percent Auto 79.6 % (45-73); Red Blood Count 3.38 X10*6/uL (4.20-5.50)
[2024-11-20 11:42] LABS: Platelet Count 84 X10*3/uL (160-400)
[2024-11-20 12:05] LABS: Prothrombin Time 11.8 SEC (10.9-12.4)
[2024-11-20 12:19] LABS: Alanine Aminotransferase 21 U/L (0-31); Albumin Level 4.1 g/dL (3.5-5.0); Alkaline Phosphatase 134 U/L (39-117); Anion Gap 14 (12-20); Aspartate Amino Transferase 28 U/L (5-31); Bilirubin Direct 0.4 mg/dL (0.0-0.5); Bilirubin Total 0.9 mg/dL (0.0-1.0); Blood Urea Nitrogen 18 mg/dL (9-16); Carbon Dioxide 24 mmol/L (22-29); Chloride 109 mmol/L (96-108); Estimated Glomerular Filt Rate > 60; Potassium 3.5 mmol/L (3.3-5.1); Sodium 143 mmol/L (135-145)
[2024-11-25 12:49] LABS: Alpha Fetoprotein 3.8 ng/mL
== END 2024-11-20 10:37 | disposition home or self-care (01) ==
LOC: HO.LAB 10:36
PROVIDERS: PCP Internal Medicine; Visit Provider Internal Medicine
DX: K74.60 Unspecified cirrhosis of liver (principal); R14.0 Abdominal distension (gaseous)
CPT/HCPCS: 36415; 80051; 80076; 82105; 82565; 84520; 85025; 85610

== ENCOUNTER 2024-11-25 09:56 | Outpatient (REF) | payer MEDICARE, SELFPAY ==
--- OUTSIDE RECORDS SUMMARY | 2024-08-07 10:40 | XMS_ITS ---
Author Organization [facility] Address [address] [place] [address] Care Team Providers Care Sales Financial Analyst Name Role Phone Emiliano Guzman MD Primary Care Provider Guille Martin [phone] REASON FOR VISIT Patient presents today for abn ct liver Encounters Encounter Location Date Provider Diagnosis [facility] 10 [facility] [address] [place] [address] 08/07/2024 Guille Schuler Plan Of Treatment Next Appt Details Provider Name:Guille Schuler , 12/04/2024 01:20:00 PM, [address], [address], [place], [address], Progress Notes * JAMES SNOW RDOB:1950 (74 yo F)Acc No.[id number]:08/07/2024 Progress Notes Patient: JAMES OMER Provider: Abiodun Schuler MD :1950 A ge:73 Y S ex:Female Date:08/07/2024 Address:[address] [place], [place] [phone] Pcp:Emiliano Guzman MD Subjective: * Chief Complaints: [...] 08/07/2024 Generated for Tru damico/Paulina/Mehul on: 0 11/25/2024 10:19 AM EDT
--- NOTE | ~2024-11-25 | US_ITS ---
EXAMINATION: US ABDOMEN. ULTRASOUND SPECTRAL COLOR DOPPLER LIVER AND SPLEEN. CLINICAL INFORMATION: Cirrhosis. COMPARISON: February 26, 2019. Correlated to MRI abdomen dated February 21, 2024. TECHNIQUE: Ultrasound along with color Doppler imaging and spectral analysis was performed of the hepatic and splenic.. Real-time ultrasound of the abdomen using grayscale technique. FINDINGS: Liver measures 17 cm perTechnologist. Coarse echotexture. Nodular surface. No gross solid or cystic lesion. No intrahepatic biliary ductal dilatation. Main portal vein is patent with hepatopedal flow direction and peak systolic velocity 20 cm/s. Main hepatic artery is patent and peak systolic velocity 500 cm/s. Status post cholecystectomy. Common bile duct measures 1.1 cm. Right kidney measures 9 cm. Normal echotexture. Renal cortical thinning. No hydronephrosis. Left kidney measures 11 cm. Normal echotexture. Renal cortical thinning. No hydronephrosis. Spleen measures 13 cm. Ascites, small to moderate volume. Splenic vessels are patent with normal flow direction. US/US abdomen complete IMPRESSION: Normal patency and flow direction of the interrogated vessels. Cirrhosis with ascites. Elevated peak systolic velocity Main hepatic artery. No hydronephrosis. Splenomegaly. Electronically signed by: Arvind Alcantar MD 11/25/2024 04:09 PM EDT
--- NOTE | ~2024-11-25 | US_ITS ---
EXAMINATION: US ABDOMEN. ULTRASOUND SPECTRAL COLOR DOPPLER LIVER AND SPLEEN. CLINICAL INFORMATION: Cirrhosis. COMPARISON: February 26, 2019. Correlated to MRI abdomen dated February 21, 2024. TECHNIQUE: Ultrasound along with color Doppler imaging and spectral analysis was performed of the hepatic and splenic.. Real-time ultrasound of the abdomen using grayscale technique. FINDINGS: Liver measures 17 cm perTechnologist. Coarse echotexture. Nodular surface. No gross solid or cystic lesion. No intrahepatic biliary ductal dilatation. Main portal vein is patent with hepatopedal flow direction and peak systolic velocity 20 cm/s. Main hepatic artery is patent and peak systolic velocity 500 cm/s. Status post cholecystectomy. Common bile duct measures 1.1 cm. Right kidney measures 9 cm. Normal echotexture. Renal cortical thinning. No hydronephrosis. Left kidney measures 11 cm. Normal echotexture. Renal cortical thinning. No hydronephrosis. Spleen measures 13 cm. Ascites, small to moderate volume. Splenic vessels are patent with normal flow direction. US/US duplex arterial venous comp IMPRESSION: Normal patency and flow direction of the interrogated vessels. Cirrhosis with ascites. Elevated peak systolic velocity Main hepatic artery. No hydronephrosis. Splenomegaly. Electronically signed by: Arvind Alcantar MD 11/25/2024 04:09 PM EDT
--- OUTSIDE RECORDS SUMMARY | 2024-11-25 10:20 | XMS_ITS | Encounter Summary ---
Author Organization [facility] Address [address] [place] [address] Care Team Providers Care Sales Associate Key Holder Name Role Phone Maged Guzman MD Primary Care Provider [phone] Encounter Details Date Type Department Care Team (Late st Contact Info) Description 08/23/2016 Scanned Document [facility] Cancers Program at [address] [address] Guille Schuler MD [address] [place] [phone] Social History Tobacco Use Types Packs/Day Years [...] Schuler MD IMG SCAN REPORTS Final Result [facility] [place], [place], [facility] documented in this encounter Visit Diagnoses Not on filedocumented in this encounter Care Teams Sales Associate Key Holder Relationship Specialty Start Date End Date Maged Guzman MD [address] [place] [address] [place] [address] PCP - General Internal Medicine 06/07/14 documented as of this encounter
== END 2024-11-25 09:57 | disposition home or self-care (01) ==
LOC: HO.US 09:56
PROVIDERS: PCP Internal Medicine; Visit Provider Internal Medicine
DX: K74.60 Unspecified cirrhosis of liver (principal); R14.0 Abdominal distension (gaseous)
CPT/HCPCS: 76700; 93975

== ENCOUNTER → 2024-11-25 10:24 | Outpatient (BNV) | payer MEDICARE, SELFPAY | PROVIDERS: PCP Internal Medicine; Visit Provider Radiology Diagnostic Radiology | DX: K70.31 Alcoholic cirrhosis of liver with ascites (principal); R16.1 Splenomegaly, not elsewhere classified | CPT/HCPCS: 76700; 93975 ==

== ENCOUNTER 2024-12-03 10:17 | Outpatient (REF) | payer MEDICARE, SELFPAY ==
--- OUTSIDE RECORDS SUMMARY | 2024-07-31 09:00 | XMS_ITS ---
Author Organization [facility] Address [address] [place] [address] Care Team Providers Care Electrolytic Etcher Name Role Phone Emiliano Guzman MD Primary Care Provider Guille Martin [phone] REASON FOR VISIT abnormal liver CT scan Encounters Encounter Location Date Provider Diagnosis [facility] [address] [facility] [address] [place] [address] 07/31/2024 Guille Schuler Plan Of Treatment Next Appt Details Provider Name:Guille Schuler 12/04/2024 01:20:00 PM, [address] [facility], [address], [place], [address], Progress Notes * JAMES SNOW RDOB:1950 (74 yo F)Acc No.[id number]:07/31/2024 Progress Notes Patient: JAMES OMER Provider: Abiodun Schuler MD :1950 A ge:73 Y S ex:Female Date:07/31/2024 Address:[address] [place], [place] [phone] Pcp:Emiliano Guzman MD Subjective: * Chief Complaints: * 1 . [...] Schuler MD Date: 0 07/31/2024 Generated for Baironi mookie/Paulina/eTransmitting on: 0 12/03/2024 10:59 AM EDT
[2024-12-03 11:30] LABS: Blood Urea Nitrogen 15 mg/dL (9-16)
== END 2024-12-03 10:18 | disposition home or self-care (01) ==
LOC: HO.LAB 10:17
PROVIDERS: PCP Internal Medicine; Visit Provider Internal Medicine
DX: R14.0 Abdominal distension (gaseous) (principal); K74.60 Unspecified cirrhosis of liver
CPT/HCPCS: 36415; 84520

== ENCOUNTER 2024-12-18 08:12 | Outpatient (REF) | payer MEDICARE, SELFPAY ==
--- OUTSIDE RECORDS SUMMARY | 2024-08-07 10:40 | XMS_ITS ---
Author Organization [facility] Address [address] [place] [address] Care Team Providers Care Director Of Corporate Real Estate Name Role Phone Brooklyn Garza M.D. Primary Care Provider Unavail Guille Huertas [phone] REASON FOR VISIT Patient presents today for abn ct liver Encounters Encounter Location Date Provider Diagnosis [facility] 10 [facility] [address] [place] [address] 08/07/2024 Guille Schuler Plan Of Treatment Next Appt Details Provider Name:Guille Schuler , 04/30/2025 01:40:00 PM, [address], [address], [place], [address], Progress Notes * JAMES SNOW RDOB:1950 (74 yo F)Acc No.[id number]:08/07/2024 Progress Notes Patient: JAMES OMER Provider: Abiodun Schuler MD :1950 A ge:73 Y S ex:Female Date:08/07/2024 Address:[address] [place], [place] [phone] Pcp:Brooklyn Garza M.D. Subjective: * Chief Complaints: [...] 08/07/2024 Generated for Tru damico/Paulina/Mehul on: 0 12/18/2024 08:18 AM EDT
--- OUTSIDE RECORDS SUMMARY | 2024-12-18 08:18 | XMS_ITS | Encounter Summary ---
Author Organization [facility] Address [address] [place] [address] Care Team Providers Care Crew Person Name Role Phone Maged Guzman MD Primary Care Provider [phone] Encounter Details Date Type Department Care Team (Late st Contact Info) Description 08/23/2016 Scanned Document Gastrointestinal Cancers Program at [address] [address] Guille Schuler MD [address] [place] [phone] Social History Tobacco Use Types Packs/Day Years [...] Schuler MD IMG SCAN REPORTS Final Result [facility] [place], [place], [facility] documented in this encounter Visit Diagnoses Not on filedocumented in this encounter Care Teams Crew Person Relationship Specialty Start Date End Date Maged Guzman MD [address] [place] [address] [place] [address] PCP - General Internal Medicine 06/07/14 documented as of this encounter
--- OUTSIDE RECORDS SUMMARY | 2024-12-18 08:18 | XMS_ITS | Clinical Summary ---
Author Organization [facility] Address [address] [place] [address] Phone Care Team Providers Care Tennis Professional Name Role Phone Emiliano Guzman MD Primary Care Provider Main Lea MD Unavailable [phone] Medications No known medications Active Problems Patient Care Coordination No te Formatting of this note migh t be different from the original. Pt has Non-power port paced out in [facility] out patient facility. No information in chart, can draw labs peripherally No known active problems Social History Tobacco Use Types Packs/Day Years Used Date Smoking Tobacco: Never Assessed Education Answer Date Recorded Are you interested in more education? Not on shauna e 11/15/2022 Are you concerned about learning? Not on file 11/15/2022 No 11/15/2022 No 11/15/2022 Digital Access Answer Date Recorded No 11/15/2022 No 11/15/2022 Reliable internet access at home? Not on file 11/15/2022 Device with a working camera? Not on file Comments Unknown Sex and Gender Information Value Date Recorded Sex Assigned at Not on file Legal Sex Female 3:14 PM EDT Gender Identity Not on file Sexual Orientation Not on file Last Filed Vital Signs Vital Sign Reading Time Taken Comments Blood Pressure 192/77 02/25/2024 2:28 PM EDT Pulse 74 02/25/2024 2:28 PM EDT Temperature 36.8 C (98.3 F) 02/25/2024 2:27 PM EDT Respiratory Rate 18 02/25/2024 2:25 PM EDT Oxygen Saturation 99% 02/25/2024 2:28 PM EDT Inhaled Oxygen Concentration - - Weight 63.4 kg (139 lb 12.4 oz) 02/25/2024 2:25 PM EDT Height 158.6 cm (5' 2.44 ) 02/25/2024 2:25 PM ED T Body Mass Index 25.2 02/25/2024 2:25 PM EDT Plan of Treatment Upcoming Encounters Date Type Department Care Team (Late st Contact Info) Description 05/10/2025 2:30 PM EST Blood Draw Laboratory Services, [facility] [address] 2nd [place] [address] Luiz Muse MD [address] [place] [phone] [email or web address] 05/10/2025 3:30 PM EST Office Visit [facility], Division of Hematologic Oncology, [facility] [address] 7th [place] [address] Luiz Muse MD [address] [place] [id number] [email or web address] Health Maintenance Due Date Last Done Comments Adult Td,Tdap Booster 1950 LIPID PANEL 1950 DEPRESSION SCREENING 1963 SMOKING Hx and SMOKELESS TOBACCO SCREENING 10/02/1964 HEPATITIS C SCREENING 10/02/1969 PNEUMOCOCCAL VACCINES (50+ years) (1 of 2 - PCV) 10/02/1970 MAMMOGRAM 1991 COLOGUARD 10/02/1996 COLONOSCOPY 10/02/1996 COLORECTAL CANCER SCREENING 10/02/1996 FIT TEST 10/02/1996 FOBT 10/02/1996 SIGMOIDOSCOPY 10/02/1996 VIRTUAL COLONOSCOPY 10/02/1996 RSV VACCINE (1 - Risk 60-74 years 1-dose series) 2011 ZOSTER VACCINES (1 of 2) 01/06/2016 11/11/2015 OSTEOPOROSIS SCREENING INITIAL (ONE-TIME) 10/02/2016 COVID-19 VACCINE ( season) 2024 03/09/2022, 09/21/2021, 09/21/2021, Additional history exists HEPATITIS A VACCINES Aged Out No long er eligible based on patient's age to complete this topic HIB VACCINES Aged Out No longer eligi ble based on patient's age to complete this topic MENINGOCOCCAL VACCINES (ACWY) Aged Out No longer eligible based on patient's age to complete this topic MENINGOCOCCAL VACCINES (B) Aged Out N o longer eligible based on patient's age to complete this topic Medical Devices Not on file Insurance MEDICARE PART A & B [facility] MEDEX SUPPLEMENT MEDICARE PART A & B [employer] MEDEX SUPPLEMENT MEDICARE PART A & B [employer] MEDEX SUPPLEMENT MEDICARE PART A & B [employer] MEDEX SUPPLEMENT MEDICARE PART A & B [employer] MEDEX SUPPLEMENT MEDICARE PART A & B [facility] MEDEX SUPPLEMENT Care Teams Tennis Professional Relationship Specialty Start Date End Date Emiliano Guzman MD [address] [place] [address] Dr EPPERSON Henrietta [place], [place] PCP - General Internal Medicine 11/05/22 Main Lea MD [address] [place] [address] Dr BOO [place], [place] [email or web address] Referring Physician 11/05/22 Additional Source Comments The information contained in this document represents components of the legal health record. It is not the complete legal health record.[facility]
[2024-12-18 09:44] LABS: Anion Gap 13 (12-20); Blood Urea Nitrogen 24 mg/dL (9-16); Calcium 9.0 mg/dL (8.4-10.2); Carbon Dioxide 24 mmol/L (22-29); Chloride 111 mmol/L (96-108); Estimated Glomerular Filt Rate 49; Potassium 4.8 mmol/L (3.3-5.1); Sodium 143 mmol/L (135-145)
== END 2024-12-18 08:13 | disposition home or self-care (01) ==
LOC: HO.LABR 08:12
PROVIDERS: PCP Internal Medicine; Visit Provider Internal Medicine
DX: K76.0 Fatty (change of) liver, not elsewhere classified (principal); R18.8 Other ascites; K74.60 Unspecified cirrhosis of liver
CPT/HCPCS: 36415; 80048

== ENCOUNTER 2025-01-01 10:07 | Outpatient (REF) | payer MEDICARE, SELFPAY ==
--- OUTSIDE RECORDS SUMMARY | 2024-08-07 10:40 | XMS_ITS ---
Author Organization [facility] Address [address] [place] [address] Care Team Providers Care Mechanic'S Assistant Name Role Phone Brooklyn Garza M.D. Primary Care Provider Unavail Guille Huertas [phone] REASON FOR VISIT Patient presents today for abn ct liver Encounters Encounter Location Date Provider Diagnosis [facility] 10 [facility] [address] [place] [address] 08/07/2024 Guille Schuler Plan Of Treatment Next Appt Details Provider Name:Guille Schuler , 04/30/2025 01:40:00 PM, [address], [address], [place], [address], Progress Notes * JAMES SNOW RDOB:1950 (74 yo F)Acc No.[id number]:08/07/2024 Progress Notes Patient: JAMES OMER Provider: Abiodun Schuler MD :1950 A ge:73 Y S ex:Female Date:08/07/2024 Address:[address] [place], [place] [phone] Pcp:Brooklyn Garza M.D. Subjective: * Chief Complaints: [...] 08/07/2024 Generated for Tru damico/Paulina/Mehul on: 0 01/01/2025 10:14 AM EDT
--- OUTSIDE RECORDS SUMMARY | 2025-01-01 10:14 | XMS_ITS | Clinical Summary ---
Author Organization [facility] Address [address] [place] [address] Phone Care Team Providers Care Silver Plater Name Role Phone Emiliano Guzman MD Primary Care Provider Main Lea MD Unavailable [phone] Medications No known medications Active Problems Patient Care Coordination No te Formatting of this note migh t be different from the original. Pt has Non-power port paced out in [facility] out patient facility. No information in chart, [...] 2:30 PM EST Blood Draw Laboratory Services, [facility] [address] 2nd [place] [address] Luiz Muse MD [address] [place] [phone] [email or web address] 05/10/2025 3:30 PM EST Office Visit [facility], Division of Hematologic Oncology, [facility] [address], 7th [place] [address] Luiz Muse MD [address] [place] [phone] [email or web address] Health Maintenance Due Date Last Done Comments [...] file Insurance MEDICARE PART A & B [facility] MEDEX SUPPLEMENT MEDICARE PART A & B [employer] MEDEX SUPPLEMENT MEDICARE PART A & B [employer] MEDEX SUPPLEMENT MEDICARE PART A & B [employer] MEDEX SUPPLEMENT MEDICARE PART A & B [employer] MEDEX SUPPLEMENT MEDICARE PART A & B [facility] MEDEX SUPPLEMENT Care Teams Silver Plater Relationship Specialty Start Date End Date Emiliano Guzman MD [address] [place] [address] Dr EPPERSON Henrietta [place], [place] PCP - General Internal Medicine 11/05/22 Main Lea MD [address] [place] [address] Dr BOO [place], [place] [email or web address] Referring Physician 11/05/22 Additional Source Comments The information contained in this document represents components of the legal health record. It is not the complete legal health record.[facility]
--- OUTSIDE RECORDS SUMMARY | 2025-01-01 10:14 | XMS_ITS | Encounter Summary ---
Author Organization [facility] Address [address] [place] [address] Care Team Providers Care Machine Gunner Name Role Phone Maged Guzman MD Primary Care Provider [phone] Encounter Details Date Type Department Care Team (Late st Contact Info) Description 08/23/2016 Scanned Document Gastrointestinal Cancers Program at [address] [address] Guille Schuler MD [address] [place] [phone] Social History Tobacco Use Types Packs/Day Years [...] Schuler MD IMG SCAN REPORTS Final Result [facility] [place], [place], [facility] documented in this encounter Visit Diagnoses Not on filedocumented in this encounter Care Teams Machine Gunner Relationship Specialty Start Date End Date Maged Guzman MD [address] [place] [address] [place] [address] PCP - General Internal Medicine 06/07/14 documented as of this encounter
[2025-01-01 11:31] LABS: Anion Gap 14 (12-20); Blood Urea Nitrogen 34 mg/dL (9-16); Calcium 8.8 mg/dL (8.4-10.2); Carbon Dioxide 27 mmol/L (22-29); Chloride 105 mmol/L (96-108); Estimated Glomerular Filt Rate 41; Potassium 4.4 mmol/L (3.3-5.1); Sodium 142 mmol/L (135-145)
== END 2025-01-01 10:08 | disposition home or self-care (01) ==
LOC: HO.LABR 10:07
PROVIDERS: PCP Student in an Organized Health Care Education/Training Program; Visit Provider Internal Medicine
DX: K76.0 Fatty (change of) liver, not elsewhere classified (principal); K74.60 Unspecified cirrhosis of liver; R18.8 Other ascites
CPT/HCPCS: 36415; 80048

== ENCOUNTER 2025-01-15 08:24 | Outpatient (REF) | payer MEDICARE, SELFPAY ==
--- OUTSIDE RECORDS SUMMARY | 2024-08-07 10:40 | XMS_ITS ---
Author Organization [facility] Address [address] [place] [address] Care Team Providers Care Test Administrator Name Role Phone Brooklyn Garza M.D. Primary Care Provider Unavail Guille Huertas [phone] REASON FOR VISIT Patient presents today for abn ct liver Encounters Encounter Location Date Provider Diagnosis [facility] 10 [facility] [address] [place] [address] 08/07/2024 Guille Schuler Plan Of Treatment Next Appt Details Provider Name:Guille Schuler , 04/30/2025 01:40:00 PM, [address], [address], [place], [address], Progress Notes * JAMES SNOW RDOB:1950 (74 yo F)Acc No.[id number]:08/07/2024 Progress Notes Patient: JAMES OMER Provider: Abiodun Schuler MD :1950 A ge:73 Y S ex:Female Date:08/07/2024 Address:[address] [place], [place] [phone] Pcp:Brooklyn Garza M.D. Subjective: * Chief Complaints: [...] 08/07/2024 Generated for Tru damico/Paulina/Mehul on: 0 01/15/2025 08:37 AM EDT
--- OUTSIDE RECORDS SUMMARY | 2025-01-15 08:37 | XMS_ITS | Encounter Summary ---
Author Organization [facility] and [facility] Address [address] [place] [address] Care Team Providers Care Cartographic Technician Name Role Phone Maged Guzman MD Primary Care Provider [phone] Encounter Details Date Type Department Care Team (Late st Contact Info) Description 08/23/2016 Scanned Document [facility] at [address] [address] Guille Schuler MD [address] [place] [phone] Social History Tobacco Use Types Packs/Day Years [...] Schuler MD IMG SCAN REPORTS Final Result [facility] [place], [place], [facility] documented in this encounter Visit Diagnoses Not on filedocumented in this encounter Care Teams Cartographic Technician Relationship Specialty Start Date End Date Maged Guzman MD [address] [place] [address] [place] [address] PCP - General Internal Medicine 06/07/14 documented as of this encounter
--- OUTSIDE RECORDS SUMMARY | 2025-01-15 08:38 | XMS_ITS | Clinical Summary ---
Author Organization [facility] Address [address] [place] [address] Phone Care Team Providers Care Industrial Illuminating Engineer Name Role Phone Emiliano Guzman MD Primary Care Provider Main Lea MD Unavailable [phone] Medications No known medications Active Problems Patient Care Coordination No te Formatting of this note migh t be different from the original. Pt has Non-power port paced out in [facility] out patient facility. No information in [...] 2:30 PM EST Blood Draw Laboratory Services, [facility] [address] [facility], 2nd [place] [address] Luiz Muse MD [address] [place] [id number] [email or web address] 05/10/2025 3:30 PM EST Office Visit [facility], Division of Hematologic Oncology, [facility] [address] [facility], 7th [place] [address] Luiz Muse MD [address] [place] [id number] [email or web address] [email or web address] Health Maintenance Due Date Last Done Comments [...] file Insurance MEDICARE PART A & B [facility] MEDEX SUPPLEMENT MEDICARE PART A & B [employer] SU[employer] MEDICARE PART A & B [employer] SU[employer] MEDICARE PART A & B [employer] SU[employer] MEDICARE PART A & B [employer] SU[employer] MEDICARE PART A & B [facility] MEDEX SUPPLEMENT Care Teams Industrial Illuminating Engineer Relationship Specialty Start Date End Date Emiliano Guzman MD [address] [place] [address] Dr EPPERSON Henrietta [place], [place] PCP - General Internal Medicine 11/05/22 Main Lea MD [address] [place] [address] Dr [email or web address] [email or web address], [email or web address] Referring Physician 11/05/22 Additional Source Comments The information contained in this document represents components of the legal health record. It is not the complete legal health record.[facility]
[2025-01-15 10:21] LABS: Alanine Aminotransferase 39 U/L (0-31); Albumin Level 4.1 g/dL (3.5-5.0); Alkaline Phosphatase 162 U/L (39-117); Anion Gap 13 (12-20); Aspartate Amino Transferase 26 U/L (5-31); Blood Urea Nitrogen 20 mg/dL (9-16); Calcium 9.0 mg/dL (8.4-10.2); Carbon Dioxide 23 mmol/L (22-29); Chloride 111 mmol/L (96-108); Estimated Glomerular Filt Rate 54; Potassium 4.7 mmol/L (3.3-5.1); Sodium 142 mmol/L (135-145); Total Protein 5.9 g/dL (6.5-8.0)
== END 2025-01-15 08:25 | disposition home or self-care (01) ==
LOC: HO.LABR 08:24
PROVIDERS: PCP Student in an Organized Health Care Education/Training Program; Visit Provider Internal Medicine
DX: K76.0 Fatty (change of) liver, not elsewhere classified (principal); K74.60 Unspecified cirrhosis of liver; R18.8 Other ascites
CPT/HCPCS: 36415; 80053

== ENCOUNTER 2025-01-29 08:41 | Outpatient (REF) | payer MEDICARE, SELFPAY ==
--- OUTSIDE RECORDS SUMMARY | 2010-10-13 08:30 | XMS_ITS | Encounter Summary ---
Author Organization [facility] [employer] [facility] and [facility] Address [address] [place] [phone] Care Team Providers Care Metal Organ Pipe Maker Name Role Phone Unavailable Primary Care Provider Unavailabl e Encounter Details Date Type Department Care Team (Late st Contact Info) Description 10/13/2010 8:30 AM EDT Hospital Encounter INTERFACE DEFAULT [address] [place] [phone] Social History Tobacco Use Types Packs/Day Years [...]
--- OUTSIDE RECORDS SUMMARY | 2024-07-31 09:00 | XMS_ITS ---
Author Organization [facility] Address [address] [place] [address] Care Team Providers Care Room Attendants Name Role Phone Brooklyn Garza M.D. Primary Care Provider Unavail Guille Huertas [phone] REASON FOR VISIT abnormal liver CT scan Encounters Encounter Location Date Provider Diagnosis [facility] [address] [facility] [address] [place] [address] 07/31/2024 Guille Schuler Plan Of Treatment Next Appt Details Provider Name:Guille Schuler , 04/30/2025 01:40:00 PM, [address] [facility], [address], [place], [address], Progress Notes * JAMES SNOW RDOB:1950 (74 yo F)Acc No.[id number]:07/31/2024 Progress Notes Patient: JAMES OMER Provider: Abiodun Schuler MD :1950 A ge:73 Y S ex:Female Date:07/31/2024 Address:[address] [place], [place] [phone] Pcp:Brooklyn Garza M.D. Subjective: * Chief Complaints: [...] 07/31/2024 Generated for Tru damico/Paulina/Mehul on: 0 01/29/2025 09:13 AM EDT
--- OUTSIDE RECORDS SUMMARY | 2024-08-07 10:40 | XMS_ITS ---
Author Organization [facility] Address [address] [place] [address] Care Team Providers Care Gas System Operator Name Role Phone Brooklyn Garza M.D. Primary Care Provider Unavail Guille Huertas [phone] REASON FOR VISIT Patient presents today for abn ct liver Encounters Encounter Location Date Provider Diagnosis [facility] 10 [facility] [address] [place] [address] 08/07/2024 Guille Schuler Plan Of Treatment Next Appt Details Provider Name:Guille Schuler , 04/30/2025 01:40:00 PM, [address], [address], [place], [address], Progress Notes * JAMES SNOW RDOB:1950 (74 yo F)Acc No.[id number]:08/07/2024 Progress Notes Patient: JAMES OMER Provider: Abiodun Schuler MD :1950 A ge:73 Y S ex:Female Date:08/07/2024 Address:[address] [place], [place] [phone] Pcp:Brooklyn Garza M.D. Subjective: * Chief Complaints: [...] 08/07/2024 Generated for Tru damico/Paulina/Mehul on: 0 01/29/2025 09:13 AM EDT
--- OUTSIDE RECORDS SUMMARY | 2025-01-29 09:13 | XMS_ITS | Encounter Summary ---
Author Organization [facility] and [facility] Address [address] [place] [phone] Care Team Providers Care Resident Care Spec Name Role Phone Maged Guzman MD Primary Care Provider [phone] Encounter Details Date Type Department Care Team (Late st Contact Info) Description 01/21/2016 Scanned Document [facility] Health Information Management [address] [place] [phone] External, Provider Social History Tobacco Use Types [...] External LAB BLOOD ORDERABLES Final Res ult [facility] [place], [place], [facility] documented in this encounter Visit Diagnoses Not on filedocumented in this encounter Care Teams Resident Care Spec Relationship Specialty Start Date End Date Maged Guzman MD [address] [place] [address] [place] [address] PCP - General Internal Medicine 06/07/14 documented as of this encounter
--- OUTSIDE RECORDS SUMMARY | 2025-01-29 09:13 | XMS_ITS | Encounter Summary ---
Author Organization [facility] and [facility] Address [address] [place] [address] Care Team Providers Care Warp Knitter Name Role Phone Maged Guzman MD Primary Care Provider [phone] Encounter Details Date Type Department Care Team (Late st Contact Info) Description 11/14/2015 Scanned Document [facility] [address] [facility] [address] [facility] [address] [place] [address] External, Provider Social History Tobacco Use Types [...] us Provider External PATHOLOGY/CYTOLOGY ORDERABLES Final Result [facility] [place], [place], [place] documented in this encounter Visit Diagnoses Not on filedocumented in this encounter Care Teams Warp Knitter Relationship Specialty Start Date End Date Maged Guzman MD [address] [place] [address] [place] [address] PCP - General Internal Medicine 06/07/14 documented as of this encounter
--- OUTSIDE RECORDS SUMMARY | 2025-01-29 09:13 | XMS_ITS | Encounter Summary ---
Author Organization [facility] [employer] [facility] and [facility] Address [address] [place] [address] Care Team Providers Care Eyelet Punch Operator Name Role Phone Maged Guzman MD Primary Care Provider Encounter Details Date Type Department Care Team (Late st Contact Info) Description 10/08/2016 Scanned Document [facility] [address] [facility] [address] [place] [address] External, Provider Social History Tobacco Use Types [...] on filedocumented in this encounter Care Teams Eyelet Punch Operator Relationship Specialty Start Date End Date Maged Guzman MD [address] [place] [address] [place] [address] PCP - General Internal Medicine 06/07/14 documented as of this encounter
--- OUTSIDE RECORDS SUMMARY | 2025-01-29 09:13 | XMS_ITS | Encounter Summary ---
Author Organization [facility] [employer] [facility] and [facility] Address [address] [place] [phone] Care Team Providers Care Stock House Worker Name Role Phone Maged Guzman MD Primary Care Provider [phone] Encounter Details Date Type Department Care Team (Late st Contact Info) Description 11/02/2016 Scanned Document [facility] Health Information Management [address] [place] [phone] External, Provider Social History Tobacco Use Types [...] on filedocumented in this encounter Care Teams Stock House Worker Relationship Specialty Start Date End Date Maged Guzman MD [address] [place] [address] Dr Fregoso MitaliRADHA [address] PCP - General Internal Medicine 06/07/14 documented as of this encounter
--- OUTSIDE RECORDS SUMMARY | 2025-01-29 09:13 | XMS_ITS | Encounter Summary ---
Author Organization [facility] and [facility] Address [address] [place] [address] Care Team Providers Care Communications Consultant Name Role Phone Maged Guzman MD Primary Care Provider [phone] Encounter Details Date Type Department Care Team (Late st Contact Info) Description 08/23/2016 Scanned Document [facility]ancers Program at [address] [address] Guille Schuler MD [address] [place] [phone] Social History Tobacco Use Types Packs/Day Years [...] Schuler MD IMG SCAN REPORTS Final Result [facility] [place], [place], [facility] documented in this encounter Visit Diagnoses Not on filedocumented in this encounter Care Teams Communications Consultant Relationship Specialty Start Date End Date Maged Guzman MD [address] [place] [address] [place] [address] PCP - General Internal Medicine 06/07/14 documented as of this encounter
--- OUTSIDE RECORDS SUMMARY | 2025-01-29 09:14 | XMS_ITS | Encounter Summary ---
Author Organization [facility] [employer] [facility] and [facility] Address [address] [place] [address] Care Team Providers Care Door Maker Name Role Phone Maged Guzman MD Primary Care Provider [phone] Reason for Referral * Imaging (Routine) - Closed Specialty Diagnoses / Procedures Referred By Contkenna t Referred To Contact Diagnostic Radiology Procedures US Abdomen Complete Guille Schuler MD [address] [place] [address] Dr Rosen [facility] [place] [address] Phone: tel: fax: Referral ID Status Reason Start Date Expiration Date Visits Re quested Visits Authorized [id number] Closed 03/23/2019 03/22/2020 1 1 Encounter Details Date Type Department Care Team (Late st Contact Info) Description 03/23/2019 Scanned Document [facility] [address] [facility] [address] [place] [address] Guille Schuler MD [address] [place] [address] Dr Rosen [address] [place] [address] [place] [phone] Social History Tobacco Use Types Packs/Day [...] on filedocumented in this encounter Care Teams Door Maker Relationship Specialty Start Date End Date Maged Guzman MD [address] [place] [address] [place] [phone] PCP - General Internal Medicine 06/07/14 documented as of this encounter
--- OUTSIDE RECORDS SUMMARY | 2025-01-29 09:14 | XMS_ITS | Encounter Summary ---
Author Organization [facility] [employer] [facility] and [facility] Address [address] [place] [phone] Care Team Providers Care Plant Packer Name Role Phone Maged Guzman MD Primary Care Provider [phone] Encounter Details Date Type Department Care Team (Late st Contact Info) Description 06/14/2012 Abstract [facility] Health Information Management [address] [place] [address] [place], Primary Care [address] [place] [phone] Social History Tobacco Use Types Packs/Day Years [...] on filedocumented in this encounter Care Teams Plant Packer Relationship Specialty Start Date End Date Maged Guzman MD [address] [place] [address] [place] [address] PCP - General Internal Medicine 06/07/14 documented as of this encounter
--- OUTSIDE RECORDS SUMMARY | 2025-01-29 09:14 | XMS_ITS | Encounter Summary ---
Author Organization [facility] [employer] [facility] and [facility] Address [address] [place] [address] Care Team Providers Care Hygiene Coordinator Name Role Phone Maged Guzman MD Primary Care Provider [phone] Encounter Details Date Type Department Care Team (Late st Contact Info) Description 09/28/2015 Scanned Document [facility] Cancers Program at [address] [address] Jose Min MD [address] [place] [phone] Social History Tobacco Use Types Packs/Day Years [...] on filedocumented in this encounter Care Teams Hygiene Coordinator Relationship Specialty Start Date End Date Maged Guzman MD [address] [place] [address] Dr Fregoso Mitali RADHA [phone] PCP - General Internal Medicine 06/07/14 documented as of this encounter
--- OUTSIDE RECORDS SUMMARY | 2025-01-29 09:14 | XMS_ITS | Encounter Summary ---
Author Organization [facility] [employer] [facility] and [facility] Address [address] [place] [phone] Care Team Providers Care Pattern Repair Person Name Role Phone Maged Guzman MD Primary Care Provider [phone] Encounter Details Date Type Department Care Team (Late st Contact Info) Description 09/01/2021 Scanned Document [facility] [address] [facility] [address] [place] [address] External, Provider Social History Tobacco Use Types [...] on filedocumented in this encounter Care Teams Pattern Repair Person Relationship Specialty Start Date End Date Maged Guzman MD [address] [place] [address] [place] [phone] PCP - General Internal Medicine 06/07/14 documented as of this encounter
--- OUTSIDE RECORDS SUMMARY | 2025-01-29 09:14 | XMS_ITS | Encounter Summary ---
Author Organization [facility] [employer] [facility] and [facility] Address [address] [place] [address] Care Team Providers Care Technical Rep Name Role Phone Maged Guzman MD Primary Care Provider [phone] Encounter Details Date Type Department Care Team (Late st Contact Info) Description 09/20/2022 Scanned Document [facility] [address] [facility] [address] [place] [address] Main Lea MD [address] [place] [address] Social History Tobacco Use Types Packs/Day Years [...] on filedocumented in this encounter Care Teams Technical Rep Relationship Specialty Start Date End Date Maged Guzman MD [address] [place] [address] [place] [address] PCP - General Internal Medicine 06/07/14 documented as of this encounter
--- OUTSIDE RECORDS SUMMARY | 2025-01-29 09:14 | XMS_ITS | Clinical Summary ---
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 Immunizations Immunization Administration Dates Next Due Influenza, high dose, [...] 101 09/07/2022 7:57 AM EDT Temperature 36.6 C (97.8 F) 02/16/2016 2:40 PM EDT Respiratory Rate 20 02/16/2016 2:40 PM EDT [...] screening 1991 Colon cancer screening, Colonoscopy 10/02/1996 Shingles vaccine (Shingrix) (1 of 2 - Shingrix (RZV) 2 Dose Standard Series) 01/11/2016 Osteoporosis screening (bone density) 10/02/2016 Covid-19 vaccine series ( - season) 2024 Influenza vaccine 01/25/2025 03/29/2022, , 03/27/2020, Additional history exists RSV Immunization (1 - 1-dose 75+ series) 10/02/2026 Shingles vaccine (Zostavax) Discontinued 11/11/2015 Cervical cancer screening Discontinued Meningococcal B Vaccine Aged Out No l onger eligible based on patient's age to complete this topic Meningococcal Vaccine Aged Out No shakila francisco eligible based on patient's age to complete this topic Insurance MEDICARE [facility] MEDICARE BS MEDICARE [facility] Care Teams City Detective Relationship Specialty Start Date End Date Maged Guzman MD [address] [place] [address] [place] [address] PCP - General Internal Medicine 06/07/14
--- OUTSIDE RECORDS SUMMARY | 2025-01-29 09:14 | XMS_ITS | Encounter Summary ---
Author Organization [facility] and [facility] Address [address] [place] [phone] Care Team Providers Care Unindentured Apprentice Name Role Phone Maged Guzman MD Primary Care Provider [phone] Encounter Details Date Type Department Care Team (Late st Contact Info) Description 07/06/2015 Scanned Document [facility] Health Information Management [address] [place] [phone] External, Provider Social History Tobacco Use Types [...] us Provider External PATHOLOGY/CYTOLOGY ORDERABLES Final Result [facility] [place], [place], [facility] documented in this encounter Visit Diagnoses Not on filedocumented in this encounter Care Teams Unindentured Apprentice Relationship Specialty Start Date End Date Maged Guzman MD [address] [place] [address] [place] [address] PCP - General Internal Medicine 06/07/14 documented as of this encounter
--- OUTSIDE RECORDS SUMMARY | 2025-01-29 09:14 | XMS_ITS | Encounter Summary ---
Author Organization [facility] [employer] [facility] and [facility] Address [address] [place] [address] Care Team Providers Care Cell Stripper Name Role Phone Maged Guzman MD Primary Care Provider [phone] Encounter Details Date Type Department Care Team (Late st Contact Info) Description 10/28/2022 Scanned Document [facility] [address] [facility] [address] [place] [address] Main Lea MD [address] [place] [address] Social History Tobacco Use Types Packs/Day Years [...] on filedocumented in this encounter Care Teams Cell Stripper Relationship Specialty Start Date End Date Maged Guzman MD [address] [place] [address] Dr Fregoso Mitali RADHA [address] PCP - General Internal Medicine 06/07/14 documented as of this encounter
--- OUTSIDE RECORDS SUMMARY | 2025-01-29 09:14 | XMS_ITS | Encounter Summary ---
Author Organization [facility] and [facility] Address [address] [place] [address] Care Team Providers Care Rn Document Improvement Specialist Name Role Phone Maged Guzman MD Primary Care Provider [phone] Encounter Details Date Type Department Care Team (Late st Contact Info) Description 07/05/2015 Scanned Document [facility] Health Information Management [address] [place] [phone] External, Provider Social History Tobacco Use Types [...] External LAB BLOOD ORDERABLES Final Res ult [facility] [place], [place], [place] * Lab Scan (07/05/2015) Blood specimen (specimen) us Provider External LAB BLOOD ORDERABLES Final Res ult [facility] documented in this encounter Visit Diagnoses Not on filedocumented in this encounter Care Teams Rn Document Improvement Specialist Relationship Specialty Start Date End Date Maged Guzman MD [address] [place] [address] [place] [phone] PCP - General Internal Medicine 06/07/14 documented as of this encounter
--- OUTSIDE RECORDS SUMMARY | 2025-01-29 09:14 | XMS_ITS | Encounter Summary ---
Author Organization [facility] [employer] [facility] and [facility] Address [address] [place] [phone] Care Team Providers Care Fire Equipment Repairer Inspector Name Role Phone Maged Guzman MD Primary Care Provider [phone] Encounter Details Date Type Department Care Team (Late st Contact Info) Description 06/30/2015 Scanned Document [facility] Health Information Management [address] [place] [phone] External, Provider Social History Tobacco Use Types [...] on filedocumented in this encounter Care Teams Fire Equipment Repairer Inspector Relationship Specialty Start Date End Date Maged Guzman MD [address] [place] [address] [place] [phone] PCP - General Internal Medicine 06/07/14 documented as of this encounter
--- OUTSIDE RECORDS SUMMARY | 2025-01-29 09:14 | XMS_ITS | Encounter Summary ---
Author Organization [facility] [employer] [facility] and [facility] Address [address] [place] [address] Care Team Providers Care Die Presser Name Role Phone Maged Guzman MD Primary Care Provider [phone] Encounter Details Date Type Department Care Team (Late st Contact Info) Description 09/07/2022 Scanned Document [facility] [address] [facility] [address] [place] [address] External, Provider Social History Tobacco Use Types [...] on filedocumented in this encounter Care Teams Die Presser Relationship Specialty Start Date End Date Maged Guzman MD [address] [place] [address] [place] [phone] PCP - General Internal Medicine 06/07/14 documented as of this encounter
--- OUTSIDE RECORDS SUMMARY | 2025-01-29 09:14 | XMS_ITS | Encounter Summary ---
Author Organization [facility] [employer] [facility] and [facility] Address [address] [place] [address] Care Team Providers Care Psychological Tests Sales Agent Name Role Phone Maged Guzman MD Primary Care Provider [phone] Reason for Referral * Imaging (Routine) - Closed Specialty Diagnoses / Procedures Referred By Too flood Referred To Contact Diagnostic Radiology Procedures MRI Abdomen w wo IV Contrast MRCP Guille Schuler MD [address] [place] [address] Dr Rosen [address] [place] [phone] Phone: tel: fax: Referral ID Status Reason Start Date Expiration Date Visits Re quested Visits Authorized [id number] Closed 06/05/2019 06/04/2020 1 1 Encounter Details Date Type Department Care Team (Late st Contact Info) Description 06/05/2019 Scanned Document [facility] [address] [place] [address] [address] [place] [address] Guille Schuler MD [address] [place] [address] Dr Rosen [address] [place] [phone] Social History Tobacco Use Types Packs/Day [...] on filedocumented in this encounter Care Teams Psychological Tests Sales Agent Relationship Specialty Start Date End Date Maged Guzman MD [address] [place] [address] [place] [phone] PCP - General Internal Medicine 06/07/14 documented as of this encounter
--- OUTSIDE RECORDS SUMMARY | 2025-01-29 09:14 | XMS_ITS | Clinical Summary ---
Author Organization [facility] Address [address] [place] [address] Phone Care Team Providers Care Taxation Accountant Name Role Phone Emiliano Guzman MD Primary Care Provider Main Lea MD Unavailable [phone] Medications No known medications Active Problems Patient Care Coordination No te Formatting of this note migh t be different from the original. Pt has Non-power port paced out in [facility] out patient facility. No information in [...] 2:30 PM EST Blood Draw Laboratory Services, [facility] [address] 2nd [place] [address] Luiz Muse MD [address] [place] [id number] [email or web address] 05/10/2025 3:30 PM EST Office Visit [facility], Division of Hematologic Oncology, [facility] [address], 7th [place] [address] Luiz Muse MD [address] [place] [id number] [email or web address] Health Maintenance Due Date Last Done Comments [...] 01/06/2016 11/11/2015 OSTEOPOROSIS SCREENING INITIAL (ONE-TIME) 10/02/2016 INFLUENZA VACCINE (#1) 2024 03/07/2023, 2019 COVID-19 VACCINE ( season) 2025 03/09/2022, 09/21/2021, 09/21/2021, Additional history exists HEPATITIS [...] file Insurance MEDICARE PART A & B [facility] MEDEX SUPPLEMENT MEDICARE PART A & B Member Subscriber Plan / Payer (Ef fective 2020-) Name:Angela SNOW Abiodun Member ID:[id number] Relation to Subscriber:Self Name:Angela SNOW Subscriber ID:[id number] Payer ID:[id number] Group ID:Not on file Type:Medicare Address: Infectious [address] [place], [place] [id number] [employer] MEDEX SUPPLEMENT MEDICARE PART A & B Member Subscriber Plan / Payer ( fective 2020-) Name:Angela SNOW Abiodun Member ID:[id number] Relation to Subscriber:Self Name:Angela SNOW Abiodun Subscriber ID:[id number] Payer ID:[id number] Group ID:Not on file Type:Medicare Address: Infectious [address] [place] [phone] [employer] MEDEX SUPPLEMENT MEDICARE PART A & B [employer] SUPPLEMENT MEDICARE PART A & B [employer] MED[employer] SUPPLEMENT MEDICARE PART A & B [facility] MEDEX SUPPLEMENT Care Teams Taxation Accountant Relationship Specialty Start Date End Date Emiliano Guzman MD [address] [place] [address] Dr Monge RADHA PCP - General Internal Medicine 11/05/22 Main Lea MD [address] [place] [address] Dr Monge RADHA [email or web address] Referring Physician 11/05/22 Additional Source Comments The information contained in this document represents components of the legal health record. It is not the complete legal health record.[facility]
--- OUTSIDE RECORDS SUMMARY | 2025-01-29 09:14 | XMS_ITS | Encounter Summary ---
Author Organization [facility] [employer] [facility] and [facility] Address [address] [place] [phone] Care Team Providers Care Circular Knife Cutter Machine Name Role Phone Maged Guzman MD Primary Care Provider [phone] Encounter Details Date Type Department Care Team (Late st Contact Info) Description 08/07/2018 Scanned Document [facility] Health Information Management [address] [place] [address] [phone] External, Provider Social History Tobacco Use Types [...] on filedocumented in this encounter Care Teams Circular Knife Cutter Machine Relationship Specialty Start Date End Date Maged Guzman MD [address] [place] [address] Dr Fregoso MitaliRADHA [phone] PCP - General Internal Medicine 06/07/14 documented as of this encounter
--- OUTSIDE RECORDS SUMMARY | 2025-01-29 09:14 | XMS_ITS | Encounter Summary ---
Author Organization [facility] [employer] [facility] and [facility] Address [address] [place] [phone] Care Team Providers Care Collar Tacker Name Role Phone Maged Guzman MD Primary Care Provider [phone] Encounter Details Date Type Department Care Team ([facility] st Contact Info) Description 02/20/2019 Scanned Document [facility] [address] [address] Blanca Carpenter MD [address] [place] [phone] Social History Tobacco Use Types Packs/Day Years [...] on filedocumented in this encounter Care Teams Collar Tacker Relationship Specialty Start Date End Date Maged Guzman MD [address] [place] [address] [place] [phone] PCP - General Internal Medicine 06/07/14 documented as of this encounter
--- OUTSIDE RECORDS SUMMARY | 2025-01-29 09:14 | XMS_ITS | Encounter Summary ---
Author Organization [facility] [employer] [facility] and [facility] Address [address] [place] [phone] Care Team Providers Care Airplane Charter Clerk Name Role Phone Maged Guzman MD Primary Care Provider [phone] Encounter Details Date Type Department Care Team (Late st Contact Info) Description 2015 Scanned Document [facility] Health Information Management [address] [place] [address] [phone] External, Provider Social History Tobacco Use Types [...] on filedocumented in this encounter Care Teams Airplane Charter Clerk Relationship Specialty Start Date End Date Maged Guzman MD [address] [place] [address] [place] [address] PCP - General Internal Medicine 06/07/14 documented as of this encounter
--- OUTSIDE RECORDS SUMMARY | 2025-01-29 09:14 | XMS_ITS | Encounter Summary ---
Author Organization [facility] and [facility] Address [address] [place] [phone] Care Team Providers Care Hazmat Truck Driver Name Role Phone Maged Guzman MD Primary Care Provider [phone] Encounter Details Date Type Department Care Team (Late st Contact Info) Description 07/05/2015 Scanned Document [facility] Health Information Management [address] [place] [phone] External, Provider Social History Tobacco Use Types [...] Provider External IMG SCAN REPORTS Final Result [facility] [place], [place], [facility] documented in this encounter Visit Diagnoses Not on filedocumented in this encounter Care Teams Hazmat Truck Driver Relationship Specialty Start Date End Date Maged Guzman MD [address] [place] [address] [place] [phone] PCP - General Internal Medicine 06/07/14 documented as of this encounter
--- OUTSIDE RECORDS SUMMARY | 2025-01-29 09:14 | XMS_ITS | Encounter Summary ---
Author Organization [facility] [employer] [facility] and [facility] Address [address] [place] [phone] Care Team Providers Care Barista Name Role Phone Maged Guzman MD Primary Care Provider [phone] Reason for Referral * Imaging (Routine) - Closed Specialty Diagnoses / Procedures Referred By Too t Referred To Contact Diagnostic Radiology Procedures MRI Abdomen w wo IV Contrast Guille Schuler MD [address] [place] [address] Dr Rosen [address] [place] [phone] Phone: tel: fax: Referral ID Status Reason Start Date Expiration Date Visits Re quested Visits Authorized [id number] Closed 01/06/2019 01/06/2020 1 1 Encounter Details Date Type Department Care Team (Late st Contact Info) Description 01/06/2019 Scanned Document [facility] [address] [place] [address] [address] [place] [address] Guille Schuler MD [address] [place] [address] Dr Rosen [address] [place] [phone] Social History Tobacco Use Types Packs/Day [...] on filedocumented in this encounter Care Teams Barista Relationship Specialty Start Date End Date Maged Guzman MD [address] [place] [address] [place] [phone] PCP - General Internal Medicine 06/07/14 documented as of this encounter
--- OUTSIDE RECORDS SUMMARY | 2025-01-29 09:15 | XMS_ITS | Encounter Summary ---
Author Organization [facility] [employer] [facility] and [facility] Address [address] [place] [address] Care Team Providers Care Nuclear Criticality Safety Engineer Name Role Phone Maged Guzman MD Primary Care Provider [phone] Encounter Details Date Type Department Care Team (Late st Contact Info) Description 03/08/2017 Scanned Document [facility] [address] [place] [address] External, Provider Social History Tobacco Use Types [...] on filedocumented in this encounter Care Teams Nuclear Criticality Safety Engineer Relationship Specialty Start Date End Date Maged Guzman MD [address] [place] [address] [place] [phone] PCP - General Internal Medicine 06/07/14 documented as of this encounter
--- OUTSIDE RECORDS SUMMARY | 2025-01-29 09:15 | XMS_ITS | Encounter Summary ---
Author Organization [facility] [employer] [facility] and [facility] Address [address] [place] [phone] Care Team Providers Care Science Technicians Name Role Phone Maged Guzman MD Primary Care Provider [phone] Reason for Referral * Imaging (Routine) - Closed Specialty Diagnoses / Procedures Referred By Contac t Referred To Contact Diagnostic Radiology Procedures MRI Abdomen Pelvis w wo IV Contrast[facility] Guille Schuler MD [address] [place] [address] Dr Rosen [address] [place] [phone] Phone: tel: fax: Referral ID Status Reason Start Date Expiration Date Visits Re quested Visits Authorized [id number] Closed 09/06/2017 09/06/2018 1 1 Encounter Details Date Type Department Care Team (Late st Contact Info) Description 09/06/2017 Scanned Document [facility] [address] [place] [address] [address] [place] [address] Guille Schuler MD [address] [place] [address] Dr Rosen [address] [place] [phone] Social History Tobacco Use Types Packs/Day [...] Comments MRI ABDOMEN PELVIS W WO IV CONTRAST([facility] Routine 08/01/2017 LAB SCAN Routine 07/27/2017 documented in this encounter Results * MRI Abdomen Pelvis w wo IV Contrast([facility]) (08/01/2017) Anatomical Region Laterality Modality Abdomen, Pelvis, Ortho Pelvi s, Abdomen and Pelvis, RCC Abdomen/Pelvis Magnetic Resonance us Guille Schuler MD IMG MRI ORDERABLES Final Resul t * Lab Scan (07/27/2017) Blood specimen (specimen) us Guille Schuler MD LAB BLOOD ORDERABLES Final Res ult documented in this encounter Visit Diagnoses Not on filedocumented in this encounter Care Teams Science Technicians Relationship Specialty Start Date End Date Maged Guzman MD [address] [place] [address] [place] [phone] PCP - General Internal Medicine 06/07/14 documented as of this encounter
--- OUTSIDE RECORDS SUMMARY | 2025-01-29 09:15 | XMS_ITS | Encounter Summary ---
Author Organization [facility] [employer] [facility] and [facility] Address [address] [place] [phone] Care Team Providers Care Chief Creative Officer Name Role Phone Maged Guzman MD Primary Care Provider [phone] Encounter Details Date Type Department Care Team (Late st Contact Info) Description 08/01/2017 Scanned Document [facility] Health Information Management [address] [place] [phone] External, Provider Social History Tobacco Use Types [...] on filedocumented in this encounter Care Teams Chief Creative Officer Relationship Specialty Start Date End Date Maged Guzman MD [address] [place] [address] [place] [phone] PCP - General Internal Medicine 06/07/14 documented as of this encounter
--- OUTSIDE RECORDS SUMMARY | 2025-01-29 09:15 | XMS_ITS | Patient Health Record ---
Author Organization [facility] Address [address] [place] [address] Care Team Providers Care [place] Solicitor Name Role Phone Brooklyn Garza M.D. Primary Care Provider Guille Martínez [phone] Allergies Allergen (clinical drug ingredient) Drug/Non Drug Allergy documented on EMR Reaction Allergy Type Onset Date Status Sulfa Unknown Drug Allergy Active meperidine Demerol Unknown Drug Allergy Active sulfamethoxazole / trimethoprim Bactrim Unknown Drug Allergy Active CT scan dye (uncoded) Unknown Allergy Active Shellfish (FN) shrimp (uncoded) Unknown Allergy Active Results Component Value Reference Range Notes Prothrombin Time INR Reviewed date:11/21/2024 07:26:05 PM Interpretation: Performing Lab:[address] [phone] Notes/Report: Prothrombin Time 11.8 10.9-12.4 SEC INTERNATIONAL NORM RATIO 1.0 0.9-1.1 INTERNATIONAL NORMALIZED RATIO (INR) REFERENCE RANGES Reference Range For patients not on anticoagulant therapy: 0.9 - 1.1 INR ranges for oral anticoagulant therapy: For prevention and treatment of venous thrombosis and pulmonary embolism: 2.0 - 3.0 For acute myocardial infarction with aspirin therapy: 2.0 - 3.0 For acute myocardial infarction without aspirin therapy: 3.0 - 4.0 For patients with mechanical prosthetic heart valves: 2.5 - 3.5 Electrolytes Reviewed date:11/20/2024 04:55:55 PM Interpretation: Performing Lab:[facility], [address] [place] [phone] Notes/Report: Sodium 143 135-145 mmol/L Potassium 3.5 3.3-5.1 mmol/L Chloride 109 96-108 mmol/L Carbon Dioxide 24 22-29 mmol/L Anion Gap 14 12-20 Creatinine Reviewed date:11/20/2024 04:56:03 PM Interpretation: Performing Lab:[facility], [address] [place] [phone] Notes/Report: Creatinine 0.80 0.5-1.4 mg/dL Estimated Glomerular Filt Rate > 60 Chronic Kidney Disease: Estimated GFR < 60 mL/min/1.73m2 Severe Kidney Disease: Estimated GFR < 15 mL/min/1.73m2 US abdomen complete Reviewed date:11/26/2024 12:54:15 AM Interpretation: Performing Lab: Notes/Report: [address] [address] Ultrasound Report Signed Patient: James Snow MR#: [id number] : 1950 Acct:[id number] Age/Sex: 74 / F ADM Date: 11/25/24 Loc: HO.US Attending Dr: Guille Schuler MD Ordering Physician: Guille Schuler MD Date of Service: 11/25/24 Procedure(s): US abdomen complete Accession Number(s): [id number] cc: Brooklyn Garza MD; Guille Schuler MD EXAMINATION: US ABDOMEN. ULTRASOUND SPECTRAL COLOR DOPPLER LIVER AND SPLEEN. CLINICAL INFORMATION: Cirrhosis. COMPARISON: February 26, 2019. Correlated to MRI abdomen dated February 21, 2024. TECHNIQUE: Ultrasound along with color Doppler imaging and spectral analysis was performed of the hepatic and splenic.. Real-time ultrasound of the abdomen using grayscale technique. FINDINGS: Liver measures 17 cm perTechnologist. Coarse echotexture. Nodular surface. No gross solid or cystic lesion. No intrahepatic biliary ductal dilatation. Main portal vein is patent with hepatopedal flow direction and peak systolic velocity 20 cm/s. Main hepatic artery is patent and peak systolic velocity 500 cm/s. Status post cholecystectomy. Common bile duct measures 1.1 cm. Right kidney measures 9 cm. Normal echotexture. Renal cortical thinning. No hydronephrosis. Left kidney measures 11 cm. Normal echotexture. Renal cortical thinning. No hydronephrosis. Spleen measures 13 cm. Ascites, small to moderate volume. Splenic vessels are patent with normal flow direction. US/US abdomen complete IMPRESSION: Normal patency and flow direction of the interrogated vessels. Cirrhosis with ascites. Elevated peak systolic velocity Main hepatic artery. No hydronephrosis. Splenomegaly. Electronically signed by: Arvind Alcantar MD 11/25/2024 04:09 PM EDT RP Dictated By: Arvind Workman MD Signed By: <Electronically signed by Arvind Light MD in OV> 11/25/24 1609 DD/ 1024 TD/TT: 11/25/24 1108 Inside Sales Agent: US duplex arterial venous co mp Reviewed date:11/26/2024 12:55:40 AM Interpretation: Performing Lab: Notes/Report: [address] [address] Ultrasound Report Signed Patient: James Snow MR#: [id number] : 1950 Acct:[id number] Age/Sex: 74 / F ADM Date: 11/25/24 Loc: HO.US Attending Dr: Guille Schuler MD Ordering Physician: Guille Schuler MD Date of Service: 11/25/24 Procedure(s): US duplex arterial venous comp Accession Number(s): [id number] cc: Brooklyn Garza MD; Guille Schuler MD EXAMINATION: US ABDOMEN. ULTRASOUND SPECTRAL COLOR DOPPLER LIVER AND SPLEEN. CLINICAL INFORMATION: Cirrhosis. COMPARISON: February 26, 2019. Correlated to MRI abdomen dated February 21, 2024. TECHNIQUE: Ultrasound along with color Doppler imaging and spectral analysis was performed of the hepatic and splenic.. Real-time ultrasound of the abdomen using grayscale technique. FINDINGS: Liver measures 17 cm perTechnologist. Coarse echotexture. Nodular surface. No gross solid or cystic lesion. No intrahepatic biliary ductal dilatation. Main portal vein is patent with hepatopedal flow direction and peak systolic velocity 20 cm/s. Main hepatic artery is patent and peak systolic velocity 500 cm/s. Status post cholecystectomy. Common bile duct measures 1.1 cm. Right kidney measures 9 cm. Normal echotexture. Renal cortical thinning. No hydronephrosis. Left kidney measures 11 cm. Normal echotexture. Renal cortical thinning. No hydronephrosis. Spleen measures 13 cm. Ascites, small to moderate volume. Splenic vessels are patent with normal flow direction. US/US duplex arterial venous comp IMPRESSION: Normal patency and flow direction of the interrogated vessels. Cirrhosis with ascites. Elevated peak systolic velocity Main hepatic artery. No hydronephrosis. Splenomegaly. Electronically signed by: Arvind Alcantar MD 11/25/2024 04:09 PM EDT RP Dictated By: Arvind Workman MD Signed By: <Electronically signed by Arvind Light MD in OV> 11/25/24 1609 DD/ 1024 TD/TT: 11/25/24 1108 Inside Sales Agent: Blood Urea Nitrogen Reviewed date:02/14/2024 04:45:03 PM Interpretation: Performing Lab:[facility], [address] [place] [phone] Notes/Report: Blood Urea Nitrogen 16 9-16 mg/dL Creatinine Reviewed date:02/14/2024 04:45:11 PM Interpretation: Performing Lab:[facility], [address] [place] [phone] Notes/Report: Creatinine 0.82 0.5-1.4 mg/dL Estimated Glomerular Filt Rate > 60 NOTE: For -Tristanian individuals, multiply the result by 1.210. Chronic Kidney Disease: Estimated GFR < 60 mL/min/1.73m2 Severe Kidney Disease: Estimated GFR < 15 mL/min/1.73m2 Alpha Fetoprotein Reviewed date:02/17/2024 11:29:32 PM Interpretation: Performing Lab:[facility], [address] [place] [phone] Notes/Report: Alpha Fetoprotein 3.4 Reference Range: <6.1 [...] of disease. THIS TEST WAS PERFORMED AT: [facility] [address] [place] [phone] KAMLA ALONSO MD MR abdomen wo/w con Reviewed date:04/12/2024 09:12:20 PM Interpretation: Performing Lab: Notes/Report: [address] [address] Magnetic Resonance Report Signed Patient: James Snow MR#: [id number] : 1950 Acct:[id number] Age/Sex: 73 / F ADM Date: 02/21/24 Loc: HO.MRI Attending Dr: Guille Schuler MD Ordering Physician: Guille Schuler MD Date of Service: 02/21/24 Procedure(s): MR abdomen wo/w con Accession Number(s): [id number] cc: Emiliano Guzman MD; Guille Schuler MD [...] 03/27/24 1345 DD/ 1000 TD/TT: 02/21/24 1018 Inside Sales Agent: Complete Blood Count Auto Di ff Reviewed date:11/20/2024 04:55:40 PM Interpretation: Performing Lab:[facility], [address] [place] [phone] Notes/Report: White Blood Count 8.0 4.8-10.8 X10*3/uL Red Blood Count 3.38 4.20-5.50 X10*6/uL Hemoglobin 11.1 12.0-16.0 g/dl Hematocrit 32.3 37.0-47.0 % Mean Corpuscular Volume 95.6 80.0-98.0 fL Mean Corpuscular Hemoglobin 32.8 27.0-33.0 pg Mean Corpuscular HGB Conc 34.4 31.0-35.0 g/dl Red Cell Distribution Width 14.0 11.0-16.0 % Platelet Count 84 160-400 X10*3/uL Mean Platelet Volume 10.7 9.4-12.3 fL Neutrophils Percent Auto 79.6 45-73 % Imm Gran Pct Auto 0.3 0.0-0.4 % Lymphocytes Percent Auto 13.2 20-40 % Monocytes Percent Auto 5.5 2-11 % Eosinophils Percent Auto 1.0 0-4 % Basophils Percent Auto 0.4 0-2 % NRBC Pct Auto 0.0 0.0-0.2 /100WBC Neutrophils Absolute Auto 6.4 2.0-8.3 x10*3/u L Imm Gran Abs Auto 0.02 0.00-0.03 X10*3/uL Lymphocytes Absolute Auto 1.1 1.2-4.9 X10*3/u L Monocytes Absolute Auto 0.4 0.1-1.2 X10*3/uL Eosinophils Absolute Auto 0.1 0.0-0.4 X10*3/u L Basophils Absolute Auto 0.0 0.0-0.2 X10*3/uL NRBC Abs Auto 0.000 0.0-0.012 X10*3/uL Liver Panel Reviewed date:11/20/2024 04:55:15 PM Interpretation: Performing Lab:[facility], [address] [place] [phone] Notes/Report: Bilirubin Total 0.9 0.0-1.0 mg/dL Bilirubin Direct 0.4 0.0-0.5 mg/dL Aspartate Amino Transferase 28 5-31 U/L Alanine Aminotransferase 21 0-31 U/L Total Protein 6.0 6.5-8.0 g/dL Albumin Level 4.1 3.5-5.0 g/dL Alkaline Phosphatase 134 39-117 U/L Blood Urea Nitrogen Reviewed date:11/20/2024 04:54:59 PM Interpretation: Performing Lab:[address] [address] Notes/Report: Blood Urea Nitrogen 18 9-16 mg/dL Alpha Fetoprotein Reviewed date:11/25/2024 06:03:10 PM Interpretation: Performing Lab:[address] [phone] Notes/Report: Alpha Fetoprotein 3.8 Reference Range: <6.1 The use of AFP as a tumor marker in females is not recommended. This test was performed using the Melvin Gricel chemiluminescent method. Values obtained from different assay methods cannot be used interchangeably. AFP levels, regardless of value, should not be interpreted as absolute evidence of the presence or absence of disease. THIS TEST WAS PERFORMED AT: [facility] [address] [place] [phone] KAMLA ALONSO MD Blood Urea Nitrogen Reviewed date:12/03/2024 11:50:16 PM Interpretation: Performing Lab:[address] [phone] Notes/Report: Blood Urea Nitrogen 15 9-16 mg/dL Basic Metabolic Panel Reviewed date:12/20/2024 07:47:10 PM Interpretation: Performing Lab:[address] [address] Notes/Report: Sodium 143 135-145 mmol/L Potassium 4.8 3.3-5.1 mmol/L Chloride 111 96-108 mmol/L Carbon Dioxide 24 22-29 mmol/L Anion Gap 13 12-20 Blood Urea Nitrogen 24 9-16 mg/dL Creatinine 1.10 0.5-1.4 mg/dL Estimated Glomerular Filt Rate 49 Chronic Kidney Disease: Estimated GFR < 60 mL/min/1.73m2 Severe Kidney Disease: Estimated GFR < 15 mL/min/1.73m2 Glucose Random 213 60-115 mg/dL Calcium 9.0 8.4-10.2 mg/dL Basic Metabolic Panel (Not y et reviewed by provider) Interpretation: Performing Lab:[facility], [address] [place] [phone] Notes/Report: Sodium 142 135-145 mmol/L Potassium 4.4 3.3-5.1 mmol/L Chloride 105 96-108 mmol/L Carbon Dioxide 27 22-29 mmol/L Anion Gap 14 12-20 Blood Urea Nitrogen 34 9-16 mg/dL Creatinine 1.27 0.5-1.4 mg/dL Estimated Glomerular Filt Rate 41 Chronic Kidney Disease: Estimated GFR < 60 mL/min/1.73m2 Severe Kidney Disease: Estimated GFR < 15 mL/min/1.73m2 Glucose Random 227 60-115 mg/dL Calcium 8.8 8.4-10.2 mg/dL Comprehensive Met. Panel Reviewed date:01/18/2025 11:37:29 PM Interpretation: Performing Lab:[facility], [address] [place] [phone] Notes/Report: Sodium 142 135-145 mmol/L Potassium 4.7 3.3-5.1 mmol/L Chloride 111 96-108 mmol/L Carbon Dioxide 23 22-29 mmol/L Anion Gap 13 12-20 Blood Urea Nitrogen 20 9-16 mg/dL Creatinine 1.01 0.5-1.4 mg/dL Estimated Glomerular Filt Rate 54 Chronic Kidney Disease: Estimated GFR < 60 mL/min/1.73m2 Severe Kidney Disease: Estimated GFR < 15 mL/min/1.73m2 Glucose Random 224 60-115 mg/dL Calcium 9.0 8.4-10.2 mg/dL Bilirubin Total 0.6 0.0-1.0 mg/dL Aspartate Amino Transferase 26 5-31 U/L Alanine Aminotransferase 39 0-31 U/L Total Protein 5.9 6.5-8.0 g/dL Albumin Level 4.1 3.5-5.0 g/dL Alkaline Phosphatase 162 39-117 U/L Reason For Referral No Information Medications Medication SIG (Take, Route, Frequency, Duration) Notes Start Date End Date Status glipiZIDE 10 MG 1 tablet Orally twic e a day Active Valsartan 160 MG 1 null Orally Once a day for 30 day(s) Active Carvedilol 6.25 MG 1 Orally BID Active amLODIPine Besylate 5 MG 1 tablet Orally Once a day Active Vitamin D 1000 UNIT 1 tablet Orally Once a day for 30 day(s) Not-Taking LORazepam 1 MG 1 tablet Orally prn Active Velcade Active Ozempic (0.25 or 0.5 MG/DOSE) 2 MG/3ML INJECT 0.25 MG SUBCUTANEOUSLY ONE TIME PER WEEK Subcutaneous for 28 Active Levothyroxine Sodium 150 MCG 1 tablet in the morning on an empty stomach Orally Once a day for 30 day(s) Active Furosemide 20 MG 1 oral daily for 30 days Active dexAMETHasone Active Lenalidomide 25 MG Oral for 28 Active Spironolactone 50 MG 1 tablet Orally Onc a 11/26/2024 Active Daratumumab Active Aspirin Low Dose 81 MG TAKE 1 TABLET BY MOUTH EVERY DAY Oral for 90 Active Acyclovir 400 MG Oral for 90 A ctive Immunizations Vaccine Route Administration Date Status Comme nts Influenza Unknown 01/25/2018 Administered Influenza Unknown 03/27/2020 Administered Influenza Unknown 02/24/2021 Administered Influenza Unknown 03/29/2022 Administered Influenza Unknown 03/13/2023 Administered Influenza Unknown 03/17/2024 Administered Problems Problem Type SNOMED Code ICD Code Onset Dates Problem Status W/U Status Risk Notes Problem 540846847 Gastro-esophagea l reflux disease without esophagitis (K21.9) Active confirmed Problem 288292018 Encounter for screening for malignant neoplasm of colon (Z12.11) Active confirmed Problem 634379620 History of adenomatous polyp of colon (Z86.010) Active confirmed Problem Flatulence, eructation and gas pain (521381743) Bloating (R14.0) Active confirmed Problem 432375163 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 Problem 58852480 Other cirrhosis of liver (K74.69) Active confirmed Problem 619976800 Other ascites (R18.8) Active confirmed Problem 151645166 Abnormal finding s on diagnostic imaging of liver and biliary tract (R93.2) Active confirmed Problem 940812962 Abnormal CT of l iver (R93.2) Active confirmed Problem 629240117 Gastroesophageal reflux disease without esophagitis (K21.9) Active confirmed Problem 103015212 Elevated liver enzymes (R74.8) Active confirmed Problem 501065032 Fatty liver (K76.0) Active confirmed Problem 86023281 Cirrhosis of judah er with ascites, unspecified hepatic cirrhosis type (K74.60) Active confirmed Problem 372222144 Liver lesion (K76.9) Active confirmed Problem 836884717 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 Problem 39764165 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 8 ; Cirrhosis of liver with ascites, unspecified hepatic cirrhosis type K74.60 ; Abnormal CT of liver R93.2 ; Liver nodule K76.89 and Liver lesion K76.9 [facility] [address] [place] [phone] 12/04/2024 Guille Schuler Fatty liver K76.0 ; Cirrhosis of liver with ascites, unspecified hepatic cirrhosis type K74.60 ; Other ascites R18.8 and Gastroesophageal reflux disease without esophagitis K21.9 [facility] [address] [place] [phone] 04/10/2024 Guille Schuler [facility] [address] [place] [address] 08/07/2024 Guille Schuler [facility] [address] [place] [address] 11/19/2024 Guille Schuler Cirrhosis of liver w ith ascites K74.60 and Bloating R14.0 [facility] [address] [place] [phone] 11/26/2024 Guille Schuler [facility] [address] [place] [phone] 12/04/2024 Guille Schuler [facility] [address] [place] [phone] 12/20/2024 Guille Schuler Assessments Encounter Date Diagnosis (ICD [...] to keep you advised of her progress. 12/04/2024 Fatty liver (ICD-10 - K76.0) Overall, James appears stable and her recent increase in ascites seems to have improved with the addition of spironolactone just last week. She does not show any other signs of liver decompensation such as jaundice, encephalopathy, or GI bleeding. Her recent labs and ultrasound were otherwise reassuring. There was no evidence of any portal vein thrombosis on the ultrasound either. At this point I advised her to continue the current regimen of the spironolactone 50 mg daily and furosemide 20 mg daily. She will continue to have lab work every other week at [facility] and I advised her to be sure to get me a copy of those results so I can be sure her chemistries and renal function are remaining stable on the current diuretic regimen. We did review the need to minimize sodium intake. I do not think she needs any further imaging studies at this time such as a MRI. I did advise her to maintain as good a nutritional intake as possible. If things remain stable I will plan to see her in the Fall for a follow-up visit. I did advise her to certainly call me in the interim if she has any problems or questions I can be of assistance with. I did review everything in detail with James and her today. They were both comfortable with this plan. Thank you again for allowing me to participate in James's care. I shall continue to keep you advised of her progress. 12/04/2024 Cirrhosis of liver with ascites, unspecified hepatic cirrhosis type (ICD-10 - K74.60) Overall, James appears stable and her recent increase in ascites seems to have improved with the addition of spironolactone just last week. She does not show any other signs of liver decompensation such as jaundice, encephalopathy, or GI bleeding. Her recent labs and ultrasound were otherwise reassuring. There was no evidence of any portal vein thrombosis on the ultrasound either. At this point I advised her to continue the current regimen of the spironolactone 50 mg daily and furosemide 20 mg daily. She will continue to have lab work every other week at [facility] and I advised her to be sure to get me a copy of those results so I can be sure her chemistries and renal function are remaining stable on the current diuretic regimen. We did review the need to minimize sodium intake. I do not think she needs any further imaging studies at this time such as a MRI. I did advise her to maintain as good a nutritional intake as possible. If things remain stable I will plan to see her in the Fall for a follow-up visit. I did advise her to certainly call me in the interim if she has any problems or questions I can be of assistance with. I did review everything in detail with James and her today. They were both comfortable with this plan. Thank you again for allowing me to participate in James's care. I shall continue to keep you advised of her progress. 11/19/2024 Bloating (ICD-10 - R14.0) 11/19/2024 Cirrhosis of liver with ascites (ICD-10 - K74.60) 01/31/[address] of [...] to keep you advised of her progress. 12/04/2024 Other ascites (ICD-10 - R18.8) Overall, James appears stable and her recent increase in ascites seems to have improved with the addition of spironolactone just last week. She does not show any other signs of liver decompensation such as jaundice, encephalopathy, or GI bleeding. Her recent labs and ultrasound were otherwise reassuring. There was no evidence of any portal vein thrombosis on the ultrasound either. At this point I advised her to continue the current regimen of the spironolactone 50 mg daily and furosemide 20 mg daily. She will continue to have lab work every other week at [facility] and I advised her to be sure to get me a copy of those results so I can be sure her chemistries and renal function are remaining stable on the current diuretic regimen. We did review the need to minimize sodium intake. I do not think she needs any further imaging studies at this time such as a MRI. I did advise her to maintain as good a nutritional intake as possible. If things remain stable I will plan to see her in the Fall for a follow-up visit. I did advise her to certainly call me in the interim if she has any problems or questions I can be of assistance with. I did review everything in detail with James and her today. They were both comfortable with this plan. Thank you again [...] to keep you advised of her progress. 12/04/2024 Gastroesophageal reflux disease without esophagitis (ICD-10 - K21.9) Overall, James appears stable and her recent increase in ascites seems to have improved with the addition of spironolactone just last week. She does not show any other signs of liver decompensation such as jaundice, encephalopathy, or GI bleeding. Her recent labs and ultrasound were otherwise reassuring. There was no evidence of any portal vein thrombosis on the ultrasound either. At this point I advised her to continue the current regimen of the spironolactone 50 mg daily and furosemide 20 mg daily. She will continue to have lab work every other week at [facility] and I advised her to be sure to get me a copy of those results so I can be sure her chemistries and renal function are remaining stable on the current diuretic regimen. We did review the need to minimize sodium intake. I do not think she needs any further imaging studies at this time such as a MRI. I did advise her to maintain as good a nutritional intake as possible. If things remain stable I will plan to see her in the Fall for a follow-up visit. I did advise her to certainly call me in the interim if she has any problems or questions I can be of assistance with. I did review everything in detail with James and her today. They were both comfortable with this plan. Thank you again [...] Test Name Order Date CHEM 7 PROFILE 12/04/2024 CHEM 7 PROFILE 07/26/2016 CHEM 7 PROFILE 05/04/2016 CHEM 7 PROFILE 07/26/2015 ELECTROLYTES 08/11/2015 BUN 08/11/2015 BUN 03/23/2019 BUN 04/05/2022 BUN 01/31/2024 BUN 02/07/2018 BUN 10/05/2021 BUN 07/05/2017 BUN 04/06/2021 BUN 04/07/2020 BUN 07/30/2018 BUN 11/02/2016 BUN 10/20/2020 BUN 11/19/2024 BUN 08/13/2019 CREATININE 07/30/2018 CREATININE 11/02/2016 CREATININE 10/20/2020 CREATININE 08/13/2019 CREATININE 08/11/2015 CREATININE 03/23/2019 CREATININE 02/07/2018 CREATININE 07/05/2017 CREATININE 04/06/2021 CREATININE 04/07/2020 LIVER PROFILE 07/30/2018 LIVER PROFILE 04/05/2022 LIVER PROFILE 09/05/2014 LIVER PROFILE 07/26/2016 LIVER PROFILE 05/04/2016 TRIGLYCERIDE 06/30/2015 CBC w DIFF 07/30/2018 CBC w DIFF 04/05/2022 CBC w DIFF 07/26/2016 CELL COUNT FLUID 07/12/2015 CELL COUNT FLUID 08/04/2015 PROTHROMBIN TIME (PT, INR) 05/04/2016 PROTHROMBIN TIME (PT, INR) 07/26/2016 PROTHROMBIN TIME (PT, INR) 04/07/2020 PROTHROMBIN TIME (PT, INR) 07/30/2018 PROTHROMBIN TIME (PT, INR) 02/07/2018 ALPHA-FETOPROTEIN,TUMOR MARKER 8 ALPHA-FETOPROTEIN,TUMOR MARKER 1 ALPHA-FETOPROTEIN,TUMOR MARKER 8 ALPHA-FETOPROTEIN,TUMOR MARKER 7 ALPHA-FETOPROTEIN,TUMOR MARKER 0 ALPHA-FETOPROTEIN,TUMOR MARKER 6 ALPHA-FETOPROTEIN,TUMOR MARKER 7 ALPHA-FETOPROTEIN,TUMOR MARKER 0 ALPHA-FETOPROTEIN,TUMOR MARKER 9 ALPHA-FETOPROTEIN,TUMOR MARKER 4 ALPHA-FETOPROTEIN,TUMOR MARKER 9 ALPHA-FETOPROTEIN,TUMOR MARKER 2 GRAM STAIN 07/12/2015 GRAM STAIN 08/04/2015 ROUTINE CULTURE 07/12/2015 ROUTINE CULTURE 08/04/2015 MRI ABD W&WO CONTRAST 07/30/2018 MRI ABD W&WO CONTRAST 04/05/2022 MRI ABD W&WO CONTRAST 10/20/2020 MRI ABD W&WO CONTRAST 07/05/2017 MRI ABD W&WO CONTRAST 04/06/2021 MRI ABD W&WO CONTRAST 02/07/2018 MRI ABD W&WO CONTRAST 11/02/2016 MRI ABD W&WO CONTRAST 08/13/2019 MRI ABD W&WO CONTRAST 05/04/2016 MRI ABD W&WO CONTRAST 07/26/2016 MRI ABD W&WO CONTRAST 04/07/2020 MRI ABD W&WO CONTRAST 03/23/2019 MRI ABD W&WO CONTRAST 10/05/2021 MRI ABD W&WO CONTRAST 01/31/2024 US PARACENTESIS GUIDE 06/30/2015 US PARACENTESIS GUIDE 07/12/2015 US PARACENTESIS GUIDE 08/04/2015 Basic Metabolic Panel 01/01/2025 Creatinine 10/05/2021 Creatinine 01/31/2024 Alpha Fetoprotein 05/31/2023 Alpha Fetoprotein 10/20/2020 Future Test Test Name Order Date UPPER GI ENDOSCOPY 05/21/2013 COLONOSCOPY 07/05/2017 UPPER GI ENDOSCOPY 07/11/2017 Next Appt Details Provider Name:Guille Schuler , 04/30/2025 01:40:00 PM, [address], [address], [place], [address], Insurance Providers Payer Name Payer Address Payer Phone Subscriber Number Group Number Insured Name Patient Relationship to Insured Coverage Start Date Coverage End Date MEDICARE OF [place] [address] [place] [address] [id number] JAMES SNOW Self - patient is the insured [employer] ATTN CLAIMS [address] [place] [address] [phone] [id number] JAMES SNOW Self - patient is the insured Medical (General) History Medical History History ICD Code 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 w/u for hemochromatosis- -started Tamica in 08/2014 Denies ND,CVA,Lung disease,renal disease Tubular adenoma removed by colonoscopy i n 09/2011- no colitis NIDDM Neg. 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 Blanca Carpenter at [facility] hepatology clinic as well Colonoscopy in August of 2017 revealed on ly a hyperplastic polyp EGD in August 2017 revealed g rade 1 esophageal varices- she has been on carvedilol for her beta oleg Multiple myeloma diagnosed 2 - starting chemo after November 08, 2022- Dr. Lea at [facility] Neuropathy in her feet Increased ascites noted on h er exam and ultrasound at the end of October 2024. She was started on Aldactone 50 mg daily with improvement. Surgical History Surgery Date(Month/Year) port put in right of chest november Right rotator cuff 04/2022 Hernia repair with mesh 2015 Incisional hernia repair--Dr Cyrus Hancock---negative cytology on the ascites--needed a temporary drain for the ascites jun 15 2015 Incisional hernia repair 05/[address] Amin--limited small bowel resection as well Cataracts 2011 Hysterectomy Hemorrhoidectomy C-sections Tubal ligation the Umbilical hernia surgery Cholecystectomy Whipple procedure done for d uodenal adenocarcinoma in 02/2010--done by Dr. Min at [facility]
--- OUTSIDE RECORDS SUMMARY | 2025-01-29 09:15 | XMS_ITS | Encounter Summary ---
Author Organization [facility] [employer] [facility] and [facility] Address [address] [place] [address] Care Team Providers Care Manager Supplier Name Role Phone Maged Guzman MD Primary Care Provider [phone] Encounter Details Date Type Department Care Team (Late st Contact Info) Description 02/28/2018 Scanned Document [facility] [address] [facility] [address] [place] [address] Maged Guzman MD [address] [place] [address] [place] [phone] Social History Tobacco Use Types Packs/Day Years [...] on filedocumented in this encounter Care Teams Manager Supplier Relationship Specialty Start Date End Date Maged Guzman MD [address] [place] [address] [place] [phone] PCP - General Internal Medicine 06/07/14 documented as of this encounter
--- OUTSIDE RECORDS SUMMARY | 2025-01-29 09:15 | XMS_ITS | Encounter Summary ---
Author Organization [facility] [employer] [facility] and [facility] Address [address] [place] [phone] Care Team Providers Care Sampler Tester Name Role Phone Maged Guzman MD Primary Care Provider [phone] Encounter Details Date Type Department Care Team (Late st Contact Info) Description 07/05/2017 Scanned Document COUNTS INCLUDE 234 BEDS AT [facility] Health Information Management [address] [place] [address] [phone] External, Provider Social History Tobacco Use Types [...] on filedocumented in this encounter Care Teams Sampler Tester Relationship Specialty Start Date End Date Maged Guzman MD [address] [place] [address] Dr Fregoso MitaliRADHA [phone] PCP - General Internal Medicine 06/07/14 documented as of this encounter
--- OUTSIDE RECORDS SUMMARY | 2025-01-29 09:15 | XMS_ITS | Encounter Summary ---
Author Organization [facility] [employer] [facility] and [facility] Address [address] [place] [phone] Care Team Providers Care Life Sciences Teacher Name Role Phone Maged Guzman MD Primary Care Provider [phone] Encounter Details Date Type Department Care Team (Late st Contact Info) Description 08/01/2017 Scanned Document [facility] Health Information Management [address] [place] [address] [phone] External, Provider Social History Tobacco Use Types [...] on filedocumented in this encounter Care Teams Life Sciences Teacher Relationship Specialty Start Date End Date Maged Guzman MD [address] [place] [address] Dr MckeonyoRADHA rivera [phone] PCP - General Internal Medicine 06/07/14 documented as of this encounter
[2025-01-29 10:51] LABS: Anion Gap 11 (12-20); Blood Urea Nitrogen 18 mg/dL (9-16); Calcium 8.9 mg/dL (8.4-10.2); Carbon Dioxide 27 mmol/L (22-29); Chloride 107 mmol/L (96-108); Estimated Glomerular Filt Rate 56; Potassium 4.2 mmol/L (3.3-5.1); Sodium 141 mmol/L (135-145)
== END 2025-01-29 08:42 | disposition home or self-care (01) ==
LOC: HO.LABR 08:41
PROVIDERS: PCP Student in an Organized Health Care Education/Training Program; Visit Provider Internal Medicine
DX: K76.0 Fatty (change of) liver, not elsewhere classified (principal); K74.60 Unspecified cirrhosis of liver; R18.8 Other ascites
CPT/HCPCS: 36415; 80048

== ENCOUNTER 2025-02-05 09:10 | Outpatient (AMB) | payer MEDICARE, SELFPAY ==
--- OUTSIDE RECORDS SUMMARY | 2010-10-13 08:30 | XMS_ITS | Encounter Summary ---
Author Organization [facility] [employer] [facility] and [facility] Address [address] [place] [phone] Care Team Providers Care Confectionery Cooker Name Role Phone Unavailable Primary Care Provider Unavailabl e Encounter Details Date Type Department Care Team (Late st Contact Info) Description 10/13/2010 8:30 AM EDT Hospital Encounter INTERFACE DEFAULT [address] [place] [phone] Social History Tobacco Use Types Packs/Day Years [...]
--- OUTSIDE RECORDS SUMMARY | 2024-07-31 09:00 | XMS_ITS ---
Author Organization [facility] Address [address] [place] [address] Care Team Providers Care Backup Operator Name Role Phone Brooklyn Garza M.D. Primary Care Provider Unavail Guille Huertas [phone] REASON FOR VISIT abnormal liver CT scan Encounters Encounter Location Date Provider Diagnosis [facility] [address] [facility] [address] [place] [address] 07/31/2024 Guille Schuler Plan Of Treatment Next Appt Details Provider Name:Guille Schuler , 04/30/2025 01:40:00 PM, [address] [facility], [address], [place], [address], Progress Notes * JAMES SNOW RDOB:1950 (74 yo F)Acc No.[id number]:07/31/2024 Progress Notes Patient: JAMES OMER Provider: Abiodun Schuler MD :1950 A ge:73 Y S ex:Female Date:07/31/2024 Address:[address] [place], [place] [phone] Pcp:Brooklyn Garza M.D. Subjective: * Chief Complaints: [...] 0 07/31/2024 Generated for Tru damico/Paulina/Mehul on: 0 02/05/2025 10:06 AM EDT
--- OUTSIDE RECORDS SUMMARY | 2024-08-07 10:40 | XMS_ITS ---
Author Organization [facility] Address [address] [place] [address] Care Team Providers Care Test Deck Supervisor Name Role Phone Brooklyn Garza M.D. Primary Care Provider Unavail Guille Huertas [phone] REASON FOR VISIT Patient presents today for abn ct liver Encounters Encounter Location Date Provider Diagnosis [facility] 10 [facility] [address] [place] [address] 08/07/2024 Guille Schuler Plan Of Treatment Next Appt Details Provider Name:Guille Schuler , 04/30/2025 01:40:00 PM, [address], [address], [place], [address], Progress Notes * JAMES SNOW RDOB:1950 (74 yo F)Acc No.[id number]:08/07/2024 Progress Notes Patient: JAMES OMER Provider: Abiodun Schuler MD :1950 A ge:73 Y S ex:Female Date:08/07/2024 Address:[address] [place], [place] [phone] Pcp:Brooklyn Garza M.D. Subjective: * Chief Complaints: * 1 . Patient presents today for abn ct liver. * Medical History: Objective: * Vitals: Assessment: Plan: * Treatment: * * The named appointment provid er may or may not be the originator of this progress note, and it is not deemed complete until electronically signed by the appointment provider. Sign off status: Pending * Provider: Abiodun Schuler MD Date: 0 08/07/2024 Generated for Tru damico/Paulina/Mehul on: 0 02/05/2025 10:06 AM EDT
--- NOTE | 2025-02-05 09:14 | A.OFFPC_ITS ---
Vital Signs 02/05/25 09:21 Height 5 ft 3 in Weight 122 lb BMI 21.6 BP 180/60 H Blood Pressure Location Rt brachial Position Sitting Respiration 16 Pulse 63 Pulse Source Pulse Oximeter Temp 97.7 F Temp Source Temporal Artery Scan Pulse Oximetry (%) 99 Oxygen Delivery Method Room Air Intake Visit Reasons: med check Avionics Systems Technician Required: No Accompanied by: Self / Same As Patient Allergies shrimp Allergy (Severe, Verified 02/05/25 09:15) SEVERE EDEMA FACE, NECK AND HEAD Sulfa (Sulfonamide Antibiotics) (SULFA (SULFONAMIDE ANTIBIOTICS)) Allergy (Severe, Verified 02/05/25 09:15) VASCULITIS ON BOTH LEGS WITH BLOTCHES AND RASH, vasculitis, vasculitis, v asculitis, vasculitis sulfamethoxazole (From BACTRIM) Allergy (Unknown, Verified 02/05/25 09:15) UNKNOWN trimethoprim (From BACTRIM) Allergy (Unknown, Verified 02/05/25 09:15) UNKNOWN Iodinated Contrast Media (IV CONTRAST) Adverse Reaction (Severe, Verified 02/05/25 09:15) VASOVAGAL REACTION meperidine (From DEMEROL) Adverse Reaction (Severe, Verified 02/05/25 09:15) SEVERE VOMITING AFTER ONE DOSE Contrast dye Allergy (Unknown, Uncoded 09/11/24 15:09) Unknown contrast dye Allergy (Unknown, Uncoded 09/11/24 15:09) shaking, syncope shellfish Allergy (Unknown, Uncoded 09/11/24 15:09) anaphylaxis Shrimp Allergy (Unknown, Uncoded 09/11/24 15:09) Unknown Tobacco use date assessed: 09/11/24 Fall risk assessment: 2 + Falls in past year Last assessed Fall Risk: 02/05/25 Dental Screening Dental Screen Date: 09/11/24 Did you have a dental visit in the last 12 months?: Yes HPI HPI Comments History of Present Illness Details The patient is a 74-year-old female presenting with requests for medication management and review. The primary reason for the visit is the management of lorazepam (Ativan), which the patient has been taking for insomnia and anxiety for approximately 15 years. She started the medication after being diagnosed with cancer 13 years ago, as she experienced significant sleep disturbances during this period. Despite trying alternate medications like Ambien, she could not sustain sleep, leading to the initiation of lorazepam by her previous physician. The patient reports taking 1 mg of lorazepam twice daily, typically taking one dose at bedtime and the second if she wakes up during the night and cannot return to sleep. She denies taking any additional medications for anxiety aside from lorazepam. The continuation of this regimen has been a concern due to potential dependency and safety issues related to her age. She also reports a history of multiple myeloma, currently under treatment with Revlimid, another unidentified medication referred to as Zulema, and Zometa administered at a cancer center. She underwent chemotherapy initially weekly, then transitioned to every other week. Despite ongoing treatment, she mentions past chemotherapy-induced cognitive effects and concerns about cognitive health due to current lorazepam use. Additional health considerations include hypertension management and neuropathy, with the latter presenting as numbness in the feet and sometimes involving facial tingling. There are no mentions of cardiac failures or symptoms outside cognitive complaints potentially linked to medication dependence or past chemotherapy treatments. Medical History: - Anxiety, treated with lorazepam - Insomnia, managed with lorazepam - Multiple Myeloma under ongoing treatme nt - Hypertension, under pharmaceutical man agement - Neuropathy in feet and face - Cognitive complaints due to medication and past chemotherapy Surgical History: - Hysterectomy Medications: - Lorazepam 1 mg for anxiety and sleep d isturbances - Amlodipine 5 mg for hypertension - Carvedilol (Corex) 6.25 mg for hyperte nsion - Furosemide (Lasix) 20 mg for hypertens ion - Glipizide 10 mg twice daily - Levothyroxine 150 mcg daily - Ozempic 0.25 mg weekly - Spironolactone 50 mg daily - Valsartan 160 mg daily - Revlimid for multiple myeloma - Zometa for bone health in cancer treat ment - An unidentified medication, possibly d aratumumab ( Zulema ) for multiple myeloma Family History: - Mother currently undergoing chemothera [facility] Medical History (Updated 02/05/25 @ 10:06 by Maciej Ambriz MD) Neuropathy 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 Dyspareunia in female Surgical History History of colonoscopy (~09/13/17) Family History Mother No problems noted. Father No problems noted. Social History Housing: House Patient Tobacco Use Status: Former Tobacco user Tobacco use type: Cigarette e-Cigarette/Vaping Use: Never Used service: No Current occupational status: employed Current occupation: [employer] 3 days a week Cognitive needs: No Hearing needs: No Vision needs: Yes (reading glasses) Questionnaire Thrive Questionnaire Date Thrive assessed: 09/11/24 AUDIT C Alcohol Use Questionnaire (AUDIT-C) 1. How often do you have a drink containing alcohol?: Never 3. How often do you have six or more drinks on one occasion?: Never Total Score: 0 ABHINAV-7 AMB Questionnaire ABHINAV-7 Date ABHINAV - 7 assessed: 09/11/24 Source: Developed by Drs. Guille Willoughby, Linh Armijo, Yang Taylor and colleagues, with an educational maki from [employer]. Review of Systems Const Details: - General: Denies current acute complaints beyond those discussed - Neurological: Reports cognitive lapses linked to medication - Cardiovascular: Reports systemic hypertension - Musculoskeletal: Reports neuropathy in feet - Psychiatric: Reports dependency on lorazepam, anxiety, and insomnia All systems reviewed & are unremarkable except as reviewed in HPI and above Physical exam (Primary Care) Vital Signs: Last Vital Signs Temp 97.7 F 02/05/25 09:21 Pulse 63 02/05/25 09:21 Resp 16 02/05/25 09:21 BP 180/60 H 02/05/25 09:21 Pulse Ox 99 02/05/25 09:21 Oxygen Delivery Method Room Air 02/05/25 09:21 BMI result Body Mass Index 21.6 Tobacco/Smoking Status: Tobacco use Status Tobacco use date assessed 09/11/24 02/05/25 09:24 Patient Tobacco Use Status Former Tobacco user 02/05/25 09:24 Tobacco use type Cigarette 02/05/25 09:24 e-Cigarette/Vaping Use Never Used 02/05/25 09:24 Thrive Assessment: Date of Thrive Assessment Date Thrive assessed 09/11/24 02/05/25 09:24 Const Other: General: Alert and oriented, Well nourished, No acute distress. Eye: Pupils are equal, round and reactive to light, Intact accommodation, Extraocular movements are intact, Normal conjunctiva, Vision unchanged. HENT: Normocephalic, Atraumatic, Tympanic membranes are clear, Normal hearing, O ral mucosa is moist, No pharyngeal erythema, Ear canals patent. Respiratory: Lungs CTA bilaterally, No wheeze, Respirations are non-labored. Cardiovascular: Regular rate, Regular rhythm, S1 auscultated, S2 auscultated, No murmur, Good pulses equal in all extremities, Normal peripheral perfusion, No edema. Gastrointestinal: Soft, Non-tender, Non-distended, Normal bowel sounds, No organomegaly. Musculoskeletal: Normal range of motion, Normal strength, No tenderness, No swelling, No deformity, Normal gait. Integumentary: Warm, Dry, [place], Intact. Neurologic: Alert, Oriented, Normal sensory, Normal motor function, No focal defects, Cranial Nerves II-XII are grossly intact, Normal deep tendon reflexes. Psychiatric: Cooperative, Appropriate mood & affect, Normal judgment. Coding Level of Care Code Est Pt Level 4 (68732) Complex EM visit Add On G2211 Diagnoses Type 2 diabetes mellitus with hyperglycemia, unspecified whether jail insulin use E11.65 Diabetes mellitus intermodal owner operator truck driver insulin use: unspecified intermodal owner operator truck driver insulin use status Diabetes mellitus complication status: with hyperglycemia Primary hypertension I10 Hypertension type: primary hypertension Multiple myeloma, remission status unspecified C90.00 Multiple myeloma remission status: unspecified Dyspareunia in female N94.10 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 Z79.899 Neuropathy G62.9 Assessment & Plan Assessment & Plan (1) Type 2 diabetes mellitus: Comment: - Continue ozempic and Glipizide and continue to monitor A1c Code(s): E11.9 - Type 2 diabetes mellitus without complications Category: Medical Qualifiers: Diabetes mellitus jail insulin use: unspecified intermodal owner operator truck driver insulin use status Diabetes mellitus complication status: with hyperglycemia Qualified Code(s): E11.65 - Type 2 diabetes mellitus with hyperglycemia (2) Hypertension: Comment: - Continue current antihypertensive regimen. - Monitor blood pressure at home and provide records during next visit for further evaluation. - Re-evaluate all hypertensive medications in conjunction with the patient's response to reduction of lorazepam. Code(s): I10 - Essential (primary) hypertension Category: Medical Qualifiers: Hypertension type: primary hypertension Qualified Code(s): I10 - Essential (primary) hypertension (3) Multiple myeloma: Comment: - Continue current chemotherapy regimen as prescribed, follow up with oncologist regarding any medication-related queries or needed adjustment. - Monitor patient?s cognitive status to ensure no exacerbations due to cancer treatment. Code(s): C90.00 - Multiple myeloma not having achieved remission Category: Medical Qualifiers: Multiple myeloma remission status: unspecified Qualified Code(s): C90.00 - Multiple myeloma not having achieved remission (4) Dyspareunia in female: Comment: - Endorses dysparenuia and would like to follow with OBGYN Code(s): N94.10 - Unspecified dyspareunia Category: Medical (5) 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: Comment: - We discussed transitioning from lorazepam to a tapering regimen to mitigate dependency risks. - The plan involves reducing lorazepam gradually over several weeks, starting with a decrease to 1 mg at night and 0.5 mg upon waking (over 3 weeks), then .5mg twice a day for 3 weeks - Recommendations include possible future trials of melatonin and behavioral modifications such as reducing screen time and caffeine intake to enhance sleep hygiene. Code(s): Z79.899 - Other jail (current) drug therapy Category: Medical (6) Neuropathy: Comment: - Continuous monitoring of symptoms related to facial and foot neuropathy, especially given the ongoing myeloma treatment. - Observe any changes concerning increased severity or interference with daily activities. Code(s): G62.9 - Polyneuropathy, unspecified Category: Medical Plan: Health Maintenance: - Discussed identified need for sleep hygiene changes and reduction of caffeine intake post 2 PM as a preventative intervention. - Encouraged ongoing monitoring of blood pressure in a home setting as a means of maintenance and control. Plan During the patient visit, I addressed the longstanding use of lorazepam for managing anxiety and insomnia, emphasizing the potential dependency and safety risks associated with prolonged use, especially in older adults. I provided a detailed plan to taper the medication gradually while suggesting behavioral strategies for sleep improvement, such as reducing screen time and caffeine use after 2 PM. We reviewed all current medications, particularly emphasizing antihypertensive management and ensuring blood pressure remains stable over the course of medication adjustments. I considered her oncological treatment and possible cognitive concerns, reiterating the importance of her continuing with her correctional supervisor and oncologist's prescribed regimens for multiple myeloma. Additionally, I made a referral to gynecology for evaluation of symptoms experienced post-hysterectomy. Orders: Referrals CONTAINER MAKER Referral N94.10 - Unspecified dyspareunia Medications: Changed From lorazepam 1 mg PO BID To lorazepam 0.5 mg orally One pill in the AM & Two pills in the evening for 3 weeks; then transition to 1 pill in the morning and 1 in the evening 105 tabs 0RF 6 weeks Patient Instructions: - Gradually reduce your lorazepam dose as discussed. - Keep track of your blood pressure at home and bring records next visit. - Limit caffeine intake after 2 PM. - Avoid screens, like TV or phone, after 7 PM to help sleep better. - Continue taking all your current medications as directed. - Follow up with your oncologist and notify them of any new symptoms. - Attend the scheduled gynecology appointment for further evaluation.
[2025-02-05 09:21] VITALS: BP 180/60; PULSE 63; RESP 16; TEMP 36.5; O2SAT 99; BMI 21.6
--- OUTSIDE RECORDS SUMMARY | 2025-02-05 10:06 | XMS_ITS | Encounter Summary ---
Author Organization [facility] and [facility] Address [address] [place] [phone] Care Team Providers Care Rn Ante Partum Name Role Phone Maged Guzman MD Primary Care Provider [phone] Encounter Details Date Type Department Care Team (Late st Contact Info) Description 07/05/2015 Scanned Document [facility] Health Information Management [address] [place] [phone] External, Provider Social History Tobacco Use Types [...] External LAB BLOOD ORDERABLES Final Res ult [facility] [place], [place], [place] * Lab Scan (07/05/2015) Blood specimen (specimen) us Provider External LAB BLOOD ORDERABLES Final Res ult [facility] documented in this encounter Visit Diagnoses Not on filedocumented in this encounter Care Teams Rn Ante Partum Relationship Specialty Start Date End Date Maged Guzman MD [address] [place] [address] [place] [phone] PCP - General Internal Medicine 06/07/14 documented as of this encounter
--- OUTSIDE RECORDS SUMMARY | 2025-02-05 10:06 | XMS_ITS | Encounter Summary ---
Author Organization [facility] and [facility] Address [address] [place] [phone] Care Team Providers Care Fixed Wing Aircraft Crew Chief Name Role Phone Maged Guzman MD Primary Care Provider [phone] Encounter Details Date Type Department Care Team (Late st Contact Info) Description 08/23/2016 Scanned Document [facility] at [address] [address] Guille Schuler MD [address] [place] [phone] Social History Tobacco Use Types Packs/Day Years [...] Schuler MD IMG SCAN REPORTS Final Result [facility] [place], [place], [facility] documented in this encounter Visit Diagnoses Not on filedocumented in this encounter Care Teams Fixed Wing Aircraft Crew Chief Relationship Specialty Start Date End Date Maged Guzman MD [address] [place] [address] [place] [phone] PCP - General Internal Medicine 06/07/14 documented as of this encounter
--- OUTSIDE RECORDS SUMMARY | 2025-02-05 10:06 | XMS_ITS | Encounter Summary ---
Author Organization [facility] and [facility] Address [address] [place] [phone] Care Team Providers Care Ballet Professor Name Role Phone Maged Guzman MD Primary Care Provider [phone] Encounter Details Date Type Department Care Team (Late st Contact Info) Description 07/06/2015 Scanned Document [facility] Health Information Management [address] [place] [phone] External, Provider Social History Tobacco Use Types [...] us Provider External PATHOLOGY/CYTOLOGY ORDERABLES Final Result [facility] [place], [place], [facility] documented in this encounter Visit Diagnoses Not on filedocumented in this encounter Care Teams Ballet Professor Relationship Specialty Start Date End Date Maged Guzman MD [address] [place] [address] [place] [phone] PCP - General Internal Medicine 06/07/14 documented as of this encounter
--- OUTSIDE RECORDS SUMMARY | 2025-02-05 10:06 | XMS_ITS | Encounter Summary ---
Author Organization [facility] [email or web address] [facility] and [facility] Address [address] [place] [phone] Care Team Providers Care Production Machine Computer Operator Name Role Phone Maged Guzman MD Primary Care Provider [phone] Encounter Details Date Type Department Care Team (Late st Contact Info) Description 06/30/2015 Scanned Document [facility] Health Information Management [address] [place] [address] [phone] External, Provider Social History Tobacco Use Types [...] on filedocumented in this encounter Care Teams Production Machine Computer Operator Relationship Specialty Start Date End Date Maged Guzman MD [address] [place] [address] [place] [phone] PCP - General Internal Medicine 06/07/14 documented as of this encounter
--- OUTSIDE RECORDS SUMMARY | 2025-02-05 10:06 | XMS_ITS | Encounter Summary ---
Author Organization [facility] and [facility] Address [address] [place] [phone] Care Team Providers Care Education And Development Manager Name Role Phone Maged Guzman MD Primary Care Provider [phone] Encounter Details Date Type Department Care Team (Late st Contact Info) Description 11/14/2015 Scanned Document [facility] [address] [facility] [address] [place] [address] External, Provider Social History Tobacco Use Types [...] us Provider External PATHOLOGY/CYTOLOGY ORDERABLES Final Result [facility] [place], [place], [place] documented in this encounter Visit Diagnoses Not on filedocumented in this encounter Care Teams Education And Development Manager Relationship Specialty Start Date End Date Maged Guzman MD [address] [place] [address] [place] [phone] PCP - General Internal Medicine 06/07/14 documented as of this encounter
--- OUTSIDE RECORDS SUMMARY | 2025-02-05 10:06 | XMS_ITS | Encounter Summary ---
Author Organization [facility] and [facility] Address [address] [place] [address] Care Team Providers Care Strategic Partner Development Manager Name Role Phone Maged Guzman MD Primary Care Provider [phone] Encounter Details Date Type Department Care Team (Late st Contact Info) Description 10/08/2016 Scanned Document [facility] 40 [facility] [address] [place] [address] External, Provider Social History Tobacco Use Types [...] on filedocumented in this encounter Care Teams Strategic Partner Development Manager Relationship Specialty Start Date End Date Maged Guzman MD [address] [place] [address] [place] [address] PCP - General Internal Medicine 06/07/14 documented as of this encounter
--- OUTSIDE RECORDS SUMMARY | 2025-02-05 10:06 | XMS_ITS | Encounter Summary ---
Author Organization [facility] [employer] [facility] and [facility] Address [address] [place] [address] Care Team Providers Care Waste Disposal Plant Operator Name Role Phone Maged Guzman MD Primary Care Provider [phone] Encounter Details Date Type Department Care Team (Late st Contact Info) Description 2015 Scanned Document [facility] Health Information Management [address] [place] [phone] External, Provider Social History Tobacco Use Types [...] on filedocumented in this encounter Care Teams Waste Disposal Plant Operator Relationship Specialty Start Date End Date Maged Guzman MD [address] [place] [address] [place] [address] PCP - General Internal Medicine 06/07/14 documented as of this encounter
--- OUTSIDE RECORDS SUMMARY | 2025-02-05 10:06 | XMS_ITS | Encounter Summary ---
Author Organization [facility] [employer] [facility] and [facility] Address [address] [place] [address] Care Team Providers Care Procurement Assistant Name Role Phone Maged Guzman MD Primary Care Provider [phone] Encounter Details Date Type Department Care Team (Late st Contact Info) Description 11/02/2016 Scanned Document [facility] Health Information Management [address] [place] [phone] External, Provider Social History Tobacco Use Types [...] on filedocumented in this encounter Care Teams Procurement Assistant Relationship Specialty Start Date End Date Maged Guzman MD [address] [place] [address] [place] [address] PCP - General Internal Medicine 06/07/14 documented as of this encounter
--- OUTSIDE RECORDS SUMMARY | 2025-02-05 10:06 | XMS_ITS | Encounter Summary ---
Author Organization [facility] and [facility] Address [address] [place] [address] Care Team Providers Care Medical Care Manager Name Role Phone Maged Guzman MD Primary Care Provider [phone] Encounter Details Date Type Department Care Team (Late st Contact Info) Description 01/21/2016 Scanned Document [facility] Health Information Management [address] [place] [phone] External, Provider Social History Tobacco Use Types [...] External LAB BLOOD ORDERABLES Final Res ult [facility] [place], [place], [facility] documented in this encounter Visit Diagnoses Not on filedocumented in this encounter Care Teams Medical Care Manager Relationship Specialty Start Date End Date Maged Guzman MD [address] [place] [address] [place] [address] PCP - General Internal Medicine 06/07/14 documented as of this encounter
--- OUTSIDE RECORDS SUMMARY | 2025-02-05 10:06 | XMS_ITS | Encounter Summary ---
Author Organization [facility] [employer] [facility] and [facility] Address [address] [place] [address] Care Team Providers Care National Facilities Manager Name Role Phone Maged Guzman MD Primary Care Provider [phone] Encounter Details Date Type Department Care Team (Late st Contact Info) Description 09/28/2015 Scanned Document [facility] at [address] [address] Jose Min MD [address] [place] [phone] Social History Tobacco Use Types Packs/Day Years [...] on filedocumented in this encounter Care Teams National Facilities Manager Relationship Specialty Start Date End Date Maged Guzman MD [address] [place] [address] Dr Fregoso Mitali RADHA [address] PCP - General Internal Medicine 06/07/14 documented as of this encounter
--- OUTSIDE RECORDS SUMMARY | 2025-02-05 10:06 | XMS_ITS | Encounter Summary ---
Author Organization [facility] and [facility] Address [address] [place] [address] Care Team Providers Care Tack Cutter Name Role Phone Maged Guzman MD Primary Care Provider [phone] Encounter Details Date Type Department Care Team (Late st Contact Info) Description 07/05/2015 Scanned Document [facility] Health Information Management [address] [place] [phone] External, Provider Social History Tobacco Use Types [...] Provider External IMG SCAN REPORTS Final Result [facility] [place], [place], [facility] documented in this encounter Visit Diagnoses Not on filedocumented in this encounter Care Teams Tack Cutter Relationship Specialty Start Date End Date Maged Guzman MD [address] [place] [address] [place] [address] PCP - General Internal Medicine 06/07/14 documented as of this encounter
--- OUTSIDE RECORDS SUMMARY | 2025-02-05 10:07 | XMS_ITS | Encounter Summary ---
Author Organization [facility] [employer] [facility] and [facility] Address [address] [place] [address] Care Team Providers Care Food Mixer Assembler Name Role Phone Maged Guzman MD Primary Care Provider [phone] Reason for Referral * Imaging (Routine) - Closed Specialty Diagnoses / Procedures Referred By Contkenna t Referred To Contact Diagnostic Radiology Procedures US Abdomen Complete Guille Schuler MD [address] [place] [address] Dr Rosen [address] [place], [place] [address] [address] Phone: tel: fax: Referral ID Status Reason Start Date Expiration Date Visits Re quested Visits Authorized [id number] Closed 03/23/2019 03/22/2020 1 1 Encounter Details Date Type Department Care Team (Late st Contact Info) Description 03/23/2019 Scanned Document [facility] 40 [facility] [address] [place] [address] Guille Schuler MD [address] [place] [address] Dr Rosen [address] [place] [address] [place] [phone] Social History Tobacco Use Types Packs/Day [...] on filedocumented in this encounter Care Teams Food Mixer Assembler Relationship Specialty Start Date End Date Maged Guzman MD [address] [place] [address] [place] [address] PCP - General Internal Medicine 06/07/14 documented as of this encounter
--- OUTSIDE RECORDS SUMMARY | 2025-02-05 10:07 | XMS_ITS | Encounter Summary ---
Author Organization [facility] [employer] [facility] and [facility] Address [address] [place] [phone] Care Team Providers Care Contact Lens Molder Name Role Phone Maged Guzman MD Primary Care Provider [phone] Encounter Details Date Type Department Care Team (Late st Contact Info) Description 09/01/2021 Scanned Document [facility] [address] [place] [address] External, Provider Social History Tobacco Use Types [...] on filedocumented in this encounter Care Teams Contact Lens Molder Relationship Specialty Start Date End Date Maged Guzman MD [address] [place] [address] [place] [address] PCP - General Internal Medicine 06/07/14 documented as of this encounter
--- OUTSIDE RECORDS SUMMARY | 2025-02-05 10:07 | XMS_ITS | Encounter Summary ---
Author Organization [facility] and [facility] Address [address] [place] [address] Care Team Providers Care Sewing Machine Operator Semiautomatic Name Role Phone Maged Guzman MD Primary Care Provider [phone] Reason for Referral * Imaging (Routine) - Closed Specialty Diagnoses / Procedures Referred By Too t Referred To Contact Diagnostic Radiology Procedures MRI Abdomen w wo IV Contrast Guille Schuler MD [address] [place] [address] Dr Rosen [address] [place] [phone] Phone: tel: fax: Referral ID Status Reason Start Date Expiration Date Visits Re quested Visits Authorized [id number] Closed 01/06/2019 01/06/2020 1 1 Encounter Details Date Type Department Care Team (Late st Contact Info) Description 01/06/2019 Scanned Document [facility] [address] [place] [address] [address] [place] [address] Guille Schuler MD [address] [place] [address] Dr Rosen [address] [place] [phone] Social History Tobacco Use Types Packs/Day [...] on filedocumented in this encounter Care Teams Sewing Machine Operator Semiautomatic Relationship Specialty Start Date End Date Maged Guzman MD [address] [place] [address] [place] [phone] PCP - General Internal Medicine 06/07/14 documented as of this encounter
--- OUTSIDE RECORDS SUMMARY | 2025-02-05 10:07 | XMS_ITS | Clinical Summary ---
Author Organization [facility] Address [address] [place] [address] Phone Care Team Providers Care Commercial Retoucher Name Role Phone Emiliano Guzman MD Primary Care Provider Main Lea MD Unavailable [phone] Medications No known medications Active Problems Patient Care Coordination No te Formatting of this note migh t be different from the original. Pt has Non-power port paced out in [facility] out patient facility. No information in [...] 2:30 PM EST Blood Draw Laboratory Services, [facility] [address] [facility], 2nd [place] [address] Luiz Muse MD [address] [place] [id number] [email or web address] 05/10/2025 3:30 PM EST Office Visit [facility], Division of Hematologic Oncology, [facility] [address] [facility] [address], 7th [place] [address] Luiz Muse MD [address] [place] [phone] [email or web address] Health Maintenance Due Date Last Done Comments [...] file Insurance MEDICARE PART A & B [facility] MEDEX SUPPLEMENT MEDICARE PART A & B [employer] SUPPLEMENT MEDICARE PART A & B [employer] SUPPLEMENT MEDICARE PART A & B [employer] MED[employer] SUPPLEMENT MEDICARE PART A & B [employer] MEDEX SUPPLEMENT MEDICARE PART A & B Member Subscriber Plan / P[facility] Name:EDY Angela R Member ID:[id number] Relation to Subscriber:Self Name:Angela SNOW Subscriber ID:[id number] Payer ID:[id number] Group ID:Not on file Type:Medicare Address: [facility] Familiar [facility] [address] [place] [phone] [facility] MEDEX SUPPLEMENT Member Subscriber Plan / Payer ([facility] 09/24/2016[facility] Name:Angela SNOW Relation to Subscriber:Self Name:Angela SNOW Payer ID:[id number] (NAIC) Type:Indemnity Address: [facility] [id number] [place] [address] Care Teams Commercial Retoucher Relationship Specialty Start Date End Date Emiliano Guzman MD [address] [place] [address] Dr Monge RADHA PCP - General Internal Medicine 11/05/22 Main Lea MD [address] [place] [address] Dr Monge RADHA [email or web address] Referring Physician 11/05/22 Additional Source Comments The information contained in this document represents components of the legal health record. It is not the complete legal health record.[facility]
--- OUTSIDE RECORDS SUMMARY | 2025-02-05 10:07 | XMS_ITS | Encounter Summary ---
Author Organization [facility] [employer] [facility] and [facility] Address [address] [place] [address] Care Team Providers Care Nail Galvanizer Name Role Phone Maged Guzman MD Primary Care Provider [phone] Encounter Details Date Type Department Care Team ([facility] st Contact Info) Description 02/20/2019 Scanned Document [facility] [address] [address] Blanca Carpenter MD [address] [place] [phone] Social History Tobacco Use Types Packs/Day Years [...] on filedocumented in this encounter Care Teams Nail Galvanizer Relationship Specialty Start Date End Date Maged Guzman MD [address] [place] [address] [place] [address] PCP - General Internal Medicine 06/07/14 documented as of this encounter
--- OUTSIDE RECORDS SUMMARY | 2025-02-05 10:07 | XMS_ITS | Encounter Summary ---
Author Organization [facility] Address [address] [place] [address] Care Team Providers Care Casino Runner Name Role Phone Maged Guzman MD Primary Care Provider [phone] Encounter Details Date Type Department Care Team (Late st Contact Info) Description 08/07/2018 Scanned Document [facility] Health Information Management [address] [place] [phone] External, Provider Social History Tobacco Use Types [...] on filedocumented in this encounter Care Teams Casino Runner Relationship Specialty Start Date End Date Maged Guzman MD [address] [place] [address] [place] [address] PCP - General Internal Medicine 06/07/14 documented as of this encounter
--- OUTSIDE RECORDS SUMMARY | 2025-02-05 10:07 | XMS_ITS | Encounter Summary ---
Author Organization [facility] [facility] and [facility] Address [address] [place] [address] Care Team Providers Care Resaw Operator Name Role Phone Maged Guzman MD Primary Care Provider [phone] Encounter Details Date Type Department Care Team (Late st Contact Info) Description 10/28/2022 Scanned Document [facility] 40 [facility] [address] [place] [address] Main Lea MD [address] [place] [address] Social History Tobacco Use Types Packs/Day Years [...] on filedocumented in this encounter Care Teams Resaw Operator Relationship Specialty Start Date End Date Maged Guzman MD [address] [place] [address] Dr Fregoso Mitali RADHA [phone] PCP - General Internal Medicine 06/07/14 documented as of this encounter
--- OUTSIDE RECORDS SUMMARY | 2025-02-05 10:07 | XMS_ITS | Encounter Summary ---
Author Organization [facility] [employer] [facility] and [facility] Address [address] [place] [address] Care Team Providers Care Housing Property Manager Name Role Phone Maged Guzman MD Primary Care Provider Encounter Details Date Type Department Care Team (Late st Contact Info) Description 09/20/2022 Scanned Document [facility] 40 [facility] [address] [place] [address] Main Lea MD [address] [place] [address] Social History Tobacco Use Types Packs/Day Years [...] on filedocumented in this encounter Care Teams Housing Property Manager Relationship Specialty Start Date End Date Maged Guzman MD [address] [place] [address] [place] [phone] PCP - General Internal Medicine 06/07/14 documented as of this encounter
--- OUTSIDE RECORDS SUMMARY | 2025-02-05 10:07 | XMS_ITS | Encounter Summary ---
Author Organization [facility] [employer] [facility] and [facility] Address [address] [place] [address] Care Team Providers Care Environmental Engineering Manager Name Role Phone Maged Guzman MD Primary Care Provider [phone] Encounter Details Date Type Department Care Team (Late st Contact Info) Description 06/14/2012 Abstract [facility] Health Information Management [address] [place] [phone] [place], Primary Care [address] [place] [phone] Social History Tobacco Use Types Packs/Day Years [...] on filedocumented in this encounter Care Teams Environmental Engineering Manager Relationship Specialty Start Date End Date Maged Guzman MD [address] [place] [address] [place] [address] PCP - General Internal Medicine 06/07/14 documented as of this encounter
--- OUTSIDE RECORDS SUMMARY | 2025-02-05 10:07 | XMS_ITS | Encounter Summary ---
Author Organization [facility] [employer] [facility] and [facility] Address [address] [place] [phone] Care Team Providers Care Engineer Second Assistant Name Role Phone Maged Guzman MD Primary Care Provider [phone] Reason for Referral * Imaging (Routine) - Closed Specialty Diagnoses / Procedures Referred By Too flood Referred To Contact Diagnostic Radiology Procedures MRI Abdomen w wo IV Contrast MRCP Guille Schuler MD [address] [place] [address] Dr Rosen [address] [place] [phone] Phone: tel: fax: Referral ID Status Reason Start Date Expiration Date Visits Re quested Visits Authorized [id number] Closed 06/05/2019 06/04/2020 1 1 Encounter Details Date Type Department Care Team (Late st Contact Info) Description 06/05/2019 Scanned Document [facility] [address] [place] [address] [address] [place] [address] Guille Schuler MD [address] [place] [address] Dr Rosen [address] [place] [phone] Social History Tobacco Use Types Packs/Day [...] on filedocumented in this encounter Care Teams Engineer Second Assistant Relationship Specialty Start Date End Date Maged Guzman MD [address] [place] [address] [place] [phone] PCP - General Internal Medicine 06/07/14 documented as of this encounter
--- OUTSIDE RECORDS SUMMARY | 2025-02-05 10:07 | XMS_ITS | Encounter Summary ---
Author Organization [facility] [employer] [facility] and [facility] Address [address] [place] [address] Care Team Providers Care Money Room Supervisor Name Role Phone Maged Guzman MD Primary Care Provider [phone] Encounter Details Date Type Department Care Team (Late st Contact Info) Description 09/07/2022 Scanned Document [facility] 40 [facility] [address] [place] [address] External, Provider Social History Tobacco Use Types [...] on filedocumented in this encounter Care Teams Money Room Supervisor Relationship Specialty Start Date End Date Maged Guzman MD [address] [place] [address] [place] [address] PCP - General Internal Medicine 06/07/14 documented as of this encounter
--- OUTSIDE RECORDS SUMMARY | 2025-02-05 10:07 | XMS_ITS | Clinical Summary ---
Author Organization [address] Address [address] [place] [phone] Phone Care Team Providers Care Cleaning And Maintenance Worker Name Role Phone Maged Guzman MD Primary Care Provider [phone] Allergies Active Allergy Reactions Criticality Noted Date [...] Series) 01/11/2016 Osteoporosis screening (bone density) 10/02/2016 Influenza vaccine 12/25/2024 03/29/2022, , 03/27/2020, Additional history exists Covid-19 vaccine series (1 - 2023-25 season) 2025 RSV Immunization (1 - 1-dose 75+ series) 10/02/2026 Shingles vaccine (Zostavax) Discontinued 11/11/2015 Cervical cancer screening Discontinued Meningococcal B Vaccine Aged Out No l onger eligible based on patient's age to complete this topic Meningococcal Vaccine Aged Out No shakila francisco eligible based on patient's age to complete this topic Insurance MEDICARE [facility] MEDICARE BS MEDICARE [facility] Care Teams Cleaning And Maintenance Worker Relationship Specialty Start Date End Date Maged Guzman MD [address] [place] [address] [place] [address] PCP - General Internal Medicine 06/07/14
--- OUTSIDE RECORDS SUMMARY | 2025-02-05 10:08 | XMS_ITS | Encounter Summary ---
Author Organization [facility] [employer] [facility] and [facility] Address [address] [place] [address] Care Team Providers Care Brewing Technician Name Role Phone Maged Guzman MD Primary Care Provider [phone] Encounter Details Date Type Department Care Team (Late st Contact Info) Description 03/08/2017 Scanned Document [facility] 40 [facility] [address] [place] [address] External, Provider Social History Tobacco Use Types [...] on filedocumented in this encounter Care Teams Brewing Technician Relationship Specialty Start Date End Date Maged Guzman MD [address] [place] [address] [place] [phone] PCP - General Internal Medicine 06/07/14 documented as of this encounter
--- OUTSIDE RECORDS SUMMARY | 2025-02-05 10:08 | XMS_ITS | Encounter Summary ---
Author Organization [facility] [employer] [facility] and [facility] Address [address] [place] [phone] Care Team Providers Care Roll Tube Setter Name Role Phone Maged Guzman MD Primary Care Provider [phone] Encounter Details Date Type Department Care Team (Late st Contact Info) Description 08/01/2017 Scanned Document [facility] Health Information Management [address] [place] [phone] External, Provider Social History Tobacco Use Types [...] on filedocumented in this encounter Care Teams Roll Tube Setter Relationship Specialty Start Date End Date Maged Guzman MD [address] [place] [address] [place] [address] PCP - General Internal Medicine 06/07/14 documented as of this encounter
--- OUTSIDE RECORDS SUMMARY | 2025-02-05 10:08 | XMS_ITS | Encounter Summary ---
Author Organization [facility] [employer] and [facility] Address [address] [place] [address] Care Team Providers Care Client Care Consultant Name Role Phone Maged Guzman MD Primary Care Provider [phone] Reason for Referral * Imaging (Routine) - Closed Specialty Diagnoses / Procedures Referred By Contac t Referred To Contact Diagnostic Radiology Procedures MRI Abdomen Pelvis w wo IV Contrast([facility] Guille Schuler MD [address] [place] [address] Dr Rosen [address] [place] [phone] Phone: tel: fax: Referral ID Status Reason Start Date Expiration Date Visits Re quested Visits Authorized [id number] Closed 09/06/2017 09/06/2018 1 1 Encounter Details Date Type Department Care Team (Late st Contact Info) Description 09/06/2017 Scanned Document [facility] [address] [place] [address] [address] [place] [address] Guille Schuler MD [address] [place] [address] Dr Rosen [address] [place] [phone] Social History Tobacco Use Types Packs/Day [...] Comments MRI ABDOMEN PELVIS W WO IV CONTRAST([facility]) Routine 08/01/2017 LAB SCAN Routine 07/27/2017 documented in this encounter Results * MRI Abdomen Pelvis w wo IV Contrast([facility]) (08/01/2017) Anatomical Region Laterality Modality Abdomen, Pelvis, Ortho Pelvi s, Abdomen and Pelvis, RCC Abdomen/Pelvis Magnetic Resonance us Guille Schuler MD IMG MRI ORDERABLES Final Resul t * Lab Scan (07/27/2017) Blood specimen (specimen) us Guille Schuler MD LAB BLOOD ORDERABLES Final Res ult documented in this encounter Visit Diagnoses Not on filedocumented in this encounter Care Teams Client Care Consultant Relationship Specialty Start Date End Date Maged Guzman MD [address] [place] [address] [place] [address] PCP - General Internal Medicine 06/07/14 documented as of this encounter
--- OUTSIDE RECORDS SUMMARY | 2025-02-05 10:08 | XMS_ITS | Encounter Summary ---
Author Organization [facility] [employer] and [facility] Address [address] [place] [address] Care Team Providers Care Database Management Specialist Name Role Phone Maged Guzman MD Primary Care Provider [phone] Encounter Details Date Type Department Care Team (Late st Contact Info) Description 02/28/2018 Scanned Document [facility] [address] [facility] [address] [place] [address] Maged Guzman MD [address] [place] [address] [place] [address] Social History Tobacco Use Types Packs/Day Years [...] on filedocumented in this encounter Care Teams Database Management Specialist Relationship Specialty Start Date End Date Maged Guzman MD [address] [place] [address] [place] [address] PCP - General Internal Medicine 06/07/14 documented as of this encounter
--- OUTSIDE RECORDS SUMMARY | 2025-02-05 10:08 | XMS_ITS | Encounter Summary ---
Author Organization [facility] [employer] and [facility] Address [address] [place] [address] Care Team Providers Care Zoology Technical Officer Name Role Phone Maged Guzman MD Primary Care Provider [phone] Encounter Details Date Type Department Care Team (Late st Contact Info) Description 08/01/2017 Scanned Document [facility] Health Information Management [address] [place] [phone] External, Provider Social History Tobacco Use Types [...] on filedocumented in this encounter Care Teams Zoology Technical Officer Relationship Specialty Start Date End Date Maged Guzman MD [address] [place] [address] Dr MckeonyoRADHA rivera [phone] PCP - General Internal Medicine 06/07/14 documented as of this encounter
--- OUTSIDE RECORDS SUMMARY | 2025-02-05 10:08 | XMS_ITS | Encounter Summary ---
Author Organization [facility] [employer] [facility] and [facility] Address [address] [place] [address] Care Team Providers Care Timber Inspector Name Role Phone Maged Guzman MD Primary Care Provider [phone] Encounter Details Date Type Department Care Team (Late st Contact Info) Description 07/05/2017 Scanned Document [facility] Health Information Management [address] [place] [phone] External, Provider Social History Tobacco Use Types [...] on filedocumented in this encounter Care Teams Timber Inspector Relationship Specialty Start Date End Date Maged Guzman MD [address] [place] [address] [place] [address] PCP - General Internal Medicine 06/07/14 documented as of this encounter
== END 2025-02-05 09:52 | disposition home or self-care (01) ==
LOC: HO.HMCHD 09:11
PROVIDERS: PCP Student in an Organized Health Care Education/Training Program; Visit Provider Student in an Organized Health Care Education/Training Program
DX: E11.65 Type 2 diabetes mellitus with hyperglycemia (principal); C90.00 Multiple myeloma not having achieved remission; I10 Essential (primary) hypertension; N94.10 Unspecified dyspareunia; Z79.899 Other long term (current) drug therapy; G62.9 Polyneuropathy, unspecified

== ENCOUNTER → 2025-02-05 09:10 | Outpatient (BNVA) | payer MEDICARE, SELFPAY | PROVIDERS: PCP Student in an Organized Health Care Education/Training Program; Visit Provider Student in an Organized Health Care Education/Training Program | DX: E11.65 Type 2 diabetes mellitus with hyperglycemia (principal); I10 Essential (primary) hypertension; C90.00 Multiple myeloma not having achieved remission; N94.10 Unspecified dyspareunia; E11.40 Type 2 diabetes mellitus with diabetic neuropathy, unspecified; Z79.899 Other long term (current) drug therapy | CPT/HCPCS: 99212 ==

== ENCOUNTER 2025-02-26 08:07 | Outpatient (REF) | payer MEDICARE, SELFPAY ==
--- OUTSIDE RECORDS SUMMARY | 2010-10-13 08:30 | XMS_ITS | Encounter Summary ---
Author Organization [facility] [employer] [facility] and [facility] Address [address] [place] [phone] Care Team Providers Care Legal Investigator Name Role Phone Unavailable Primary Care Provider Unavailabl e Encounter Details Date Type Department Care Team (Late st Contact Info) Description 10/13/2010 8:30 AM EDT Hospital Encounter INTERFACE DEFAULT [address] [place] [phone] Social History Tobacco Use Types Packs/Day Years [...]
--- OUTSIDE RECORDS SUMMARY | 2025-02-26 08:17 | XMS_ITS | Encounter Summary ---
Author Organization [facility] and [facility] Address [address] [place] [address] Care Team Providers Care Electron Tube Assembler Name Role Phone Maged Guzman MD Primary Care Provider [phone] Encounter Details Date Type Department Care Team (Late st Contact Info) Description 08/23/2016 Scanned Document [facility] at [address] [address] Guille Schuler MD [address] [place] [phone] Social History Tobacco Use Types Packs/Day Years [...] Schuler MD IMG SCAN REPORTS Final Result [facility] [place], [place], [facility] documented in this encounter Visit Diagnoses Not on filedocumented in this encounter Care Teams Electron Tube Assembler Relationship Specialty Start Date End Date Maged Guzman MD [address] [place] [address] [place] [address] PCP - General Internal Medicine 06/07/14 documented as of this encounter
--- OUTSIDE RECORDS SUMMARY | 2025-02-26 08:17 | XMS_ITS | Encounter Summary ---
Author Organization [facility] [employer] and [facility] Address [address] [place] [address] Care Team Providers Care Wire Wheeler Name Role Phone Maged Guzman MD Primary Care Provider [phone] Encounter Details Date Type Department Care Team (Late st Contact Info) Description 10/08/2016 Scanned Document [facility] 40 [facility] [address] [place] [address] External, Provider Social History Tobacco Use Types [...] on filedocumented in this encounter Care Teams Wire Wheeler Relationship Specialty Start Date End Date Maged Guzman MD [address] [place] [address] [place] [address] PCP - General Internal Medicine 06/07/14 documented as of this encounter
--- OUTSIDE RECORDS SUMMARY | 2025-02-26 08:18 | XMS_ITS | Encounter Summary ---
Author Organization [facility] and [facility] Address [address] [place] [address] Care Team Providers Care Boom Cat Operator Name Role Phone Maged Guzman MD Primary Care Provider [phone] Encounter Details Date Type Department Care Team (Late st Contact Info) Description 11/14/2015 Scanned Document [facility] 40 [facility] [address] [place] [address] External, Provider Social History Tobacco Use Types [...] us Provider External PATHOLOGY/CYTOLOGY ORDERABLES Final Result [facility] [place], [place], [place] documented in this encounter Visit Diagnoses Not on filedocumented in this encounter Care Teams Boom Cat Operator Relationship Specialty Start Date End Date Maged Guzman MD [address] [place] [address] [place] [address] PCP - General Internal Medicine 06/07/14 documented as of this encounter
--- OUTSIDE RECORDS SUMMARY | 2025-02-26 08:18 | XMS_ITS | Encounter Summary ---
Author Organization [facility] and [facility] Address [address] [place] [address] Care Team Providers Care Crew Caller Name Role Phone Maged Guzman MD Primary Care Provider Encounter Details Date Type Department Care Team (Late st Contact Info) Description 01/21/2016 Scanned Document [facility] Health Information Management [address] [place] [phone] External, Provider Social History Tobacco Use Types [...] External LAB BLOOD ORDERABLES Final Res ult [facility] [place], [place], [facility] documented in this encounter Visit Diagnoses Not on filedocumented in this encounter Care Teams Crew Caller Relationship Specialty Start Date End Date Maged Guzman MD [address] [place] [address] [place] [address] PCP - General Internal Medicine 06/07/14 documented as of this encounter
--- OUTSIDE RECORDS SUMMARY | 2025-02-26 08:18 | XMS_ITS | Encounter Summary ---
Author Organization [facility] [employer] and [facility] Address [address] [place] [address] Care Team Providers Care Engineer Automated Equipment Name Role Phone Maged Guzman MD Primary Care Provider [phone] Encounter Details Date Type Department Care Team (Late st Contact Info) Description 11/02/2016 Scanned Document [facility] Health Information Management [address] [place] [phone] External, Provider Social History Tobacco Use Types [...] filedocumented in this encounter Care Teams Engineer Automated Equipment Relationship Specialty Start Date End Date Maged Guzman MD [address] [place] [address] Dr Fregoso MitaliRADHA [address] PCP - General Internal Medicine 06/07/14 documented as of this encounter
--- OUTSIDE RECORDS SUMMARY | 2025-02-26 08:18 | XMS_ITS | Encounter Summary ---
Author Organization [facility] [employer] and [facility] Address [address] [place] [address] Care Team Providers Care Western Felt Hat Blocker Name Role Phone Maged Guzman MD Primary Care Provider [phone] Encounter Details Date Type Department Care Team (Late st Contact Info) Description 09/28/2015 Scanned Document [facility] at [address] [address] Jose Min MD [address] [place] [phone] Social History Tobacco Use Types Packs/Day Years [...] on filedocumented in this encounter Care Teams Western Felt Hat Blocker Relationship Specialty Start Date End Date Maged Guzman MD [address] [place] [address] Dr Fregoso Mitali RADHA [address] PCP - General Internal Medicine 06/07/14 documented as of this encounter
--- OUTSIDE RECORDS SUMMARY | 2025-02-26 08:18 | XMS_ITS | Encounter Summary ---
Author Organization [facility] and [facility] Address [address] [place] [address] Care Team Providers Care Subject Scientific Research Name Role Phone Maged Guzman MD Primary Care Provider [phone] Encounter Details Date Type Department Care Team (Late st Contact Info) Description 07/06/2015 Scanned Document [facility] Health Information Management [address] [place] [phone] External, Provider Social History Tobacco Use Types [...] us Provider External PATHOLOGY/CYTOLOGY ORDERABLES Final Result [facility] [place], [place], [facility] documented in this encounter Visit Diagnoses Not on filedocumented in this encounter Care Teams Subject Scientific Research Relationship Specialty Start Date End Date Maged Guzman MD [address] [place] [address] [place] [address] PCP - General Internal Medicine 06/07/14 documented as of this encounter
--- OUTSIDE RECORDS SUMMARY | 2025-02-26 08:18 | XMS_ITS | Encounter Summary ---
Author Organization [facility] and [facility] Address [address] [place] [address] Care Team Providers Care Clinical Biochemist Name Role Phone Maged Guzman MD Primary Care Provider [phone] Encounter Details Date Type Department Care Team (Late st Contact Info) Description 07/05/2015 Scanned Document [facility] Health Information Management [address] [place] [phone] External, Provider Social History Tobacco Use Types [...] Provider External IMG SCAN REPORTS Final Result [facility] [place], [place], [facility] documented in this encounter Visit Diagnoses Not on filedocumented in this encounter Care Teams Clinical Biochemist Relationship Specialty Start Date End Date Maged Guzman MD [address] [place] [address] [place] [address] PCP - General Internal Medicine 06/07/14 documented as of this encounter
--- OUTSIDE RECORDS SUMMARY | 2025-02-26 08:18 | XMS_ITS | Encounter Summary ---
Author Organization [facility] and [facility] Address [address] [place] [address] Care Team Providers Care Steamfitter Name Role Phone Maged Guzman MD Primary Care Provider [phone] Encounter Details Date Type Department Care Team (Late st Contact Info) Description 07/05/2015 Scanned Document [facility] Health Information Management [address] [place] [phone] External, Provider Social History Tobacco Use Types [...] External LAB BLOOD ORDERABLES Final Res ult [facility] [place], [place], [place] * Lab Scan (07/05/2015) Blood specimen (specimen) us Provider External LAB BLOOD ORDERABLES Final Res ult [facility] documented in this encounter Visit Diagnoses Not on filedocumented in this encounter Care Teams Steamfitter Relationship Specialty Start Date End Date Maged Guzman MD [address] [place] [address] [place] [address] PCP - General Internal Medicine 06/07/14 documented as of this encounter
--- OUTSIDE RECORDS SUMMARY | 2025-02-26 08:18 | XMS_ITS | Encounter Summary ---
Author Organization [facility] [employer] and [facility] Address [address] [place] [address] Care Team Providers Care Guest Relation Officer Name Role Phone Maged Guzman MD Primary Care Provider [phone] Encounter Details Date Type Department Care Team (Late st Contact Info) Description 2015 Scanned Document [facility] Health Information Management [address] [place] [phone] External, Provider Social History Tobacco Use Types [...] on filedocumented in this encounter Care Teams Guest Relation Officer Relationship Specialty Start Date End Date Maged Guzman MD [address] [place] [address] [place] [address] PCP - General Internal Medicine 06/07/14 documented as of this encounter
--- OUTSIDE RECORDS SUMMARY | 2025-02-26 08:18 | XMS_ITS | Encounter Summary ---
Author Organization [facility] [employer] and [facility] Address [address] [place] [address] Care Team Providers Care Playground Official Name Role Phone Maged Guzman MD Primary Care Provider [phone] Encounter Details Date Type Department Care Team (Late st Contact Info) Description 06/30/2015 Scanned Document [facility] Health Information Management [address] [place] [phone] External, Provider Social History Tobacco Use Types [...] on filedocumented in this encounter Care Teams Playground Official Relationship Specialty Start Date End Date Maged Guzman MD [address] [place] [address] [place] [address] PCP - General Internal Medicine 06/07/14 documented as of this encounter
--- OUTSIDE RECORDS SUMMARY | 2025-02-26 08:19 | XMS_ITS | Clinical Summary ---
Author Organization [facility] Address [address] [place] [address] Phone Care Team Providers Care Hot Blaster Name Role Phone Emiliano Guzman MD Primary Care Provider Main Lea MD Unavailable [phone] Medications No known medications Active Problems Patient [...] 2:30 PM EST Blood Draw Laboratory Services, [address] 2[address] [place] [address] Luiz Muse MD [address] [place] [address] [place] [address] [email or web address] 05/10/2025 3:30 PM EST Office Visit [facility], Division of Hematologic Oncology, [address] [place] [address] Luiz Muse MD [address] [place] [address] [facility] [place] [address] [email or web address] Maintenance Due Date Last Done Comments [...] file Insurance MEDICARE PART A & B [facility] MEDEX SUPPLEMENT MEDICARE PART A & B [employer] MEDEX SUPPLEMENT MEDICARE PART A & B [employer] SUPPLEMENT MEDICARE PART A & B [employer] SUPPLEMENT MEDICARE PART A & B [employer] SUPPLEMENT MEDICARE PART A & B [employer] MEDEX SUPPLEMENT Care Teams Hot Blaster Relationship Specialty Start Date End Date Emiliano Guzman MD [address] [place] [address] Dr BOO [place], [place] PCP - General Internal Medicine 11/05/22 Main Lea MD [address] [place] [address] [place] [address] [email or web address] Referring Physician 11/05/22 Additional Source Comments The information contained in this document represents components of the legal health record. It is not the complete legal health record.[facility]
--- OUTSIDE RECORDS SUMMARY | 2025-02-26 08:19 | XMS_ITS | Encounter Summary ---
Author Organization [facility] [employer] and [facility] Address [address] [place] [address] Care Team Providers Care Camp Dishwasher Name Role Phone Maged Guzman MD Primary Care Provider [phone] Encounter Details Date Type Department Care Team (Late st Contact Info) Description 10/28/2022 Scanned Document [facility] 40 [facility] 40 [facility] [address] [place] [address] Main Lea MD [address] [place] [address] Social History Tobacco Use Types Packs/Day Years [...] on filedocumented in this encounter Care Teams Camp Dishwasher Relationship Specialty Start Date End Date Maged Guzman MD [address] [place] [address] [place] [address] PCP - General Internal Medicine 06/07/14 documented as of this encounter
--- OUTSIDE RECORDS SUMMARY | 2025-02-26 08:19 | XMS_ITS | Encounter Summary ---
Author Organization [facility] [employer] and [facility] Address [address] [place] [address] Care Team Providers Care Cupola Liner Name Role Phone Maged Guzman MD Primary Care Provider [phone] Encounter Details Date Type Department Care Team (Late st Contact Info) Description 09/20/2022 Scanned Document [facility] 40 [facility] 40 [facility] [address] [place] [address] Main Lea MD [address] [place] [address] Social History Tobacco Use Types Packs/Day Years [...] on filedocumented in this encounter Care Teams Cupola Liner Relationship Specialty Start Date End Date Maged Guzman MD [address] [place] [address] [place] [address] PCP - General Internal Medicine 06/07/14 documented as of this encounter
--- OUTSIDE RECORDS SUMMARY | 2025-02-26 08:19 | XMS_ITS | Encounter Summary ---
Author Organization [facility] [employer] and [facility] Address [address] [place] [address] Care Team Providers Care Plant Electrician Name Role Phone Maged Guzman MD Primary Care Provider [phone] Encounter Details Date Type Department Care Team (Late st Contact Info) Description 06/14/2012 Abstract [facility] Health Information Management [address] [place] [address] [place] [address] [place] [address] [phone] Social History Tobacco Use Types Packs/Day Years [...] filedocumented in this encounter Care Teams Plant Electrician Relationship Specialty Start Date End Date Maged Guzman MD [address] [place] [address] [place] [address] PCP - General Internal Medicine 06/07/14 documented as of this encounter
--- OUTSIDE RECORDS SUMMARY | 2025-02-26 08:19 | XMS_ITS | Encounter Summary ---
Author Organization [facility] [employer] and [facility] Address [address] [place] [address] Care Team Providers Care Furniture Associate Name Role Phone Maged Guzman MD Primary Care Provider [phone] Encounter Details Date Type Department Care Team (Late st Contact Info) Description 09/01/2021 Scanned Document [facility] 40 [facility] 40 [facility] [address] [place] [address] External, Provider Social History Tobacco Use Types [...] Date End Date Maged Guzman MD [address] [place] [address] [place] [address] PCP - General Internal Medicine 06/07/14 documented as of this encounter
--- OUTSIDE RECORDS SUMMARY | 2025-02-26 08:19 | XMS_ITS | Encounter Summary ---
Author Organization [facility] [employer] and [facility] Address [address] [place] [address] Care Team Providers Care Inventory Control Associate Name Role Phone Maged Guzman MD Primary Care Provider [phone] Encounter Details Date Type Department Care Team (Late st Contact Info) Description 09/07/2022 Scanned Document [facility] 40 [facility] 40 [facility] [address] [place] [address] External, Provider Social History Tobacco Use Types [...] on filedocumented in this encounter Care Teams Inventory Control Associate Relationship Specialty Start Date End Date Mgaed Guzman MD [address] [place] [address] [place] [address] PCP - General Internal Medicine 06/07/14 documented as of this encounter
--- OUTSIDE RECORDS SUMMARY | 2025-02-26 08:21 | XMS_ITS | Encounter Summary ---
Author Organization [facility] [employer] and [facility] Address [address] [place] [address] Care Team Providers Care Bone Grinder Name Role Phone Maged Guzman MD Primary Care Provider [phone] Reason for Referral * Imaging (Routine) - Closed Specialty Diagnoses / Procedures Referred By Too t Referred To Contact Diagnostic Radiology Procedures MRI Abdomen w wo IV Contrast Guille Schuler MD [address] [place] [address] Dr Rosen [address] [place] [phone] Phone: tel: fax: Referral ID Status Reason Start Date Expiration Date Visits Re quested Visits Authorized [id number] Closed 01/06/2019 01/06/2020 1 1 Encounter Details Date Type Department Care Team (Late st Contact Info) Description 01/06/2019 Scanned Document [facility] [address] [place] [address] [address] [place] [address] Guille Schuler MD [address] [place] [address] Dr Rosen [address] [place] [phone] Social History Tobacco Use Types Packs/Day [...] on filedocumented in this encounter Care Teams Bone Grinder Relationship Specialty Start Date End Date Maged Guzman MD [address] [place] [address] [place] [phone] PCP - General Internal Medicine 06/07/14 documented as of this encounter
--- OUTSIDE RECORDS SUMMARY | 2025-02-26 08:21 | XMS_ITS | Encounter Summary ---
Author Organization [facility] [employer] [facility] and [facility] Address [address] [place] [address] Care Team Providers Care Airplane Rigger Name Role Phone Maged Guzman MD Primary Care Provider [phone] Encounter Details Date Type Department Care Team (Late st Contact Info) Description 08/07/2018 Scanned Document [facility] Health Information Management [address] [place] [address] [phone] External, Provider Social History Tobacco Use Types [...] filedocumented in this encounter Care Teams Airplane Rigger Relationship Specialty Start Date End Date Maged Guzman MD [address] [place] [address] Dr Fregoso MitaliRADHA [address] PCP - General Internal Medicine 06/07/14 documented as of this encounter
--- OUTSIDE RECORDS SUMMARY | 2025-02-26 08:21 | XMS_ITS | Encounter Summary ---
Author Organization [facility] [employer] [facility] and [facility] Address [address] [place] [address] Care Team Providers Care Nozzle And Sleeve Worker Name Role Phone Maged Guzman MD Primary Care Provider [phone] Reason for Referral * Imaging (Routine) - Closed Specialty Diagnoses / Procedures Referred By Contkenna t Referred To Contact Diagnostic Radiology Procedures US Abdomen Complete Guille Schuler MD [address] [place] [address] Dr Rosen [address] [place], [place] [address] [address] Phone: tel: fax: Referral ID Status Reason Start Date Expiration Date Visits Re quested Visits Authorized [id number] Closed 03/23/2019 03/22/2020 1 1 Encounter Details Date Type Department Care Team (Late st Contact Info) Description 03/23/2019 Scanned Document [facility] 40 [facility] [address] [place] [address] Guille Schuler MD [address] [place] [address] Dr Rosen [address] [place] [address] [place] [phone] Social History Tobacco Use Types Packs/Day [...] on filedocumented in this encounter Care Teams Nozzle And Sleeve Worker Relationship Specialty Start Date End Date Maged Guzman MD [address] [place] [address] [place] [phone] PCP - General Internal Medicine 06/07/14 documented as of this encounter
--- OUTSIDE RECORDS SUMMARY | 2025-02-26 08:21 | XMS_ITS | Encounter Summary ---
Author Organization [facility] [employer] [facility] and [facility] Address [address] [place] [address] Care Team Providers Care Mix House Operator Name Role Phone Maged Guzman MD Primary Care Provider Encounter Details Date Type Department Care Team (Late st Contact Info) Description 03/08/2017 Scanned Document [facility] 40 [facility] [address] [place] [address] External, Provider Social History Tobacco Use Types [...] on filedocumented in this encounter Care Teams Mix House Operator Relationship Specialty Start Date End Date Maged Guzman MD [address] [place] [address] [place] [address] PCP - General Internal Medicine 06/07/14 documented as of this encounter
--- OUTSIDE RECORDS SUMMARY | 2025-02-26 08:21 | XMS_ITS | Encounter Summary ---
Author Organization [facility] [employer] [facility] and [facility] Address [address] [place] [address] Care Team Providers Care Soda Flaker Name Role Phone Maged Guzman MD Primary Care Provider [phone] Encounter Details Date Type Department Care Team ([facility] st Contact Info) Description 02/20/2019 Scanned Document [facility] [address] [address] Blanca Carpenter MD [address] [place] [phone] Social History Tobacco Use Types Packs/Day Years [...] on filedocumented in this encounter Care Teams Soda Flaker Relationship Specialty Start Date End Date Maged Guzman MD [address] [place] [address] [place] [address] PCP - General Internal Medicine 06/07/14 documented as of this encounter
--- OUTSIDE RECORDS SUMMARY | 2025-02-26 08:21 | XMS_ITS | Encounter Summary ---
Author Organization [facility] [employer] [facility] and [facility] Address [address] [place] [address] Care Team Providers Care Civil Structural Engineer Name Role Phone Maged Guzman MD Primary Care Provider [phone] Encounter Details Date Type Department Care Team (Late st Contact Info) Description 07/05/2017 Scanned Document [facility] Health Information Management [address] [place] [phone] External, Provider Social History Tobacco Use Types [...] on filedocumented in this encounter Care Teams Civil Structural Engineer Relationship Specialty Start Date End Date Maged Guzman MD [address] [place] [address] Dr Fregoso MitaliRADHA [phone] PCP - General Internal Medicine 06/07/14 documented as of this encounter
--- OUTSIDE RECORDS SUMMARY | 2025-02-26 08:21 | XMS_ITS | Encounter Summary ---
Author Organization [facility] [employer] [facility] and [facility] Address [address] [place] [address] Care Team Providers Care Permit Agent Name Role Phone Maged Guzman MD Primary Care Provider [phone] Reason for Referral * Imaging (Routine) - Closed Specialty Diagnoses / Procedures Referred By Too flood Referred To Contact Diagnostic Radiology Procedures MRI Abdomen w wo IV Contrast MRCP Guille Schuler MD [address] [place] [address] Dr Rosen [address] [place] [phone] Phone: tel: fax: Referral ID Status Reason Start Date Expiration Date Visits Re quested Visits Authorized [id number] Closed 06/05/2019 06/04/2020 1 1 Encounter Details Date Type Department Care Team (Late st Contact Info) Description 06/05/2019 Scanned Document [facility] [address] [place] [address] [address] [place] [address] Guille Schuler MD [address] [place] [address] Dr Rosen [address] [place] [phone] Social History Tobacco Use Types Packs/Day [...] on filedocumented in this encounter Care Teams Permit Agent Relationship Specialty Start Date End Date Maged Guzman MD [address] [place] [address] [place] [phone] PCP - General Internal Medicine 06/07/14 documented as of this encounter
--- OUTSIDE RECORDS SUMMARY | 2025-02-26 08:22 | XMS_ITS | Encounter Summary ---
Author Organization [facility] [employer] [facility] and [facility] Address [address] [place] [address] Care Team Providers Care Teaching Associate Name Role Phone Maged Guzman MD Primary Care Provider [phone] Encounter Details Date Type Department Care Team (Late st Contact Info) Description 08/01/2017 Scanned Document [facility] Health Information Management [address] [place] [phone] External, Provider Social History Tobacco Use Types [...] on filedocumented in this encounter Care Teams Teaching Associate Relationship Specialty Start Date End Date Maged Guzman MD [address] [place] [address] Dr MckeonyoRADHA rivera [phone] PCP - General Internal Medicine 06/07/14 documented as of this encounter
--- OUTSIDE RECORDS SUMMARY | 2025-02-26 08:22 | XMS_ITS | Encounter Summary ---
Author Organization [facility] [employer] [facility] and [facility] Address [address] [place] [address] Care Team Providers Care Household Appliance Assembler Name Role Phone Maged Guzman MD Primary Care Provider [phone] Reason for Referral * Imaging (Routine) - Closed Specialty Diagnoses / Procedures Referred By Contac t Referred To Contact Diagnostic Radiology Procedures MRI Abdomen Pelvis w wo IV Contrast([facility] Guille Schuler MD [address] [place] [address] Dr Rosen [address] [place] [phone] Phone: tel: fax: Referral ID Status Reason Start Date Expiration Date Visits Re quested Visits Authorized [id number] Closed 09/06/2017 09/06/2018 1 1 Encounter Details Date Type Department Care Team (Late st Contact Info) Description 09/06/2017 Scanned Document [facility] [address] [place] [address] [address] [place] [address] Guille Schuler MD [address] [place] [address] Dr Rosen [address] [place] [phone] Social History Tobacco Use Types Packs/Day [...] Comments MRI ABDOMEN PELVIS W WO IV CONTRAST([facility] Routine 08/01/2017 LAB SCAN Routine 07/27/2017 documented in this encounter Results * MRI Abdomen Pelvis w wo IV Contrast([facility] (08/01/2017) Anatomical Region Laterality Modality Abdomen, Pelvis, Ortho Pelvi s, Abdomen and Pelvis, RCC Abdomen/Pelvis Magnetic Resonance us Guille Schuler MD IMG MRI ORDERABLES Final Resul t * Lab Scan (07/27/2017) Blood specimen (specimen) us Guille Schuler MD LAB BLOOD ORDERABLES Final Res ult documented in this encounter Visit Diagnoses Not on filedocumented in this encounter Care Teams Household Appliance Assembler Relationship Specialty Start Date End Date Maged Guzman MD [address] [place] [address] [place] [phone] PCP - General Internal Medicine 06/07/14 documented as of this encounter
--- OUTSIDE RECORDS SUMMARY | 2025-02-26 08:22 | XMS_ITS | Encounter Summary ---
Author Organization [facility] [employer] [facility] and [facility] Address [address] [place] [phone] Care Team Providers Care Cardiac Rn Name Role Phone Maged Guzman MD Primary Care Provider [phone] Encounter Details Date Type Department Care Team (Late st Contact Info) Description 08/01/2017 Scanned Document [facility] Health Information Management [address] [place] [phone] External, Provider Social History Tobacco Use Types [...] on filedocumented in this encounter Care Teams Cardiac Rn Relationship Specialty Start Date End Date Maged Guzman MD [address] [place] [address] [place] [phone] PCP - General Internal Medicine 06/07/14 documented as of this encounter
--- OUTSIDE RECORDS SUMMARY | 2025-02-26 08:22 | XMS_ITS | Encounter Summary ---
Author Organization [facility] [employer] [facility] and [facility] Address [address] [place] [address] Care Team Providers Care Bottle Feeder Name Role Phone Maged Guzman MD Primary Care Provider [phone] Encounter Details Date Type Department Care Team (Late st Contact Info) Description 02/28/2018 Scanned Document [facility] 40 [facility] [address] [place] [address] Maged Guzman MD [address] [place] [address] [place] [phone] Social History Tobacco Use Types Packs/Day Years [...] on filedocumented in this encounter Care Teams Bottle Feeder Relationship Specialty Start Date End Date Maged Guzman MD [address] [place] [address] [place] [phone] PCP - General Internal Medicine 06/07/14 documented as of this encounter
[2025-02-26 09:29] LABS: Anion Gap 12 (12-20); Blood Urea Nitrogen 21 mg/dL (9-16); Calcium 8.6 mg/dL (8.4-10.2); Carbon Dioxide 24 mmol/L (22-29); Chloride 112 mmol/L (96-108); Estimated Glomerular Filt Rate > 60; Potassium 4.5 mmol/L (3.3-5.1); Sodium 143 mmol/L (135-145)
== END 2025-02-26 08:08 | disposition home or self-care (01) ==
LOC: HO.LABR 08:07
PROVIDERS: PCP Student in an Organized Health Care Education/Training Program; Visit Provider Internal Medicine
DX: K76.0 Fatty (change of) liver, not elsewhere classified (principal); R18.8 Other ascites; K74.60 Unspecified cirrhosis of liver
CPT/HCPCS: 36415; 80048

== ENCOUNTER 2025-03-05 14:16 | Outpatient (REF) | payer MEDICARE, SELFPAY ==
--- NOTE | ~2025-03-05 | US_ITS ---
EXAMINATION: US ABDOMEN COMPLETE WITH DOPPLER CLINICAL INFORMATION: Cirrhosis, ascites, history of Whipple, rule out portal vein thrombosis.. COMPARISON: MRI 02/01/2024, 10 04/26/2022. Ultrasound 11/25/2024. TECHNIQUE: Real-time grayscale, color Doppler and spectral Doppler imaging of the abdominal viscera. FINDINGS: VASCULAR: Portal veins are all patent with hepatopedal flow. There is no portal vein thrombosis. There are normal waveforms. Hepatic veins are patent with normal hepatofugal flow. There are normal waveforms. The IVC is patent with normal waveform. The main hepatic artery demonstrates antegrade flow with elevated velocity of 328 cm/s. The right and left hepatic arteries demonstrate antegrade flow. The splenic vein is patent. No definite varices are identified. The aorta is atheromatous. No aneurysm. PANCREAS: Poorly visualized. History of football. LIVER: The liver is mildly enlarged. The right hepatic lobe measures 16.9 cm. Nodular liver contour suggesting cirrhosis. Diffusely increased and coarsened hepatic echogenicity. No focal hepatic lesion. There is no intrahepatic biliary duct dilatation seen. There is small volume perihepatic ascites. GALLBLADDER: Surgically absent. COMMON BILE DUCT: Normal in caliber measuring 0.3 cm in diameter. RIGHT KIDNEY: No hydronephrosis. No renal calculi or focal parenchymal lesions. The kidney measures 8.5 cm in maximum dimension. LEFT KIDNEY: No hydronephrosis. No renal calculi or focal parenchymal lesions. The kidney measures 10.3 cm in maximum dimension. SPLEEN: The spleen measures 12.0 cm in maximum dimension. It is borderline enlarged. FREE FLUID: Small volume ascites seen around the liver. No ascites in the lower abdomen. US/US duplex arterial venous comp IMPRESSION: 1. There is no evidence of portal vein thrombosis. The hepatic veins are patent. The splenic vein is patent. 2. Cirrhotic morphology of liver with diffusely increased and coarsened echogenicity. No suspicious hepatic lesion. No intrahepatic or extrahepatic biliary dilatation. 3. Normal kidneys bilaterally. 4. The patient is status post Whipple procedure. Pancreas poorly visualized. Cholecystectomy. 5. There is small volume ascites surrounding the liver. 6. Borderline splenic enlargement. Electronically signed by: Misael Marquez MD 03/05/2025 04:40 PM EDT
== END 2025-03-05 14:17 | disposition home or self-care (01) ==
LOC: HO.US 14:16
PROVIDERS: PCP Student in an Organized Health Care Education/Training Program; Visit Provider Internal Medicine
DX: K74.60 Unspecified cirrhosis of liver (principal)
CPT/HCPCS: 76700; 93975

== ENCOUNTER → 2025-03-05 15:00 | Outpatient (BNV) | payer MEDICARE, SELFPAY | PROVIDERS: PCP Student in an Organized Health Care Education/Training Program; Visit Provider Radiology Diagnostic Radiology | DX: K74.60 Unspecified cirrhosis of liver (principal); R18.8 Other ascites; Z90.49 Acquired absence of other specified parts of digestive tract | CPT/HCPCS: 76700; 93975 ==

== ENCOUNTER 2025-03-12 07:37 | Outpatient (REF) | payer MEDICARE, SELFPAY ==
--- OUTSIDE RECORDS SUMMARY | 2010-10-13 08:30 | XMS_ITS | Encounter Summary ---
Author Organization [facility] [employer] [facility] and [facility] Address [address] [place] [phone] Care Team Providers Care Marketing Communications Leader Name Role Phone Unavailable Primary Care Provider Unavailabl e Encounter Details Date Type Department Care Team (Late st Contact Info) Description 10/13/2010 8:30 AM EDT Hospital Encounter INTERFACE DEFAULT [address] [place] [phone] Social History Tobacco Use Types Packs/Day Years [...]
--- OUTSIDE RECORDS SUMMARY | 2024-07-31 09:00 | XMS_ITS ---
Author Organization [facility] Address [address] [place] [address] Care Team Providers Care Direct Service Professional Name Role Phone Brooklyn Garza M.D. Primary Care Provider Unavail Guille Huertas [phone] REASON FOR VISIT abnormal liver CT scan Encounters Encounter Location Date Provider Diagnosis [facility] [address] [facility] [address] [place] [address] 07/31/2024 Guille Schuler Plan Of Treatment Next Appt Details Provider Name:Guille Schuler , 04/30/2025 01:40:00 PM, [address] [facility], [address], [place], [address], Progress Notes * JAMES SNOW RDOB:1950 (74 yo F)Acc No.[id number]:07/31/2024 Progress Notes Patient: JAMES OMER Provider: Abiodun Schuler MD :1950 A ge:73 Y S ex:Female Date:07/31/2024 Address:[address] [place], [place] [address] Pcp:Brooklyn Garza M.D. Subjective: * Chief Complaints: [...] 07/31/2024 Generated for Tru damico/Paulina/Mehul on: 1 07:39 AM EDT
--- OUTSIDE RECORDS SUMMARY | 2024-08-07 10:40 | XMS_ITS ---
Author Organization [facility] Address [address] [place] [address] Care Team Providers Care Product Safety And Standards Engineer Name Role Phone Brooklyn Garza M.D. Primary Care Provider Unavail Guille Huertas [phone] REASON FOR VISIT Patient presents today for abn ct liver Encounters Encounter Location Date Provider Diagnosis [facility] 10 [facility] [address] [place] [address] 08/07/2024 Guille Schuler Plan Of Treatment Next Appt Details Provider Name:Guille Schuler , 04/30/2025 01:40:00 PM, [address], [address], [place], [address], Progress Notes * JAMES SNOW RDOB:1950 (74 yo F)Acc No.[id number]:08/07/2024 Progress Notes Patient: JAMES OMER Provider: Abiodun Schuler MD :1950 A ge:73 Y S ex:Female Date:08/07/2024 Address:[address] [place], [place] [phone] Pcp:Brooklyn Garza M.D. Subjective: * Chief Complaints: [...] 0 08/07/2024 Generated for Tru damico/Paulina/Mehul on: 1 07:39 AM EDT
--- NOTE | ~2025-03-12 | MM_ITS ---
EXAMINATION: MM SCREENING DIGITAL BREAST TOMOSYNTHESIS, BILATERAL CLINICAL INFORMATION: Screening. Asymptomatic. COMPARISON: Mammography: Comparison is made with available priors TECHNIQUE: Digital breast mammography with tomosynthesis is performed in both the craniocaudal and mediolateral oblique views along with computer-aided detection (CAD). FINDINGS: There are scattered areas of fibroglandular density. There are no significant masses, abnormal calcifications, or other abnormalities. MM/MM tomosynthesis screening BI IMPRESSION: No mammographic evidence of malignancy. ASSESSMENT: BI-RADS Category 1: Negative RECOMMENDATION: Routine annual mammography screening. 1 year F/U This examination should not preclude the clinical evaluation of a suspicious palpable abnormality. This patient's information was entered into a reminder system with a target due date for their next mammogram. Electronically signed by: Charlene Colorado DO 03/15/2025 12:38 PM EDT
--- OUTSIDE RECORDS SUMMARY | 2025-03-12 07:39 | XMS_ITS | Encounter Summary ---
Author Organization [facility] [employer] System and [facility] Address [address] [place] [phone] Care Team Providers Care Senior Packaging Engineer Name Role Phone Maged Guzman MD Primary Care Provider [phone] Encounter Details Date Type Department Care Team (Late st Contact Info) Description 11/02/2016 Scanned Document [facility] Health Information Management [address] [place] [address] [phone] External, Provider Social History Tobacco Use Types [...] on filedocumented in this encounter Care Teams Senior Packaging Engineer Relationship Specialty Start Date End Date Maged Guzman MD [address] [place] [address] Dr Fregoso MitaliRADHA [phone] PCP - General Internal Medicine 06/07/14 documented as of this encounter
--- OUTSIDE RECORDS SUMMARY | 2025-03-12 07:39 | XMS_ITS | Encounter Summary ---
Author Organization [facility] [employer] [facility] and [facility] Address [address] [place] [phone] Care Team Providers Care Etiquette Coach Name Role Phone Maged Guzman MD Primary Care Provider [phone] Encounter Details Date Type Department Care Team (Late st Contact Info) Description 10/08/2016 Scanned Document [facility] 40 [facility] [address] [place] [address] External, Provider Social History Tobacco Use Types [...] on filedocumented in this encounter Care Teams Etiquette Coach Relationship Specialty Start Date End Date Maged Guzman MD [address] [place] [address] [place] [address] PCP - General Internal Medicine 06/07/14 documented as of this encounter
--- OUTSIDE RECORDS SUMMARY | 2025-03-12 07:39 | XMS_ITS | Encounter Summary ---
Author Organization [facility] and [facility] Address [address] [place] [address] Care Team Providers Care Blend Technician Name Role Phone Maged Guzman MD Primary Care Provider [phone] Encounter Details Date Type Department Care Team (Late st Contact Info) Description 08/23/2016 Scanned Document [facility] at [address] [address] Guille Schuler MD [address] [place] [phone] Social History Tobacco Use Types Packs/Day Years [...] Schuler MD IMG SCAN REPORTS Final Result [facility] [place], [place], [facility] documented in this encounter Visit Diagnoses Not on filedocumented in this encounter Care Teams Blend Technician Relationship Specialty Start Date End Date Maged Guzman MD [address] [place] [address] [place] [phone] PCP - General Internal Medicine 06/07/14 documented as of this encounter
--- OUTSIDE RECORDS SUMMARY | 2025-03-12 07:40 | XMS_ITS | Encounter Summary ---
Author Organization [facility] [employer] [facility] and [facility] Address [address] [place] [phone] Care Team Providers Care Deputy Sheriff Generalist Name Role Phone Maged Guzman MD Primary Care Provider [phone] Encounter Details Date Type Department Care Team (Late st Contact Info) Description 06/30/2015 Scanned Document [facility] Health Information Management [address] [place] [phone] External, Provider Social History Tobacco Use Types [...] on filedocumented in this encounter Care Teams Deputy Sheriff Generalist Relationship Specialty Start Date End Date Maged Guzman MD [address] [place] [address] [place] [address] PCP - General Internal Medicine 06/07/14 documented as of this encounter
--- OUTSIDE RECORDS SUMMARY | 2025-03-12 07:40 | XMS_ITS | Encounter Summary ---
Author Organization [facility] [employer] [facility] and [facility] Address [address] [place] [address] Care Team Providers Care Layout Former Name Role Phone Maged Guzman MD Primary Care Provider [phone] Encounter Details Date Type Department Care Team (Late st Contact Info) Description 09/20/2022 Scanned Document [facility] 40 [facility] [address] [place] [address] Main Lea MD [address] [place] [address] Social History Tobacco Use Types Packs/Day Years [...] on filedocumented in this encounter Care Teams Layout Former Relationship Specialty Start Date End Date Maged Guzman MD [address] [place] [address] [place] [address] PCP - General Internal Medicine 06/07/14 documented as of this encounter
--- OUTSIDE RECORDS SUMMARY | 2025-03-12 07:40 | XMS_ITS | Clinical Summary ---
Author Organization [facility] Address [address] [place] [address] Phone Care Team Providers Care Sas Developer Name Role Phone Emiliano Guzman MD Primary Care Provider Main Lea MD Unavailable [phone] Medications No known medications Active Problems Patient Care Coordination No te Formatting of this note migh t be different from the original. Pt has Non-power port paced out in [facility] out patient facility. No information in [...] 2:30 PM EST Blood Draw Laboratory Services, [address] [place] [address] Luiz Muse MD [address] [place] [address] [place] [address] [email or web address] 05/10/2025 3:30 PM EST Office Visit [facility], Division of Hematologic Oncology, [address] [place] [address] Luiz Muse MD [address] [place] [address] [place] [address] [email or web address] Health Maintenance Due Date Last Done Comments Adult Td,Tdap Booster 1951 LIPID PANEL 1951 DEPRESSION SCREENING 1963 SMOKING Hx and SMOKELESS TOBACCO SCREENING 10/02/1964 HEPATITIS C SCREENING 10/02/1969 MAMMOGRAM 1991 COLOGUARD 10/02/1996 COLONOSCOPY 10/02/1996 COLORECTAL CANCER SCREENING 10/02/1996 FIT TEST 10/02/1996 FOBT 10/02/1996 SIGMOIDOSCOPY 10/02/1996 VIRTUAL COLONOSCOPY 10/02/1996 PNEUMOCOCCAL VACCINES (50+ years) (1 of 1 - PCV) 10/02/2001 ZOSTER VACCINES (2 of 3) 01/06/2016 11/11/2015 OSTEOPOROSIS SCREENING INITIAL (ONE-TIME) 10/02/2016 INFLUENZA VACCINE (#1) 2024 03/07/2023, 2019 COVID-19 VACCINE ( season) 2025 03/09/2022, 09/21/2021, 09/21/2021, Additional history exists RSV VACCINE (1 - 1-dose 75+ series) 10/02/2026 HEPATITIS A VACCINES Aged Out No long [...] file Insurance MEDICARE PART A & B [facility] MEDEX SUPPLEMENT MEDICARE PART A & B [employer] MEDEX SUPPLEMENT MEDICARE PART A & B [employer] MED[employer] SUPPLEMENT MEDICARE PART A & B [employer] MEDEX SUPPLEMENT MEDICARE PART A & B [employer] SUPPLEMENT MEDICARE PART A & B [employer] MEDEX SUPPLEMENT Care Teams Sas Developer Relationship Specialty Start Date End Date Emiliano Guzman MD [address] [place] [address] [place] [address] PCP - General Internal Medicine 11/05/22 Main Lea MD [address] [place] [address] [place] [address] [email or web address] Referring Physician 11/05/22 Additional Source Comments The information contained in this document represents components of the legal health record. It is not the complete legal health record.[facility]
--- OUTSIDE RECORDS SUMMARY | 2025-03-12 07:40 | XMS_ITS | Encounter Summary ---
Author Organization [facility] [employer] [facility] and [facility] Address [address] [place] [address] Care Team Providers Care Warehouse Production Worker Name Role Phone Maged Guzman MD Primary Care Provider [phone] Encounter Details Date Type Department Care Team (Late st Contact Info) Description 10/28/2022 Scanned Document [facility] 40 [facility] [address] [place] [address] Main Lea MD [address] [place] [address] Social History Tobacco Use Types Packs/Day Years [...] on filedocumented in this encounter Care Teams Warehouse Production Worker Relationship Specialty Start Date End Date Maged Guzman MD [address] [place] [address] [place] [phone] PCP - General Internal Medicine 06/07/14 documented as of this encounter
--- OUTSIDE RECORDS SUMMARY | 2025-03-12 07:40 | XMS_ITS | Encounter Summary ---
Author Organization [facility] [employer] System and [facility] Address [address] [place] [address] Care Team Providers Care Fire Equipment Operator Name Role Phone Maged Guzman MD Primary Care Provider [phone] Encounter Details Date Type Department Care Team (Late st Contact Info) Description 09/28/2015 Scanned Document [facility] at [address] [address] Jose Min MD [address] [place] [phone] Social History Tobacco Use Types Packs/Day Years [...] in this encounter Care Teams Fire Equipment Operator Relationship Specialty Start Date End Date Maged Guzman MD [address] [place] [address] Dr Fregoso Mitali RADHA [phone] PCP - General Internal Medicine 06/07/14 documented as of this encounter
--- OUTSIDE RECORDS SUMMARY | 2025-03-12 07:40 | XMS_ITS | Encounter Summary ---
Author Organization [facility] [employer] System and [facility] Address [address] [place] [phone] Care Team Providers Care Yellow Pages Space Salesperson Name Role Phone Maged Guzman MD Primary Care Provider [phone] Encounter Details Date Type Department Care Team (Late st Contact Info) Description 09/01/2021 Scanned Document [facility] 40 [facility] [address] [place] [address] External, Provider Social History Tobacco Use Types [...] on filedocumented in this encounter Care Teams Yellow Pages Space Salesperson Relationship Specialty Start Date End Date Maged Guzman MD [address] [place] [address] [place] [phone] PCP - General Internal Medicine 06/07/14 documented as of this encounter
--- OUTSIDE RECORDS SUMMARY | 2025-03-12 07:40 | XMS_ITS | Encounter Summary ---
Author Organization [facility] [employer] [facility] and [facility] Address [address] [place] [address] Care Team Providers Care Checkering Machine Adjuster Name Role Phone Maged Guzman MD Primary Care Provider [phone] Encounter Details Date Type Department Care Team (Late st Contact Info) Description 2015 Scanned Document [facility] Health Information Management [address] [place] [address] [phone] External, Provider Social History Tobacco Use Types [...] on filedocumented in this encounter Care Teams Checkering Machine Adjuster Relationship Specialty Start Date End Date Maged Guzman MD [address] [place] [address] [place] [address] PCP - General Internal Medicine 06/07/14 documented as of this encounter
--- OUTSIDE RECORDS SUMMARY | 2025-03-12 07:40 | XMS_ITS | Encounter Summary ---
Author Organization [facility] [employer] [facility] and [facility] Address [address] [place] [address] Care Team Providers Care Printer Assistant Name Role Phone Maged Guzman MD Primary Care Provider [phone] Encounter Details Date Type Department Care Team (Late st Contact Info) Description 08/07/2018 Scanned Document [facility] Health Information Management [address] [place] [phone] External, Provider Social History Tobacco Use Types [...] on filedocumented in this encounter Care Teams Printer Assistant Relationship Specialty Start Date End Date Maged Guzman MD [address] [place] [address] [place] [address] PCP - General Internal Medicine 06/07/14 documented as of this encounter
--- OUTSIDE RECORDS SUMMARY | 2025-03-12 07:40 | XMS_ITS | Clinical Summary ---
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
--- OUTSIDE RECORDS SUMMARY | 2025-03-12 07:40 | XMS_ITS | Encounter Summary ---
Author Organization [facility] and [facility] Address [address] [place] [address] Care Team Providers Care Corn Chip Maker Name Role Phone Maged Guzman MD Primary Care Provider [phone] Encounter Details Date Type Department Care Team (Late st Contact Info) Description 07/05/2015 Scanned Document [facility] Health Information Management [address] [place] [address] [phone] External, Provider Social History Tobacco Use Types [...] Provider External IMG SCAN REPORTS Final Result [facility] [place], [place], [facility] documented in this encounter Visit Diagnoses Not on filedocumented in this encounter Care Teams Corn Chip Maker Relationship Specialty Start Date End Date Maged Guzman MD [address] [place] [address] [place] [address] PCP - General Internal Medicine 06/07/14 documented as of this encounter
--- OUTSIDE RECORDS SUMMARY | 2025-03-12 07:40 | XMS_ITS | Encounter Summary ---
Author Organization [facility] and [facility] Address [address] [place] [address] Care Team Providers Care Driver Examiner Name Role Phone Maged Guzman MD Primary Care Provider [phone] Encounter Details Date Type Department Care Team (Late st Contact Info) Description 07/05/2015 Scanned Document [facility] Health Information Management [address] [place] [address] [phone] External, Provider Social History Tobacco Use Types [...] External LAB BLOOD ORDERABLES Final Res ult [facility] [place], [place], [place] * Lab Scan (07/05/2015) Blood specimen (specimen) us Provider External LAB BLOOD ORDERABLES Final Res ult [facility] documented in this encounter Visit Diagnoses Not on filedocumented in this encounter Care Teams Driver Examiner Relationship Specialty Start Date End Date Maged Guzman MD [address] [place] [address] [place] [address] PCP - General Internal Medicine 06/07/14 documented as of this encounter
--- OUTSIDE RECORDS SUMMARY | 2025-03-12 07:40 | XMS_ITS | Encounter Summary ---
Author Organization [facility] Address [address] [place] [address] Care Team Providers Care Sales Clerk Food Name Role Phone Maged Guzman MD Primary Care Provider [phone] Encounter Details Date Type Department Care Team (Late st Contact Info) Description 01/21/[address] [facility] Health Information Management [address] [place] [address] [phone] External, Provider Social History Tobacco Use Types [...] External LAB BLOOD ORDERABLES Final Res ult [facility] [place], [place], [facility] documented in this encounter Visit Diagnoses Not on filedocumented in this encounter Care Teams Sales Clerk Food Relationship Specialty Start Date End Date Maged Guzman MD [address] [place] [address] [place] [phone] PCP - General Internal Medicine 06/07/14 documented as of this encounter
--- OUTSIDE RECORDS SUMMARY | 2025-03-12 07:40 | XMS_ITS | Encounter Summary ---
Author Organization [facility] [employer] [facility] and [facility] Address [address] [place] [phone] Care Team Providers Care Fermentologist Name Role Phone Maged Guzman MD Primary Care Provider [phone] Encounter Details Date Type Department Care Team (Late st Contact Info) Description 06/14/2012 Abstract [facility] Health Information Management [address] [place] [address] [place], Primary Care [address] [place] [address] [phone] Social History Tobacco Use Types Packs/Day Years [...] on filedocumented in this encounter Care Teams Fermentologist Relationship Specialty Start Date End Date Maged Guzman MD [address] [place] [address] [place] [address] PCP - General Internal Medicine 06/07/14 documented as of this encounter
--- OUTSIDE RECORDS SUMMARY | 2025-03-12 07:40 | XMS_ITS | Encounter Summary ---
Author Organization [facility] and [facility] Address [address] [place] [address] Care Team Providers Care Bevel Face Stoner And Polisher Name Role Phone Maged Guzman MD Primary Care Provider [phone] Encounter Details Date Type Department Care Team (Late st Contact Info) Description 07/06/2015 Scanned Document [facility] Health Information Management [address] [place] [address] [phone] External, Provider Social History Tobacco Use Types [...] us Provider External PATHOLOGY/CYTOLOGY ORDERABLES Final Result [facility] [place], [place], [facility] documented in this encounter Visit Diagnoses Not on filedocumented in this encounter Care Teams Bevel Face Stoner And Polisher Relationship Specialty Start Date End Date Maged Guzman MD [address] [place] [address] [place] [address] PCP - General Internal Medicine 06/07/14 documented as of this encounter
--- OUTSIDE RECORDS SUMMARY | 2025-03-12 07:40 | XMS_ITS | Encounter Summary ---
Author Organization [facility] [employer] [facility] and [facility] Address [address] [place] [address] Care Team Providers Care Room Service Food Service Attendant Name Role Phone Maged Guzman MD Primary Care Provider [phone] Reason for Referral * Imaging (Routine) - Closed Specialty Diagnoses / Procedures Referred By Too t Referred To Contact Diagnostic Radiology Procedures MRI Abdomen w wo IV Contrast Guille Schuler MD [address] [place] [address] Dr Rosen [address] [place] [address] Phone: tel: fax: Referral ID Status Reason Start Date Expiration Date Visits Re quested Visits Authorized [id number] Closed 01/06/2019 01/06/2020 1 1 Encounter Details Date Type Department Care Team (Late st Contact Info) Description 01/06/2019 Scanned Document [facility] [address] [place] [address] [address] [place] [address] Guille Schuler MD [address] [place] [address] Dr Rosen [address] [place] [phone] Social History Tobacco Use Types Packs/Day [...] on filedocumented in this encounter Care Teams Room Service Food Service Attendant Relationship Specialty Start Date End Date Maged Guzman MD [address] [place] [address] [place] [phone] PCP - General Internal Medicine 06/07/14 documented as of this encounter
--- OUTSIDE RECORDS SUMMARY | 2025-03-12 07:40 | XMS_ITS | Encounter Summary ---
Author Organization [facility] and [facility] Address [address] [place] [phone] Care Team Providers Care Mechanical Design Engineer Products Name Role Phone Maged Guzman MD Primary Care Provider [phone] Encounter Details Date Type Department Care Team (Late st Contact Info) Description 11/14/2015 Scanned Document [facility] [address] [facility] [address] [place] [address] External, Provider Social History Tobacco Use Types [...] Provider External PATHOLOGY/CYTOLOGY ORDERABLES Final Result [facility] [place], [place], [place] documented in this encounter Visit Diagnoses Not on filedocumented in this encounter Care Teams Mechanical Design Engineer Products Relationship Specialty Start Date End Date Maged Guzman MD [address] [place] [address] [place] [address] PCP - General Internal Medicine 06/07/14 documented as of this encounter
--- OUTSIDE RECORDS SUMMARY | 2025-03-12 07:40 | XMS_ITS | Encounter Summary ---
Author Organization [facility] [employer] [facility] and [facility] Address [address] [place] [address] Care Team Providers Care Microfilm Mounter Name Role Phone Maged Guzman MD Primary Care Provider [phone] Encounter Details Date Type Department Care Team (Late st Contact Info) Description 09/07/2022 Scanned Document [facility] [address] [facility] [address] [place] [address] External, Provider Social History Tobacco Use Types [...] on filedocumented in this encounter Care Teams Microfilm Mounter Relationship Specialty Start Date End Date Maged Guzman MD [address] [place] [address] [place] [phone] PCP - General Internal Medicine 06/07/14 documented as of this encounter
--- OUTSIDE RECORDS SUMMARY | 2025-03-12 07:40 | XMS_ITS | Encounter Summary ---
Author Organization [facility] [employer] [facility] and [facility] Address [address] [place] [phone] Care Team Providers Care Java J2Ee Lead Name Role Phone Maged Guzman MD Primary Care Provider [phone] Encounter Details Date Type Department Care Team ([facility] st Contact Info) Description 02/20/2019 Scanned Document [facility] [address] [address] Blanca Carpenter MD [address] [place] [phone] Social History Tobacco Use Types Packs/Day Years [...] on filedocumented in this encounter Care Teams Java J2Ee Lead Relationship Specialty Start Date End Date Maged Guzman MD [address] [place] [address] [place] [phone] PCP - General Internal Medicine 06/07/14 documented as of this encounter
--- OUTSIDE RECORDS SUMMARY | 2025-03-12 07:41 | XMS_ITS | Encounter Summary ---
Author Organization [facility] [employer] [facility] and [facility] Address [address] [place] [address] Care Team Providers Care Swimming Pool Installer And Servicer Name Role Phone Maged Guzman MD Primary Care Provider [phone] Encounter Details Date Type Department Care Team (Late st Contact Info) Description 03/08/2017 Scanned Document [facility] 40 [facility] [address] [place] [address] External, Provider Social History Tobacco Use Types [...] on filedocumented in this encounter Care Teams Swimming Pool Installer And Servicer Relationship Specialty Start Date End Date Maged Guzman MD [address] [place] [address] [place] [phone] PCP - General Internal Medicine 06/07/14 documented as of this encounter
--- OUTSIDE RECORDS SUMMARY | 2025-03-12 07:41 | XMS_ITS | Encounter Summary ---
Author Organization [facility] [employer] [facility] and [facility] Address [address] [place] [address] Care Team Providers Care Railroad Track Inspector Name Role Phone Maged Guzman MD Primary Care Provider [phone] Encounter Details Date Type Department Care Team (Late st Contact Info) Description 07/05/2017 Scanned Document [facility] Health Information Management [address] [place] [address] [phone] External, Provider Social History Tobacco Use Types [...] on filedocumented in this encounter Care Teams Railroad Track Inspector Relationship Specialty Start Date End Date Maged Guzman MD [address] [place] [address] Dr Fregoso MitaliRADHA [phone] PCP - General Internal Medicine 06/07/14 documented as of this encounter
--- OUTSIDE RECORDS SUMMARY | 2025-03-12 07:41 | XMS_ITS | Encounter Summary ---
Author Organization [facility] [employer] [facility] and [facility] Address [address] [place] [phone] Care Team Providers Care Director Government Name Role Phone Maged Guzman MD Primary Care Provider [phone] Encounter Details Date Type Department Care Team (Late st Contact Info) Description 08/01/2017 Scanned Document [facility] Health Information Management [address] [place] [phone] External, Provider Social History Tobacco Use Types [...] on filedocumented in this encounter Care Teams Director Government Relationship Specialty Start Date End Date Maged Guzman MD [address] [place] [address] Dr MckeonyoRADHA [place] [phone] PCP - General Internal Medicine 06/07/14 documented as of this encounter
--- OUTSIDE RECORDS SUMMARY | 2025-03-12 07:41 | XMS_ITS | Encounter Summary ---
Author Organization [facility] [employer] [facility] and [facility] Address [address] [place] [address] Care Team Providers Care Band Machine Operator Name Role Phone Maged Guzman MD Primary Care Provider [phone] Reason for Referral * Imaging (Routine) - Closed Specialty Diagnoses / Procedures Referred By Too flood Referred To Contact Diagnostic Radiology Procedures MRI Abdomen w wo IV Contrast MRCP Guille Schuler MD [address] [place] [address] Dr Rosen [address] [place] [phone] Phone: tel: fax: Referral ID Status Reason Start Date Expiration Date Visits Re quested Visits Authorized [id number] Closed 06/05/2019 06/04/2020 1 1 Encounter Details Date Type Department Care Team (Late st Contact Info) Description 06/05/2019 Scanned Document [facility] [address] [place] [address] [address] [place] [address] Guille Schuler MD [address] [place] [address] Dr Rosen [address] [place] [phone] Social History Tobacco Use Types Packs/Day [...] on filedocumented in this encounter Care Teams Band Machine Operator Relationship Specialty Start Date End Date Maged Guzman MD [address] [place] [address] [place] [phone] PCP - General Internal Medicine 06/07/14 documented as of this encounter
--- OUTSIDE RECORDS SUMMARY | 2025-03-12 07:41 | XMS_ITS | Encounter Summary ---
Author Organization [facility] [employer] [facility] and [facility] Address [address] [place] [phone] Care Team Providers Care Roadside Mechanic Name Role Phone Maged Guzman MD Primary Care Provider [phone] Encounter Details Date Type Department Care Team (Late st Contact Info) Description 08/01/2017 Scanned Document [facility] Health Information Management [address] [place] [address] [phone] External, Provider Social History Tobacco Use Types [...] on filedocumented in this encounter Care Teams Roadside Mechanic Relationship Specialty Start Date End Date Maged Guzman MD [address] [place] [address] [place] [phone] PCP - General Internal Medicine 06/07/14 documented as of this encounter
--- OUTSIDE RECORDS SUMMARY | 2025-03-12 07:41 | XMS_ITS | Patient Health Record ---
Author Organization [facility] Address [address] [place] [address] Care Team Providers Care Consulting It Architect Name Role Phone Brooklyn Garza M.D. Primary Care Provider Guille Martínez [phone] Allergies Allergen (clinical drug ingredient) Drug/Non Drug [...] INR Reviewed date:11/21/2024 07:26:05 PM Interpretation: Performing Lab:[address] [address] Notes/Report: Prothrombin Time 11.8 10.9-12.4 [employer] [...] Electrolytes Reviewed date:11/20/2024 04:55:55 PM Interpretation: Performing Lab:[facility], [address] [place] [address] Notes/Report: Sodium 143 135-145 mmol/L Potassium 3.5 3.3-5.1 mmol/L Chloride 109 96-108 mmol/L Carbon Dioxide 24 22-29 mmol/L Anion Gap 14 12-20 Creatinine Reviewed date:11/20/2024 04:56:03 PM Interpretation: Performing Lab:[facility], [address] [place] [address] Notes/Report: Creatinine 0.80 0.5-1.4 mg/dL Estimated Glomerular Filt Rate > 60 Chronic Kidney Disease: Estimated GFR < 60 mL/min/1.73m2 Severe Kidney Disease: Estimated GFR < 15 mL/min/1.73m2 US abdomen complete Reviewed date:11/26/2024 12:54:15 AM Interpretation: Performing Lab: Notes/Report: [address] [address] Ultrasound Report Signed Patient: James Snow MR#: [id number] : 1950 Acct:[id number] Age/Sex: 74 / F ADM Date: 11/25/24 Loc: HO.US Attending Dr: Guille Schuler MD Ordering Physician: Guille Schuler MD Date of Service: 11/25/24 Procedure(s): US abdomen complete Accession Number(s): [id number] cc: Brooklyn Garza MD; Guille Schuler MD [...] 11/25/24 1609 DD/ 1024 TD/TT: 11/25/24 1108 Cnc Operator: US duplex arterial venous co mp Reviewed date:11/26/2024 12:55:40 AM Interpretation: Performing Lab: Notes/Report: [address] [address] Ultrasound Report Signed Patient: James Snow MR#: [id number] : 1950 Acct:[id number] Age/Sex: 74 / F ADM Date: 11/25/24 Loc: HO.US Attending Dr: uGille Schuler MD Ordering Physician: Guille Schuler MD Date of Service: 11/25/24 Procedure(s): US duplex arterial venous comp Accession Number(s): [id number] cc: Brooklyn Garza MD; Guille Schuler MD [...] 11/25/24 1609 DD/ 1024 TD/TT: 11/25/24 1108 Cnc Operator: US abdomen complete Reviewed date:03/05/2025 07:44:05 PM Interpretation: Performing Lab: Notes/Report: [address] [address] Ultrasound Report Signed Patient: James Snow MR#: [id number] : 1950 Acct:[id number] Age/Sex: 74 / F ADM Date: 03/05/25 Loc: HO.US Attending Dr: Guille Schuler MD Ordering Physician: Guille Schuler MD Date of Service: 03/05/25 Procedure(s): US abdomen complete Accession Number(s): [id number] cc: Maciej Ambriz MD; Guille Schuler MD Reason for Exam: CIRRHOSIS, ASCITES R/O PORT VEIN THROMBOSIS EXAMINATION: US ABDOMEN COMPLETE WITH DOPPLER CLINICAL INFORMATION: Cirrhosis, ascites, history of Whipple, rule out portal vein thrombosis.. COMPARISON: MRI 02/01/2024, 10 04/26/2022. Ultrasound 11/25/2024. TECHNIQUE: Real-time grayscale, color Doppler and spectral Doppler imaging of the abdominal viscera. FINDINGS: VASCULAR: Portal veins are all patent with hepatopedal flow. There is no portal vein thrombosis. There are normal waveforms. Hepatic veins are patent with normal hepatofugal flow. There are normal waveforms. The IVC is patent with normal waveform. The main hepatic artery demonstrates antegrade flow with elevated velocity of 328 cm/s. The right and left hepatic arteries demonstrate antegrade flow. The splenic vein is patent. No definite varices are identified. The aorta is atheromatous. No aneurysm. PANCREAS: Poorly visualized. History of football. LIVER: The liver is mildly enlarged. The right hepatic lobe measures 16.9 cm. Nodular liver contour suggesting cirrhosis. Diffusely increased and coarsened hepatic echogenicity. No focal hepatic lesion. There is no intrahepatic biliary duct dilatation seen. There is small volume perihepatic ascites. GALLBLADDER: Surgically absent. COMMON BILE DUCT: Normal in caliber measuring 0.3 cm in diameter. RIGHT KIDNEY: No hydronephrosis. No renal calculi or focal parenchymal lesions. The kidney measures 8.5 cm in maximum dimension. LEFT KIDNEY: No hydronephrosis. No renal calculi or focal parenchymal lesions. The kidney measures 10.3 cm in maximum dimension. SPLEEN: The spleen measures 12.0 cm in maximum dimension. It is borderline enlarged. FREE FLUID: Small volume ascites seen around the liver. No ascites in the lower abdomen. US/US abdomen complete IMPRESSION: 1. There is no evidence of portal vein thrombosis. The hepatic veins are patent. The splenic vein is patent. 2. Cirrhotic morphology of liver with diffusely increased and coarsened echogenicity. No suspicious hepatic lesion. No intrahepatic or extrahepatic biliary dilatation. 3. Normal kidneys bilaterally. 4. The patient is status post Whipple procedure. Pancreas poorly visualized. Cholecystectomy. 5. There is small volume ascites surrounding the liver. 6. Borderline splenic enlargement. Electronically signed by: Misael Marquez MD 03/05/2025 04:40 PM EDT Dictated By: Misael Marquez MD Signed By: <Electronically signed by Misael Marquez MD in OV> 03/05/25 1640 DD/ 1500 TD/TT: 03/05/25 1530 Cnc Operator: US duplex arterial venous co mp Reviewed date:03/08/2025 01:39:53 PM Interpretation: Performing Lab: Notes/Report: [address] [address] Ultrasound Report Signed Patient: James Snow MR#: [id number] : 1950 Acct:[id number] Age/Sex: 74 / F ADM Date: 03/05/25 Loc: HO.US Attending Dr: Guille Schuler MD Ordering Physician: Guille Schuler MD Date of Service: 03/05/25 Procedure(s): US duplex arterial venous comp Accession Number(s): [id number] cc: Maciej Ambriz MD; Guille Schuler MD Reason for Exam: CIRRHOSIS, ASCITES, R/O PORTABLE VEIN THROMBOSIS EXAMINATION: US ABDOMEN COMPLETE WITH DOPPLER CLINICAL INFORMATION: Cirrhosis, ascites, history of Whipple, rule out portal vein thrombosis.. COMPARISON: MRI 02/01/2024, 10 04/26/2022. Ultrasound 11/25/2024. TECHNIQUE: Real-time grayscale, color Doppler and spectral Doppler imaging of the abdominal viscera. FINDINGS: VASCULAR: Portal veins are all patent with hepatopedal flow. There is no portal vein thrombosis. There are normal waveforms. Hepatic veins are patent with normal hepatofugal flow. There are normal waveforms. The IVC is patent with normal waveform. The main hepatic artery demonstrates antegrade flow with elevated velocity of 328 cm/s. The right and left hepatic arteries demonstrate antegrade flow. The splenic vein is patent. No definite varices are identified. The aorta is atheromatous. No aneurysm. PANCREAS: Poorly visualized. History of football. LIVER: The liver is mildly enlarged. The right hepatic lobe measures 16.9 cm. Nodular liver contour suggesting cirrhosis. Diffusely increased and coarsened hepatic echogenicity. No focal hepatic lesion. There is no intrahepatic biliary duct dilatation seen. There is small volume perihepatic ascites. GALLBLADDER: Surgically absent. COMMON BILE DUCT: Normal in caliber measuring 0.3 cm in diameter. RIGHT KIDNEY: No hydronephrosis. No renal calculi or focal parenchymal lesions. The kidney measures 8.5 cm in maximum dimension. LEFT KIDNEY: No hydronephrosis. No renal calculi or focal parenchymal lesions. The kidney measures 10.3 cm in maximum dimension. SPLEEN: The spleen measures 12.0 cm in maximum dimension. It is borderline enlarged. FREE FLUID: Small volume ascites seen around the liver. No ascites in the lower abdomen. US/US duplex arterial venous comp IMPRESSION: 1. There is no evidence of portal vein thrombosis. The hepatic veins are patent. The splenic vein is patent. 2. Cirrhotic morphology of liver with diffusely increased and coarsened echogenicity. No suspicious hepatic lesion. No intrahepatic or extrahepatic biliary dilatation. 3. Normal kidneys bilaterally. 4. The patient is status post Whipple procedure. Pancreas poorly visualized. Cholecystectomy. 5. There is small volume ascites surrounding the liver. 6. Borderline splenic enlargement. Electronically signed by: Misael Marquez MD 03/05/2025 04:40 PM EDT Dictated By: Misael Marquez MD Signed By: <Electronically signed by Misael Marquez MD in OV> 03/05/25 1640 DD/ 1437 TD/TT: 03/05/25 1530 Cnc Operator: Complete Blood Count Auto Di ff Reviewed date:11/20/2024 04:55:40 PM Interpretation: Performing Lab:[facility], [address] [place] [phone] Notes/Report: White Blood Count 8.0 4.8-10.8 X10*3/uL [...] Panel Reviewed date:11/20/2024 04:55:15 PM Interpretation: Performing Lab:[facility], [address] [place] [phone] Notes/Report: Bilirubin Total 0.9 0.0-1.0 mg/dL Bilirubin Direct 0.4 0.0-0.5 mg/dL Aspartate Amino Transferase 28 5-31 U/L Alanine Aminotransferase 21 0-31 U/L Total Protein 6.0 6.5-8.0 g/dL Albumin Level 4.1 3.5-5.0 g/dL Alkaline Phosphatase 134 39-117 U/L Blood Urea Nitrogen Reviewed date:11/20/2024 04:54:59 PM Interpretation: Performing Lab:[address] [address] Notes/Report: Blood Urea Nitrogen 18 9-16 mg/dL Alpha Fetoprotein Reviewed date:11/25/2024 06:03:10 PM Interpretation: Performing Lab:[address] [address] Notes/Report: Alpha Fetoprotein 3.8 Reference Range: <6.1 [...] of disease. THIS TEST WAS PERFORMED AT: [facility] [address] [place] [phone] KAMLA ALONSO MD Blood Urea Nitrogen Reviewed date:12/03/2024 11:50:16 PM Interpretation: Performing Lab:[address] [address] Notes/Report: Blood Urea Nitrogen 15 9-16 mg/dL Basic Metabolic Panel Reviewed date:12/20/2024 07:47:10 PM Interpretation: Performing Lab:[address] [address] Notes/Report: Sodium 143 135-145 mmol/L Potassium 4.8 [...] y et reviewed by provider) Interpretation: Performing Lab:[facility], [address] [place] [address] Notes/Report: Sodium 142 135-145 mmol/L Potassium 4.4 [...] Panel Reviewed date:01/18/2025 11:37:29 PM Interpretation: Performing Lab:[facility], [address] [place] [address] Notes/Report: Sodium 142 135-145 mmol/L Potassium 4.7 [...] 3.5-5.0 g/dL Alkaline Phosphatase 162 39-117 U/L Basic Metabolic Panel (Not y et reviewed by provider) Interpretation: Performing Lab:[facility], [address] [place] [phone] Notes/Report: Sodium 141 135-145 mmol/L Potassium 4.2 3.3-5.1 mmol/L Chloride 107 96-108 mmol/L Carbon Dioxide 27 22-29 mmol/L Anion Gap 11 12-20 Blood Urea Nitrogen 18 9-16 mg/dL Creatinine 0.98 0.5-1.4 mg/dL Estimated Glomerular Filt Rate 56 Chronic Kidney Disease: Estimated GFR < 60 mL/min/1.73m2 Severe Kidney Disease: Estimated GFR < 15 mL/min/1.73m2 Glucose Random 232 60-115 mg/dL Calcium 8.9 8.4-10.2 mg/dL Basic Metabolic Panel Reviewed date:02/27/2025 10:15:33 PM Interpretation: Performing Lab:[facility], [address] [place] [address] Notes/Report: Sodium 143 135-145 mmol/L Potassium 4.5 3.3-5.1 mmol/L Chloride 112 96-108 mmol/L Carbon Dioxide 24 22-29 mmol/L Anion Gap 12 12-20 Blood Urea Nitrogen 21 9-16 mg/dL Creatinine 0.81 0.5-1.4 mg/dL Estimated Glomerular Filt Rate > 60 Chronic Kidney Disease: Estimated GFR < 60 mL/min/1.73m2 Severe Kidney Disease: Estimated GFR < 15 mL/min/1.73m2 Glucose Random 158 60-115 mg/dL Calcium 8.6 8.4-10.2 mg/dL Reason For Referral No Information Medications Medication SIG (Take, Route, Frequency, Duration) Notes Start Date End Date Status glipiZIDE 10 MG 1 tablet Orally twic e a day Active Valsartan 160 MG 1 null Orally Once a day; Duration: 30 day(s) Active Carvedilol 6.25 MG 1 Orally BID Active amLODIPine Besylate 5 MG 1 tablet Orally Once a day Active Vitamin D 1000 UNIT 1 tablet Orally Once a day; Duration: 30 day(s) Not-Curtis ing LORazepam 1 MG 1 tablet Orally prn Active Velcade Active Ozempic (0.25 or 0.5 MG/DOSE) 2 MG/3ML INJECT 0.25 MG SUBCUTANEOUSLY ONE TIME PER WEEK Subcutaneous; Duration: 28 Active Levothyroxine Sodium 150 MCG 1 tablet in the morning on an empty stomach Orally Once a day; Duration: 30 day(s) Active Furosemide 20 MG 1 oral daily; Durati on: 30 days Active dexAMETHasone Active Lenalidomide 25 MG Oral; Duration: 28 Active Spironolactone 50 MG 1 tablet Orally Onc e a day 11/26/2024 Active Daratumumab Active Aspirin Low Dose 81 MG TAKE 1 TABLET BY MOUTH EVERY DAY Oral; Duration: 90 Active Acyclovir 400 MG Oral; Duration: 90 Active Immunizations Vaccine Route Administration Date Status Comme nts Influenza Unknown 01/25/2018 Administered Influenza Unknown 03/27/2020 Administered Influenza Unknown 02/24/2021 Administered Influenza Unknown 03/29/2022 Administered Influenza Unknown 03/13/2023 Administered Influenza Unknown 03/17/2024 Administered Problems Problem Type SNOMED Code ICD Code Onset Dates Problem Status W/U Status Risk Notes Problem Gastro-esophageal reflux disease without esophagitis (853760670) Gastro-esophageal reflux disease without esophagitis (K21.9) Active confirmed Problem Screening for malignant neoplasm of colon (625569176) Encounter for screening for malignant neoplasm of colon (Z12.11) Active confirmed Problem History of adenomatous polyp of colon (019412531) History of adenomatous polyp of colon (Z86.010) Active confirmed Problem Flatulence, eructation and gas pain (313214022) Bloating (R14.0) Active confirmed Problem 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 Problem Cirrhosis of liver (21114721) Other cirrhosis of liver (K74.69) Active confirmed Problem Ascites (889929237) Other ascite s (R18.8) Active confirmed Problem Abnormal findings diagnostic imaging of liver and biliary tract (045543051) Abnormal findings on diagnostic imaging of liver and biliary tract (R93.2) Active confirmed Problem Abnormal findings diagnostic imaging of liver and biliary tract (718047090) Abnormal CT of liver (R93.2) Active confirmed Problem Gastroesophageal reflux disease without esophagitis (837335916) Gastroesophageal reflux disease without esophagitis (K21.9) Active confirmed Problem Elevated liver enzymes level (281358471) Elevated liver enzymes (R74.8) Active confirmed Problem Fatty liver (926890277) Fatty liver (K76.0) Active confirmed Problem Cirrhosis - non-alcoholic (449750422) Cirrhosis of liver with ascites, unspecified hepatic cirrhosis type (K74.60) Active confirmed Problem Lesion of liver (792345612) Liver lesion (K76.9) Active confirmed Problem Duodenal cancer (408035321) 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 Problem 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 Problem Cirrhosis - non-alcoholic (633956755) 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) Active confirmed Problem Liver nodule (989542468) Liver nodule (K76.89) Active confirmed Vital Signs Temperature 97.3 degrees Fahrenheit 12/04/2024 Blood pressure diastolic 01 mm Hg 12/04/2024 Height 63 in 12/04/2024 Blood pressure systolic 001 mm Hg 12/04/2024 Weight 128.8 lbs 12/04/2024 BMI 22.81 kg/m2 12/04/2024 Encounters Encounter Location Date Provider Diagnosis [facility] [address] [place] [phone] 12/04/2024 Guille Schuler Fatty liver K76.0 ; Cirrhosis of liver with ascites, unspecified hepatic cirrhosis type K74.60 ; Other ascites R18.8 and Gastroesophageal reflux disease without esophagitis K21.9 [facility] [address] [place] [phone] 04/10/2024 Guille Schuler [facility] [address] [place] [phone] 08/07/2024 Guille Schuler [facility] [address] [place] [phone] 11/19/2024 Guille Schuler Cirrhosis of liver w ith ascites K74.60 and Bloating R14.0 [facility] [address] [place] [phone] 11/26/2024 Guille Schuler [facility] [address] [place] [phone] 12/04/2024 [facility] [address] [place] [address] 12/20/2024 Guille Schuler [facility] [address] [place] [address] 03/04/2025 Guille Schuler Cirrhosis of liver w ith ascites K74.60 Assessments Encounter Date Diagnosis (ICD Code) Assessment Notes Treatment Notes Treatment Clinical Notes Section Notes 12/04/2024 Fatty liver (ICD-10 - K76.0) Overall, [...] have lab work every other week at [facility] and I advised her to be [...] have lab work every other week at [facility] and I advised her to be [...] of liver with ascites (ICD-10 - K74.60) 03/04/2025 Cirrhosis of liver with ascites (ICD-10 - K74.60) 12/04/2024 Other ascites (ICD-10 - R18.8) Overall, [...] have lab work every other week at [facility] and I advised her to be [...] have lab work every other week at [facility] and I advised her to be [...] PROFILE 07/26/2015 ELECTROLYTES 08/11/2015 BUN 08/11/2015 BUN 04/05/2022 BUN 03/23/2019 BUN 02/07/2018 BUN 01/31/2024 BUN 10/05/2021 BUN 07/05/2017 BUN 04/06/2021 BUN 04/07/2020 BUN 07/30/2018 BUN 11/02/2016 BUN 10/20/2020 BUN 08/13/2019 BUN 11/19/2024 CREATININE 07/30/2018 CREATININE 11/02/2016 CREATININE 10/20/2020 CREATININE [...] (PT, INR) 07/26/2016 PROTHROMBIN TIME (PT, INR) 05/04/2016 PROTHROMBIN TIME (PT, INR) 04/07/2020 PROTHROMBIN TIME (PT, INR) 07/30/2018 PROTHROMBIN TIME (PT, INR) 02/07/2018 ALPHA-FETOPROTEIN,TUMOR MARKER 8 ALPHA-FETOPROTEIN,TUMOR MARKER 1 ALPHA-FETOPROTEIN,TUMOR MARKER 8 ALPHA-FETOPROTEIN,TUMOR MARKER 7 ALPHA-FETOPROTEIN,TUMOR MARKER 0 ALPHA-FETOPROTEIN,TUMOR MARKER 7 ALPHA-FETOPROTEIN,TUMOR MARKER 6 ALPHA-FETOPROTEIN,TUMOR MARKER 0 ALPHA-FETOPROTEIN,TUMOR MARKER 9 ALPHA-FETOPROTEIN,TUMOR [...] W&WO CONTRAST 08/13/2019 MRI ABD W&WO CONTRAST 07/26/2016 MRI ABD W&WO CONTRAST 05/04/2016 MRI ABD W&WO CONTRAST 04/07/2020 MRI ABD W&WO CONTRAST 03/23/2019 MRI ABD W&WO CONTRAST 10/05/2021 MRI ABD W&WO CONTRAST 01/31/2024 US PARACENTESIS GUIDE 06/30/2015 US PARACENTESIS GUIDE 07/12/2015 US PARACENTESIS GUIDE 08/04/2015 Basic Metabolic Panel 01/29/2025 Basic Metabolic Panel 01/01/2025 Creatinine 10/05/2021 Creatinine 01/31/2024 Alpha Fetoprotein 05/31/2023 Alpha Fetoprotein 10/20/2020 Future Test Test Name Order Date UPPER GI ENDOSCOPY 05/21/2013 COLONOSCOPY 07/05/2017 UPPER GI ENDOSCOPY 07/11/2017 Next Appt Details Provider Name:Guille Schuler , 04/30/2025 01:40:00 PM, [address] [facility], [address], [place], [address], Insurance Providers Payer Name Payer Address Payer Phone Subscriber Number Group Number Insured Name Patient Relationship to Insured Coverage Start Date Coverage End Date MEDICARE OF [place] [address] [facility] [place] [address] [id number] JAMES SNOW Self - patient is the insured MED[employer] ATTN CLAIMS [address] [place] [phone] [id number] JAMES SNOW Self - patient is the insured Medical (General) History Medical History History ICD Code 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 w/u for hemochromatosis- -started Tamica in 08/2014 Denies NE,CVA,Lung disease,renal disease Tubular adenoma removed by colonoscopy [...] being followed by Dr. Blanca Carpenter at [facility] hepatology clinic as well Colonoscopy in August of 2017 revealed on ly a hyperplastic polyp EGD in August 2017 revealed g rade 1 esophageal varices- she has been on carvedilol for her beta oleg Multiple myeloma diagnosed - starting chemo after November 08, 2022- Dr. Lea at [facility] Neuropathy in her feet Increased ascites [...] adenocarcinoma in 02/2010--done by Dr. Min at [facility]
--- OUTSIDE RECORDS SUMMARY | 2025-03-12 07:41 | XMS_ITS | Encounter Summary ---
Author Organization [facility] Address [address] [place] [phone] Care Team Providers Care Claims Adjudicator Name Role Phone Maged Guzman MD Primary Care Provider [phone] Reason for Referral * Imaging (Routine) - Closed Specialty Diagnoses / Procedures Referred By Contac t Referred To Contact Diagnostic Radiology Procedures MRI Abdomen Pelvis w wo IV Contrast([facility]) Guille Schuler MD [address] [place] [address] Dr Rosen [address] [place] [phone] Phone: tel: fax: Referral ID Status Reason Start Date Expiration Date Visits Re quested Visits Authorized [id number] Closed 09/06/2017 09/06/2018 1 1 Encounter Details Date Type Department Care Team (Late st Contact Info) Description 09/06/2017 Scanned Document [facility] [address] [place] [address] [address] [place] [address] Guille Schuler MD [address] [place] [address] Dr Rosen [address] [place] [phone] Social History Tobacco Use Types Packs/Day [...] Comments MRI ABDOMEN PELVIS W WO IV CONTRAST([facility]) Routine 08/01/2017 LAB SCAN Routine 07/27/2017 documented in this encounter Results * MRI Abdomen Pelvis w wo IV Contrast([facility]) (08/01/2017) Anatomical Region Laterality Modality Abdomen, Pelvis, Ortho Pelvi s, Abdomen and Pelvis, RCC Abdomen/Pelvis Magnetic Resonance us Guille Schuler MD IMG MRI ORDERABLES Final Resul t * Lab Scan (07/27/2017) Blood specimen (specimen) us Guille Schuler MD LAB BLOOD ORDERABLES Final Res ult documented in this encounter Visit Diagnoses Not on filedocumented in this encounter Care Teams Claims Adjudicator Relationship Specialty Start Date End Date Maged Guzman MD [address] [place] [address] [place] [phone] PCP - General Internal Medicine 06/07/14 documented as of this encounter
--- OUTSIDE RECORDS SUMMARY | 2025-03-12 07:41 | XMS_ITS | Encounter Summary ---
Author Organization [facility] [employer] [facility] Address [address] [place] [phone] Care Team Providers Care Aircraft Machinist Helper Name Role Phone Maged Guzman MD Primary Care Provider [phone] Reason for Referral * Imaging (Routine) - Closed Specialty Diagnoses / Procedures Referred By Contkenna t Referred To Contact Diagnostic Radiology Procedures US Abdomen Complete Guille Schuler MD [address] [place] [address] Dr Rosen [address] [place] [address] [address] Phone: tel: fax: Referral ID Status Reason Start Date Expiration Date Visits Re quested Visits Authorized [id number] Closed 03/23/2019 03/22/2020 1 1 Encounter Details Date Type Department Care Team (Late st Contact Info) Description 03/23/2019 Scanned Document [facility] [address] [facility] [address] [facility] [address] [place] [address] Guille Schuler MD [address] [place] [address] Dr Rosen [address] [place] [address] [place] [phone] Social History Tobacco Use Types Packs/Day [...] on filedocumented in this encounter Care Teams Aircraft Machinist Helper Relationship Specialty Start Date End Date Maged Guzman MD [address] [place] [address] [place] [phone] PCP - General Internal Medicine 06/07/14 documented as of this encounter
--- OUTSIDE RECORDS SUMMARY | 2025-03-12 07:41 | XMS_ITS | Encounter Summary ---
Author Organization [facility] [employer] [facility] and [facility] Address [address] [place] [address] Care Team Providers Care Lacquer Machine Feeder Name Role Phone Maged Guzman MD Primary Care Provider [phone] Encounter Details Date Type Department Care Team (Late st Contact Info) Description 02/28/2018 Scanned Document [facility] [address] [facility] [address] [facility] [address] [place] [address] Maged Guzman MD [address] [place] [address] [place] [address] Social History Tobacco Use Types Packs/Day Years [...] on filedocumented in this encounter Care Teams Lacquer Machine Feeder Relationship Specialty Start Date End Date Maged Guzman MD [address] [place] [address] [place] [phone] PCP - General Internal Medicine 06/07/14 documented as of this encounter
== END 2025-03-12 07:38 | disposition home or self-care (01) ==
LOC: HO.MAMMO 07:37
PROVIDERS: PCP Student in an Organized Health Care Education/Training Program; Visit Provider Student in an Organized Health Care Education/Training Program
DX: Z12.31 Encounter for screening mammogram for malignant neoplasm of breast (principal)
CPT/HCPCS: 77063; 77067; 99212

== ENCOUNTER → 2025-03-12 07:45 | Outpatient (BNV) | payer MEDICARE, SELFPAY | PROVIDERS: PCP Student in an Organized Health Care Education/Training Program; Visit Provider Internal Medicine | DX: Z12.31 Encounter for screening mammogram for malignant neoplasm of breast (principal) | CPT/HCPCS: 77063; 77067 ==

== ENCOUNTER 2025-03-12 08:36 | Outpatient (AMB) | payer MEDICARE, SELFPAY ==
--- NOTE | 2025-03-12 08:37 | A.OFFPC_ITS ---
Vital Signs 03/12/25 08:55 Height 5 ft 1.18 in Weight 128 lb BMI 24.0 BP 160/56 H Blood Pressure Location Lt brachial Position Sitting Pulse 70 Pulse Source Pulse Oximeter Temp 97.9 F Temp Source Temporal Artery Scan Pulse Oximetry (%) 99 Oxygen Delivery Method Room Air Intake Visit Reasons: 6 Month F/U Attache Required: No Accompanied by: Self / Same As Patient Allergies shrimp Allergy (Severe, Verified 03/12/25 08:37) SEVERE EDEMA FACE, NECK AND HEAD Sulfa (Sulfonamide Antibiotics) (SULFA (SULFONAMIDE ANTIBIOTICS)) Allergy (Severe, Verified 03/12/25 08:37) VASCULITIS ON BOTH LEGS WITH BLOTCHES AND RASH, vasculitis, vasculitis, vasculitis, vasculitis sulfamethoxazole (From BACTRIM) Allergy (Unknown, Verified 03/12/25 08:37) UNKNOWN trimethoprim (From BACTRIM) Allergy (Unknown, Verified 03/12/25 08:37) UNKNOWN Iodinated Contrast Media (IV CONTRAST) Adverse Reaction (Severe, Verified 03/12/25 08:37) VASOVAGAL REACTION meperidine (From DEMEROL) Adverse Reaction (Severe, Verified 03/12/25 08:37) SEVERE VOMITING AFTER ONE DOSE Contrast dye Allergy (Unknown, Uncoded 09/11/24 15:09) Unknown contrast dye Allergy (Unknown, Uncoded 09/11/24 15:09) shaking, syncope shellfish Allergy (Unknown, Uncoded 09/11/24 15:09) anaphylaxis Shrimp Allergy (Unknown, Uncoded 09/11/24 15:09) Unknown Tobacco use date assessed: 09/11/24 Last assessed Fall Risk: 03/12/25 Dental Screening Dental Screen Date: 09/11/24 HPI HPI Comments History of Present Illness Details The patient is a 74-year-old female presenting with a follow-up for lorazepam weaning and blood pressure management. She reports having been gradually weaned off lorazepam to manage insomnia associated with anxiety, which she has been using for 13 years. Recently, she reduced her dose to 0.5 mg twice daily and aims to further reduce it. The patient describes experiencing some nights of reduced sleep quality as a result of the taper. She has a history of multiple myeloma and underwent chemotherapy the previous day. Typically, the effects of chemotherapy manifest on days 3 or 4 post- treatment. She is receiving treatment every other week ? alternating between shorter and longer sessions. Her hypertension has been monitored, with at-home readings consistently between 120 to 130 mmHg, occasionally dropping to 110 mmHg. Her blood pressure in the clinic is reported as 143/47 mmHg. Additionally, she reports bilateral lower extremity swelling attributed to peripheral neuropathy, with more noticeable swelling documented in the past week in combination with abdominal distension. An ultrasound was conducted to evaluate possible ascites, for which she had two tapping procedures previously. Her liver functions are being monitored. 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 - Hyperlipidemia - History of Ativan (lorazepam) use for insomnia due to anxiety Surgical History: - Ascites tapping procedure (twice) Medications: - Amlodipine 5 mg for Hypertension - Valsartan 160 mg for Hypertension - Spironolactone 50 mg for Hypertension - Levothyroxine 150 mcg for Hypothyroidi sm - Ozempic 0.25 mg weekly for Type 2 Diab etes Mellitus - Glipizide 10 mg twice daily for Type 2 Diabetes Mellitus - Diuretics (referred to as late 620 ) - Coreg 6.25 mg (Carvedilol) for Hyperte nsion - Aspirin for Cardioprotection - Lorazepam 0.5 mg for Insomnia related to anxiety Diagnostic Results: - Labs from chemotherapy: Awaiting curre nt results - Ultrasound: Limited ascites detected Social History: - Describes managing health conditions a t home - Utilizes an interactive approach in co ordinating health assessments and treatments [facility] Medical History (Updated 03/12/25 @ 09:29 by Maciej Ambriz MD) Hypothyroidism Neuropathy 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 Dyspareunia in female Surgical History History of colonoscopy (~09/13/17) Family History Mother No problems noted. Father No problems noted. Social History Housing: House Patient Tobacco Use Status: Former Tobacco user Tobacco use type: Cigarette e-Cigarette/Vaping Use: Never Used service: No Current occupational status: employed Current occupation: [employer] 3 days a week Cognitive needs: No Hearing needs: No Vision needs: Yes (reading glasses) Questionnaire Thrive Questionnaire Date Thrive assessed: 09/11/24 ABHINAV-7 AMB Questionnaire ABHINAV-7 Date ABHINAV - 7 assessed: 09/11/24 Source: Developed by Drs. Guille Willoughby, Linh Armijo, Yang Taylor and colleagues, with an educational maki from [employer]. Review of Systems Const Details: - Genitourinary: Denies issues with urination or bowel movements - Cardiovascular: Reports stable blood pressure at home: 120-130 mmHg - Neurological: Denies other than reduced sleep quality; followed up on anxiety and subsequent effects on sleep - Gastrointestinal: Reports past distention and swelling; ultrasound conducted for ascites - Musculoskeletal: Reports bilateral lower extremity swelling All systems reviewed & are unremarkable except as reviewed in HPI and above Physical exam (Primary Care) Vital Signs: Last Vital Signs Temp 97.9 F 03/12/25 08:55 Pulse 70 03/12/25 08:55 BP 160/56 H 03/12/25 08:55 Pulse Ox 99 03/12/25 08:55 Oxygen Delivery Method Room Air 03/12/25 08:55 BMI result Body Mass Index 24.0 Tobacco/Smoking Status: Tobacco use Status Tobacco use date assessed 09/11/24 03/12/25 08:38 Patient Tobacco Use Status Former Tobacco user 03/12/25 08:38 Tobacco use type Cigarette 03/12/25 08:38 e-Cigarette/Vaping Use Never Used 03/12/25 08:38 Thrive Assessment: Date of Thrive Assessment Date Thrive assessed 09/11/24 03/12/25 08:38 Const Other: General: Alert and oriented, Well nourished, No acute distress. Eye: Pupils are equal, round and reactive to light, Intact accommodation, Extraocular movements are intact, Normal conjunctiva, Vision unchanged. HENT: Normocephalic, Atraumatic, Tympanic membranes are clear, Normal hearing, Oral mucosa is moist, No pharyngeal erythema, Ear canals patent. Respiratory: Lungs CTA bilaterally, No wheeze, Respirations are non-labored. Cardiovascular: Regular rate, Regular rhythm, S1 auscultated, S2 auscultated, No murmur, Good pulses equal in all extremities, Normal peripheral perfusion, No edema. Gastrointestinal: Soft, Non-tender, Non-distended, Normal bowel sounds, No organomegaly. Musculoskeletal: Normal range of motion, Normal strength, No tenderness, No swelling, No deformity, Normal gait. Integumentary: Warm, Dry, [place], Intact. Neurologic: Alert, Oriented, Normal sensory, Normal motor function, No focal defects, Cranial Nerves II-XII are grossly intact, Normal deep tendon reflexes. Psychiatric: Cooperative, Appropriate mood & affect, Normal judgment. Coding Level of Care Code Est Pt Level 4 (62807) Complex EM visit Add On G2211 Diagnoses Primary hypertension I10 Hypertension type: primary hypertension Hyperlipidemia, unspecified hyperlipidemia type E78.5 Hyperlipidemia type: unspecified Type 2 diabetes mellitus with hyperglycemia, unspecified whether preschool teacher's assistant insulin use E11.65 Diabetes mellitus care home insulin use: unspecified preschool teacher's assistant insulin use status Diabetes mellitus complication status: with hyperglycemia Other specified hypothyroidism E03.8 Hypothyroidism type: other 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 Z79.899 Multiple myeloma, remission status unspecified C90.00 Multiple myeloma remission status: unspecified Neuropathy G62.9 Assessment & Plan Assessment & Plan (1) Hypertension: Comment: - Continue ongoing medications: Amlodipine, Valsartan, Spironolactone, and Coreg 6.25 mg. - Maintain regular at-home monitoring. - Blood pressure levels acceptable at home; no medication adjustment needed. (Range between 110 and 130 at home) Code(s): I10 - Essential (primary) hypertension Category: Medical Qualifiers: Hypertension type: primary hypertension Qualified Code(s): I10 - Essential (primary) hypertension (2) Hyperlipidemia: Comment: - Continue dietary changes Code(s): E78.5 - Hyperlipidemia, unspecified Category: Medical Qualifiers: Hyperlipidemia type: unspecified Qualified Code(s): E78.5 - Hyperlipidemia, unspecified (3) Type 2 diabetes mellitus: Comment: - Continue Ozempic 0.25 mg weekly and Glipizide 10 mg twice daily. - Monitor blood glucose levels with future A1c testing (prior to next appointment) with levels today Code(s): E11.9 - Type 2 diabetes mellitus without complications Category: Medical Qualifiers: Diabetes mellitus preschool teacher's assistant insulin use: unspecified preschool teacher's assistant insulin use status Diabetes mellitus complication status: with hyperglycemia Qualified Code(s): E11.65 - Type 2 diabetes mellitus with hyperglycemia (4) Hypothyroidism: Comment: - Continue Levothyroxine 150 mcg. - Arrange follow-up thyroid function tests today and in 3 months Code(s): E03.9 - Hypothyroidism, unspecified Category: Medical Qualifiers: Hypothyroidism type: other Qualified Code(s): E03.8 - Other specified hypothyroidism (5) 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: Comment: - Taper Lorazepam per schedule: 0.5 mg at night for 3 weeks, then every other night for 3 weeks before discontinuation. - Monitor for insomnia intensity and manage additional symptoms accordingl Code(s): Z79.899 - Other preschool teacher's assistant (current) drug therapy Category: Medical (6) Multiple myeloma: Comment: - Continue current chemotherapy regimen. - Monitor side effects post-treatment. Code(s): C90.00 - Multiple myeloma not having achieved remission Category: Medical Qualifiers: Multiple myeloma remission status: unspecified Qualified Code(s): C90.00 - Multiple myeloma not having achieved remission (7) Neuropathy: Comment: - Continuous monitoring of symptoms related to facial and foot neuropathy, especially given the ongoing myeloma treatment. - Observe any changes concerning increased severity or interference with daily activities. Code(s): G62.9 - Polyneuropathy, unspecified Category: Medical Plan: Health Maintenance: - Tapering of Lorazepam for anxiety - Monitoring of thyroid function - Blood pressure and diabetic management at home - Discussion on flu vaccination at chemotherapy clinic - Foot elevation advice for edema management Patient was informed and verbally consented to the use of an ambient scribe for clinic note documentation during this visit. Plan I carefully reviewed with the patient the status and management of her multiple health concerns, notably her hypertension, diabetes mellitus, and chemotherapy for multiple myeloma. The schedule for lorazepam tapering was finalized and discussed to alleviate insomnia. It was agreed upon that the taper would continue cautiously to minimize withdrawal effects. Continued monitoring of thyroid function and blood sugar levels were also emphasized as future steps. I advised on continuing use of antihypertensive medications due to their effectiveness in maintaining acceptable home blood pressures. The patient was informed of the need to elevate lower limbs to manage edema and of the option to receive flu vaccination at her chemotherapy sessions. Orders: Orders Hemoglobin A1c Today E03.9 - Hypothyroidism, unspecified, E11.65 - Type 2 diabetes mellitus with hyperglycemia TSH reflex Free T4 Today E03.9 - Hypothyroidism, unspecified, E11.65 - Type 2 diabetes mellitus with hyperglycemia TSH reflex Free T4 3 Months E11.65 - Type 2 diabetes mellitus with hyperglycemia, E78.5 - Hyperlipidemia, unspecified Hemoglobin A1c 3 Months E11.65 - Type 2 diabetes mellitus with hyperglycemia, E78.5 - Hyperlipidemia, unspecified Medications: New lorazepam Take one tablet at night for 3 weeks, and then one every other day at night for 3 weeks then stops 0.5 mg PO BEDTIME 35 tabs 0RF 6 weeks Patient Instructions: - Continue current medications as prescribed. - For lorazepam, take 0.5 mg at night for 3 weeks, then every other night for 3 weeks, then stop. - Monitor blood pressure and blood sugar at home. - Elevate legs when sitting to reduce swelling. - Obtain the flu shot at the chemotherapy clinic. - Contact the office if experiencing increased swelling or any waning sleep quality. - Return for follow-up in three months or sooner if issues arise.
[2025-03-12 08:55] VITALS: BP 160/56; PULSE 70; TEMP 36.6; O2SAT 99; BMI 24.0
== END 2025-03-12 09:29 | disposition home or self-care (01) ==
LOC: HO.HMCHD 08:37
PROVIDERS: PCP Internal Medicine; Visit Provider Student in an Organized Health Care Education/Training Program
DX: I10 Essential (primary) hypertension (principal); E78.5 Hyperlipidemia, unspecified; E11.65 Type 2 diabetes mellitus with hyperglycemia; E03.8 Other specified hypothyroidism; Z79.899 Other long term (current) drug therapy; C90.00 Multiple myeloma not having achieved remission; G62.9 Polyneuropathy, unspecified

== ENCOUNTER 2025-03-12 09:33 | Outpatient (REF) | payer MEDICARE, SELFPAY ==
[2025-03-12 16:10] LABS: Hemoglobin A1C 71.6973 umol/L; Total Hemoglobin (HGBA1C) 1851.1478 umol/L
[2025-03-12 16:57] LABS: Free T4 (Free Thyroxine) 1.38 ng/dL (0.71-1.85)
== END 2025-03-12 09:34 | disposition home or self-care (01) ==
LOC: HO.10HDL 09:33
PROVIDERS: Visit Provider Student in an Organized Health Care Education/Training Program
DX: E03.9 Hypothyroidism, unspecified (principal); E11.65 Type 2 diabetes mellitus with hyperglycemia; E78.5 Hyperlipidemia, unspecified
CPT/HCPCS: 36415; 83036; 84439; 84443

== ENCOUNTER 2025-03-18 15:20 | Outpatient (AMB) | payer MEDICARE, SELFPAY ==
--- OUTSIDE RECORDS SUMMARY | 2010-10-13 08:30 | XMS_ITS | Encounter Summary ---
Author Organization [facility] [employer] [facility] and [facility] Address [address] [place] [phone] Care Team Providers Care Job Tracer Name Role Phone Unavailable Primary Care Provider Unavailabl e Encounter Details Date Type Department Care Team (Late st Contact Info) Description 10/13/2010 8:30 AM EDT Hospital Encounter INTERFACE DEFAULT [address] [place] [phone] Social History Tobacco Use Types Packs/Day Years [...]
--- OUTSIDE RECORDS SUMMARY | 2024-07-31 09:00 | XMS_ITS ---
Author Organization [facility] Address [address] [place] [address] Care Team Providers Care Security Services Manager Name Role Phone Brooklyn Garza M.D. Primary Care Provider Unavail Guille Huertas [phone] REASON FOR VISIT abnormal liver CT scan Encounters Encounter Location Date Provider Diagnosis [facility] [address] [facility] [address] [place] [address] 07/31/2024 Guille Schuler Plan Of Treatment Next Appt Details Provider Name:Guille Schuler , 04/30/2025 01:40:00 PM, [address] [facility], [address], [place], [address], Progress Notes * JAMES SNOW RDOB:1950 (74 yo F)Acc No.[id number]:07/31/2024 Progress Notes Patient: JAMES OMER Provider: Abiodun Schuler MD :1950 A ge:73 Y S ex:Female Date:07/31/2024 Address:[address] [place], [place] [phone] Pcp:Brooklyn Garza M.D. Subjective: * Chief Complaints: * [address] scan. * Medical History: Objective: * Vitals: Assessment: Plan: * Treatment: * * The named appointment provid er may or may not be the originator of this progress note, and it is not deemed complete until electronically signed by the appointment provider. Sign off status: Pending * Provider: Abiodun Schuler MD Date: 0 07/31/2024 Generated for Tru damico/Paulina/Mehul on: 1 07:08 PM EDT
--- OUTSIDE RECORDS SUMMARY | 2024-08-07 10:40 | XMS_ITS ---
Author Organization [facility] Address [address] [place] [address] Care Team Providers Care Flight Operations Coordinator Name Role Phone Brooklyn Garza M.D. Primary Care Provider Unavail Guille Huertas [phone] REASON FOR VISIT Patient presents today for abn ct liver Encounters Encounter Location Date Provider Diagnosis [facility] 10 [facility] [address] [place] [address] 08/07/2024 Guille Schuler Plan Of Treatment Next Appt Details Provider Name:Guille Schuler , 04/30/2025 01:40:00 PM, [address], [address], [place], [address], Progress Notes * JAMES SNOW RDOB:1950 (74 yo F)Acc No.[id number]:08/07/2024 Progress Notes Patient: JAMES OMER Provider: Abiodun Schuler MD :1950 A ge:73 Y S ex:Female Date:08/07/2024 Address:[address] [place], [place] [phone] Pcp:Brooklyn Garza M.D. Subjective: * Chief Complaints: [...] 08/07/2024 Generated for Tru damico/Paulina/Mehul on: 1 07:08 PM EDT
[2025-03-18 15:27] VITALS: BP 144/80; BMI 22.5
--- NOTE | 2025-03-18 15:27 | MHC.OFFVIS ---
Vital Signs 03/18/25 15:27 Height 5 ft 3 in Weight 127 lb BMI 22.5 BP 144/80 H Intake Visit Reasons: dyspareunia Intake Note: c/o of bleeding after intercourse Real Estate Accountant Required: No Information Interpreted: non-clinical & clinical Interior Design Faculty Member: Interior Design Faculty Member Present (Shavon ULLOA) Accompanied by: Self / Same As Patient Allergies shrimp Allergy (Severe, Verified 03/18/25 15:35) SEVERE EDEMA FACE, NECK AND HEAD Sulfa (Sulfonamide Antibiotics) (SULFA (SULFONAMIDE ANTIBIOTICS)) Allergy (Severe, Verified 03/18/25 15:35) VASCULITIS ON BOTH LEGS WITH BLOTCHES AND RASH, vasculitis, vasculitis, vasculitis, vasculitis sulfamethoxazole (From BACTRIM) Allergy (Unknown, Verified 03/18/25 15:35) UNKNOWN trimethoprim (From BACTRIM) Allergy (Unknown, Verified 03/18/25 15:35) UNKNOWN Iodinated Contrast Media (IV CONTRAST) Adverse Reaction (Severe, Verified 03/18/25 15:35) VASOVAGAL REACTION meperidine (From DEMEROL) Adverse Reaction (Severe, Verified 03/18/25 15:35) SEVERE VOMITING AFTER ONE DOSE Contrast dye Allergy (Unknown, Uncoded 03/18/25 15:35) Unknown contrast dye Allergy (Unknown, Uncoded 03/18/25 15:35) shaking, syncope shellfish Allergy (Unknown, Uncoded 03/18/25 15:35) anaphylaxis Shrimp Allergy (Unknown, Uncoded 03/18/25 15:35) Unknown Post menopausal: Yes HPI Comments Details: Presenting complaining of dyspareunia associated with post coital bleeding Last mammogram in 03/20 was BI-RADS 1 Last co testing was many years ago no history of abnormal Pap smear and the patient is status post hysterectomy for myomas [facility] Medical History (Updated 03/18/25 @ 16:12 by Leno Cruz MD) Hypothyroidism Neuropathy 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 Dyspareunia in female Surgical History (Updated 03/18/25 @ 15:36 by Shavon Del Cid CMA) Hx of hysterectomy History of colonoscopy (~09/13/17) Family History (Updated 03/18/25 @ 15:38 by Shavon Del Cid CMA) Mother Lung cancer Father HTN (hypertension) Heart attack Diabetes Brother Heart attack Diabetes Sister Diabetes Social History Household Members: Spouse Housing: House Alcohol intake: never Patient Tobacco Use Status: Former Tobacco user Tobacco use type: Cigarette e-Cigarette/Vaping Use: Never Used service: No Current occupational status: employed Current occupation: [employer] 3 days a week Sexual orientation: Straight/Heterosexual Gender identity: Female Cognitive needs: No Hearing needs: No Vision needs: Yes (reading glasses) Female Reproductive History Menstrual Total pregnancies: 2 Full term: 2 Number of Living Children: 2 Review of Systems Const All systems reviewed & are unremarkable except as noted in HPI and below Card Reports as per HPI and Reports no additional complaints Resp Reports as per HPI and Reports no additional complaints GI Reports as per HPI and Reports no additional complaints Reports as per HPI Physical Exam Vital Signs: BMI result Body Mass Index 22.5 Const General: cooperative, healthy appearing and comfortable General: Yes bladder normal to palpation External Female Exam: No lesion Speculum Exam - Vagina: normal appearance of the vagina, normal vaginal discharge and not erythematous Speculum Exam - Cervix: Cervix absent Bimanual exam- vagina & uterus: bladder normal to palpation and uterus absent Bimanual Exam- Adnexa, other: Other (No masses detected) Assessment & Plan Assessment & Plan (1) Dyspareunia in female: Comment: Multiple myeloma Code(s): N94.10 - Unspecified dyspareunia Category: Medical Plan: Urine dip done in the office was positive for microscopic hematuria. Pelvic ultrasound ordered and BV panel collected. Discussed with the patient differential diagnosis of dyspareunia including atrophic vaginitis, vaginal infection, bladder causes and pelvic masses. The workup include a urine dip, BV panel, pelvic ultrasound . If negative workup will consider estrogen vaginal cream (2) Microscopic hematuria: Code(s): R31.29 - Other microscopic hematuria Category: Medical Plan: Urine dip showed microscopic hematuria, urine culture sent. Will repeat urine dip in 2 weeks. Discussed with the patient the possible causes of microscopic hematuria including but not limited to: interstitial cystitis, polyps, stones, masses, urethral inflammatory processes and others. If Urine Culture is negative and repeat urine dip in 2 weeks shows persistent microscopic hematuria, will proceed with CT abdomen/pelvis and urology referral. Instructions given the patient to schedule a 2 week urine dip follow-up appointment. All questions answered and the patient verbalized understanding. Orders: Orders US pelvic and transvaginal Today N94.10 - Unspecified dyspareunia Bacterial Vaginosis Panel Today N94.10 - Unspecified dyspareunia, R31.29 - Other microscopic hematuria AMB Urinalysis Dipstick Today N94.10 - Unspecified dyspareunia, R31.29 - Other microscopic hematuria Urine Culture Today N94.10 - Unspecified dyspareunia, R31.29 - Other microscopic hematuria Coding Level of Care Code New Pt Level 3 (16975) Diagnoses Dyspareunia in female N94.10 Microscopic hematuria R31.29
--- OUTSIDE RECORDS SUMMARY | 2025-03-18 19:08 | XMS_ITS | Encounter Summary ---
Author Organization [facility] and [facility] Address [address] [place] [phone] Care Team Providers Care Mercerizing Range Feeder Name Role Phone Maged Guzman MD Primary Care Provider [phone] Encounter Details Date Type Department Care Team (Late st Contact Info) Description 08/23/2016 Scanned Document [facility] at [address] [address] Guille Schuler MD [address] [place] [phone] Social History Tobacco Use Types Packs/Day Years [...] Schuler MD IMG SCAN REPORTS Final Result [facility] [place], [place], [facility] documented in this encounter Visit Diagnoses Not on filedocumented in this encounter Care Teams Mercerizing Range Feeder Relationship Specialty Start Date End Date Maged Guzman MD [address] [place] [address] [place] [phone] PCP - General Internal Medicine 06/07/14 documented as of this encounter
--- OUTSIDE RECORDS SUMMARY | 2025-03-18 19:08 | XMS_ITS | Encounter Summary ---
Author Organization [facility] [facility] and [facility] Address [address] [place] [phone] Care Team Providers Care Sales Communications Manager Name Role Phone Maged Guzman MD Primary Care Provider [phone] Encounter Details Date Type Department Care Team (Late st Contact Info) Description 10/08/2016 Scanned Document [facility] [address] [facility] [address] [place] [address] External, Provider Social History Tobacco Use Types [...] filedocumented in this encounter Care Teams Sales Communications Manager Relationship Specialty Start Date End Date Maged Guzman MD [address] [place] [address] [place] [address] PCP - General Internal Medicine 06/07/14 documented as of this encounter
--- OUTSIDE RECORDS SUMMARY | 2025-03-18 19:09 | XMS_ITS | Encounter Summary ---
Author Organization [facility] [employer] [facility] and [facility] Address [address] [place] [address] Care Team Providers Care Gauge Machine Operator Name Role Phone Maged Guzman MD Primary Care Provider [phone] Encounter Details Date Type Department Care Team (Late st Contact Info) Description 09/20/2022 Scanned Document [facility] [address] [facility] [address] [place] [address] Main Lea MD [address] [place] [address] Social History Tobacco Use Types Packs/Day Years [...] on filedocumented in this encounter Care Teams Gauge Machine Operator Relationship Specialty Start Date End Date Maged Guzman MD [address] [place] [address] [place] [address] PCP - General Internal Medicine 06/07/14 documented as of this encounter
--- OUTSIDE RECORDS SUMMARY | 2025-03-18 19:09 | XMS_ITS | Encounter Summary ---
Author Organization [facility] and [facility] Address [address] [place] [phone] Care Team Providers Care Transportation Assistant Name Role Phone Maged Guzman MD Primary Care Provider [phone] Encounter Details Date Type Department Care Team (Late st Contact Info) Description 07/05/2015 Scanned Document [facility] Health Information Management [address] [place] [id number] External, Provider Social History Tobacco Use Types [...] External LAB BLOOD ORDERABLES Final Res ult [facility] [place], [place], [place] * Lab Scan (07/05/2015) Blood specimen (specimen) us Provider External LAB BLOOD ORDERABLES Final Res ult [facility] documented in this encounter Visit Diagnoses Not on filedocumented in this encounter Care Teams Transportation Assistant Relationship Specialty Start Date End Date Maged Guzman MD [address] [place] [address] [place] [phone] PCP - General Internal Medicine 06/07/14 documented as of this encounter
--- OUTSIDE RECORDS SUMMARY | 2025-03-18 19:09 | XMS_ITS | Encounter Summary ---
Author Organization [facility] [facility] and [facility] Address [address] [place] [address] Care Team Providers Care Special Delivery Messenger Name Role Phone Maged Guzman MD Primary Care Provider [phone] Reason for Referral * Imaging (Routine) - Closed Specialty Diagnoses / Procedures Referred By Contkenna t Referred To Contact Diagnostic Radiology Procedures US Abdomen Complete Guille Schuler MD [address] [place] [address] Dr Rosen [address] [place], [place] [address] [address] Phone: tel: fax: Referral ID Status Reason Start Date Expiration Date Visits Re quested Visits Authorized [id number] Closed 03/23/2019 03/22/2020 1 1 Encounter Details Date Type Department Care Team (Late st Contact Info) Description 03/23/2019 Scanned Document [facility] 40 [facility] [address] [place] [address] Guille Schuler MD [address] [place] [address] Dr Rosen [address] [place] [address] [place] [phone] Social History Tobacco Use Types Packs/Day [...] on filedocumented in this encounter Care Teams Special Delivery Messenger Relationship Specialty Start Date End Date Maged Guzman MD [address] [place] [address] [place] [address] PCP - General Internal Medicine 06/07/14 documented as of this encounter
--- OUTSIDE RECORDS SUMMARY | 2025-03-18 19:09 | XMS_ITS | Clinical Summary ---
Author Organization [address] Address [address] [place] [phone] Phone Care Team Providers Care Keel Press Operator Name Role Phone Maged Guzman MD Primary Care Provider [phone] Allergies Active Allergy Reactions Criticality Noted Date [...] history exists Covid-19 vaccine series (1 - 2024- season) 2025 RSV Immunization (1 - 1-dose 75+ series) 10/02/2026 Shingles vaccine (Zostavax) Discontinued 11/11/2015 Cervical cancer screening Discontinued Meningococcal B Vaccine Aged Out No l onger eligible based on patient's age to complete this topic Meningococcal Vaccine Aged Out No shakila francisco eligible based on patient's age to complete this topic Insurance MEDICARE [facility] MEDICARE [facility] MEDICARE [facility] Care Teams Keel Press Operator Relationship Specialty Start Date End Date Maged Guzman MD [address] [place] [address] [place] [address] PCP - General Internal Medicine 06/07/14
--- OUTSIDE RECORDS SUMMARY | 2025-03-18 19:09 | XMS_ITS | Encounter Summary ---
Author Organization [facility] and [facility] Address [address] [place] [address] Care Team Providers Care Echocardiography Technologist Name Role Phone Maged Guzman MD Primary Care Provider [phone] Encounter Details Date Type Department Care Team (Late st Contact Info) Description 07/05/2015 Scanned Document [facility] Health Information Management [address] [place] [phone] External, Provider Social History Tobacco Use Types [...] Provider External IMG SCAN REPORTS Final Result [facility] [place], [place], [facility] documented in this encounter Visit Diagnoses Not on filedocumented in this encounter Care Teams Echocardiography Technologist Relationship Specialty Start Date End Date Maged Guzman MD [address] [place] [address] [place] [address] PCP - General Internal Medicine 06/07/14 documented as of this encounter
--- OUTSIDE RECORDS SUMMARY | 2025-03-18 19:09 | XMS_ITS | Encounter Summary ---
Author Organization [facility] [employer] [facility] and [facility] Address [address] [place] [address] Care Team Providers Care Zoo Keeper Name Role Phone Maged Guzman MD Primary Care Provider Encounter Details Date Type Department Care Team (Late st Contact Info) Description 08/07/2018 Scanned Document [facility] Health Information Management [address] [place] [address] [phone] External, Provider Social History Tobacco Use Types [...] on filedocumented in this encounter Care Teams Zoo Keeper Relationship Specialty Start Date End Date Maged Guzman MD [address] [place] [address] [place] [address] PCP - General Internal Medicine 06/07/14 documented as of this encounter
--- OUTSIDE RECORDS SUMMARY | 2025-03-18 19:09 | XMS_ITS | Encounter Summary ---
Author Organization [facility] [employer] [facility] and [facility] Address [address] [place] [address] Care Team Providers Care Designer Architect Name Role Phone Maged Guzman MD Primary Care Provider [phone] Encounter Details Date Type Department Care Team (Late st Contact Info) Description 09/28/2015 Scanned Document [facility] at [address] [address] Joes Min MD [address] [place] [phone] Social History Tobacco Use Types Packs/Day Years [...] on filedocumented in this encounter Care Teams Designer Architect Relationship Specialty Start Date End Date Maged Guzman MD [address] [place] [address] Dr Fregoso [place] [address] PCP - General Internal Medicine 06/07/14 documented as of this encounter
--- OUTSIDE RECORDS SUMMARY | 2025-03-18 19:09 | XMS_ITS | Encounter Summary ---
Author Organization [facility] and [facility] Address [address] [place] [phone] Care Team Providers Care Microsoft Crm Developer Name Role Phone Maged Guzman MD Primary Care Provider [phone] Encounter Details Date Type Department Care Team (Late st Contact Info) Description 11/14/2015 Scanned Document [facility] 40 [facility] [address] [place] [address] External, Provider Social History Tobacco Use Types [...] us Provider External PATHOLOGY/CYTOLOGY ORDERABLES Final Result [facility] [place], [place], [place] documented in this encounter Visit Diagnoses Not on filedocumented in this encounter Care Teams Microsoft Crm Developer Relationship Specialty Start Date End Date Maged Guzman MD [address] [place] [address] [place] [address] PCP - General Internal Medicine 06/07/14 documented as of this encounter
--- OUTSIDE RECORDS SUMMARY | 2025-03-18 19:09 | XMS_ITS | Encounter Summary ---
Author Organization [facility] [employer] [facility] and [facility] Address [address] [place] [phone] Care Team Providers Care Ip/Mosaic Technician Name Role Phone Maged Guzman MD Primary Care Provider [phone] Encounter Details Date Type Department Care Team (Late st Contact Info) Description 06/30/2015 Scanned Document [facility] Health Information Management [address] [place] [address] [phone] External, Provider Social History Tobacco Use Types [...] on filedocumented in this encounter Care Teams Ip/Mosaic Technician Relationship Specialty Start Date End Date Maged Guzman MD [address] [place] [address] [place] [address] PCP - General Internal Medicine 06/07/14 documented as of this encounter
--- OUTSIDE RECORDS SUMMARY | 2025-03-18 19:09 | XMS_ITS | Encounter Summary ---
Author Organization [facility] [facility] and [facility] Address [address] [place] [address] Care Team Providers Care Finance Accounting Internship Name Role Phone Maged Guzman MD Primary Care Provider [phone] Encounter Details Date Type Department Care Team (Late st Contact Info) Description 11/02/2016 Scanned Document [facility] Health Information Management [address] [place] [phone] External, Provider Social History Tobacco Use Types [...] on filedocumented in this encounter Care Teams Finance Accounting Internship Relationship Specialty Start Date End Date Maged Guzman MD [address] [place] [address] Dr Fregoso [place]HA [phone] PCP - General Internal Medicine 06/07/14 documented as of this encounter
--- OUTSIDE RECORDS SUMMARY | 2025-03-18 19:09 | XMS_ITS | Encounter Summary ---
Author Organization [facility] and [facility] Address [address] [place] [phone] Care Team Providers Care Software Test Technician Name Role Phone Maged Guzman MD Primary Care Provider [phone] Encounter Details Date Type Department Care Team (Late st Contact Info) Description 07/06/2015 Scanned Document [facility] Health Information Management [address] [place] [address] [phone] External, Provider Social History Tobacco Use Types [...] us Provider External PATHOLOGY/CYTOLOGY ORDERABLES Final Result [facility] [place], [place], [facility] documented in this encounter Visit Diagnoses Not on filedocumented in this encounter Care Teams Software Test Technician Relationship Specialty Start Date End Date Maged Guzman MD [address] [place] [address] [place] [address] PCP - General Internal Medicine 06/07/14 documented as of this encounter
--- OUTSIDE RECORDS SUMMARY | 2025-03-18 19:09 | XMS_ITS | Encounter Summary ---
Author Organization [facility] [employer] [facility] and [facility] Address [address] [place] [phone] Care Team Providers Care Health And Fitness Instructor Name Role Phone Maged Guzman MD Primary Care Provider Encounter Details Date Type Department Care Team (Late st Contact Info) Description 09/01/2021 Scanned Document [facility] 40 [facility] [address] [place] [address] External, Provider Social History Tobacco Use Types [...] on filedocumented in this encounter Care Teams Health And Fitness Instructor Relationship Specialty Start Date End Date Maged Guzman MD [address] [place] [address] [place] [phone] PCP - General Internal Medicine 06/07/14 documented as of this encounter
--- OUTSIDE RECORDS SUMMARY | 2025-03-18 19:09 | XMS_ITS | Encounter Summary ---
Author Organization [facility] and [facility] Address [address] [place] [phone] Care Team Providers Care Hand Endband Cutter Name Role Phone Maged Guzman MD Primary Care Provider [phone] Encounter Details Date Type Department Care Team (Late st Contact Info) Description 01/21/2016 Scanned Document [facility] Health Information Management [address] [place] [address] [phone] External, Provider Social History Tobacco Use Types [...] External LAB BLOOD ORDERABLES Final Res ult [facility] [place], [place], [facility] documented in this encounter Visit Diagnoses Not on filedocumented in this encounter Care Teams Hand Endband Cutter Relationship Specialty Start Date End Date Maged Guzman MD [address] [place] [address] [place] [address] PCP - General Internal Medicine 06/07/14 documented as of this encounter
--- OUTSIDE RECORDS SUMMARY | 2025-03-18 19:09 | XMS_ITS | Encounter Summary ---
Author Organization [facility] [employer] [facility] and [facility] Address [address] [place] [address] Care Team Providers Care Product Director Name Role Phone Maged Guzman MD Primary Care Provider [phone] Encounter Details Date Type Department Care Team (Late st Contact Info) Description 09/07/2022 Scanned Document [facility] 40 [facility] [address] [place] [address] External, Provider Social History Tobacco Use Types [...] on filedocumented in this encounter Care Teams Product Director Relationship Specialty Start Date End Date Maged Guzman MD [address] [place] [address] [place] [address] PCP - General Internal Medicine 06/07/14 documented as of this encounter
--- OUTSIDE RECORDS SUMMARY | 2025-03-18 19:09 | XMS_ITS | Encounter Summary ---
Author Organization [facility] [employer] [facility] and [facility] Address [address] [place] [phone] Care Team Providers Care Medical Imaging Technician Name Role Phone Maged Guzman MD Primary Care Provider [phone] Encounter Details Date Type Department Care Team ([facility] st Contact Info) Description 02/20/2019 Scanned Document [facility] [address] [address] Blanca Carpenter MD [address] [place] [phone] Social History Tobacco Use Types Packs/Day Years [...] filedocumented in this encounter Care Teams Medical Imaging Technician Relationship Specialty Start Date End Date Maged Guzman MD [address] [place] [address] [place] [phone] PCP - General Internal Medicine 06/07/14 documented as of this encounter
--- OUTSIDE RECORDS SUMMARY | 2025-03-18 19:09 | XMS_ITS | Encounter Summary ---
Author Organization [facility] [employer] [facility] and [facility] Address [address] [place] [phone] Care Team Providers Care Management Analyst Name Role Phone Maged Guzman MD Primary Care Provider [phone] Encounter Details Date Type Department Care Team (Late st Contact Info) Description 2015 Scanned Document [facility] Health Information Management [address] [place] [address] [phone] External, Provider Social History Tobacco Use Types [...] on filedocumented in this encounter Care Teams Management Analyst Relationship Specialty Start Date End Date Maged Guzman MD [address] [place] [address] [place] [address] PCP - General Internal Medicine 06/07/14 documented as of this encounter
--- OUTSIDE RECORDS SUMMARY | 2025-03-18 19:09 | XMS_ITS | Encounter Summary ---
Author Organization [facility] [employer] [facility] and [facility] Address [address] [place] [phone] Care Team Providers Care Bevel Face Stoner And Polisher Name Role Phone Maged Guzman MD Primary Care Provider [phone] Reason for Referral * Imaging (Routine) - Closed Specialty Diagnoses / Procedures Referred By Too t Referred To Contact Diagnostic Radiology Procedures MRI Abdomen w wo IV Contrast Guille Schuler MD [address] [place] [address] Dr Rosen [address] [place] [phone] Phone: tel: fax: Referral ID Status Reason Start Date Expiration Date Visits Re quested Visits Authorized [id number] Closed 01/06/2019 01/06/2020 1 1 Encounter Details Date Type Department Care Team (Late st Contact Info) Description 01/06/2019 Scanned Document [facility] [address] [place] [address] [address] [place] [address] Guille Schuler MD [address] [place] [address] Dr Rosen [address] [place] [phone] Social History Tobacco Use Types Packs/Day [...] Date End Date Maged Guzman MD [address] [place] [address] [place] [phone] PCP - General Internal Medicine 06/07/14 documented as of this encounter
--- OUTSIDE RECORDS SUMMARY | 2025-03-18 19:09 | XMS_ITS | Encounter Summary ---
Author Organization [facility] [employer] [facility] and [facility] Address [address] [place] [address] Care Team Providers Care Hand Model Name Role Phone Maged Guzman MD Primary Care Provider [phone] Encounter Details Date Type Department Care Team (Late st Contact Info) Description 06/14/2012 [facility] Health Information Management [address] [place] [address] [place], Primary Care [address] [place] [address] [phone] Social History Tobacco Use Types Packs/Day Years [...] filedocumented in this encounter Care Teams Hand Model Relationship Specialty Start Date End Date Maged Guzman MD [address] [place] [address] [place] [address] PCP - General Internal Medicine 06/07/14 documented as of this encounter
--- OUTSIDE RECORDS SUMMARY | 2025-03-18 19:09 | XMS_ITS | Encounter Summary ---
Author Organization [facility] [employer] [facility] and [facility] Address [address] [place] [address] Care Team Providers Care Lymphedema Therapist Name Role Phone Maged Guzman MD Primary Care Provider [phone] Encounter Details Date Type Department Care Team (Late st Contact Info) Description 10/28/2022 Scanned Document [facility] 40 [facility] [address] [place] [address] Main Lea MD [address] [place] [address] Social History Tobacco Use Types Packs/Day Years [...] on filedocumented in this encounter Care Teams Lymphedema Therapist Relationship Specialty Start Date End Date Maged Guzman MD [address] [place] [address] [place] [address] PCP - General Internal Medicine 06/07/14 documented as of this encounter
--- OUTSIDE RECORDS SUMMARY | 2025-03-18 19:09 | XMS_ITS | Encounter Summary ---
Author Organization [facility] [employer] [facility] and [facility] Address [address] [place] [phone] Care Team Providers Care Livestock Laborer Name Role Phone Maged Guzman MD Primary Care Provider [phone] Reason for Referral * Imaging (Routine) - Closed Specialty Diagnoses / Procedures Referred By Too flood Referred To Contact Diagnostic Radiology Procedures MRI Abdomen w wo IV Contrast MRCP Guille Schuler MD [address] [place] [address] Dr Rosen [address] [place] [address] Phone: tel: fax: Referral ID Status Reason Start Date Expiration Date Visits Re quested Visits Authorized [id number] Closed 06/05/2019 06/04/2020 1 1 Encounter Details Date Type Department Care Team (Late st Contact Info) Description 06/05/2019 Scanned Document [facility] [address] [place] [address] [address] [place] [address] Guille Schuler MD [address] [place] [address] Dr Rosen [address] [place] [phone] Social History Tobacco Use Types Packs/Day [...] on filedocumented in this encounter Care Teams Livestock Laborer Relationship Specialty Start Date End Date Maged Guzman MD [address] [place] [address] [place] [address] PCP - General Internal Medicine 06/07/14 documented as of this encounter
--- OUTSIDE RECORDS SUMMARY | 2025-03-18 19:10 | XMS_ITS | Encounter Summary ---
Author Organization [facility] [employer] [facility] and [facility] Address [address] [place] [address] Care Team Providers Care Fisher Quahog Name Role Phone Maged Guzman MD Primary Care Provider [phone] Encounter Details Date Type Department Care Team (Late st Contact Info) Description 07/05/2017 Scanned Document [facility] Health Information Management [address] [place] [phone] External, Provider Social History Tobacco Use Types [...] on filedocumented in this encounter Care Teams Fisher Quahog Relationship Specialty Start Date End Date Maged Guzman MD [address] [place] [address] Dr Fregoso MitaliRADHA [phone] PCP - General Internal Medicine 06/07/14 documented as of this encounter
--- OUTSIDE RECORDS SUMMARY | 2025-03-18 19:10 | XMS_ITS | Patient Health Record ---
Author Organization [facility] Address [address] [place] [address] Care Team Providers Care Foreign Policy Officer Name Role Phone Brooklyn Garza M.D. Primary Care Provider Guille Martínez [phone] Allergies Allergen (clinical drug ingredient) Drug/Non Drug Allergy documented on EMR Reaction Allergy Type Onset Date Status meperidine Demerol Unknown Drug Allergy Active sulfamethoxazole / trimethoprim Bactrim Unknown Drug Allergy Active CT scan dye (uncoded) Unknown Allergy Active Shellfish (FN) shrimp (uncoded) Unknown Allergy Active Sulfa Unknown Drug Allergy Active Results Component Value Reference Range Notes Prothrombin Time INR Reviewed date:11/21/2024 07:26:05 PM Interpretation: Performing Lab:[address] [address] Notes/Report: Prothrombin Time 11.8 10.9-12.4 [employer] [...] Electrolytes Reviewed date:11/20/2024 04:55:55 PM Interpretation: Performing Lab:[facility], [address] [place] [phone] Notes/Report: Sodium 143 135-145 mmol/L Potassium 3.5 3.3-5.1 mmol/L Chloride 109 96-108 mmol/L Carbon Dioxide 24 22-29 mmol/L Anion Gap 14 12-20 Creatinine Reviewed date:11/20/2024 04:56:03 PM Interpretation: Performing Lab:[facility], [address] [place] [phone] Notes/Report: Creatinine 0.80 0.5-1.4 mg/dL Estimated Glomerular Filt Rate > 60 Chronic Kidney Disease: Estimated GFR < 60 mL/min/1.73m2 Severe Kidney Disease: Estimated GFR < 15 mL/min/1.73m2 US abdomen complete Reviewed date:11/26/2024 12:54:15 AM Interpretation: Performing Lab: Notes/Report: [address] [address] Ultrasound Report Signed Patient: James Snow MR#: [id number] : 1950 Acct:[id number] Age/Sex: 74 / F ADM Date: 11/25/24 Loc: HO.US Attending Dr: Guille Schuler MD Ordering Physician: Guille Schuler MD Date of Service: 11/25/24 Procedure(s): US abdomen complete Accession Number(s): [id number] cc: Brooklyn Garza MD; Guille Schuler MD [...] 11/25/24 1609 DD/ 1024 TD/TT: 11/25/24 1108 Accounts Collector: US duplex arterial venous co mp Reviewed date:11/26/2024 12:55:40 AM Interpretation: Performing Lab: Notes/Report: [address] [address] Ultrasound Report Signed Patient: James Snow MR#: [id number] : 1950 Acct:[id number] Age/Sex: 74 / F ADM Date: 11/25/24 Loc: HO.US Attending Dr: Guille Schuler MD Ordering Physician: Guille Schuler MD Date of Service: 11/25/24 Procedure(s): US duplex arterial venous comp Accession Number(s): [id number] cc: Brooklyn Garza MD; Guille Schuler MD [...] 11/25/24 1609 DD/ 1024 TD/TT: 11/25/24 1108 Accounts Collector: US abdomen complete Reviewed date:03/05/2025 07:44:05 PM Interpretation: Performing Lab: Notes/Report: [address] [address] Ultrasound Report Signed Patient: James Snow MR#: [id number] : 1950 Acct:[id number] Age/Sex: 74 / F ADM Date: 03/05/25 Loc: HO.US Attending Dr: Guille Schuler MD Ordering Physician: Guille Schuler MD Date of Service: 03/05/25 Procedure(s): US abdomen complete Accession Number(s): [id number] cc: Maciej Ambriz MD; Guille Schuler MD [...] 03/05/25 1640 DD/ 1500 TD/TT: 03/05/25 1530 Accounts Collector: US duplex arterial venous co mp Reviewed date:03/08/2025 01:39:53 PM Interpretation: Performing Lab: Notes/Report: [address] [address] Ultrasound Report Signed Patient: James Snow MR#: [id number] : 1950 Acct:[id number] Age/Sex: 74 / F ADM Date: 03/05/25 Loc: HO.US Attending Dr: Guille Schuler MD Ordering Physician: Guille Schuler MD Date of Service: 03/05/25 Procedure(s): US duplex arterial venous comp Accession Number(s): [id number] cc: Maciej Ambriz MD; Guille Schuler MD [...] 03/05/25 1640 DD/ 1437 TD/TT: 03/05/25 1530 Accounts Collector: Complete Blood Count Auto Di ff Reviewed date:11/20/2024 04:55:40 PM Interpretation: Performing Lab:[facility], [address] [place] [phone] Notes/Report: White Blood Count 8.0 4.8-10.8 X10*3/uL [...] Panel Reviewed date:11/20/2024 04:55:15 PM Interpretation: Performing Lab:[facility], [address] [place] [address] Notes/Report: Bilirubin Total 0.9 0.0-1.0 mg/dL Bilirubin Direct 0.4 0.0-0.5 mg/dL Aspartate Amino Transferase 28 5-31 U/L Alanine Aminotransferase 21 0-31 U/L Total Protein 6.0 6.5-8.0 g/dL Albumin Level 4.1 3.5-5.0 g/dL Alkaline Phosphatase 134 39-117 U/L Blood Urea Nitrogen Reviewed date:11/20/2024 04:54:59 PM Interpretation: Performing Lab:[address] [address] Notes/Report: Blood Urea Nitrogen 18 9-16 mg/dL Alpha Fetoprotein Reviewed date:11/25/2024 06:03:10 PM Interpretation: Performing Lab:[address] [address] Notes/Report: Alpha Fetoprotein 3.8 Reference Range: <6.1 [...] of disease. THIS TEST WAS PERFORMED AT: [facility] [address] [place] [address] KAMLA ALONSO MD Blood Urea Nitrogen Reviewed date:12/03/2024 11:50:16 PM Interpretation: Performing Lab:[address] [address] Notes/Report: Blood Urea Nitrogen 15 9-16 mg/dL Basic Metabolic Panel Reviewed date:12/20/2024 07:47:10 PM Interpretation: Performing Lab:[address] [address] Notes/Report: Sodium 143 135-145 mmol/L Potassium 4.8 [...] y et reviewed by provider) Interpretation: Performing Lab:[facility], [address] [place] [phone] Notes/Report: Sodium 142 135-145 mmol/L Potassium 4.4 [...] Panel Reviewed date:01/18/2025 11:37:29 PM Interpretation: Performing Lab:[facility], [address] [place] [phone] Notes/Report: Sodium 142 135-145 mmol/L Potassium 4.7 [...] y et reviewed by provider) Interpretation: Performing Lab:[facility], [address] [place] [phone] Notes/Report: Sodium 141 135-145 mmol/L Potassium 4.2 [...] Panel Reviewed date:02/27/2025 10:15:33 PM Interpretation: Performing Lab:[facility], [address] [place] [address] Notes/Report: Sodium 143 135-145 mmol/L Potassium 4.5 [...] Notes Problem Gastro-esophageal reflux disease without esophagitis (936055484) Gastro-esophageal reflux disease without esophagitis (K21.9) Active confirmed Problem Screening for malignant neoplasm of colon (763365676) Encounter for screening for malignant neoplasm of colon (Z12.11) Active confirmed Problem History of adenomatous polyp of colon (344765745) History of adenomatous polyp of colon (Z86.010) Active confirmed Problem Flatulence, eructation and gas pain (481595010) Bloating (R14.0) Active confirmed Problem 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 Problem Cirrhosis of liver (90524636) Other cirrhosis of liver (K74.69) Active confirmed Problem Ascites (687988473) Other ascite s (R18.8) Active confirmed Problem Abnormal findings diagnostic imaging of liver and biliary tract (628331621) Abnormal findings on diagnostic imaging of liver and biliary tract (R93.2) Active confirmed Problem Abnormal findings diagnostic imaging of liver and biliary tract (368029119) Abnormal CT of liver (R93.2) Active confirmed Problem Gastroesophageal reflux disease without esophagitis (606721567) Gastroesophageal reflux disease without esophagitis (K21.9) Active confirmed Problem Elevated liver enzymes level (280785790) Elevated liver enzymes (R74.8) Active confirmed Problem Fatty liver (800751329) Fatty liver (K76.0) Active confirmed Problem Cirrhosis - non-alcoholic (624943736) Cirrhosis of liver with ascites, unspecified hepatic cirrhosis type (K74.60) Active confirmed Problem Lesion of liver (187454020) Liver lesion (K76.9) Active confirmed Problem Duodenal cancer (673188731) 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 Problem 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 Problem Cirrhosis - non-alcoholic (176624382) 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) Active confirmed Problem Liver nodule (328296306) Liver nodule (K76.89) Active confirmed Vital Signs Temperature 97.3 degrees Fahrenheit 12/04/2024 Blood pressure diastolic 01 mm Hg 12/04/2024 Height 63 in 12/04/2024 Blood pressure systolic 001 mm Hg 12/04/2024 Weight 128.8 lbs 12/04/2024 BMI 22.81 kg/m2 12/04/2024 Encounters Encounter Location Date Provider Diagnosis [facility] [address] [place] [phone] 12/04/2024 Guille Schuler Fatty liver K76.0 ; Cirrhosis of liver with ascites, unspecified hepatic cirrhosis type K74.60 ; Other ascites R18.8 and Gastroesophageal reflux disease without esophagitis K21.9 [facility] [address] [place] [phone] 04/10/2024 Guille Schuler [facility] [address] [place] [phone] 08/07/2024 Guille Schuler [facility] [address] [place] [phone] 11/19/2024 Guilel Schuler Cirrhosis of liver w ith ascites K74.60 and Bloating R14.0 [facility] [address] [place] [phone] 11/26/2024 Guille Schuler [facility] [address] [place] [phone] 12/04/2024 [facility] [address] [place] [address] 12/20/2024 Guille Schuler [facility] [address] [place] [address] 03/04/2025 Guille Schuler Cirrhosis of liver w [...] have lab work every other week at [facility] and I advised her to be sure [...] have lab work every other week at [facility] and I advised her to be sure [...] have lab work every other week at [facility] and I advised her to be sure [...] have lab work every other week at [facility] and I advised her to be sure [...] CHEM 7 PROFILE 07/26/2015 ELECTROLYTES 08/11/2015 BUN 04/05/2022 BUN 03/23/2019 BUN 02/07/2018 BUN 01/31/2024 BUN 10/05/2021 BUN 07/05/2017 BUN 04/06/2021 BUN 04/07/2020 BUN 07/30/2018 BUN 11/02/2016 BUN 10/20/2020 BUN 08/13/2019 BUN 11/19/2024 BUN 08/11/2015 CREATININE 08/13/2019 CREATININE 08/11/2015 CREATININE 03/23/2019 CREATININE 02/07/2018 CREATININE 07/05/2017 CREATININE 04/06/2021 CREATININE 04/07/2020 CREATININE 07/30/2018 CREATININE 11/02/2016 CREATININE 10/20/2020 LIVER PROFILE 07/30/2018 LIVER PROFILE 04/05/2022 LIVER [...] PARACENTESIS GUIDE 08/04/2015 Basic Metabolic Panel 01/01/2025 Basic Metabolic Panel 01/29/2025 Creatinine 01/31/2024 Creatinine 10/05/2021 Alpha Fetoprotein 05/31/2023 Alpha Fetoprotein 10/20/2020 Future Test Test Name Order Date UPPER GI ENDOSCOPY 05/21/2013 COLONOSCOPY 07/05/2017 UPPER GI ENDOSCOPY 07/11/2017 Next Appt Details Provider Name:Guille Schuler , 04/30/2025 01:40:00 PM, [address] [facility], [address], [place], [address], Insurance Providers Payer Name Payer Address Payer Phone Subscriber Number Group Number Insured Name Patient Relationship to Insured Coverage Start Date Coverage End Date MEDICARE OF [place] [address] [place] [address] [phone] [id number] JAMES SNOW Self - patient is the insured MED[employer] ATTN CLAIMS [address] [place] [address] [id number] JAMES SNOW Self - patient is the insured Medical (General) History Medical History History ICD Code 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 w/u for hemochromatosis- -started Tamica in 08/2014 Denies [place],CVA,Lung disease,renal disease [...] being followed by Dr. Blanca Carpenter at [facility] hepatology clinic as well Colonoscopy in August of 2017 revealed on ly a hyperplastic polyp EGD in August 2017 revealed g rade 1 esophageal varices- she has been on carvedilol for her beta oleg Multiple myeloma diagnosed - starting chemo after November 08, 2022- Dr. Lea at [facility] Neuropathy in her feet Increased ascites noted [...] adenocarcinoma in 02/2010--done by Dr. Min at [facility]
--- OUTSIDE RECORDS SUMMARY | 2025-03-18 19:10 | XMS_ITS | Encounter Summary ---
Author Organization [facility] [employer] and [facility] Address [address] [place] [address] Care Team Providers Care Animal Tech Name Role Phone Mgaed Guzman MD Primary Care Provider [phone] Encounter Details Date Type Department Care Team (Late st Contact Info) Description 03/08/2017 Scanned Document [facility] [address] [facility] [address] [place] [address] External, Provider Social History Tobacco Use Types [...] filedocumented in this encounter Care Teams Animal Tech Relationship Specialty Start Date End Date Maged Guzman MD [address] [place] [address] [place] [address] PCP - General Internal Medicine 06/07/14 documented as of this encounter
--- OUTSIDE RECORDS SUMMARY | 2025-03-18 19:10 | XMS_ITS | Encounter Summary ---
Author Organization [facility] [employer] and [facility] Address [address] [place] [address] Care Team Providers Care Private Tutor Name Role Phone Maged Guzman MD Primary Care Provider [phone] Encounter Details Date Type Department Care Team (Late st Contact Info) Description 08/01/2017 Scanned Document [facility] Health Information Management [address] [place] [phone] External, Provider Social History Tobacco Use Types [...] on filedocumented in this encounter Care Teams Private Tutor Relationship Specialty Start Date End Date Maged Guzman MD [address] [place] [address] Dr MckeonyoRADHA rivera [address] PCP - General Internal Medicine 06/07/14 documented as of this encounter
--- OUTSIDE RECORDS SUMMARY | 2025-03-18 19:10 | XMS_ITS | Encounter Summary ---
Author Organization [facility] [employer] and [facility] Address [address] [place] [address] Care Team Providers Care Toilet And Laundry Soap Supervisor Name Role Phone Maged Guzman MD Primary Care Provider [phone] Encounter Details Date Type Department Care Team (Late st Contact Info) Description 02/28/2018 Scanned Document [facility] [address] [facility] [address] [place] [address] Maged Guzman MD [address] [place] [address] [place] [address] Social History Tobacco Use Types Packs/Day Years [...] on filedocumented in this encounter Care Teams Toilet And Laundry Soap Supervisor Relationship Specialty Start Date End Date Maged Guzman MD [address] [place] [address] [place] [address] PCP - General Internal Medicine 06/07/14 documented as of this encounter
--- OUTSIDE RECORDS SUMMARY | 2025-03-18 19:10 | XMS_ITS | Encounter Summary ---
Author Organization [facility] [employer] System and [facility] Address [address] [place] [address] Care Team Providers Care Architectural Superintendent Name Role Phone Maged Guzman MD Primary Care Provider [phone] Encounter Details Date Type Department Care Team (Late st Contact Info) Description 08/01/2017 Scanned Document [facility] Information Management [address] [place] [phone] External, Provider Social History Tobacco Use Types [...] on filedocumented in this encounter Care Teams Architectural Superintendent Relationship Specialty Start Date End Date Maged Guzman MD [address] [place] [address] [place] [address] PCP - General Internal Medicine 06/07/14 documented as of this encounter
--- OUTSIDE RECORDS SUMMARY | 2025-03-18 19:10 | XMS_ITS | Encounter Summary ---
Author Organization [facility] [employer] and [facility] Address [address] [place] [address] Care Team Providers Care Bluing Oven Tender Name Role Phone Maged Guzman MD Primary Care Provider [phone] Reason for Referral * Imaging (Routine) - Closed Specialty Diagnoses / Procedures Referred By Contac t Referred To Contact Diagnostic Radiology Procedures MRI Abdomen Pelvis w wo IV Contrast([facility] Guille Schuler MD [address] [place] [address] Dr Rosen [address] [place] [phone] Phone: tel: fax: Referral ID Status Reason Start Date Expiration Date Visits Re quested Visits Authorized [id number] Closed 09/06/2017 09/06/2018 1 1 Encounter Details Date Type Department Care Team (Late st Contact Info) Description 09/06/2017 Scanned Document [facility] [address] [place] [address] [address] [place] [address] Guille Schuler MD [address] [place] [address] Dr Rosen [address] [place] [phone] Social History Tobacco Use Types Packs/Day [...] MRI ABDOMEN PELVIS W WO IV CONTRAST([facility]) Routine 08/01/2017 LAB SCAN Routine 07/27/2017 documented in this encounter Results * MRI Abdomen Pelvis w wo IV Contrast([facility]) (08/01/2017) Anatomical Region Laterality Modality Abdomen, Pelvis, Ortho Pelvi s, Abdomen and Pelvis, RCC Abdomen/Pelvis Magnetic Resonance us Guille Schuler MD IMG MRI ORDERABLES Final Resul t * Lab Scan (07/27/2017) Blood specimen (specimen) us Guille Schuler MD LAB BLOOD ORDERABLES Final Res ult documented in this encounter Visit Diagnoses Not on filedocumented in this encounter Care Teams Bluing Oven Tender Relationship Specialty Start Date End Date Maged Guzman MD [address] [place] [address] [place] [phone] PCP - General Internal Medicine 06/07/14 documented as of this encounter
== END 2025-03-18 16:22 | disposition home or self-care (01) ==
LOC: HO.HWS 15:21
PROVIDERS: PCP Student in an Organized Health Care Education/Training Program; Visit Provider Obstetrics & Gynecology
DX: N94.10 Unspecified dyspareunia (principal); R31.29 Other microscopic hematuria
CPT/HCPCS: 99203

== ENCOUNTER 2025-03-18 15:20 | Outpatient (REF) | payer MEDICARE, SELFPAY ==
--- OUTSIDE RECORDS SUMMARY | 2025-03-18 19:26 | XMS_ITS | Clinical Summary ---
Author Organization [facility] Address [address] [place] [address] Phone Care Team Providers Care Shadowgraph Operator Name Role Phone Emiliano Guzman MD Primary Care Provider Main Lea MD Unavailable [phone] Medications No known medications Active Problems Patient Care Coordination No te Formatting of this note migh t be different from the original. Pt has Non-power port paced out in [facility] out patient facility. No information in [...] 2:30 PM EST Blood Draw Laboratory Services, [address] [place] [address] Luiz Muse MD [address] [place] [address] [place] [address] [email or web address] 05/10/2025 3:30 PM EST Office Visit [facility], Division of Hematologic Oncology, [address] [place] [address] Luiz Muse MD [address] [place] [address] [place] [address] [email or web address] Health Maintenance Due Date Last [...] file Insurance MEDICARE PART A & B [facility] MEDEX SUPPLEMENT MEDICARE PART A & B [employer] MEDEX SUPPLEMENT MEDICARE PART A & B [employer] MEDEX SUPPLEMENT MEDICARE PART A & B [employer] MEDEX SUPPLEMENT MEDICARE PART A & B [employer] MEDEX SUPPLEMENT MEDICARE PART A & B [employer] MEDEX SUPPLEMENT Care Teams Shadowgraph Operator Relationship Specialty Start Date End Date Emiliano Guzman MD [address] [place] [address] [place] [address] PCP - General Internal Medicine 11/05/22 Main Lea MD [address] [place] [address] [place] [phone] [email or web address] Referring Physician 11/05/22 Additional Source Comments The information contained in this document represents components of the legal health record. It is not the complete legal health record.[facility]
[2025-03-19 05:33] LABS: Bacterial Vaginosis PCR NEGATIVE (Negative); Candida Group PCR NOT DETECTED (Not Detect); Candida glab krusei PCR NOT DETECTED (Not Detect); Trichomonas vaginalis PCR NOT DETECTED (Not Detect)
== END 2025-03-18 15:21 | disposition home or self-care (01) ==
LOC: HO.LNP 15:20
PROVIDERS: PCP Student in an Organized Health Care Education/Training Program; Visit Provider Obstetrics & Gynecology
DX: N94.10 Unspecified dyspareunia (principal); R31.29 Other microscopic hematuria; Z20.2 Contact with and (suspected) exposure to infections with a predominantly sexual mode of transmission
CPT/HCPCS: 81002; 81515; 87086; 99202

== ENCOUNTER 2025-03-31 11:22 | Outpatient (REF) | payer MEDICARE, SELFPAY ==
--- OUTSIDE RECORDS SUMMARY | 2010-10-13 07:30 | XMS_ITS | Encounter Summary ---
Author Organization [facility] [employer] [facility] and [facility] Address [address] [place] [phone] Care Team Providers Care Chainstitch Tunnel Elastic Operator Name Role Phone Unavailable Primary Care Provider Unavailabl e Encounter Details Date Type Department Care Team (Late st Contact Info) Description 10/13/2010 8:30 AM EDT Hospital Encounter INTERFACE DEFAULT [address] [place] [phone] Social History Tobacco Use Types Packs/Day Years [...]
--- NOTE | ~2025-03-31 | US_ITS ---
CLINICAL HISTORY: N94.10 - Unspecified dyspareunia US pelvis transabdominal and transvaginalwith color Doppler Comparison: None Findings: Transabdominal scanning performed for overall anatomy. Transvaginal scanning performed for additional detail. The vaginal cuff is normal in appearance. Neither normal ovary identified No free fluid. A cystic structure is demonstrated in the uterine bed measuring 8.9 x 3.8 x 7.1 cm. This is separate from the bladder. Impression: 1. Post hysterectomy. Neither normal ovary identified. 2. A cystic structure is situated within the uterine bed does not appear to communicate with the urinary bladder. MRI of the pelvis with contrast is recommended This document has been electronically signed by: Leon Bird MD on 04/01/2025 13:23:28
--- OUTSIDE RECORDS SUMMARY | 2025-03-31 13:54 | XMS_ITS | Encounter Summary ---
Author Organization [facility] [employer] System and [facility] Address [address] [place] [address] Care Team Providers Care Santa'S Helper Name Role Phone Maged Guzman MD Primary Care Provider [phone] Encounter Details Date Type Department Care Team (Late st Contact Info) Description 09/01/2021 Scanned Document [facility] [address] [facility] [address] [place] [address] External, Provider Social History Tobacco Use Types [...] on filedocumented in this encounter Care Teams Santa'S Helper Relationship Specialty Start Date End Date Maged Guzman MD [address] [place] [address] [place] [phone] PCP - General Internal Medicine 06/07/14 documented as of this encounter
--- OUTSIDE RECORDS SUMMARY | 2025-03-31 13:54 | XMS_ITS | Encounter Summary ---
Author Organization [facility] [employer] System and [facility] Address [address] [place] [address] Care Team Providers Care Vacuum Caster Name Role Phone Maged Guzman MD Primary Care Provider Encounter Details Date Type Department Care Team (Late st Contact Info) Description 10/28/2022 Scanned Document [facility] [address] [facility] [address] [place] [address] Main Lea MD [address] [place] [address] Social History Tobacco Use Types Packs/Day Years [...] on filedocumented in this encounter Care Teams Vacuum Caster Relationship Specialty Start Date End Date Maged Guzman MD [address] [place] [address] Dr Fregoso Mitali RADHA [phone] PCP - General Internal Medicine 06/07/14 documented as of this encounter
--- OUTSIDE RECORDS SUMMARY | 2025-03-31 13:54 | XMS_ITS | Encounter Summary ---
Author Organization [facility] [employer] System and [facility] Address [address] [place] [address] Care Team Providers Care Administrative Sales Assistant Name Role Phone Maged Guzman MD Primary Care Provider [phone] Encounter Details Date Type Department Care Team (Late st Contact Info) Description 11/02/2016 Scanned Document [facility] Health Information Management [address] [place] [phone] External, Provider Social History Tobacco Use Types [...] on filedocumented in this encounter Care Teams Administrative Sales Assistant Relationship Specialty Start Date End Date Maged Guzman MD [address] [place] [address] Dr Fregoso MitaliRADHA [phone] PCP - General Internal Medicine 06/07/14 documented as of this encounter
--- OUTSIDE RECORDS SUMMARY | 2025-03-31 13:54 | XMS_ITS | Encounter Summary ---
Author Organization [facility] and [facility] Address [address] [place] [address] Care Team Providers Care Hand Blocker Name Role Phone Maged Guzman MD Primary Care Provider [phone] Encounter Details Date Type Department Care Team (Late st Contact Info) Description 2015 Scanned Document [facility] Health Information Management [address] [place] [phone] External, Provider Social History Tobacco Use Types [...] filedocumented in this encounter Care Teams Hand Blocker Relationship Specialty Start Date End Date Maged Guzman MD [address] [place] [address] [place] [address] PCP - General Internal Medicine 06/07/14 documented as of this encounter
--- OUTSIDE RECORDS SUMMARY | 2025-03-31 13:54 | XMS_ITS | Clinical Summary ---
Author Organization [facility] Address [address] [place] [address] Phone Care Team Providers Care Supervisor Stone Name Role Phone Emiliano Guzman MD Primary Care Provider Main Lea MD Unavailable [phone] Medications No known medications Active Problems Patient Care Coordination No te Formatting of this note migh t be different from the original. Pt has Non-power port paced out in [facility] out patient facility. No information in [...] 2:30 PM EST Blood Draw Laboratory Services, [address], 2nd [place] [address] Luiz Muse MD [address] [place] [address] [place] [address] [email or web address] 05/10/2025 3:30 PM EST Office Visit [facility], Division of Hematologic Oncology, [address], 7[address] [place] [address] Luiz Muse MD [address] [place] [address] [place] [address] [email or web address] Health Maintenance Due Date Last Done [...] file Insurance MEDICARE PART A & B [facility] MEDEX SUPPLEMENT MEDICARE PART A & B [employer] MEDEX SUPPLEMENT MEDICARE PART A & B [employer] MEDEX SUPPLEMENT MEDICARE PART A & B [employer] MEDEX SUPPLEMENT MEDICARE PART A & B [employer] MEDEX SUPPLEMENT MEDICARE PART A & B [employer] MEDEX SUPPLEMENT Care Teams Supervisor Stone Relationship Specialty Start Date End Date Emiliano Guzman MD [address] [place] [address] [place] [address] PCP - General Internal Medicine 11/05/22 Main Lea MD [address] [place] [address] [place] [address] [email or web address] Referring Physician 11/05/22 Additional Source Comments The information contained in this document represents components of the legal health record. It is not the complete legal health record.[facility]
--- OUTSIDE RECORDS SUMMARY | 2025-03-31 13:54 | XMS_ITS | Encounter Summary ---
Author Organization [facility] and [facility] Address [address] [place] [address] Care Team Providers Care High Speed Warper Tender Name Role Phone Maged Guzman MD Primary Care Provider [phone] Encounter Details Date Type Department Care Team (Late st Contact Info) Description 10/08/2016 Scanned Document [facility] [address] [facility] [address] [place] [address] External, Provider Social History Tobacco Use Types [...] on filedocumented in this encounter Care Teams High Speed Warper Tender Relationship Specialty Start Date End Date Maged Guzman MD [address] [place] [address] [place] [address] PCP - General Internal Medicine 06/07/14 documented as of this encounter
--- OUTSIDE RECORDS SUMMARY | 2025-03-31 13:54 | XMS_ITS | Encounter Summary ---
Author Organization [facility] and [facility] Address [address] [place] [address] Care Team Providers Care Well Control Instructor Name Role Phone Maged Guzman MD Primary Care Provider [phone] Encounter Details Date Type Department Care Team (Late st Contact Info) Description 07/05/2015 Scanned Document [facility] Health Information Management [address] [place] [phone] External, Provider Social History Tobacco Use Types [...] Provider External IMG SCAN REPORTS Final Result [facility] [place], [place], [facility] documented in this encounter Visit Diagnoses Not on filedocumented in this encounter Care Teams Well Control Instructor Relationship Specialty Start Date End Date Maged Guzman MD [address] [place] [address] [place] [address] PCP - General Internal Medicine 06/07/14 documented as of this encounter
--- OUTSIDE RECORDS SUMMARY | 2025-03-31 13:54 | XMS_ITS | Encounter Summary ---
Author Organization [facility] and [facility] Address [address] [place] [address] Care Team Providers Care Internet Marketing Intern Name Role Phone Maged Guzman MD Primary Care Provider [phone] Encounter Details Date Type Department Care Team (Late st Contact Info) Description 07/05/2015 Scanned Document [facility] Health Information Management [address] [place] [phone] External, Provider Social History Tobacco Use Types [...] External LAB BLOOD ORDERABLES Final Res ult [facility] [place], [place], [place] * Lab Scan (07/05/2015) Blood specimen (specimen) us Provider External LAB BLOOD ORDERABLES Final Res ult [facility] documented in this encounter Visit Diagnoses Not on filedocumented in this encounter Care Teams Internet Marketing Intern Relationship Specialty Start Date End Date Maged Guzman MD [address] [place] [address] [place] [address] PCP - General Internal Medicine 06/07/14 documented as of this encounter
--- OUTSIDE RECORDS SUMMARY | 2025-03-31 13:54 | XMS_ITS | Encounter Summary ---
Author Organization [facility] [employer] [facility] and [facility] Address [address] [place] [address] Care Team Providers Care Nurse College Name Role Phone Maged Guzman MD Primary Care Provider [phone] Encounter Details Date Type Department Care Team (Late st Contact Info) Description 06/14/2012 Abstract [facility] Health Information Management [address] [place] [address] [place], Primary Care [address] [place] [address] [phone] Social History Tobacco Use Types Packs/Day Years [...] on filedocumented in this encounter Care Teams Nurse College Relationship Specialty Start Date End Date Maged Guzman MD [address] [place] [address] [place] [address] PCP - General Internal Medicine 06/07/14 documented as of this encounter
--- OUTSIDE RECORDS SUMMARY | 2025-03-31 13:54 | XMS_ITS | Encounter Summary ---
Author Organization [facility] and [facility] Address [address] [place] [address] Care Team Providers Care Engineering Instructor Name Role Phone Maged Guzman MD Primary Care Provider [phone] Encounter Details Date Type Department Care Team (Late st Contact Info) Description 09/28/2015 Scanned Document [facility] at [address] [address] Jose Min MD [address] [place] [phone] Social History Tobacco Use Types Packs/Day Years [...] on filedocumented in this encounter Care Teams Engineering Instructor Relationship Specialty Start Date End Date Maged Guzman MD [address] [place] [address] Dr Fregoso Mitali RADHA [address] PCP - General Internal Medicine 06/07/14 documented as of this encounter
--- OUTSIDE RECORDS SUMMARY | 2025-03-31 13:54 | XMS_ITS | Encounter Summary ---
Author Organization [facility] [facility] and [facility] Address [address] [place] [address] Care Team Providers Care Plastic Welder Name Role Phone Maged Guzman MD Primary Care Provider [phone] Encounter Details Date Type Department Care Team (Late st Contact Info) Description 09/20/2022 Scanned Document [facility] [address] [place] [address] Main Lea MD [address] [place] [address] Social History Tobacco Use Types Packs/Day Years [...] on filedocumented in this encounter Care Teams Plastic Welder Relationship Specialty Start Date End Date Maged Guzman MD [address] [place] [address] [place] [phone] PCP - General Internal Medicine 06/07/14 documented as of this encounter
--- OUTSIDE RECORDS SUMMARY | 2025-03-31 13:54 | XMS_ITS | Clinical Summary ---
Author Organization [address] Address [address] [place] [address] Phone Care Team Providers Care Service Assistant Name Role Phone Maged Guzman MD Primary Care Provider [phone] Allergies Active Allergy Reactions Criticality Noted Date [...] age to complete this topic Insurance MEDICARE [facility] MEDICARE [facility] MEDICARE [facility] Care Teams Service Assistant Relationship Specialty Start Date End Date Maged Guzman MD [address] [place] [address] [place] [address] PCP - General Internal Medicine 06/07/14
--- OUTSIDE RECORDS SUMMARY | 2025-03-31 13:54 | XMS_ITS | Encounter Summary ---
Author Organization [facility] and [facility] Address [address] [place] [address] Care Team Providers Care Automotive Detailer Name Role Phone Maged Guzman MD Primary Care Provider [phone] Encounter Details Date Type Department Care Team (Late st Contact Info) Description 08/07/2018 Scanned Document [facility] Health Information Management [address] [place] [phone] External, Provider Social History Tobacco Use Types [...] on filedocumented in this encounter Care Teams Automotive Detailer Relationship Specialty Start Date End Date Maged Guzman MD [address] [place] [address] Dr Fregoso [place]RADHA [address] PCP - General Internal Medicine 06/07/14 documented as of this encounter
--- OUTSIDE RECORDS SUMMARY | 2025-03-31 13:54 | XMS_ITS | Encounter Summary ---
Author Organization [facility] [facility] and [facility] Address [address] [place] [address] Care Team Providers Care Byproduct Engineer Name Role Phone Maged Guzman MD Primary Care Provider [phone] Encounter Details Date Type Department Care Team (Late st Contact Info) Description 06/30/2015 Scanned Document [facility] Health Information Management [address] [place] [phone] External, Provider Social History Tobacco Use Types [...] on filedocumented in this encounter Care Teams Byproduct Engineer Relationship Specialty Start Date End Date Maged Guzman MD [address] [place] [address] [place] [address] PCP - General Internal Medicine 06/07/14 documented as of this encounter
--- OUTSIDE RECORDS SUMMARY | 2025-03-31 13:54 | XMS_ITS | Encounter Summary ---
Author Organization [facility] Address [address] [place] [address] Care Team Providers Care Produce Field Merchandiser Name Role Phone Maged Guzman MD Primary Care Provider [phone] Encounter Details Date Type Department Care Team (Late st Contact Info) Description 01/21/2016 Scanned Document [facility] Health Information Management [address] [place] [phone] External, Provider Social History Tobacco Use Types [...] External LAB BLOOD ORDERABLES Final Res ult [facility] [place], [place], [facility] documented in this encounter Visit Diagnoses Not on filedocumented in this encounter Care Teams Produce Field Merchandiser Relationship Specialty Start Date End Date Maged Guzman MD [address] [place] [address] [place] [address] PCP - General Internal Medicine 06/07/14 documented as of this encounter
--- OUTSIDE RECORDS SUMMARY | 2025-03-31 13:54 | XMS_ITS | Encounter Summary ---
Author Organization [facility] [employer] [facility] and [facility] Address [address] [place] [address] Care Team Providers Care Scuba Diving Teacher Name Role Phone Maged Guzman MD Primary Care Provider [phone] Encounter Details Date Type Department Care Team (Late st Contact Info) Description 09/07/2022 Scanned Document [facility] [address] [place] [address] External, Provider Social History Tobacco Use Types [...] on filedocumented in this encounter Care Teams Scuba Diving Teacher Relationship Specialty Start Date End Date Maged Guzman MD [address] [place] [address] [place] [address] PCP - General Internal Medicine 06/07/14 documented as of this encounter
--- OUTSIDE RECORDS SUMMARY | 2025-03-31 13:54 | XMS_ITS | Encounter Summary ---
Author Organization [facility] and [facility] Address [address] [place] [address] Care Team Providers Care Truck Loader Overhead Crane Name Role Phone Maged Guzman MD Primary Care Provider [phone] Encounter Details Date Type Department Care Team (Late st Contact Info) Description 11/14/2015 Scanned Document [facility] [address] [facility] [address] [place] [address] External, Provider Social History Tobacco Use Types [...] us Provider External PATHOLOGY/CYTOLOGY ORDERABLES Final Result [facility] [place], [place], [place] documented in this encounter Visit Diagnoses Not on filedocumented in this encounter Care Teams Truck Loader Overhead Crane Relationship Specialty Start Date End Date Maged Guzman MD [address] [place] [address] [place] [address] PCP - General Internal Medicine 06/07/14 documented as of this encounter
--- OUTSIDE RECORDS SUMMARY | 2025-03-31 13:54 | XMS_ITS | Encounter Summary ---
Author Organization [facility] and [facility] Address [address] [place] [phone] Care Team Providers Care Bottle House Quality Control Technician Name Role Phone Maged Guzman MD Primary Care Provider [phone] Encounter Details Date Type Department Care Team (Late st Contact Info) Description 07/06/2015 Scanned Document [facility] Health Information Management [address] [place] [phone] External, Provider Social History Tobacco Use Types [...] us Provider External PATHOLOGY/CYTOLOGY ORDERABLES Final Result [facility] [place], [place], [facility] documented in this encounter Visit Diagnoses Not on filedocumented in this encounter Care Teams Bottle House Quality Control Technician Relationship Specialty Start Date End Date Maged Guzman MD [address] [place] [address] [place] [address] PCP - General Internal Medicine 06/07/14 documented as of this encounter
--- OUTSIDE RECORDS SUMMARY | 2025-03-31 13:55 | XMS_ITS | Encounter Summary ---
Author Organization [facility] Health and Human [facility] [employer] [facility] and [facility] Address [address] [place] [address] Care Team Providers Care Check Writer Name Role Phone Maged Guzman MD Primary Care Provider [phone] Reason for Referral * Imaging (Routine) - Closed Specialty Diagnoses / Procedures Referred By Contac t Referred To Contact Diagnostic Radiology Procedures MRI Abdomen Pelvis w wo IV Contrast([facility] Guille Schuler MD [address] [place] [address] Dr [address] [place] [phone] Phone: tel: fax: Referral ID Status Reason Start Date Expiration Date Visits Re quested Visits Authorized [id number] Closed 09/06/2017 09/06/2018 1 1 Encounter Details Date Type Department Care Team (Late st Contact Info) Description 09/06/2017 Scanned Document [facility] [address] [place] [address] [address] [place] [address] Guille Schuler MD [address] [place] [address] Dr Rosen [address] [place] [phone] Social History Tobacco Use Types Packs/Day [...] Comments MRI ABDOMEN PELVIS W WO IV CONTRAST([facility]) Routine 08/01/2017 LAB SCAN Routine 07/27/2017 documented in this encounter Results * MRI Abdomen Pelvis w wo IV Contrast([facility]) (08/01/2017) Anatomical Region Laterality Modality Abdomen, Pelvis, Ortho Pelvi s, Abdomen and Pelvis, RCC Abdomen/Pelvis Magnetic Resonance us Guille Schuler MD IMG MRI ORDERABLES Final Resul t * Lab Scan (07/27/2017) Blood specimen (specimen) us Guille Schuler MD LAB BLOOD ORDERABLES Final Res ult documented in this encounter Visit Diagnoses Not on filedocumented in this encounter Care Teams Check Writer Relationship Specialty Start Date End Date Maged Guzman MD [address] [place] [address] [place] [address] PCP - General Internal Medicine 06/07/14 documented as of this encounter
--- OUTSIDE RECORDS SUMMARY | 2025-03-31 13:55 | XMS_ITS | Encounter Summary ---
Author Organization [facility] [facility] and [facility] Address [address] [place] [address] Care Team Providers Care Vertical Contour Band Saw Operator Name Role Phone Maged Guzman MD Primary Care Provider [phone] Encounter Details Date Type Department Care Team (Late st Contact Info) Description 02/28/2018 Scanned Document [facility] 40 [facility] [address] [place] [address] Maged Guzman MD [address] [place] [address] [place] [address] Social History Tobacco Use Types Packs/Day Years [...] on filedocumented in this encounter Care Teams Vertical Contour Band Saw Operator Relationship Specialty Start Date End Date Maged Guzman MD [address] [place] [address] [place] [address] PCP - General Internal Medicine 06/07/14 documented as of this encounter
--- OUTSIDE RECORDS SUMMARY | 2025-03-31 13:55 | XMS_ITS | Encounter Summary ---
Author Organization [facility] and [facility] Address [address] [place] [phone] Care Team Providers Care Wood Model Maker Name Role Phone Maged Guzman MD Primary Care Provider [phone] Reason for Referral * Imaging (Routine) - Closed Specialty Diagnoses / Procedures Referred By Contkenna t Referred To Contact Diagnostic Radiology Procedures US Abdomen Complete Guille Schuler MD [address] [place] [address] Dr Rosen [address] [place] [address] [address] Phone: tel: fax: Referral ID Status Reason Start Date Expiration Date Visits Re quested Visits Authorized [id number] Closed 03/23/2019 03/22/2020 1 1 Encounter Details Date Type Department Care Team (Late st Contact Info) Description 03/23/2019 Scanned Document [facility] 40 [facility] [address] [place] [address] Guille Schuler MD [address] [place] [address] Dr Rosen [address] [place] [address] [place] [address] Social History Tobacco Use Types [...] filedocumented in this encounter Care Teams Wood Model Maker Relationship Specialty Start Date End Date Maged Guzman MD [address] [place] [address] [place] [address] PCP - General Internal Medicine 06/07/14 documented as of this encounter
--- OUTSIDE RECORDS SUMMARY | 2025-03-31 13:55 | XMS_ITS | Encounter Summary ---
Author Organization [facility] [employer] [facility] and [facility] Address [address] [place] [phone] Care Team Providers Care Yarn Preparation Supervisor Name Role Phone Maged Guzman MD Primary Care Provider [phone] Reason for Referral * Imaging (Routine) - Closed Specialty Diagnoses / Procedures Referred By Too flood Referred To Contact Diagnostic Radiology Procedures MRI Abdomen w wo IV Contrast MRCP Guille Schuler MD [address] [place] [address] Dr Rosen [address] [place] [phone] Phone: tel: fax: Referral ID Status Reason Start Date Expiration Date Visits Re quested Visits Authorized [id number] Closed 06/05/2019 06/04/2020 1 1 Encounter Details Date Type Department Care Team (Late st Contact Info) Description 06/05/2019 Scanned Document [facility] [address] [place] [address] [address] [place] [address] Guille Schuler MD [address] [place] [address] Dr Rosen [address] [place] [phone] Social History Tobacco Use Types Packs/Day [...] on filedocumented in this encounter Care Teams Yarn Preparation Supervisor Relationship Specialty Start Date End Date Maged Guzman MD [address] [place] [address] [place] [phone] PCP - General Internal Medicine 06/07/14 documented as of this encounter
--- OUTSIDE RECORDS SUMMARY | 2025-03-31 13:55 | XMS_ITS | Encounter Summary ---
Author Organization [facility] and [facility] Address [address] [place] [phone] Care Team Providers Care Veterinary Radiologist Name Role Phone Maged Guzman MD Primary Care Provider [phone] Reason for Referral * Imaging (Routine) - Closed Specialty Diagnoses / Procedures Referred By Too t Referred To Contact Diagnostic Radiology Procedures MRI Abdomen w wo IV Contrast Guille Schuler MD [address] [place] [address] Dr Rosen [address] [place] [phone] Phone: tel: fax: Referral ID Status Reason Start Date Expiration Date Visits Re quested Visits Authorized [id number] Closed 01/06/2019 01/06/2020 1 1 Encounter Details Date Type Department Care Team (Late st Contact Info) Description 01/06/2019 Scanned Document [facility] [address] [place] [address] [address] [place] [address] Guille Schuler MD [address] [place] [address] Dr Rosen [address] [place] [phone] Social History Tobacco Use Types Packs/Day [...] on filedocumented in this encounter Care Teams Veterinary Radiologist Relationship Specialty Start Date End Date Maged Guzman MD [address] [place] [address] [place] [phone] PCP - General Internal Medicine 06/07/14 documented as of this encounter
--- OUTSIDE RECORDS SUMMARY | 2025-03-31 13:55 | XMS_ITS | Encounter Summary ---
Author Organization [facility] [employer] [facility] and [facility] Address [address] [place] [phone] Care Team Providers Care Window Unit Air Conditioning Mechanic Name Role Phone Maged Guzman MD Primary Care Provider Encounter Details Date Type Department Care Team (Late st Contact Info) Description 08/01/2017 Scanned Document [facility] Health Information Management [address] [place] [phone] External, Provider Social History Tobacco Use Types [...] on filedocumented in this encounter Care Teams Window Unit Air Conditioning Mechanic Relationship Specialty Start Date End Date Maged Guzman MD [address] [place] [address] [place] [address] PCP - General Internal Medicine 06/07/14 documented as of this encounter
--- OUTSIDE RECORDS SUMMARY | 2025-03-31 13:55 | XMS_ITS | Encounter Summary ---
Author Organization [facility] [employer] and [facility] Address [address] [place] [address] Care Team Providers Care Electronic Pagination System Operator Name Role Phone Maged Guzman MD Primary Care Provider [phone] Encounter Details Date Type Department Care Team (Late st Contact Info) Description 08/01/2017 Scanned Document [facility] Health Information Management [address] [place] [address] [phone] External, Provider Social History Tobacco Use Types [...] on filedocumented in this encounter Care Teams Electronic Pagination System Operator Relationship Specialty Start Date End Date Maged Guzman MD [address] [place] [address] [place] [address] PCP - General Internal Medicine 06/07/14 documented as of this encounter
--- OUTSIDE RECORDS SUMMARY | 2025-03-31 13:55 | XMS_ITS | Encounter Summary ---
Author Organization [facility] [employer] and [facility] Address [address] [place] [address] Care Team Providers Care Septic Cleaner Name Role Phone Maged Guzman MD Primary Care Provider [phone] Encounter Details Date Type Department Care Team (Late st Contact Info) Description 07/05/2017 Scanned Document [facility] Health Information Management [address] [place] [address] [phone] External, Provider Social History Tobacco Use Types [...] on filedocumented in this encounter Care Teams Septic Cleaner Relationship Specialty Start Date End Date Maged Guzman MD [address] [place] [address] Dr Fregoso MitaliRADHA [address] PCP - General Internal Medicine 06/07/14 documented as of this encounter
--- OUTSIDE RECORDS SUMMARY | 2025-03-31 13:55 | XMS_ITS | Encounter Summary ---
Author Organization [facility] [email or web address] and [facility] Address [address] [place] [address] Care Team Providers Care License Inspector Name Role Phone Maged Guzman MD Primary Care Provider [phone] Encounter Details Date Type Department Care Team (Late st Contact Info) Description 03/08/2017 Scanned Document [facility] 40 [facility] [address] [place] [address] External, Provider Social History Tobacco Use Types [...] on filedocumented in this encounter Care Teams License Inspector Relationship Specialty Start Date End Date Maged Guzman MD [address] [place] [address] [place] [address] PCP - General Internal Medicine 06/07/14 documented as of this encounter
--- OUTSIDE RECORDS SUMMARY | 2025-03-31 13:55 | XMS_ITS | Encounter Summary ---
Author Organization [facility] [employer] and [facility] Address [address] [place] [address] Care Team Providers Care Slip Filler Name Role Phone Maged Guzman MD Primary Care Provider [phone] Encounter Details Date Type Department Care Team ([facility] st Contact Info) Description 02/20/2019 Scanned Document [facility] [address] [address] Blanca Carpenter MD [address] [place] [phone] Social History Tobacco Use Types Packs/Day Years [...] on filedocumented in this encounter Care Teams Slip Filler Relationship Specialty Start Date End Date Maged Guzman MD [address] [place] [address] [place] [address] PCP - General Internal Medicine 06/07/14 documented as of this encounter
== END 2025-03-31 11:23 | disposition home or self-care (01) ==
LOC: HO.US 11:22
PROVIDERS: PCP Student in an Organized Health Care Education/Training Program; Visit Provider Obstetrics & Gynecology
DX: N94.10 Unspecified dyspareunia (principal)
CPT/HCPCS: 76830; 76856

== ENCOUNTER 2025-04-21 13:56 | Outpatient (AMB) | payer MEDICARE, SELFPAY ==
--- OUTSIDE RECORDS SUMMARY | 2010-10-13 07:30 | XMS_ITS | Encounter Summary ---
Author Organization [facility] [employer] [facility] and [facility] Address [address] [place] [phone] Care Team Providers Care Dowel Inserting Machine Operator Name Role Phone Unavailable Primary Care Provider Unavailabl e Encounter Details Date Type Department Care Team (Late st Contact Info) Description 10/13/2010 8:30 AM EDT Hospital Encounter INTERFACE DEFAULT [address] [place] [phone] Social History Tobacco Use Types Packs/Day Years [...]
[2025-04-21 14:18] VITALS: BMI 21.8
--- NOTE | 2025-04-21 14:18 | A.OFFVIS_ITS ---
Vital Signs 04/21/25 14:18 Height 5 ft 3 in Weight 123 lb BMI 21.8 Intake Visit Reasons: u/s follow up/urine dip Final Cigar And Box Examiner Required: No Information Interpreted: non-clinical & clinical Accompanied by: Self / Same As Patient Allergies shrimp Allergy (Severe, Verified 04/21/25 14:18) SEVERE EDEMA FACE, NECK AND HEAD Sulfa (Sulfonamide Antibiotics) (SULFA (SULFONAMIDE ANTIBIOTICS)) Allergy (Severe, Verified 04/21/25 14:18) VASCULITIS ON BOTH LEGS WITH BLOTCHES AND RASH, vasculitis, vasculitis, vasculitis, vasculitis sulfamethoxazole (From BACTRIM) Allergy (Unknown, Verified 04/21/25 14:18) UNKNOWN trimethoprim (From BACTRIM) Allergy (Unknown, Verified 04/21/25 14:18) UNKNOWN Iodinated Contrast Media (IV CONTRAST) Adverse Reaction (Severe, Verified 04/21/25 14:18) VASOVAGAL REACTION meperidine (From DEMEROL) Adverse Reaction (Severe, Verified 04/21/25 14:18) SEVERE VOMITING AFTER ONE DOSE Contrast dye Allergy (Unknown, Uncoded 04/21/25 14:18) Unknown contrast dye Allergy (Unknown, Uncoded 04/21/25 14:18) shaking, syncope shellfish Allergy (Unknown, Uncoded 04/21/25 14:18) anaphylaxis Shrimp Allergy (Unknown, Uncoded 04/21/25 14:18) Unknown Post menopausal: Yes PFSH Medical History (Updated 04/21/25 @ 14:18 by Leno Cruz MD) Hypothyroidism Neuropathy 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 Dyspareunia in female Surgical History (Updated 03/18/25 @ 15:36 by Shavon Del Cid CMA) Hx of hysterectomy History of colonoscopy (~09/13/17) Family History (Updated 03/18/25 @ 15:38 by Shavon Del Cid CMA) Mother Lung cancer Father HTN (hypertension) Heart attack Diabetes Brother Heart attack Diabetes Sister Diabetes Social History (Updated 03/18/25 @ 15:39 by Shavon Del Cid CMA) Household Members: Spouse Housing: House Alcohol intake: never Patient Tobacco Use Status: Former Tobacco user Tobacco use type: Cigarette e-Cigarette/Vaping Use: Never Used service: No Current occupational status: employed Current occupation: [employer] 3 days a week Sexual orientation: Straight/Heterosexual Gender identity: Female Cognitive needs: No Hearing needs: No Vision needs: Yes (reading glasses) Review of Systems Const All systems reviewed & are unremarkable except as noted in HPI and below Reports as per HPI and Reports no additional complaints GI Reports no additional complaints Reports no additional complaints Assessment & Plan Assessment & Plan (1) Pelvic mass in female: Code(s): R19.00 - Intra-abdominal and pelvic swelling, mass and lump, unspecified site Category: Medical Plan: Discussed with the patient the finding on ultrasound, recommended an urgent pelvic MRI. Instructions given the patient to schedule MRI follow-up appointment within 1-2 weeks (2) Microscopic hematuria: Code(s): R31.29 - Other microscopic hematuria Category: Medical Plan: Repeat urine dip showed persistent microscopic hematuria. Urology referral placed. Instructed the patient to call our office back in case a referral appointment is not scheduled, missed or canceled so that we will assist on rescheduling another appointment, the patient verbalized understanding agreed with the plan. Orders: Orders MR pelvis wo/w con Today R19.00 - Intra-abdominal and pelvic swelling, mass and lump, unspecified site Referrals Urology Referral R31.29 - Other microscopic hematuria Coding Level of Care Code Est Pt Level 3 (41332) Diagnoses Pelvic mass in female R19.00 Microscopic hematuria R31.29
--- OUTSIDE RECORDS SUMMARY | 2025-04-21 16:59 | XMS_ITS | Clinical Summary ---
Author Organization [address] Address [address] [place] [address] Phone Care Team Providers Care Senior Net Application Developer Name Role Phone Maged Guzman MD Primary Care Provider [phone] Allergies Active Allergy Reactions Criticality Noted Date [...] age to complete this topic Insurance MEDICARE [facility] MEDICARE [facility] MEDICARE [facility] Care Teams Senior Net Application Developer Relationship Specialty Start Date End Date Maged Guzman MD [address] [place] [address] [place] [address] PCP - General Internal Medicine 06/07/14
--- OUTSIDE RECORDS SUMMARY | 2025-04-21 16:59 | XMS_ITS | Encounter Summary ---
Author Organization [facility] [employer] and [facility] Address [address] [place] [address] Care Team Providers Care Manager Security Name Role Phone Maged Guzman MD Primary Care Provider [phone] Encounter Details Date Type Department Care Team (Late st Contact Info) Description 06/30/2015 Scanned Document [facility] Health Information Management [address] [place] [phone] External, Provider Social History Tobacco Use Types [...] filedocumented in this encounter Care Teams Manager Security Relationship Specialty Start Date End Date Maged Guzman MD [address] [place] [address] [place] [address] PCP - General Internal Medicine 06/07/14 documented as of this encounter
--- OUTSIDE RECORDS SUMMARY | 2025-04-21 16:59 | XMS_ITS | Encounter Summary ---
Author Organization [facility] [employer] and [facility] Address [address] [place] [phone] Care Team Providers Care Lab Nurse Name Role Phone Maged Guzman MD Primary Care Provider [phone] Encounter Details Date Type Department Care Team (Late st Contact Info) Description 09/01/2021 Scanned Document [facility] [address] [place] [address] External, Provider Social History Tobacco Use Types [...] on filedocumented in this encounter Care Teams Lab Nurse Relationship Specialty Start Date End Date Maged Guzman MD [address] [place] [address] [place] [address] PCP - General Internal Medicine 06/07/14 documented as of this encounter
--- OUTSIDE RECORDS SUMMARY | 2025-04-21 16:59 | XMS_ITS | Encounter Summary ---
Author Organization [facility] [employer] [facility] and [facility] Address [address] [place] [address] Care Team Providers Care Senior Finance Manager Name Role Phone Maged Guzman MD Primary Care Provider [phone] Encounter Details Date Type Department Care Team (Late st Contact Info) Description 08/07/2018 Scanned Document [facility] Health Information Management [address] [place] [phone] External, Provider Social History Tobacco Use Types [...] filedocumented in this encounter Care Teams Senior Finance Manager Relationship Specialty Start Date End Date Maged Guzman MD [address] [place] [address] Dr Fregoso MitaliRADHA [address] PCP - General Internal Medicine 06/07/14 documented as of this encounter
--- OUTSIDE RECORDS SUMMARY | 2025-04-21 16:59 | XMS_ITS | Encounter Summary ---
Author Organization [facility] and [facility] Address [address] [place] [address] Care Team Providers Care Form Tamping Machine Operator Name Role Phone Maged Guzman MD Primary Care Provider [phone] Encounter Details Date Type Department Care Team (Late st Contact Info) Description 07/05/2015 Scanned Document [facility] Health Information Management [address] [place] [phone] External, Provider Social History Tobacco Use Types [...] Provider External IMG SCAN REPORTS Final Result [facility] [place], [place], [facility] documented in this encounter Visit Diagnoses Not on filedocumented in this encounter Care Teams Form Tamping Machine Operator Relationship Specialty Start Date End Date Maged Guzman MD [address] [place] [address] [place] [address] PCP - General Internal Medicine 06/07/14 documented as of this encounter
--- OUTSIDE RECORDS SUMMARY | 2025-04-21 16:59 | XMS_ITS | Encounter Summary ---
Author Organization [facility] and [facility] Address [address] [place] [phone] Care Team Providers Care Limehouse Worker Name Role Phone Maged Guzman MD Primary Care Provider [phone] Encounter Details Date Type Department Care Team (Late st Contact Info) Description 01/21/2016 Scanned Document [facility] Health Information Management [address] [place] [address] [phone] External, Provider Social History Tobacco Use Types [...] External LAB BLOOD ORDERABLES Final Res ult [facility] [place], [place], [facility] documented in this encounter Visit Diagnoses Not on filedocumented in this encounter Care Teams Limehouse Worker Relationship Specialty Start Date End Date Maged Guzman MD [address] [place] [address] [place] [address] PCP - General Internal Medicine 06/07/14 documented as of this encounter
--- OUTSIDE RECORDS SUMMARY | 2025-04-21 16:59 | XMS_ITS | Encounter Summary ---
Author Organization [facility] [employer] and [facility] Address [address] [place] [address] Care Team Providers Care Claim Adjuster Name Role Phone Maged Guzman MD Primary Care Provider [phone] Encounter Details Date Type Department Care Team ([facility] st Contact Info) Description 02/20/2019 Scanned Document [facility] [address] [address] Blanca Carpenter MD [address] [place] [phone] Social History Tobacco Use Types Packs/Day Years [...] on filedocumented in this encounter Care Teams Claim Adjuster Relationship Specialty Start Date End Date Maged Guzman MD [address] [place] [address] [place] [address] PCP - General Internal Medicine 06/07/14 documented as of this encounter
--- OUTSIDE RECORDS SUMMARY | 2025-04-21 16:59 | XMS_ITS | Encounter Summary ---
Author Organization [facility] [employer] and [facility] Address [address] [place] [address] Care Team Providers Care Screw Machine Set Up Operator Tool Name Role Phone Maged Guzman MD Primary Care Provider [phone] Encounter Details Date Type Department Care Team (Late st Contact Info) Description 06/14/2012 Abstract [facility] Health Information Management [address] [place] [address] [place], Primary Care [address] [place] [address] [phone] Social History Tobacco Use Types Packs/Day Years [...] on filedocumented in this encounter Care Teams Screw Machine Set Up Operator Tool Relationship Specialty Start Date End Date Maged Guzman MD [address] [place] [address] [place] [address] PCP - General Internal Medicine 06/07/14 documented as of this encounter
--- OUTSIDE RECORDS SUMMARY | 2025-04-21 16:59 | XMS_ITS | Clinical Summary ---
Author Organization [facility] Address [address] [place] [address] Phone Care Team Providers Care Paddock Judge Name Role Phone Emiliano Guzman MD Primary Care Provider Main Lea MD Unavailable Medications No known medications Active Problems Patient [...] 2:30 PM EST Blood Draw Laboratory Services, [address] [place] [address] Luiz Muse MD [address] [place] [address] [place] [address] [email or web address] 05/10/2025 3:30 PM EST Office Visit [facility], Division of Hematologic Oncology, [address] [place] [address] Luiz Muse MD [address] [place] [address] [place] [address] [email or web address] Health Maintenance Due Date Last Done [...] file Insurance MEDICARE PART A & B [facility] MEDEX SUPPLEMENT MEDICARE PART A & B [employer] MEDEX SUPPLEMENT MEDICARE PART A & B [employer] MEDEX SUPPLEMENT MEDICARE PART A & B [employer] MEDEX SUPPLEMENT MEDICARE PART A & B [employer] MEDEX SUPPLEMENT MEDICARE PART A & B [employer] MEDEX SUPPLEMENT Care Teams Paddock Judge Relationship Specialty Start Date End Date Emiliano Guzman MD [address] [place] [address] [place] [address] PCP - General Internal Medicine 11/05/22 Main Lea MD [address] [place] [address] [place] [address] [email or web address] Referring Physician 11/05/22 Additional Source Comments The information contained in this document represents components of the legal health record. It is not the complete legal health record.[facility]
--- OUTSIDE RECORDS SUMMARY | 2025-04-21 16:59 | XMS_ITS | Encounter Summary ---
Author Organization [facility] [employer] and [facility] Address [address] [place] [address] Care Team Providers Care Development Representative Name Role Phone Maged Guzman MD Primary Care Provider [phone] Encounter Details Date Type Department Care Team (Late st Contact Info) Description 10/28/2022 Scanned Document [facility] 40 [facility] [address] [place] [address] Main Lea MD [address] [place] [address] Social History Tobacco Use Types Packs/Day Years [...] on filedocumented in this encounter Care Teams Development Representative Relationship Specialty Start Date End Date Maged Guzman MD [address] [place] [address] Dr Fregoso Mitali RADHA [address] PCP - General Internal Medicine 06/07/14 documented as of this encounter
--- OUTSIDE RECORDS SUMMARY | 2025-04-21 16:59 | XMS_ITS | Encounter Summary ---
Author Organization [facility] and [facility] Address [address] [place] [address] Care Team Providers Care Export Freight Specialist Name Role Phone Maged Guzman MD Primary Care Provider [phone] Encounter Details Date Type Department Care Team (Late st Contact Info) Description 08/23/2016 Scanned Document [facility] at [address] [address] Guille Schuler MD [address] [place] [phone] Social History Tobacco Use Types Packs/Day Years [...] IMG SCAN REPORTS Final Result [facility] [place], [place], [facility] documented in this encounter Visit Diagnoses Not on filedocumented in this encounter Care Teams Export Freight Specialist Relationship Specialty Start Date End Date Maged Guzman MD [address] [place] [address] [place] [address] PCP - General Internal Medicine 06/07/14 documented as of this encounter
--- OUTSIDE RECORDS SUMMARY | 2025-04-21 16:59 | XMS_ITS | Encounter Summary ---
Author Organization [facility] [employer] System and [facility] Address [address] [place] [address] Care Team Providers Care Airline Pilot/First Officer Name Role Phone Maged Guzman MD Primary Care Provider [phone] Encounter Details Date Type Department Care Team (Late st Contact Info) Description 09/07/2022 Scanned Document [facility] 40 [facility] [address] [place] [address] External, Provider Social History Tobacco Use Types [...] on filedocumented in this encounter Care Teams Airline Pilot/First Officer Relationship Specialty Start Date End Date Maged Guzman MD [address] [place] [address] [place] [address] PCP - General Internal Medicine 06/07/14 documented as of this encounter
--- OUTSIDE RECORDS SUMMARY | 2025-04-21 16:59 | XMS_ITS | Encounter Summary ---
Author Organization [facility] [facility] and [facility] Address [address] [place] [address] Care Team Providers Care Industrial Mechanic Name Role Phone Maged Guzman MD Primary Care Provider [phone] Encounter Details Date Type Department Care Team (Late st Contact Info) Description 09/28/2015 Scanned Document [facility] at [address] [address] Jose Min MD [address] [place] [phone] Social History Tobacco Use Types Packs/Day Years [...] on filedocumented in this encounter Care Teams Industrial Mechanic Relationship Specialty Start Date End Date Maged Guzman MD [address] [place] [address] Dr Fregoso Mitali RADHA [address] PCP - General Internal Medicine 06/07/14 documented as of this encounter
--- OUTSIDE RECORDS SUMMARY | 2025-04-21 16:59 | XMS_ITS | Encounter Summary ---
Author Organization [facility] [employer] and [facility] Address [address] [place] [address] Care Team Providers Care Liquefaction Supervisor Name Role Phone Maged Guzman MD Primary Care Provider [phone] Encounter Details Date Type Department Care Team (Late st Contact Info) Description 2015 Scanned Document [facility] Health Information Management [address] [place] [phone] External, Provider Social History Tobacco Use Types [...] on filedocumented in this encounter Care Teams Liquefaction Supervisor Relationship Specialty Start Date End Date Maged Guzman MD [address] [place] [address] [place] [address] PCP - General Internal Medicine 06/07/14 documented as of this encounter
--- OUTSIDE RECORDS SUMMARY | 2025-04-21 16:59 | XMS_ITS | Encounter Summary ---
Author Organization [facility] and [facility] Address [address] [place] [address] Care Team Providers Care Business Owner/Engineer Name Role Phone Maged Guzman MD Primary Care Provider [phone] Encounter Details Date Type Department Care Team (Late st Contact Info) Description 11/14/2015 Scanned Document [facility] 40 [facility] [address] [place] [address] External, Provider Social History Tobacco Use Types [...] us Provider External PATHOLOGY/CYTOLOGY ORDERABLES Final Result [facility] [place], [place], [place] documented in this encounter Visit Diagnoses Not on filedocumented in this encounter Care Teams Business Owner/Engineer Relationship Specialty Start Date End Date Maged Guzman MD [address] [place] [address] [place] [address] PCP - General Internal Medicine 06/07/14 documented as of this encounter
--- OUTSIDE RECORDS SUMMARY | 2025-04-21 16:59 | XMS_ITS | Encounter Summary ---
Author Organization [facility] and [facility] Address [address] [place] [phone] Care Team Providers Care Correctional Program Officer Name Role Phone Maged Guzman MD Primary Care Provider [phone] Encounter Details Date Type Department Care Team (Late st Contact Info) Description 07/06/2015 Scanned Document [facility] Health Information Management [address] [place] [address] [phone] External, Provider Social History Tobacco Use Types [...] us Provider External PATHOLOGY/CYTOLOGY ORDERABLES Final Result [facility] [place], [place], [facility] documented in this encounter Visit Diagnoses Not on filedocumented in this encounter Care Teams Correctional Program Officer Relationship Specialty Start Date End Date Maged Guzman MD [address] [place] [address] [place] [address] PCP - General Internal Medicine 06/07/14 documented as of this encounter
--- OUTSIDE RECORDS SUMMARY | 2025-04-21 16:59 | XMS_ITS | Encounter Summary ---
Author Organization [facility] [employer] and [facility] Address [address] [place] [phone] Care Team Providers Care Superintendent Landfill Operations Name Role Phone Maged Guzman MD Primary Care Provider [phone] Encounter Details Date Type Department Care Team (Late st Contact Info) Description 11/02/2016 Scanned Document [facility] Health Information Management [address] [place] [address] [phone] External, Provider Social History Tobacco Use Types [...] on filedocumented in this encounter Care Teams Superintendent Landfill Operations Relationship Specialty Start Date End Date Maged Guzman MD [address] [place] [address] Dr Fregoso MitaliRADHA [phone] PCP - General Internal Medicine 06/07/14 documented as of this encounter
--- OUTSIDE RECORDS SUMMARY | 2025-04-21 16:59 | XMS_ITS | Encounter Summary ---
Author Organization [facility] [employer] [facility] and [facility] Address [address] [place] [phone] Care Team Providers Care Thermal Cutter Hand Name Role Phone Maged Guzman MD Primary Care Provider [phone] Encounter Details Date Type Department Care Team (Late st Contact Info) Description 10/08/2016 Scanned Document [facility] [address] [facility] [address] [place] [address] External, Provider Social History Tobacco Use Types [...] on filedocumented in this encounter Care Teams Thermal Cutter Hand Relationship Specialty Start Date End Date Maged Guzman MD [address] [place] [address] [place] [phone] PCP - General Internal Medicine 06/07/14 documented as of this encounter
--- OUTSIDE RECORDS SUMMARY | 2025-04-21 16:59 | XMS_ITS | Encounter Summary ---
Author Organization [facility] [email or web address] [facility] and [facility] Address [address] [place] [phone] Care Team Providers Care Locomotive Repairer Diesel Name Role Phone Maged Guzman MD Primary Care Provider [phone] Reason for Referral * Imaging (Routine) - Closed Specialty Diagnoses / Procedures Referred By Too t Referred To Contact Diagnostic Radiology Procedures MRI Abdomen w wo IV Contrast Guille Schuler MD [address] [place] [address] Dr Rosen [address] [place] [phone] Phone: tel: fax: Referral ID Status Reason Start Date Expiration Date Visits Re quested Visits Authorized [id number] Closed 01/06/2019 01/06/2020 1 1 Encounter Details Date Type Department Care Team (Late st Contact Info) Description 01/06/2019 Scanned Document [facility] [address] [place] [address] [address] [place] [address] Guille Schuler MD [address] [place] [address] Dr Rosen [address] [place] [phone] Social History Tobacco Use Types Packs/Day [...] on filedocumented in this encounter Care Teams Locomotive Repairer Diesel Relationship Specialty Start Date End Date Maged Guzman MD [address] [place] [address] [place] [phone] PCP - General Internal Medicine 06/07/14 documented as of this encounter
--- OUTSIDE RECORDS SUMMARY | 2025-04-21 16:59 | XMS_ITS | Encounter Summary ---
Author Organization [facility] [employer] [facility] and [facility] Address [address] [place] [phone] Care Team Providers Care Roughing Mill Operator Name Role Phone Maged Guzman MD Primary Care Provider [phone] Reason for Referral * Imaging (Routine) - Closed Specialty Diagnoses / Procedures Referred By Contkenna t Referred To Contact Diagnostic Radiology Procedures US Abdomen Complete Guille Schuler MD [address] [place] [address] Dr Rosen [address] [place], [place] [address] [address] Phone: tel: fax: Referral ID Status Reason Start Date Expiration Date Visits Re quested Visits Authorized [id number] Closed 03/23/2019 03/22/2020 1 1 Encounter Details Date Type Department Care Team (Late st Contact Info) Description 03/23/2019 Scanned Document [facility] [address] [place] [address] Guille Schuler MD [address] [place] [address] Dr Rosen [address] [place] [address] [place] [phone] Social History Tobacco Use Types Packs/Day [...] on filedocumented in this encounter Care Teams Roughing Mill Operator Relationship Specialty Start Date End Date Maged Guzman MD [address] [place] [address] [place] [phone] PCP - General Internal Medicine 06/07/14 documented as of this encounter
--- OUTSIDE RECORDS SUMMARY | 2025-04-21 16:59 | XMS_ITS | Encounter Summary ---
Author Organization [facility] and [facility] Address [address] [place] [phone] Care Team Providers Care Orthotic/Prosthetic Clinician Name Role Phone Maged Guzman MD Primary Care Provider [phone] Encounter Details Date Type Department Care Team (Late st Contact Info) Description 07/05/2015 Scanned Document [facility] Health Information Management [address] [place] [address] [phone] External, Provider Social History Tobacco Use Types [...] LAB BLOOD ORDERABLES Final Res ult [facility] [place], [place], [place] * Lab Scan (07/05/2015) Blood specimen (specimen) us Provider External LAB BLOOD ORDERABLES Final Res ult [facility] documented in this encounter Visit Diagnoses Not on filedocumented in this encounter Care Teams Orthotic/Prosthetic Clinician Relationship Specialty Start Date End Date Maged Guzman MD [address] [place] [address] [place] [phone] PCP - General Internal Medicine 06/07/14 documented as of this encounter
--- OUTSIDE RECORDS SUMMARY | 2025-04-21 16:59 | XMS_ITS | Encounter Summary ---
Author Organization [facility] [employer] [facility] and [facility] Address [address] [place] [phone] Care Team Providers Care Conveyor Console Operator Name Role Phone Maged Guzman MD Primary Care Provider [phone] Reason for Referral * Imaging (Routine) - Closed Specialty Diagnoses / Procedures Referred By Too flood Referred To Contact Diagnostic Radiology Procedures MRI Abdomen w wo IV Contrast MRCP Guille Schuler MD [address] [place] [address] Dr Rosen [address] [place] [phone] Phone: tel: fax: Referral ID Status Reason Start Date Expiration Date Visits Re quested Visits Authorized [id number] Closed 06/05/2019 06/04/2020 1 1 Encounter Details Date Type Department Care Team (Late st Contact Info) Description 06/05/2019 Scanned Document [facility] [address] [place] [address] [address] [place] [address] Guille Schuler MD [address] [place] [address] Dr Rosen [address] [place] [phone] Social History Tobacco Use Types Packs/Day [...] on filedocumented in this encounter Care Teams Conveyor Console Operator Relationship Specialty Start Date End Date Maged Guzman MD [address] [place] [address] [place] [phone] PCP - General Internal Medicine 06/07/14 documented as of this encounter
--- OUTSIDE RECORDS SUMMARY | 2025-04-21 16:59 | XMS_ITS | Encounter Summary ---
Author Organization [facility] [employer] [facility] and [facility] Address [address] [place] [address] Care Team Providers Care Gas Or Water Meter Installer Name Role Phone Maged Guzman MD Primary Care Provider [phone] Encounter Details Date Type Department Care Team (Late st Contact Info) Description 09/20/2022 Scanned Document [facility] 40 [facility] [address] [place] [address] Main Lea MD [address] [place] [address] Social History Tobacco Use Types Packs/Day Years [...] on filedocumented in this encounter Care Teams Gas Or Water Meter Installer Relationship Specialty Start Date End Date Maged Guzman MD [address] [place] [address] Dr Fregoso Mitali RADHA [phone] PCP - General Internal Medicine 06/07/14 documented as of this encounter
--- OUTSIDE RECORDS SUMMARY | 2025-04-21 17:00 | XMS_ITS | Encounter Summary ---
Author Organization [facility] and [facility] Address [address] [place] [phone] Care Team Providers Care Drill Presser Name Role Phone Maged Guzman MD Primary Care Provider [phone] Encounter Details Date Type Department Care Team (Late st Contact Info) Description 08/01/2017 Scanned Document [facility] Health Information Management [address] [place] [phone] External, Provider Social History Tobacco Use Types [...] on filedocumented in this encounter Care Teams Drill Presser Relationship Specialty Start Date End Date Maged Guzman MD [address] [place] [address] [place] [phone] PCP - General Internal Medicine 06/07/14 documented as of this encounter
--- OUTSIDE RECORDS SUMMARY | 2025-04-21 17:00 | XMS_ITS | Encounter Summary ---
Author Organization [facility] [employer] [facility] and [facility] Address [address] [place] [address] Care Team Providers Care Bead Builder Name Role Phone Maged Guzman MD Primary Care Provider Encounter Details Date Type Department Care Team (Late st Contact Info) Description 02/28/2018 Scanned Document [facility] [address] [facility] [address] [place] [address] Maged Guzman MD [address] [place] [address] [place] [address] Social History Tobacco Use Types Packs/Day Years [...] on filedocumented in this encounter Care Teams Bead Builder Relationship Specialty Start Date End Date Maged Guzman MD [address] [place] [address] [place] [phone] PCP - General Internal Medicine 06/07/14 documented as of this encounter
--- OUTSIDE RECORDS SUMMARY | 2025-04-21 17:00 | XMS_ITS | Encounter Summary ---
Author Organization [facility] [employer] [facility] and [facility] Address [address] [place] [phone] Care Team Providers Care Paper Machine Back Tender Name Role Phone Maged Guzman MD Primary Care Provider [phone] Reason for Referral * Imaging (Routine) - Closed Specialty Diagnoses / Procedures Referred By Contac t Referred To Contact Diagnostic Radiology Procedures MRI Abdomen Pelvis w wo IV Contrast([facility] Guille Schuler MD [address] [place] [address] Dr Rosen [address] [place] [phone] Phone: tel: fax: Referral ID Status Reason Start Date Expiration Date Visits Re quested Visits Authorized [id number] Closed 09/06/2017 09/06/2018 1 1 Encounter Details Date Type Department Care Team (Late st Contact Info) Description 09/06/2017 Scanned Document [facility] [address] [place] [address] [address] [place] [address] Guille Schuler MD [address] [place] [address] Dr Rosen [address] [place] [phone] Social History Tobacco Use Types Packs/Day [...] Comments MRI ABDOMEN PELVIS W WO IV CONTRAST([facility]) Routine 08/01/2017 LAB SCAN Routine 07/27/2017 documented in this encounter Results * MRI Abdomen Pelvis w wo IV Contrast([facility]) (08/01/2017) Anatomical Region Laterality Modality Abdomen, Pelvis, Ortho Pelvi s, Abdomen and Pelvis, RCC Abdomen/Pelvis Magnetic Resonance us Guille Schuler MD IMG MRI ORDERABLES Final Resul t * Lab Scan (07/27/2017) Blood specimen (specimen) us Guille Schuler MD LAB BLOOD ORDERABLES Final Res ult documented in this encounter Visit Diagnoses Not on filedocumented in this encounter Care Teams Paper Machine Back Tender Relationship Specialty Start Date End Date Maged Guzman MD [address] [place] [address] [place] [phone] PCP - General Internal Medicine 06/07/14 documented as of this encounter
--- OUTSIDE RECORDS SUMMARY | 2025-04-21 17:00 | XMS_ITS | Encounter Summary ---
Author Organization [facility] [employer] [facility] and [facility] Address [address] [place] [address] Care Team Providers Care Senior Catering Sales Manager Name Role Phone Maged Guzman MD Primary Care Provider [phone] Encounter Details Date Type Department Care Team (Late st Contact Info) Description 03/08/2017 Scanned Document [facility] [address] [place] [address] External, Provider Social History Tobacco Use Types [...] filedocumented in this encounter Care Teams Senior Catering Sales Manager Relationship Specialty Start Date End Date Maged Guzman MD [address] [place] [address] [place] [phone] PCP - General Internal Medicine 06/07/14 documented as of this encounter
--- OUTSIDE RECORDS SUMMARY | 2025-04-21 17:00 | XMS_ITS | Encounter Summary ---
Author Organization [facility] [employer] [facility] and [facility] Address [address] [place] [phone] Care Team Providers Care Coach Mechanic Name Role Phone Maged Guzman MD Primary Care Provider Encounter Details Date Type Department Care Team (Late st Contact Info) Description 07/05/2017 Scanned Document [facility] Health Information Management [address] [place] [phone] External, Provider Social History Tobacco Use Types [...] on filedocumented in this encounter Care Teams Coach Mechanic Relationship Specialty Start Date End Date Maged Guzman MD [address] [place] [address] Dr Fregoso MitaliRADHA [phone] PCP - General Internal Medicine 06/07/14 documented as of this encounter
--- OUTSIDE RECORDS SUMMARY | 2025-04-21 17:00 | XMS_ITS | Encounter Summary ---
Author Organization [facility] [employer] [facility] and [facility] Address [address] [place] [phone] Care Team Providers Care Theater Projectionist Name Role Phone Maged Guzman MD Primary Care Provider Encounter Details Date Type Department Care Team (Late st Contact Info) Description 08/01/2017 Scanned Document [facility] Health Information Management [address] [place] [address] [phone] External, Provider Social History Tobacco Use Types [...] on filedocumented in this encounter Care Teams Theater Projectionist Relationship Specialty Start Date End Date Maged Guzman MD [address] [place] [address] Dr MckeonyoRADHA rivera [phone] PCP - General Internal Medicine 06/07/14 documented as of this encounter
== END 2025-04-21 14:32 | disposition home or self-care (01) ==
LOC: HO.HWS 13:56
PROVIDERS: PCP Student in an Organized Health Care Education/Training Program; Visit Provider Obstetrics & Gynecology
DX: R19.00 Intra-abdominal and pelvic swelling, mass and lump, unspecified site (principal); R31.29 Other microscopic hematuria
CPT/HCPCS: 99213

== ENCOUNTER → 2025-04-21 13:56 | Outpatient (BNVA) | payer MEDICARE, SELFPAY | PROVIDERS: PCP Student in an Organized Health Care Education/Training Program; Visit Provider Obstetrics & Gynecology | DX: R19.00 Intra-abdominal and pelvic swelling, mass and lump, unspecified site (principal); R31.29 Other microscopic hematuria | CPT/HCPCS: 81002; 99212 ==

== ENCOUNTER → 2025-05-06 15:48 | Outpatient (BNV) | payer MEDICARE, SELFPAY | PROVIDERS: PCP Student in an Organized Health Care Education/Training Program; Visit Provider Radiology Diagnostic Radiology | DX: R19.00 Intra-abdominal and pelvic swelling, mass and lump, unspecified site (principal); Z90.710 Acquired absence of both cervix and uterus | CPT/HCPCS: 72197 ==

== ENCOUNTER 2025-05-06 15:49 | Outpatient (REF) | payer MEDICARE, SELFPAY ==
--- OUTSIDE RECORDS SUMMARY | 2010-10-13 07:30 | XMS_ITS | Encounter Summary ---
Author Organization [facility] [employer] [facility] and [facility] Address [address] [place] [phone] Care Team Providers Care Economic Adviser Name Role Phone Unavailable Primary Care Provider Unavailabl e Encounter Details Date Type Department Care Team (Late st Contact Info) Description 10/13/2010 8:30 AM EDT Hospital Encounter INTERFACE DEFAULT [address] [place] [phone] Social History Tobacco Use Types Packs/Day Years [...]
--- OUTSIDE RECORDS SUMMARY | 2024-07-31 08:00 | XMS_ITS ---
Author Organization [facility] Address [address] [place] [address] Care Team Providers Care Director Medical Safety Name Role Phone Brooklyn Garza M.D. Primary Care Provider Unavail Guille Huertas [phone] REASON FOR VISIT abnormal liver CT scan Encounters Encounter Location Date Provider Diagnosis [facility] [address] [facility] [address] [place] [address] 07/31/2024 Guille Schuler Plan Of Treatment Next Appt Details Provider Name:Guille Schuler , 05/06/2026 01:20:00 PM, [address] [facility], [address], [place], [address], Progress Notes * JAMES SNOW RDOB:1950 (74 yo F)Acc No.[id number]:07/31/2024 Progress Notes Patient: JAMES OMER Provider: Abiodun Schuler MD :1950 A ge:73 Y S ex:Female Date:07/31/2024 Address:[address] [place], [place] [address] Pcp:Brooklyn Garza M.D. Subjective: * Chief Complaints: * a bnormal liver CT scan * The named appointment provid er may or may not be the originator of this progress note, and it is not deemed complete until electronically signed by the appointment provider. Sign off status: Pending * Provider: Abiodun Schuler MD Date: 0 07/31/2024 Generated for Tru damico/Paulina/Clairesmitting on: 1 07/07/2024 11:10 PM EST
--- OUTSIDE RECORDS SUMMARY | 2024-08-07 09:40 | XMS_ITS ---
Author Organization [facility] Address [address] [place] [address] Care Team Providers Care It Service Delivery Manager Name Role Phone Brooklyn Garza M.D. Primary Care Provider Unavail Guille Huertas [phone] REASON FOR VISIT Patient presents today for abn ct liver Encounters Encounter Location Date Provider Diagnosis [facility] [address] [facility] [address] [place] [address] 08/07/2024 Guille Schuler Plan Of Treatment Next Appt Details Provider Name:Guille Schuler , 05/06/2026 01:20:00 PM, [address] [facility], [address], [place], [address], Progress Notes * JAMES SNOW RDOB:1950 (74 yo F)Acc No.[id number]:08/07/2024 Progress Notes Patient: JAMES OMER Provider: Abiodun Schuler MD :1950 A ge:73 Y S ex:Female Date:08/07/2024 Address:[address] [place], [place] [id number] Pcp:Brooklyn Garza M.D. Subjective: * Chief Complaints: * P atient presents today for abn ct liver Billing Information: * Procedure Codes: * The named appointment provid er may or may not be the originator of this progress note, and it is not deemed complete until electronically signed by the appointment provider. Sign off status: Pending * Provider: Abiodun Schuler MD Date: 0 08/07/2024 Generated for Tru damico/Paulina/Renuitting on: 1 07/07/2024 11:10 PM EST
--- OUTSIDE RECORDS SUMMARY | 2025-04-30 08:40 | XMS_ITS ---
Author Organization [facility] Address [address] [place] [address] Care Team Providers Care Greenstone Polisher Operator Name Role Phone Brooklyn Garza M.D. Primary Care Provider Unavail Guille Huertas [phone] Allergies Allergen (clinical drug ingredient) Drug/Non Drug Allergy documented on EMR Reaction Allergy Type Onset Date Status CT scan dye (uncoded) Unknown Allergy Active Shrimp shrimp (uncoded) Unknown Allergy Act shan sulfamethoxazole / trimethoprim Bactrim Unknown Drug Allergy Active meperidine Demerol Unknown Drug Allergy Active Sulfa Unknown Drug Allergy Active REASON FOR VISIT Patient presents today for cirrhosis Medications Medication SIG (Take, Route, Frequency, Duration) Notes Start Date End Date Status Vitamin D 1000 UNIT Tablet 1 tablet Orally Once a day; Duration: 30 day(s) Not-Taking/PRN Spironolactone 50 MG Tablet 1 tablet Orally Once a day 11/26/2024 Active Furosemide 20 MG Tablet 1 oral daily; Duration: 30 days Active Ozempic (0.25 or 0.5 MG/DOSE) 2 MG/3ML Solution Pen-injector INJECT 0.25 MG SUBCUTANEOUSLY ONE TIME PER WEEK Subcutaneous; Duration: 28 Active Aspirin Low Dose 81 MG Tablet Delayed Release TAKE 1 TABLET BY MOUTH EVERY DAY Oral; Duration: 90 Active Lenalidomide 25 MG Capsule Oral; Duration: 28 Active Acyclovir 400 MG Tablet Oral; Duration: 90 Active Valsartan 160 MG Capsule 1 null Orally Once a day; Duration: 30 day(s) Active glipiZIDE 10 MG Tablet 1 tablet Orally t wice a day Active Carvedilol 6.25 MG Tablet 1 Orally BID Active amLODIPine Besylate 5 MG Tablet 1 tablet Orally Once a day Active Levothyroxine Sodium 150 MCG Tablet 1 tablet in the morning on an empty stomach Orally Once a day; Duration: 30 day(s) Active Velcade Active Daratumumab Active dexAMETHasone Active Social History Social History Additional Details Category Social Info Options Details Miscellaneous: Marital status: Occupation: Dental hygienist Section Notes: Nonsmoker; no significant al cohol history Vital Signs Temperature 98.0 degrees Fahrenheit 04/30/20 25 Blood pressure systolic 001 mm Hg 04/30/20 25 Blood pressure diastolic 01 mm Hg 025 Height 61 in 04/30/2025 Weight 131.8 lbs 04/30/2025 BMI 24.9 kg/m2 04/30/2025 Encounters Encounter Location Date Provider Diagnosis [facility] [address] [place] [address] 04/30/2025 Guille Schuler Other ascites R18.8 and Cirrhosis of liver with ascites, unspecified hepatic cirrhosis type K74.60 Assessments Encounter Date Diagnosis (ICD Code) Assessment Notes Treatment Notes Treatment Clinical Notes Section Notes 04/30/2025 Other ascites (ICD-10 - R18.8) Overall, James seems to be doing well from a GI standpoint. She clearly has a lot going on between her myeloma, her cirrhosis and ascites, and now her recently diagnosed pelvic mass. Dr. Cruz advised her that he believes that a lot of her abdominal complaints at this point are related to the pelvic mass as opposed to any issues with her ascites and cirrhosis. She will be going for MRI and further workup of this issue later this month. In regard to her liver disease and ascites, I advised her to simply continue the current regimen of the spironolactone and furosemide. She does not describe any symptoms nor have any signs of liver decompensation. I did advise her to continue to do lab work at the hematology clinic and to forward me results as they become available. I do not think she needs any blood work or imaging studies from me at this time. We also reviewed that I do not think she needs any further screening colonoscopies given her previous exams, her age, and her associated comorbidities. I have given her an appointment to see me again in 1 year for a follow-up visit but did advise her to contact me prior to that if she has any problems or questions I can be of assistance with. James was comfortable with this plan. Thank you again for allowing me to participate in James's care. I shall continue to keep you advised of her progress. 04/30/2025 Cirrhosis of liver with ascites, unspecified hepatic cirrhosis type (ICD-10 - K74.60) Continue the spironolactone and furosemide daily. Let me have copies of your labs as they are done Overall, James seems to be doing well from a GI standpoint. She clearly has a lot going on between her myeloma, her cirrhosis and ascites, and now her recently diagnosed pelvic mass. Dr. Cruz advised her that he believes that a lot of her abdominal complaints at this point are related to the pelvic mass as opposed to any issues with her ascites and cirrhosis. She will be going for MRI and further workup of this issue later this month. In regard to her liver disease and ascites, I advised her to simply continue the current regimen of the spironolactone and furosemide. She does not describe any symptoms nor have any signs of liver decompensation. I did advise her to continue to do lab work at the hematology clinic and to forward me results as they become available. I do not think she needs any blood work or imaging studies from me at this time. We also reviewed that I do not think she needs any further screening colonoscopies given her previous exams, her age, and her associated comorbidities. I have given her an appointment to see me again in 1 year for a follow-up visit but did advise her to contact me prior to that if she has any problems or questions I can be of assistance with. James was comfortable with this plan. Thank you again for allowing me to participate in James's care. I shall continue to keep you advised of her progress. Plan Of Treatment Treatment Notes Assessment Notes Cirrhosis of liver with asci dulce, unspecified hepatic cirrhosis type Continue the spironolactone and furosemi de daily. Let me have copies of your labs as they are done Next Appt Details Follow Up: 1 Year, Reason: Provider Name:Guille Iain Schuler , 05/06/2026 01:20:00 PM, [address], [address], [place], [address], History and Physical Notes * HPI (History of Present Illness) Category Sub-Category Detail Notes Category Not es incontinence I saw James in follow-up today in regard to her underlying history of cirrhosis with associated chylous ascites, history of a duodenal adenocarcinoma, and abdominal discomfort and bloating. I last saw James in November. At that time she was started on some regular regimen of diuretics for her increased ascites. Her initial imaging described a small to moderate amount of ascites. Since that time she has been on spironolactone 50 mg daily and furosemide 20 mg daily. She describes that things have been stable but did call us in February with some symptoms of increasing abdominal distention and weight gain. I had her undergo a follow-up ultrasound at that time that described only a small amount of ascites surrounding the liver but no other intra-abdominal fluid. She was noted to have her mild hepatomegaly and cirrhosis, but without any sign of any focal liver lesion or biliary disease. The spleen was borderline enlarged at that time as well. After that ultrasound in February she has remained on the same spironolactone 50 mg daily and furosemide 20 mg daily. She reports that she is eating comfortably and denies any significant heartburn or dysphagia. Her bowel movements have been fairly regular and without any signs of bleeding. She denies any signs of jaundice or fevers. Their weight has been stable. She was recently seen by her binder stripper machine, Dr. Cruz, in regard to some vaginal bleeding after intercourse. James advises me that a pelvic ultrasound recently found a pelvic mass and she is scheduled for a follow-up study with a MRI later this month. She does continue with her myeloma treatments under care of Dr. Lea and [facility]. Progress Notes * JAMES SNOW RDOB:1950 (74 yo F)Acc No.[id number]:04/30/2025 Progress Notes Patient: JAMES OMER Provider: Abiodun Schuler MD :1950 A ge:74 Y S ex:Female Date:04/30/2025 Address:[address] [place], [place] [id number] Pcp:Brooklyn Garza M.D. Subjective: * Chief Complaints: * P atient presents today for cirrhosis * HPI: i ncontinence: I saw James in follow-up today in regard to her underlying history of cirrhosis with associated chylous ascites, history of a duodenal adenocarcinoma, and abdominal discomfort and bloating. I last saw James in November. At that time she was started on some regular regimen of diuretics for her increased ascites. Her initial imaging described a small to moderate amount of ascites. Since that time she has been on spironolactone 50 mg daily and furosemide 20 mg daily. She describes that things have been stable but did call us in February with some symptoms of increasing abdominal distention and weight gain. I had her undergo a follow-up ultrasound at that time that described only a small amount of ascites surrounding the liver but no other intra-abdominal fluid. She was noted to have her mild hepatomegaly and cirrhosis, but without any sign of any focal liver lesion or biliary disease. The spleen was borderline enlarged at that time as well. After that ultrasound in February she has remained on the same spironolactone 50 mg daily and furosemide 20 mg daily. She reports that she is eating comfortably and denies any significant heartburn or dysphagia. Her bowel movements have been fairly regular and without any signs of bleeding. She denies any signs of jaundice or fevers. Their weight has been stable. She was recently seen by her binder stripper machine, Dr. Cruz, in regard to some vaginal bleeding after intercourse. James advises me that a pelvic ultrasound recently found a pelvic mass and she is scheduled for a follow-up study with a MRI later this month. She does continue with her myeloma treatments under care of Dr. Lea and [facility]. * Medical History: 2009- history of duodenal adenocarcinoma-Rx'd with Whipple, XRT, and chemo at [facility]. 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 w/u for hemochromatosis- -started Tamica in 08/2014 Denies MT,CVA,Lung disease,renal disease Tubular adenoma removed by colonoscopy in 09/2011- no colitis NIDDM Neg. colonoscopy in 2002 EGD in 04/2013- s/p Whipple- anastomosis WNL- inflammatory gastric polyps, minimal HH- improved on a course of Carafate Cirrhosis- liver biopsy in June of 2015 revealed significant bridging fibrosis and areas of early cirrhosis in relation to fatty liver and an ongoing hepatitis-onset of ascites in 05/2015- paracentesis in 06/2015- negative cytology- c/w chylous ascites- - she is being followed by Dr. Blanca Carpenter at [facility] hepatology clinic as well Colonoscopy in August of 2017 revealed only a hyperplastic polyp EGD in August 2017 revealed grade 1 esophageal varices- she has been on carvedilol for her beta oleg Multiple myeloma diagnosed 2022- starting chemo after November 08, 2022- Dr. Lea at [facility] Neuropathy in her feet Increased ascites noted on her exam and ultrasound at the end of October 2024. She was started on Aldactone 50 mg daily with improvement. Pelvic mass found on ultrasound in March [address] Cruz- this is being worked up with a MRI as of the April 2025 office visit with me. Medical History Verified * Surgical History: Whipple procedure done for duodenal adenocarcinoma in 02/2010- done by Dr. Min at [facility] Cholecystectomy the Umbilical hernia surgery Tubal ligation C-sections Hemorrhoidectomy Hysterectomy Cataracts 2011 Incisional hernia repair 05/[address] Amin- limited small bowel resection as well Incisional hernia repair- Dr. Mini Hancock- -negative cytology on the ascites- needed a temporary drain for the ascites jun 15 2015 Hernia repair with mesh 2015 Right rotator cuff 04/2022 port put in right of chest november Surgical History verified. * Hospitalization/Major Diagno stic Procedure: No Hospitalization Documented. Hospitalization Verified. * Family History: F ather: , diagnosed with Diabetes. M other: , lung cancer. S iblings: , brother at age 55, diagnosed with Heart disease. F amily History Verified.. There is no family history of colorectal cancer nor inflammatory bowel disease. Brothers have hemochromatosis. No family history of liver cancer. * Social History: T obacco Use: T obacco Use/Smoking A re you a: nonsmoker. D rugs/Alcohol: A lcohol Screen P oints: 0, Interpretation: Negative. M iscellaneous: M arital status: . Occupation: Dental hygienist. Social History Verified. N onsmoker; no significant alcohol history. * Medications: T akingdexAMETHasone Daratumumab Velcade Levothyroxine Sodium 150 MCG Tablet 1 tablet in the morning on an empty stomach Orally Once a day amLODIPine Besylate 5 MG Tablet 1 tablet Orally Once a day Carvedilol 6.25 MG Tablet 1 Orally BID glipiZIDE 10 MG Tablet 1 tablet Orally twice a day Valsartan 160 MG Capsule 1 null Orally Once a day Acyclovir 400 MG Tablet Oral Lenalidomide 25 MG Capsule Oral Aspirin Low Dose 81 MG Tablet Delayed Release TAKE 1 TABLET BY MOUTH EVERY DAY Oral Ozempic (0.25 or 0.5 MG/DOSE) 2 MG/3ML Solution Pen-injector INJECT 0.25 MG SUBCUTANEOUSLY ONE TIME PER WEEK Subcutaneous Furosemide 20 MG Tablet 1 oral daily Spironolactone 50 MG Tablet 1 tablet Orally Once a day Taking dexAMETHasone Taking Daratumumab Taking Velcade Taking Levothyroxine Sodium 150 MCG Tablet 1 tablet in the morning on an empty stomach Orally Once a day Taking amLODIPine Besylate 5 MG Tablet 1 tablet Orally Once a day Taking Carvedilol 6.25 MG Tablet 1 Orally BID Taking glipiZIDE 10 MG Tablet 1 tablet Orally twice a day Taking Valsartan 160 MG Capsule 1 null Orally Once a day Taking Acyclovir 400 MG Tablet Oral Taking Lenalidomide 25 MG Capsule Oral Taking Aspirin Low Dose 81 MG Tablet Delayed Release TAKE 1 TABLET BY MOUTH EVERY DAY Oral Taking Ozempic (0.25 or 0.5 MG/DOSE) 2 MG/3ML Solution Pen-injector INJECT 0.25 MG SUBCUTANEOUSLY ONE TIME PER WEEK Subcutaneous Taking Furosemide 20 MG Tablet 1 oral daily Taking Spironolactone 50 MG Tablet 1 tablet Orally Once a day Not-Taking/PRNVitamin D 1000 UNIT Tablet 1 tablet Orally Once a day Not- Taking/PRN Vitamin D 1000 UNIT Tablet 1 tablet Orally Once a day DiscontinuedLORazepam 1 MG Tablet 1 tablet Orally prn Medication List reviewed and reconciled with the patientDiscontinued LORazepam 1 MG Tablet 1 tablet Orally prn Medication List reviewed and reconciled with the patient * Allergies: S ulfaDemerolshrimpCT scan dyeBactrimyesAllergies Verified. Objective: * Vitals: W t: 131.8 lbs, Ht: 61 in, BMI: 24.9 Index, BP: 001/01 mm Hg, Temp: 98.0 F, Ht-cm: 154.94 cm, Wt-k.78 kg. Assessment: * Assessment: 1. O ther ascites - R18.8 (Primary) 2 . C irrhosis of liver with ascites, unspecified hepatic cirrhosis type - K74.60 Overall, James seems to be doing well from a GI standpoint. She clearly has a lot going on between her myeloma, her cirrhosis and ascites, and now her recently diagnosed pelvic mass. Dr. Cruz advised her that he believes that a lot of her abdominal complaints at this point are related to the pelvic mass as opposed to any issues with her ascites and cirrhosis. She will be going for MRI and further workup of this issue later this month. In regard to her liver disease and ascites, I advised her to simply continue the current regimen of the spironolactone and furosemide. She does not describe any symptoms nor have any signs of liver decompensation. I did advise her to continue to do lab work at the hematology clinic and to forward me results as they become available. I do not think she needs any blood work or imaging studies from me at this time. We also reviewed that I do not think she needs any further screening colonoscopies given her previous exams, her age, and her associated comorbidities. I have given her an appointment to see me again in 1 year for a follow-up visit but did advise her to contact me prior to that if she has any problems or questions I can be of assistance with. James was comfortable with this plan. Thank you again for allowing me to participate in James's care. I shall continue to keep you advised of her progress. Plan: * Treatment: * Preventive Medicine: Urinary Incontinence: U rinary Incontinence A ssessment: P resent, P gavin of care documented: Y es, T ype of plan of care: B ladder training. * Follow Up: 1 Year Billing Information: * Procedure Codes: * The named appointment provid er may or may not be the originator of this progress note, and it is not deemed complete until electronically signed by the appointment provider. Sign off status: Pending * Provider: Abiodun Schuler MD Date: 07/01/2024 Generated for Tru damico/Paulina/Renuitting on: 07/07/2024 11:11 PM EST
--- NOTE | ~2025-05-06 | MR_ITS ---
CLINICAL HISTORY: R19.00 - Intra-abdominal and pelvic swelling, mass and lump, unspecified... MRI pelvis without and with contrast Comparison: 03/31/2025 Findings: Prior hysterectomy. Nonvisualization of the bilateral ovaries. There is a moderate amount of fluid within the pelvis. This appears to represent free fluid rather than a cystic mass. Unremarkable bilateral adnexa. Unremarkable urinary bladder. Moderate fecal retention within of the distal colon. No bowel edema or dilatation. Limited evaluation of the upper abdomen. A small amount of free fluid is also present within all 4 quadrants of the abdomen. Cirrhotic liver morphology. No suspicious bone lesion. Impression: 1. There is a moderate amount of pelvic free fluid. This does not appear to represent a cystic mass. 2. Status post hysterectomy. This document has been electronically signed by: Danni Zendejas MD on 05/06/2025 18:16:50
--- OUTSIDE RECORDS SUMMARY | 2025-05-06 23:11 | XMS_ITS | Encounter Summary ---
Author Organization [facility] [employer] [facility] and [facility] Address [address] [place] [phone] Care Team Providers Care Customer Energy Specialist Name Role Phone Maged Guzman MD Primary Care Provider [phone] Encounter Details Date Type Department Care Team (Late st Contact Info) Description 09/01/2021 Scanned Document [facility] [address] [facility] [address] [place] [address] External, Provider Social History Tobacco Use Types [...] on filedocumented in this encounter Care Teams Customer Energy Specialist Relationship Specialty Start Date End Date Maged Guzman MD [address] [place] [address] [place] [phone] PCP - General Internal Medicine 06/07/14 documented as of this encounter
--- OUTSIDE RECORDS SUMMARY | 2025-05-06 23:11 | XMS_ITS | Encounter Summary ---
Author Organization [facility] [employer] and [facility] Address [address] [place] [address] Care Team Providers Care Mechanical Supervisor Name Role Phone Maged Guzman MD Primary Care Provider [phone] Encounter Details Date Type Department Care Team (Late st Contact Info) Description 08/01/2017 Scanned Document [facility] Information Management [address] [place] [phone] External, Provider Social History Tobacco Use Types [...] filedocumented in this encounter Care Teams Mechanical Supervisor Relationship Specialty Start Date End Date Maged Guzman MD [address] [place] [address] [place] [address] PCP - General Internal Medicine 06/07/14 documented as of this encounter
--- OUTSIDE RECORDS SUMMARY | 2025-05-06 23:11 | XMS_ITS | Encounter Summary ---
Author Organization [facility] [employer] [facility] and [facility] Address [address] [place] [phone] Care Team Providers Care Serologist Name Role Phone Maged Guzman MD Primary Care Provider [phone] Encounter Details Date Type Department Care Team (Late st Contact Info) Description 2015 Scanned Document [facility] Health Information Management [address] [place] [id number] External, Provider Social History Tobacco Use Types [...] on filedocumented in this encounter Care Teams Serologist Relationship Specialty Start Date End Date Maged Guzman MD [address] [place] [address] [place] [phone] PCP - General Internal Medicine 06/07/14 documented as of this encounter
--- OUTSIDE RECORDS SUMMARY | 2025-05-06 23:11 | XMS_ITS | Encounter Summary ---
Author Organization [facility] [employer] [facility] and [facility] Address [address] [place] [phone] Care Team Providers Care Peripatologist Name Role Phone Maged Guzman MD Primary Care Provider [phone] Reason for Referral * Imaging (Routine) - Closed Specialty Diagnoses / Procedures Referred By Too flood Referred To Contact Diagnostic Radiology Procedures MRI Abdomen w wo IV Contrast MRCP Guille Schuler MD [address] [place] [address] Dr Rosen [address] [place] [phone] Phone: tel: fax: Referral ID Status Reason Start Date Expiration Date Visits Re quested Visits Authorized [id number] Closed 06/05/2019 06/04/2020 1 1 Encounter Details Date Type Department Care Team (Late st Contact Info) Description 06/05/2019 Scanned Document [facility] [address] [place] [address] [address] [place] [address] Guille Schuler MD [address] [place] [address] Dr Rosen [address] [place] [phone] Social History Tobacco Use Types Packs/Day [...] on filedocumented in this encounter Care Teams Peripatologist Relationship Specialty Start Date End Date Maged Guzman MD [address] [place] [address] [place] [phone] PCP - General Internal Medicine 06/07/14 documented as of this encounter
--- OUTSIDE RECORDS SUMMARY | 2025-05-06 23:11 | XMS_ITS | Encounter Summary ---
Author Organization [facility] [employer] and [facility] Address [address] [place] [phone] Care Team Providers Care Cutter And Edge Trimmer Name Role Phone Maged Guzman MD Primary Care Provider [phone] Reason for Referral * Imaging (Routine) - Closed Specialty Diagnoses / Procedures Referred By Contac t Referred To Contact Diagnostic Radiology Procedures MRI Abdomen Pelvis w wo IV Contrast([facility]) Guille Schuler MD [address] [place] [address] Dr Rosen [address] [place] [phone] Phone: tel: fax: Referral ID Status Reason Start Date Expiration Date Visits Re quested Visits Authorized [id number] Closed 09/06/2017 09/06/2018 1 1 Encounter Details Date Type Department Care Team (Late st Contact Info) Description 09/06/2017 Scanned Document [facility] [address] [place] [address] [address] [place] [address] Guille Schuler MD [address] [place] [address] Dr Rosen [address] [place] [phone] Social History Tobacco Use Types Packs/Day [...] MRI ABDOMEN PELVIS W WO IV CONTRAST([facility]) Routine 08/01/2017 LAB SCAN Routine 07/27/2017 documented in this encounter Results * MRI Abdomen Pelvis w wo IV Contrast([facility]) (08/01/2017) Anatomical Region Laterality Modality Abdomen, Pelvis, Ortho Pelvi s, Abdomen and Pelvis, RCC Abdomen/Pelvis Magnetic Resonance us Guille Schuler MD IMG MRI ORDERABLES Final Resul t * Lab Scan (07/27/2017) Blood specimen (specimen) us Guille Schuler MD LAB BLOOD ORDERABLES Final Res ult documented in this encounter Visit Diagnoses Not on filedocumented in this encounter Care Teams Cutter And Edge Trimmer Relationship Specialty Start Date End Date Maged Guzman MD [address] [place] [address] [place] [phone] PCP - General Internal Medicine 06/07/14 documented as of this encounter
--- OUTSIDE RECORDS SUMMARY | 2025-05-06 23:11 | XMS_ITS | Patient Health Record ---
Author Organization [facility] Address [address] [place] [address] Care Team Providers Care Centrifugal Wax Molder Name Role Phone Brooklyn Garza M.D. Primary Care Provider Guille Martínez [phone] Allergies Allergen (clinical drug ingredient) Drug/Non Drug Allergy documented on EMR Reaction Allergy Type Onset Date Status CT scan dye (uncoded) Unknown Allergy Active Shrimp shrimp (uncoded) Unknown Allergy Act shan sulfamethoxazole / trimethoprim Bactrim Unknown Drug Allergy Active meperidine Demerol Unknown Drug Allergy Active Sulfa Unknown Drug Allergy Active Results Component Value Reference Range Flag Notes Prothrombin Time INR Reviewed date:11/21/2024 07:26:05 PM Interpretation: Performing Lab:[facility], [address] [place] [phone] Notes/Report: Prothrombin Time 11.8 10.9-12.4 SEC N INTERNATIONAL NORM RATIO 1.0 0.9-1.1 N INTERNATIONAL NORMALIZED RATIO (INR) REFERENCE RANGES Reference [...] Electrolytes Reviewed date:11/20/2024 04:55:55 PM Interpretation: Performing Lab:[facility], [address] [place] [phone] Notes/Report: Sodium 143 135-145 mmol/L N Potassium 3.5 3.3-5.1 mmol/L Chloride 109 96-108 mmol/L H Carbon Dioxide 24 22-29 mmol/L N Anion Gap 14 12-20 N Creatinine Reviewed date:11/20/2024 04:56:03 PM Interpretation: Performing Lab:[facility], [address] [place] [phone] Notes/Report: Creatinine 0.80 0.5-1.4 mg/dL N Estimated Glomerular Filt Rate > 60 Chronic Kidney Disease: Estimated GFR < 60 mL/min/1.73m2 Severe Kidney Disease: Estimated GFR < 15 mL/min/1.73m2 US abdomen complete Reviewed date:11/26/2024 12:54:15 AM Interpretation: Performing Lab: Notes/Report: [address] [address] Ultrasound Report Signed Patient: James Snow MR#: [id number] : 1950 Acct:[id number] Age/Sex: 74 / F ADM Date: 11/25/24 Loc: HO.US Attending Dr: Guille Schuler MD Ordering Physician: Guille Schuler MD Date of Service: 11/25/24 Procedure(s): US abdomen complete Accession Number(s): [id number] cc: Brooklyn Garza MD; Guille Schuler MD [...] 11/25/24 1609 DD/ 1024 TD/TT: 11/25/24 1108 Firer Locomotive: US duplex arterial venous co mp Reviewed date:11/26/2024 12:55:40 AM Interpretation: Performing Lab: Notes/Report: [address] [address] Ultrasound Report Signed Patient: James Snow MR#: [id number] : 1950 Acct:[id number] Age/Sex: 74 / F ADM Date: 11/25/24 Loc: HO.US Attending Dr: Guille Schuler MD Ordering Physician: Guille Schuler MD Date of Service: 11/25/24 Procedure(s): US duplex arterial venous comp Accession Number(s): [id number] cc: Brooklyn Garza MD; Guille Schuler MD [...] 11/25/24 1609 DD/ 1024 TD/TT: 11/25/24 1108 Firer Locomotive: US abdomen complete Reviewed date:03/05/2025 07:44:05 PM Interpretation: Performing Lab: Notes/Report: [address] [address] Ultrasound Report Signed Patient: James Snow MR#: [id number] : 1950 Acct:[id number] Age/Sex: 74 / F ADM Date: 03/05/25 Loc: HO.US Attending Dr: Guille Schuler MD Ordering Physician: Guille Schuler MD Date of Service: 03/05/25 Procedure(s): US abdomen complete Accession Number(s): [id number] cc: Maciej Ambriz MD; Guille Schuler MD [...] 03/05/25 1640 DD/ 1500 TD/TT: 03/05/25 1530 Firer Locomotive: US duplex arterial venous co mp Reviewed date:03/08/2025 01:39:53 PM Interpretation: Performing Lab: Notes/Report: [address] [address] Ultrasound Report Signed Patient: James Snow MR#: [id number] : 1950 Acct:[id number] Age/Sex: 74 / F ADM Date: 03/05/25 Loc: HO.US Attending Dr: Guille Schuler MD Ordering Physician: Guille Schuler MD Date of Service: 03/05/25 Procedure(s): US duplex arterial venous comp Accession Number(s): [id number] cc: Maciej Ambriz MD; Guille Schuler MD [...] 03/05/25 1640 DD/ 1437 TD/TT: 03/05/25 1530 Firer Locomotive: Complete Blood Count Auto Di ff Reviewed date:11/20/2024 04:55:40 PM Interpretation: Performing Lab:[facility], [address] [place] [phone] Notes/Report: White Blood Count 8.0 4.8-10.8 X10*3/uL N Red Blood Count 3.38 4.20-5.50 X10*6/uL L Hemoglobin 11.1 12.0-16.0 g/dl L Hematocrit 32.3 37.0-47.0 % L Mean Corpuscular Volume 95.6 80.0-98.0 fL N Mean Corpuscular Hemoglobin 32.8 27.0-33.0 pg N Mean Corpuscular HGB Conc 34.4 31.0-35.0 g/dl N Red Cell Distribution Width 14.0 11.0-16.0 % N Platelet Count 84 160-400 X10*3/uL L Mean Platelet Volume 10.7 9.4-12.3 fL N Neutrophils Percent Auto 79.6 45-73 % H Imm Gran Pct Auto 0.3 0.0-0.4 % N Lymphocytes Percent Auto 13.2 20-40 % L Monocytes Percent Auto 5.5 2-11 % N Eosinophils Percent Auto 1.0 0-4 % N Basophils Percent Auto 0.4 0-2 % N NRBC Pct Auto 0.0 0.0-0.2 /100WBC N Neutrophils Absolute Auto 6.4 2.0-8.3 x10*3/uL N Imm Gran Abs Auto 0.02 0.00-0.03 X10*3/uL N Lymphocytes Absolute Auto 1.1 1.2-4.9 X10*3/uL L Monocytes Absolute Auto 0.4 0.1-1.2 X10*3/uL N Eosinophils Absolute Auto 0.1 0.0-0.4 X10*3/uL N Basophils Absolute Auto 0.0 0.0-0.2 X10*3/uL N NRBC Abs Auto 0.000 0.0-0.012 X10*3/uL N Liver Panel Reviewed date:11/20/2024 04:55:15 PM Interpretation: Performing Lab:[facility], [address] [place] [phone] Notes/Report: Bilirubin Total 0.9 0.0-1.0 mg/dL N Bilirubin Direct 0.4 0.0-0.5 mg/dL N Aspartate Amino Transferase 28 5-31 U/L N Alanine Aminotransferase 21 0-31 U/L N Total Protein 6.0 6.5-8.0 g/dL L Albumin Level 4.1 3.5-5.0 g/dL N Alkaline Phosphatase 134 39-117 U/L H Blood Urea Nitrogen Reviewed date:11/20/2024 04:54:59 PM Interpretation: Performing Lab:[facility], [address] [place] [phone] Notes/Report: Blood Urea Nitrogen 18 9-16 mg/dL H Alpha Fetoprotein Reviewed date:11/25/2024 06:03:10 PM Interpretation: Performing Lab:[address] [phone] Notes/Report: Alpha Fetoprotein 3.8 N Reference Range: <6.1 The use of AFP as a tumor marker in females is not recommended. This test was performed using the Melvin Gricel chemiluminescent method. Values obtained from different assay methods cannot be used interchangeably. AFP levels, regardless of value, should not be interpreted as absolute evidence of the presence or absence of disease. THIS TEST WAS PERFORMED AT: [facility] [address] [phone] KAMLA ALONSO MD Blood Urea Nitrogen Reviewed date:12/03/2024 11:50:16 PM Interpretation: Performing Lab:[address] [phone] Notes/Report: Blood Urea Nitrogen 15 9-16 mg/dL N Basic Metabolic Panel Reviewed date:12/20/2024 07:47:10 PM Interpretation: Performing Lab:[facility], [address] [place] [phone] Notes/Report: Sodium 143 135-145 mmol/L N Potassium 4.8 3.3-5.1 mmol/L Chloride 111 96-108 mmol/L H Carbon Dioxide 24 22-29 mmol/L N Anion Gap 13 12-20 N Blood Urea Nitrogen 24 9-16 mg/dL H Creatinine 1.10 0.5-1.4 mg/dL N Estimated Glomerular Filt Rate 49 Chronic Kidney Disease: Estimated GFR < 60 mL/min/1.73m2 Severe Kidney Disease: Estimated GFR < 15 mL/min/1.73m2 Glucose Random 213 60-115 mg/dL H Calcium 9.0 8.4-10.2 mg/dL N Basic Metabolic Panel (Not y et reviewed by provider) Interpretation: Performing Lab:[facility], [address] [place] [phone] Notes/Report: Sodium 142 135-145 mmol/L N Potassium 4.4 3.3-5.1 mmol/L N Chloride 105 96-108 mmol/L N Carbon Dioxide 27 22-29 mmol/L N Anion Gap 14 12-20 N Blood Urea Nitrogen 34 9-16 mg/dL H Creatinine 1.27 0.5-1.4 mg/dL N Estimated Glomerular Filt Rate 41 Chronic Kidney Disease: Estimated GFR < 60 mL/min/1.73m2 Severe Kidney Disease: Estimated GFR < 15 mL/min/1.73m2 Glucose Random 227 60-115 mg/dL H Calcium 8.8 8.4-10.2 mg/dL N Comprehensive Met. Panel Reviewed date:01/18/2025 11:37:29 PM Interpretation: Performing Lab:[facility], [address] [place] [phone] Notes/Report: Sodium 142 135-145 mmol/L N Potassium 4.7 3.3-5.1 mmol/L N Chloride 111 96-108 mmol/L H Carbon Dioxide 23 22-29 mmol/L N Anion Gap 13 12-20 N Blood Urea Nitrogen 20 9-16 mg/dL H Creatinine 1.01 0.5-1.4 mg/dL N Estimated Glomerular Filt Rate 54 Chronic Kidney Disease: Estimated GFR < 60 mL/min/1.73m2 Severe Kidney Disease: Estimated GFR < 15 mL/min/1.73m2 Glucose Random 224 60-115 mg/dL H Calcium 9.0 8.4-10.2 mg/dL N Bilirubin Total 0.6 0.0-1.0 mg/dL N Aspartate Amino Transferase 26 5-31 U/L N Alanine Aminotransferase 39 0-31 U/L H Total Protein 5.9 6.5-8.0 g/dL L Albumin Level 4.1 3.5-5.0 g/dL N Alkaline Phosphatase 162 39-117 U/L H Basic Metabolic Panel (Not y et reviewed by provider) Interpretation: Performing Lab:[facility], [address] [place] [phone] Notes/Report: Sodium 141 135-145 mmol/L N Potassium 4.2 3.3-5.1 mmol/L N Chloride 107 96-108 mmol/L N Carbon Dioxide 27 22-29 mmol/L N Anion Gap 11 12-20 L Blood Urea Nitrogen 18 9-16 mg/dL H Creatinine 0.98 0.5-1.4 mg/dL N Estimated Glomerular Filt Rate 56 Chronic Kidney Disease: Estimated GFR < 60 mL/min/1.73m2 Severe Kidney Disease: Estimated GFR < 15 mL/min/1.73m2 Glucose Random 232 60-115 mg/dL H Calcium 8.9 8.4-10.2 mg/dL N Basic Metabolic Panel Reviewed date:02/27/2025 10:15:33 PM Interpretation: Performing Lab:[facility], [address] [place] [phone] Notes/Report: Sodium 143 135-145 mmol/L N Potassium 4.5 3.3-5.1 mmol/L N Chloride 112 96-108 mmol/L H Carbon Dioxide 24 22-29 mmol/L N Anion Gap 12 12-20 N Blood Urea Nitrogen 21 9-16 mg/dL H Creatinine 0.81 0.5-1.4 mg/dL N Estimated Glomerular Filt Rate > 60 Chronic Kidney Disease: Estimated GFR < 60 mL/min/1.73m2 Severe Kidney Disease: Estimated GFR < 15 mL/min/1.73m2 Glucose Random 158 60-115 mg/dL H Calcium 8.6 8.4-10.2 mg/dL N Reason For Referral No Information Medications Medication SIG (Take, Route, Frequency, Duration) Notes Start Date End Date Status Lenalidomide 25 MG Capsule Oral; Duration: 28 [...] a day Active Vitamin D 1000 UNIT Tablet 1 tablet Orally Once a day; Duration: 30 day(s) Not-Taking/PRN Levothyroxine Sodium 150 MCG Tablet 1 tablet in the morning on an empty stomach Orally Once a day; Duration: 30 day(s) Active Spironolactone 50 MG Tablet 1 tablet Orally Once a day 11/26/2024 Active Velcade Active Daratumumab Active Ozempic (0.25 or 0.5 MG/DOSE) 2 MG/3ML Solution Pen-injector INJECT 0.25 MG SUBCUTANEOUSLY ONE TIME PER WEEK Subcutaneous; Duration: 28 Active dexAMETHasone Active Aspirin Low Dose 81 MG Tablet Delayed Release TAKE 1 TABLET BY MOUTH EVERY DAY Oral; Duration: 90 Active Furosemide 20 MG Tablet 1 oral daily; Duration: 30 days Active Immunizations Vaccine Route Administration Date Status Comme nts Influenza Unknown 01/25/2018 Administered Influenza Unknown 03/27/2020 Administered Influenza Unknown 02/24/2021 Administered Influenza Unknown 03/29/2022 Administered Influenza Unknown 03/13/2023 Administered Influenza Unknown 03/17/2024 Administered Influenza Unknown 03/19/2025 Administered Social History Social History Additional Details Category Social Info Options Details Miscellaneous: Marital status: Occupation: Dental hygienist Section Notes: Nonsmoker; 1 or 2 glasses of wine at night Nonsmoker; 1 or 2 glasses of wine at night Nonsmoker; 1 or 2 glasses of wine at night Nonsmoker; 1 or 2 glasses of wine a few times a week Nonsmoker; 1 or 2 glasses of wine a few times a week Nonsmoker; 1 or 2 glasses of wine a few times a week Nonsmoker; 1 or 2 glasses of wine a few times a week Nonsmoker; no significant al cohol history Nonsmoker; no significant al cohol history Nonsmoker; no significant al cohol history Nonsmoker; no significant al cohol history Nonsmoker; no significant al cohol history Nonsmoker; no significant al cohol history Nonsmoker; no significant al cohol history Nonsmoker; no significant al cohol history Nonsmoker; no significant al cohol history Nonsmoker; no significant al cohol history Nonsmoker; no significant al cohol history Nonsmoker; no significant al cohol history Nonsmoker; no significant al cohol history Nonsmoker; no significant al cohol history Nonsmoker; no significant al cohol history Nonsmoker; no significant al cohol history Nonsmoker; no significant al cohol history Nonsmoker; no significant al cohol history Nonsmoker; no significant al cohol history Problems Problem Type SNOMED Code ICD Code Onset Dates Problem Status W/U Status Risk Notes Problem Gastro-esophageal reflux disease without esophagitis (947832614) Gastro-esophageal reflux disease without esophagitis (K21.9) Active confirmed Problem Screening for malignant neoplasm of colon (910149870) Encounter for screening for malignant neoplasm of colon (Z12.11) Active confirmed Problem History of adenomatous polyp of colon (247602551) History of adenomatous polyp of colon (Z86.010) Active confirmed Problem Flatulence, eructation and gas pain (815817216) Bloating (R14.0) Active confirmed Problem 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 Problem Cirrhosis of liver (70978770) Other cirrhosis of liver (K74.69) Active confirmed Problem Ascites (879710924) Other ascite s (R18.8) Active confirmed Problem Abnormal findings diagnostic imaging of liver and biliary tract (919265944) Abnormal findings on diagnostic imaging of liver and biliary tract (R93.2) Active confirmed Problem Abnormal findings diagnostic imaging of liver and biliary tract (632156988) Abnormal CT of liver (R93.2) Active confirmed Problem Gastroesophageal reflux disease without esophagitis (278879264) Gastroesophageal reflux disease without esophagitis (K21.9) Active confirmed Problem Elevated liver enzymes level (529947993) Elevated liver enzymes (R74.8) Active confirmed Problem Fatty liver (938216545) Fatty liver (K76.0) Active confirmed Problem Cirrhosis - non-alcoholic (480248442) Cirrhosis of liver with ascites, unspecified hepatic cirrhosis type (K74.60) Active confirmed Problem Lesion of liver (793965567) Liver lesion (K76.9) Active confirmed Problem Duodenal cancer (242034198) 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 Problem 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 Problem Cirrhosis - non-alcoholic (293539016) 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) Active confirmed Problem Liver nodule (976143338) Liver nodule (K76.89) Active confirmed Vital Signs Temperature 98.0 degrees Fahrenheit 04/30/2025 Blood pressure diastolic 01 mm Hg 04/30/2025 Height 61 in 04/30/2025 Blood pressure systolic 001 mm Hg 04/30/2025 Weight 131.8 lbs 04/30/2025 BMI 24.9 kg/m2 04/30/2025 Encounters Encounter Location Date Provider Diagnosis [facility] [address] [place] [phone] 04/30/2025 Guille Schuler Other ascites R18.8 and Cirrhosis of liver with ascites, unspecified hepatic cirrhosis type K74.60 [facility] [address] [place] [phone] 12/04/2024 Guille Schuler Fatty liver K76.0 ; Cirrhosis of liver with ascites, unspecified hepatic cirrhosis type K74.60 ; Other ascites R18.8 and Gastroesophageal reflux disease without esophagitis K21.9 [facility] [address] [place] [phone] 08/07/2024 Guille Schuler [facility] [address] [place] [phone] 11/19/2024 Guille Schuler Cirrhosis of liver w ith ascites K74.60 and Bloating R14.0 [facility] [address] [place] [phone] 11/26/2024 Guille Schuler [facility] [address] [place] [phone] 12/04/2024 Guille Schuler [facility] [address] [place] [phone] 12/20/2024 Guille Schuler [facility] [address] [place] [phone] 03/04/2025 Guille Schuler Cirrhosis of liver w [...] have lab work every other week at [facility] and I advised her to be [...] have lab work every other week at [facility] and I advised her to be [...] have lab work every other week at [facility] and I advised her to be [...] have lab work every other week at [facility] and I advised her to be [...] CHEM 7 PROFILE 05/04/2016 CHEM 7 PROFILE 12/04/2024 CHEM 7 PROFILE 07/26/2015 CHEM 7 PROFILE 07/26/2016 ELECTROLYTES 08/11/2015 BUN 08/11/2015 BUN 01/31/2024 BUN 10/05/2021 BUN 04/06/2021 BUN 04/05/2022 BUN 11/02/2016 BUN 07/05/2017 BUN 02/07/2018 BUN 08/13/2019 BUN 04/07/2020 BUN 10/20/2020 BUN 07/30/2018 BUN 11/19/2024 BUN 03/23/2019 CREATININE 03/23/2019 CREATININE 07/30/2018 CREATININE 10/20/2020 CREATININE 04/07/2020 CREATININE 08/13/2019 CREATININE 02/07/2018 CREATININE 07/05/2017 CREATININE 11/02/2016 CREATININE 04/06/2021 CREATININE 08/11/2015 LIVER PROFILE 07/26/2016 LIVER PROFILE 04/05/2022 LIVER PROFILE 09/05/2014 LIVER PROFILE 05/04/2016 LIVER PROFILE 07/30/2018 TRIGLYCERIDE 06/30/2015 CBC w DIFF 04/05/2022 CBC w DIFF 07/26/2016 CBC w DIFF 07/30/2018 CELL COUNT FLUID 07/12/2015 CELL COUNT FLUID 08/04/2015 PROTHROMBIN TIME (PT, INR) 07/26/2016 PROTHROMBIN TIME (PT, INR) 05/04/2016 PROTHROMBIN TIME (PT, INR) 02/07/2018 PROTHROMBIN TIME (PT, INR) 04/07/2020 PROTHROMBIN TIME (PT, INR) 07/30/2018 ALPHA-FETOPROTEIN,TUMOR MARKER 9 ALPHA-FETOPROTEIN,TUMOR MARKER 0 ALPHA-FETOPROTEIN,TUMOR MARKER 9 ALPHA-FETOPROTEIN,TUMOR MARKER 0 ALPHA-FETOPROTEIN,TUMOR MARKER 6 ALPHA-FETOPROTEIN,TUMOR MARKER 7 ALPHA-FETOPROTEIN,TUMOR MARKER 8 ALPHA-FETOPROTEIN,TUMOR MARKER 8 ALPHA-FETOPROTEIN,TUMOR MARKER 7 ALPHA-FETOPROTEIN,TUMOR MARKER 4 ALPHA-FETOPROTEIN,TUMOR MARKER 2 ALPHA-FETOPROTEIN,TUMOR MARKER 1 GRAM STAIN 08/04/2015 GRAM STAIN 07/12/2015 ROUTINE CULTURE 07/12/2015 ROUTINE CULTURE 08/04/2015 MRI ABD W&WO CONTRAST 07/26/2016 MRI ABD W&WO CONTRAST 04/06/2021 MRI ABD W&WO CONTRAST 04/05/2022 MRI ABD W&WO CONTRAST 01/31/2024 MRI ABD W&WO CONTRAST 10/05/2021 MRI ABD W&WO CONTRAST 07/05/2017 MRI ABD W&WO CONTRAST 11/02/2016 MRI ABD W&WO CONTRAST 05/04/2016 MRI ABD W&WO CONTRAST 08/13/2019 MRI ABD W&WO CONTRAST 02/07/2018 MRI ABD W&WO CONTRAST 04/07/2020 MRI ABD W&WO CONTRAST 10/20/2020 MRI ABD W&WO CONTRAST 07/30/2018 MRI ABD W&WO CONTRAST 03/23/2019 US PARACENTESIS GUIDE 06/30/2015 US PARACENTESIS GUIDE 07/12/2015 US PARACENTESIS GUIDE 08/04/2015 Basic Metabolic Panel 01/01/2025 Basic Metabolic Panel 01/29/2025 Creatinine 01/31/2024 Creatinine 10/05/2021 Alpha Fetoprotein 05/31/2023 Alpha Fetoprotein 10/20/2020 Future Test Test Name Order Date UPPER GI ENDOSCOPY 05/21/2013 COLONOSCOPY 07/05/2017 UPPER GI ENDOSCOPY 07/11/2017 Next Appt Details Provider Name:Guille Timmons Harini , 05/06/2026 01:20:00 PM, [address] [facility], [address], [place], [address], Insurance Providers Payer Name Payer Address Payer Phone Subscriber Number Group Number Insured Name Patient Relationship to Insured Coverage Start Date Coverage End Date MEDICARE OF [place] [address] [place] [phone] [id number] JAMES SNOW Self - patient is the insured [employer] ATT[employer] CLAIMS [address] [place] [address] [id number] JAMES SNOW Self - patient is the insured Medical (General) History Medical History History ICD Code 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 w/u for hemochromatosis- -started Tamica in 08/2014 Denies [place],CVA,Lung disease,renal disease Tubular adenoma removed by colonoscopy i n 09/2011- no colitis NIDDM Neg. 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 Blanca Carpenter at [facility] hepatology clinic as well Colonoscopy in August of 2017 revealed on ly a hyperplastic polyp EGD in August 2017 revealed g rade 1 esophageal varices- she has been on carvedilol for her beta oleg Multiple myeloma diagnosed 2 - starting chemo after November 08, 2022- Dr. Lea at [facility] Neuropathy in her feet Increased ascites noted on h er exam and ultrasound at the end of October 2024. She was started on Aldactone 50 mg daily with improvement. Pelvic mass found on ultraso und in March [address] Cruz- this is being worked up with a MRI as of the April 2025 office visit with me. Surgical History Surgery Date(Month/Year) Whipple procedure done for d uodenal adenocarcinoma in 02/2010- done by Dr. Min at [facility] Cholecystectomy the Umbilical hernia surgery Tubal ligation C-sections Hemorrhoidectomy Hysterectomy Cataracts 2011 Incisional hernia repair 05/[address] Amin- limited small bowel resection as well Incisional hernia repair- Dr Cyrus Hancock- -negative cytology on the ascites- needed a temporary drain for the ascites jun 15 2015 Hernia repair with mesh 2015 Right rotator cuff 04/2022 port put in right of chest november
--- OUTSIDE RECORDS SUMMARY | 2025-05-06 23:11 | XMS_ITS | Encounter Summary ---
Author Organization [facility] Address [address] [place] [phone] Care Team Providers Care Candy Department Manager Name Role Phone Maged Guzman MD Primary Care Provider [phone] Encounter Details Date Type Department Care Team (Late st Contact Info) Description 07/05/2015 Scanned Document [facility] Health Information Management [address] [place] [address] [phone] External, Provider Social History Tobacco Use Types [...] External LAB BLOOD ORDERABLES Final Res ult [facility] [place], [place], [place] * Lab Scan (07/05/2015) Blood specimen (specimen) us Provider External LAB BLOOD ORDERABLES Final Res ult [facility] documented in this encounter Visit Diagnoses Not on filedocumented in this encounter Care Teams Candy Department Manager Relationship Specialty Start Date End Date Maged Guzman MD [address] [place] [address] [place] [address] PCP - General Internal Medicine 06/07/14 documented as of this encounter
--- OUTSIDE RECORDS SUMMARY | 2025-05-06 23:11 | XMS_ITS | Encounter Summary ---
Author Organization [facility] Address [address] [place] [phone] Care Team Providers Care Driver Courier Name Role Phone Maged Guzman MD Primary Care Provider [phone] Encounter Details Date Type Department Care Team (Late st Contact Info) Description 08/01/2017 Scanned Document [facility] Health Information Management [address] [place] [address] [phone] External, Provider Social History Tobacco Use Types [...] filedocumented in this encounter Care Teams Driver Courier Relationship Specialty Start Date End Date Maged Guzman MD [address] [place] [address] Dr MckeonyoRADHA rivera [phone] PCP - General Internal Medicine 06/07/14 documented as of this encounter
--- OUTSIDE RECORDS SUMMARY | 2025-05-06 23:11 | XMS_ITS | Encounter Summary ---
Author Organization [facility] [employer] [facility] and [facility] Address [address] [place] [address] Care Team Providers Care Human Resources Supervisor Name Role Phone Maged Guzman MD Primary Care Provider [phone] Reason for Referral * Imaging (Routine) - Closed Specialty Diagnoses / Procedures Referred By Too t Referred To Contact Diagnostic Radiology Procedures MRI Abdomen w wo IV Contrast Guille Schuler MD [address] [place] [address] Dr Rosen [address] [place] [address] Phone: tel: fax: Referral ID Status Reason Start Date Expiration Date Visits Re quested Visits Authorized [id number] Closed 01/06/2019 01/06/2020 1 1 Encounter Details Date Type Department Care Team (Late st Contact Info) Description 01/06/2019 Scanned Document [facility] [address] [place] [address] [address] [place] [address] Guille Schuler MD [address] [place] [address] Dr Rosen [address] [place] [phone] Social History Tobacco Use Types Packs/Day [...] RCC Abdomen/Pelvis Magn etic Resonance us Guille Shculer MD IMG MRI ORDERABLES Final Resul t documented in this encounter Visit Diagnoses Not on filedocumented in this encounter Care Teams Human Resources Supervisor Relationship Specialty Start Date End Date Maged Guzman MD [address] [place] [address] [place] [phone] PCP - General Internal Medicine 06/07/14 documented as of this encounter
--- OUTSIDE RECORDS SUMMARY | 2025-05-06 23:11 | XMS_ITS | Clinical Summary ---
Author Organization [address] Address [address] [place] [phone] Phone Care Team Providers Care Clinical Consultant Name Role Phone Maged Guzman MD Primary Care Provider [phone] Allergies Active Allergy Reactions Criticality Noted Date [...] age to complete this topic Insurance MEDICARE [facility] MEDICARE [facility] MEDICARE [facility] Care Teams Clinical Consultant Relationship Specialty Start Date End Date Maged Guzman MD [address] [place] [address] [place] [phone] PCP - General Internal Medicine 06/07/14
--- OUTSIDE RECORDS SUMMARY | 2025-05-06 23:11 | XMS_ITS | Encounter Summary ---
Author Organization [facility] and [facility] Address [address] [place] [address] Care Team Providers Care Athletic Field Custodian Name Role Phone Maged Guzman MD Primary Care Provider [phone] Encounter Details Date Type Department Care Team (Late st Contact Info) Description 01/21/2016 Scanned Document [facility] Health Information Management [address] [place] [phone] External, Provider Social History Tobacco Use Types [...] BLOOD ORDERABLES Final Res ult [facility] [place], [place], [facility] documented in this encounter Visit Diagnoses Not on filedocumented in this encounter Care Teams Athletic Field Custodian Relationship Specialty Start Date End Date Maged Guzman MD [address] [place] [address] [place] [address] PCP - General Internal Medicine 06/07/14 documented as of this encounter
--- OUTSIDE RECORDS SUMMARY | 2025-05-06 23:11 | XMS_ITS | Encounter Summary ---
Author Organization [facility] [employer] [facility] and [facility] Address [address] [place] [address] Care Team Providers Care Configuration Management Advisor Name Role Phone Maged Guzman MD Primary Care Provider [phone] Encounter Details Date Type Department Care Team (Late st Contact Info) Description 07/05/2017 Scanned Document [facility] Health Information Management [address] [place] [phone] External, Provider Social History Tobacco Use Types [...] on filedocumented in this encounter Care Teams Configuration Management Advisor Relationship Specialty Start Date End Date Maged Guzman MD [address] [place] [address] [place] [address] PCP - General Internal Medicine 06/07/14 documented as of this encounter
--- OUTSIDE RECORDS SUMMARY | 2025-05-06 23:11 | XMS_ITS | Encounter Summary ---
Author Organization [facility] [employer] [facility] and [facility] Address [address] [place] [phone] Care Team Providers Care Heat Plant Specialist Name Role Phone Maged Guzman MD Primary Care Provider [phone] Encounter Details Date Type Department Care Team ([facility] st Contact Info) Description 02/20/2019 Scanned Document [facility] 40 [facility] [address] [address] Blanca Carpenter MD [address] [place] [phone] Social History Tobacco Use Types Packs/Day Years [...] on filedocumented in this encounter Care Teams Heat Plant Specialist Relationship Specialty Start Date End Date Maged Guzman MD [address] [place] [address] [place] [address] PCP - General Internal Medicine 06/07/14 documented as of this encounter
--- OUTSIDE RECORDS SUMMARY | 2025-05-06 23:11 | XMS_ITS | Encounter Summary ---
Author Organization [facility] [employer] [facility] and [facility] Address [address] [place] [address] Care Team Providers Care Wax Specialist Name Role Phone aMged Guzman MD Primary Care Provider [phone] Encounter Details Date Type Department Care Team (Late st Contact Info) Description 02/28/2018 Scanned Document [facility] 40 [facility] 40 [facility] [address] [place] [address] Maged Guzman MD [address] [place] [address] [place] [address] Social History Tobacco Use Types Packs/Day Years [...] on filedocumented in this encounter Care Teams Wax Specialist Relationship Specialty Start Date End Date Maged Guzman MD [address] [place] [address] [place] [address] PCP - General Internal Medicine 06/07/14 documented as of this encounter
--- OUTSIDE RECORDS SUMMARY | 2025-05-06 23:11 | XMS_ITS | Encounter Summary ---
Author Organization [facility] [employer] [facility] and [facility] Address [address] [place] [phone] Care Team Providers Care Power House Control Room Operator Name Role Phone Maged Guzman MD Primary Care Provider [phone] Encounter Details Date Type Department Care Team (Late st Contact Info) Description 06/30/2015 Scanned Document [facility] Health Information Management [address] [place] [address] [phone] External, Provider Social History Tobacco Use Types [...] on filedocumented in this encounter Care Teams Power House Control Room Operator Relationship Specialty Start Date End Date Maged Guzman MD [address] [place] [address] [place] [address] PCP - General Internal Medicine 06/07/14 documented as of this encounter
--- OUTSIDE RECORDS SUMMARY | 2025-05-06 23:11 | XMS_ITS | Encounter Summary ---
Author Organization [facility] [employer] [facility] and [facility] Address [address] [place] [address] Care Team Providers Care Thermodynamics Professor Name Role Phone Maged Guzman MD Primary Care Provider [phone] Encounter Details Date Type Department Care Team (Late st Contact Info) Description 06/14/2012 Abstract [facility] Health Information Management [address] [place] [phone] [place], Primary Care [address] [place] [address] [phone] Social History Tobacco Use Types Packs/Day Years [...] on filedocumented in this encounter Care Teams Thermodynamics Professor Relationship Specialty Start Date End Date Maged Guzman MD [address] [place] [address] [place] [address] PCP - General Internal Medicine 06/07/14 documented as of this encounter
--- OUTSIDE RECORDS SUMMARY | 2025-05-06 23:11 | XMS_ITS | Encounter Summary ---
Author Organization [facility] [employer] [facility] and [facility] Address [address] [place] [address] Care Team Providers Care Utilization Review Coordinator Name Role Phone Maged Guzman MD Primary Care Provider [phone] Encounter Details Date Type Department Care Team (Late st Contact Info) Description 09/07/2022 Scanned Document [facility] 40 [facility] 40 [facility] [address] [place] [address] External, Provider Social History Tobacco Use Types [...] on filedocumented in this encounter Care Teams Utilization Review Coordinator Relationship Specialty Start Date End Date Maged Guzman MD [address] [place] [address] [place] [address] PCP - General Internal Medicine 06/07/14 documented as of this encounter
--- OUTSIDE RECORDS SUMMARY | 2025-05-06 23:11 | XMS_ITS | Encounter Summary ---
Author Organization [facility] and [facility] Address [address] [place] [address] Care Team Providers Care Spool Cleaner Hand Name Role Phone aMged Guzman MD Primary Care Provider [phone] Encounter Details Date Type Department Care Team (Late st Contact Info) Description 09/20/2022 Scanned Document [facility] 40 [facility] 40 [facility] [address] [place] [address] Main Lea MD [address] [place] [address] Social History Tobacco Use Types Packs/Day Years [...] on filedocumented in this encounter Care Teams Spool Cleaner Hand Relationship Specialty Start Date End Date Maged Guzman MD [address] [place] [address] [place] [address] PCP - General Internal Medicine 06/07/14 documented as of this encounter
--- OUTSIDE RECORDS SUMMARY | 2025-05-06 23:11 | XMS_ITS | Encounter Summary ---
Author Organization [facility] [employer] [facility] and [facility] Address [address] [place] [address] Care Team Providers Care Circus Trainer Name Role Phone Maged Guzman MD Primary Care Provider [phone] Encounter Details Date Type Department Care Team (Late st Contact Info) Description 10/28/2022 Scanned Document [facility] 40 [facility] 40 [facility] [address] [place] [address] Main Lea MD [address] [place] [address] Social History Tobacco Use Types Packs/Day Years [...] on filedocumented in this encounter Care Teams Circus Trainer Relationship Specialty Start Date End Date Maged Guzman MD [address] [place] [address] Dr Fregoso [place] [address] PCP - General Internal Medicine 06/07/14 documented as of this encounter
--- OUTSIDE RECORDS SUMMARY | 2025-05-06 23:11 | XMS_ITS | Encounter Summary ---
Author Organization [facility] [email or web address] [facility] and [facility] Address [address] [place] [address] Care Team Providers Care Dean For Student Affairs Name Role Phone Maged Guzman MD Primary Care Provider [phone] Reason for Referral * Imaging (Routine) - Closed Specialty Diagnoses / Procedures Referred By Contkenna t Referred To Contact Diagnostic Radiology Procedures US Abdomen Complete Guille Schuler MD [address] [place] [address] Dr Rosen [address] [place], [place] [address] [address] Phone: tel: fax: Referral ID Status Reason Start Date Expiration Date Visits Re quested Visits Authorized [id number] Closed 03/23/2019 03/22/2020 1 1 Encounter Details Date Type Department Care Team (Late st Contact Info) Description 03/23/2019 Scanned Document [facility] 40 [facility] 40 [facility] [address] [place] [address] Guille Schuler MD [address] [place] [address] Dr Rosen [address] [place] [address] [place] [phone] Social History Tobacco Use Types Packs/Day [...] on filedocumented in this encounter Care Teams Dean For Student Affairs Relationship Specialty Start Date End Date Maged Guzman MD [address] [place] [address] [place] [address] PCP - General Internal Medicine 06/07/14 documented as of this encounter
--- OUTSIDE RECORDS SUMMARY | 2025-05-06 23:11 | XMS_ITS | Encounter Summary ---
Author Organization [facility] and [facility] Address [address] [place] [address] Care Team Providers Care Flight Inspector Name Role Phone Maged Guzman MD Primary Care Provider [phone] Encounter Details Date Type Department Care Team (Late st Contact Info) Description 08/23/2016 Scanned Document [facility] at [address] [address] Guille Schuler MD [address] [place] [phone] Social History Tobacco Use Types Packs/Day Years [...] Schuler MD IMG SCAN REPORTS Final Result [facility] [place], [place], [facility] documented in this encounter Visit Diagnoses Not on filedocumented in this encounter Care Teams Flight Inspector Relationship Specialty Start Date End Date Maged Guzman MD [address] [place] [address] [place] [address] PCP - General Internal Medicine 06/07/14 documented as of this encounter
--- OUTSIDE RECORDS SUMMARY | 2025-05-06 23:11 | XMS_ITS | Encounter Summary ---
Author Organization [facility] [employer] System and [facility] Address [address] [place] [address] Care Team Providers Care Conservation Worker Name Role Phone Maged Guzman MD Primary Care Provider [phone] Encounter Details Date Type Department Care Team (Late st Contact Info) Description 09/28/2015 Scanned Document [facility] at [address] [address] Jose Min MD [address] [place] [phone] Social History Tobacco Use Types Packs/Day Years [...] on filedocumented in this encounter Care Teams Conservation Worker Relationship Specialty Start Date End Date Maged Guzman MD [address] [place] [address] Dr Fregoso [place] [phone] PCP - General Internal Medicine 06/07/14 documented as of this encounter
--- OUTSIDE RECORDS SUMMARY | 2025-05-06 23:11 | XMS_ITS | Encounter Summary ---
Author Organization [facility] and [facility] Address [address] [place] [phone] Care Team Providers Care Bindery Assistant Name Role Phone Maged Guzman MD Primary Care Provider [phone] Encounter Details Date Type Department Care Team (Late st Contact Info) Description 08/07/2018 Scanned Document [facility] Health Information Management [address] [place] [address] [phone] External, Provider Social History Tobacco Use Types [...] on filedocumented in this encounter Care Teams Bindery Assistant Relationship Specialty Start Date End Date Maged Guzman MD [address] [place] [address] [place] [address] PCP - General Internal Medicine 06/07/14 documented as of this encounter
--- OUTSIDE RECORDS SUMMARY | 2025-05-06 23:11 | XMS_ITS | Clinical Summary ---
Author Organization [facility] Address [address] [place] [address] Phone Care Team Providers Care Diversity Manager Name Role Phone Emiliano Guzman MD Primary Care Provider Main Lea MD Unavailable [phone] Medications No known medications Active Problems Patient [...] PM EST Blood Draw Laboratory Services, [address] [place] [address] Luiz Muse MD [address] [place] [address] [place] [address] [email or web address] 05/10/2025 3:30 PM EST Office Visit [facility], Division of Hematologic Oncology, [address], [address] [place] [address] Luiz Muse MD [address] [place] [address] [place] [address] [email or web address] Health Maintenance Due Date Last [...] file Insurance MEDICARE PART A & B [facility] MEDEX SUPPLEMENT MEDICARE PART A & B [employer] MEDEX SUPPLEMENT MEDICARE PART A & B [employer] SUPPLEMENT MEDICARE PART A & B [employer] MEDEX SUPPLEMENT MEDICARE PART A & B [employer] MEDEX SUPPLEMENT MEDICARE PART A & B [employer]OSS MEDEX SUPPLEMENT Care Teams Diversity Manager Relationship Specialty Start Date End Date Emiliano Guzman MD [address] [place] [address] [place] [address] PCP - General Internal Medicine 11/05/22 Main Lea MD [address] [place] [address] [place] [address] [email or web address] Referring Physician 11/05/22 Additional Source Comments The information contained in this document represents components of the legal health record. It is not the complete legal health record.[facility]
--- OUTSIDE RECORDS SUMMARY | 2025-05-06 23:11 | XMS_ITS | Encounter Summary ---
Author Organization [facility] [employer] [facility] and [facility] Address [address] [place] [address] Care Team Providers Care Gold Wheel Blocker And Polisher Name Role Phone Maged Guzman MD Primary Care Provider [phone] Encounter Details Date Type Department Care Team (Late st Contact Info) Description 11/02/2016 Scanned Document [facility] Health Information Management [address] [place] [phone] External, Provider Social History Tobacco Use Types [...] on filedocumented in this encounter Care Teams Gold Wheel Blocker And Polisher Relationship Specialty Start Date End Date Maged Guzman MD [address] [place] [address] Dr Fregoso [place] [phone] PCP - General Internal Medicine 06/07/14 documented as of this encounter
--- OUTSIDE RECORDS SUMMARY | 2025-05-06 23:11 | XMS_ITS | Encounter Summary ---
Author Organization [facility] [employer] [facility] and [facility] Address [address] [place] [phone] Care Team Providers Care Continuous Mining Machine Coal Miner Name Role Phone Maged Guzman MD Primary Care Provider [phone] Encounter Details Date Type Department Care Team (Late st Contact Info) Description 10/08/2016 Scanned Document [facility] 40 [facility] 40 [facility] [address] [place] [address] External, Provider Social History Tobacco Use Types [...] on filedocumented in this encounter Care Teams Continuous Mining Machine Coal Miner Relationship Specialty Start Date End Date Maged Guzman MD [address] [place] [address] [place] [address] PCP - General Internal Medicine 06/07/14 documented as of this encounter
--- OUTSIDE RECORDS SUMMARY | 2025-05-06 23:11 | XMS_ITS | Encounter Summary ---
Author Organization [facility] Address [address] [place] [address] Care Team Providers Care Braid Maker Name Role Phone Maged Guzman MD Primary Care Provider [phone] Encounter Details Date Type Department Care Team (Late st Contact Info) Description 07/05/2015 Scanned Document [facility] Health Information Management [address] [place] [phone] External, Provider Social History Tobacco Use Types [...] Provider External IMG SCAN REPORTS Final Result [facility] [place], [place], [facility] documented in this encounter Visit Diagnoses Not on filedocumented in this encounter Care Teams Braid Maker Relationship Specialty Start Date End Date Maged Guzman MD [address] [place] [address] [place] [address] PCP - General Internal Medicine 06/07/14 documented as of this encounter
--- OUTSIDE RECORDS SUMMARY | 2025-05-06 23:11 | XMS_ITS | Encounter Summary ---
Author Organization [facility] [employer] System and [facility] Address [address] [place] [address] Care Team Providers Care Computer Network Support Specialist Name Role Phone Maged Guzman MD Primary Care Provider [phone] Encounter Details Date Type Department Care Team (Late st Contact Info) Description 03/08/2017 Scanned Document [facility] 40 [facility] 40 [facility] [address] [place] [address] External, Provider Social History Tobacco Use Types [...] on filedocumented in this encounter Care Teams Computer Network Support Specialist Relationship Specialty Start Date End Date Maged Guzman MD [address] [place] [address] [place] [address] PCP - General Internal Medicine 06/07/14 documented as of this encounter
--- OUTSIDE RECORDS SUMMARY | 2025-05-06 23:11 | XMS_ITS | Encounter Summary ---
Author Organization [facility] and [facility] Address [address] [place] [phone] Care Team Providers Care Director Critical Care Name Role Phone Maged Guzman MD Primary Care Provider [phone] Encounter Details Date Type Department Care Team (Late st Contact Info) Description 11/14/2015 Scanned Document [facility] 40 [facility] 40 [facility] [address] [place] [address] External, Provider Social History Tobacco Use Types [...] Provider External PATHOLOGY/CYTOLOGY ORDERABLES Final Result [facility] [place], [place], [place] documented in this encounter Visit Diagnoses Not on filedocumented in this encounter Care Teams Director Critical Care Relationship Specialty Start Date End Date Maged Guzman MD [address] [place] [address] [place] [address] PCP - General Internal Medicine 06/07/14 documented as of this encounter
--- OUTSIDE RECORDS SUMMARY | 2025-05-06 23:11 | XMS_ITS | Encounter Summary ---
Author Organization [facility] and [facility] Address [address] [place] [address] Care Team Providers Care Residential Care Facility Manager Name Role Phone Maged Guzman MD Primary Care Provider [phone] Encounter Details Date Type Department Care Team (Late st Contact Info) Description 07/06/2015 Scanned Document [facility] Health Information Management [address] [place] [address] [phone] External, Provider Social History Tobacco Use Types [...] us Provider External PATHOLOGY/CYTOLOGY ORDERABLES Final Result [facility] [place], [place], [facility] documented in this encounter Visit Diagnoses Not on filedocumented in this encounter Care Teams Residential Care Facility Manager Relationship Specialty Start Date End Date Maged Guzman MD [address] [place] [address] [place] [address] PCP - General Internal Medicine 06/07/14 documented as of this encounter
== END 2025-05-06 15:50 | disposition home or self-care (01) ==
LOC: HO.MRI 15:49
PROVIDERS: PCP Student in an Organized Health Care Education/Training Program; Visit Provider Obstetrics & Gynecology
DX: R19.00 Intra-abdominal and pelvic swelling, mass and lump, unspecified site (principal)
CPT/HCPCS: 72197; A9585

== ENCOUNTER 2025-05-11 14:46 | Outpatient (AMB) | payer MEDICARE, SELFPAY ==
--- OUTSIDE RECORDS SUMMARY | 2010-10-13 07:30 | XMS_ITS | Encounter Summary ---
Author Organization [facility] [employer] [facility] and [facility] Address [address] [place] [phone] Care Team Providers Care Military Analyst Name Role Phone Unavailable Primary Care Provider Unavailabl e Encounter Details Date Type Department Care Team (Late st Contact Info) Description 10/13/2010 8:30 AM EDT Hospital Encounter INTERFACE DEFAULT [address] [place] [phone] Social History Tobacco Use Types Packs/Day Years Used Date Smoking Tobacco: Former Cigarettes 0.5 10 0 06/09/1973 - 06/09/1983 Smokeless Tobacco: Never Alcohol Use Standard Drinks/Week Comments No 0 (1 standard drink = 0.6 oz pur e alcohol) Comments Unknown Sex and Gender Information Value Date Recorded Sex Assigned at Not on file Legal Sex Female 6:21 AM EST Gender Identity Not on file Sexual Orientation Not on file documented as of this encounter Plan of Treatment Not on file documented as of this encounter Visit Diagnoses Not on filedocumented in this encounter
--- OUTSIDE RECORDS SUMMARY | 2024-07-31 08:00 | XMS_ITS ---
Author Organization [facility] Address [address] [place] [address] Care Team Providers Care Station Cook Name Role Phone Brooklyn Garza M.D. Primary Care Provider Unavail Guille Huertas [phone] REASON FOR VISIT abnormal liver CT scan Encounters Encounter Location Date Provider Diagnosis [facility] [address] [facility] [address] [place] [address] 07/31/2024 Guille Schuler Plan Of Treatment Next Appt Details Provider Name:Guille Schuler , 05/06/2026 01:20:00 PM, [address] [facility], [address], [place], [address], Progress Notes * JAMES SNOW RDOB:1950 (74 yo F)Acc No.[id number]:07/31/2024 Progress Notes Patient: JAMES OMER Provider: Abiodun Schuler MD :1950 A ge:73 Y S ex:Female Date:07/31/2024 Address:[address] [place], [place] [id number] Pcp:Brooklyn Garza M.D. Subjective: * Chief Complaints: * a bnormal liver CT scan * The named appointment provid er may or may not be the originator of this progress note, and it is not deemed complete until electronically signed by the appointment provider. Sign off status: Pending * Provider: Abiodun Schuler MD Date: 0 07/31/2024 Generated for Tru damico/Paulina/Clairesmitting on: 07/12/2024 07:05 PM EST
--- OUTSIDE RECORDS SUMMARY | 2024-08-07 09:40 | XMS_ITS ---
Author Organization [facility] Address [address] [place] [address] Care Team Providers Care Tire Service Technician Name Role Phone Brooklyn Garza M.D. Primary Care Provider Unavail Guille Huertas [phone] REASON FOR VISIT Patient presents today for abn ct liver Encounters Encounter Location Date Provider Diagnosis [facility] 10 [facility] [address] [place] [address] 08/07/2024 Guille Schuler Plan Of Treatment Next Appt Details Provider Name:Guille Schuler , 05/06/2026 01:20:00 PM, [address] [facility], [address], [place], [address], Progress Notes * JAMES SNOW RDOB:1950 (74 yo F)Acc No.[id number]:08/07/2024 Progress Notes Patient: JAMES OMER Provider: Abiodun Schuler MD :1950 A ge:73 Y S ex:Female Date:08/07/2024 Address:[address] [place], [place] [id number] Pcp:Brooklyn Garza M.D. Subjective: * Chief Complaints: [...] 08/07/2024 Generated for Tru damico/Paulina/Renuitting on: 1 07/12/2024 07:05 PM EST
--- OUTSIDE RECORDS SUMMARY | 2025-05-10 15:30 | XMS_ITS | Encounter Summary ---
Author Organization [facility] Address [facility] [employer] [address] [address] Phone Care Team Providers Care Printing Mechanist Name Role Phone Emiliano Guzman MD Primary Care Provider Main Lea MD Unavailable [phone] Encounter Details Date Type Department Care Team (Late st Contact Info) Description 05/10/2025 3:30 PM EST Office Visit [facility], Division of Hematologic Oncology, [facility] [address] [place] [address], 7th [place] [address] Luiz Muse MD [address] [place] [address] Multiple [facility] [place] [address] [email or web address] Multiple myeloma in remission (Primary Dx) Social History Tobacco Use Types Packs/Day Years [...] Sign Reading Time Taken Comments Blood Pressure 172/60 05/10/2025 2:45 PM EST Pulse 67 05/10/2025 2:45 PM EST Temperature 36.6 C (97.8 F) 05/10/2025 2:45 PM EST Respiratory Rate 16 05/10/2025 2:45 PM EST Oxygen Saturation 98% 05/10/2025 2:45 PM EST Inhaled Oxygen Concentration - - Weight 60.6 kg (133 lb 9.6 oz) 05/10/2025 2:45 P M EST Height - - Body Mass Index 24.09 02/25/2024 2:25 PM EDT documented in this encounter Patient Instructions * Patient Instructions* Luiz Muse MD - 05/10/2025 3:30 PM EST Suggest: >> Continue ALKA >> Continue VELCADE every 2 weeks >> Continue REVLIMID d1-21 every 28 days >> Continue DEX on day of LANDON and after - agree with lower dose - e.g. 4 mgs >> Start IVIG every 4 weeks 500 mgs/kg for up to 6 months >> Mouth care (Add therabreath - OTC) >> Continue ZOMETA >> Add N plate every 2 weeks >> FU with Rich >> Back to see us in 6-9 months >> Numerous future options when needed. Thanks so much! documented in this encounter Plan of Treatment Upcoming Encounters Date Type Department Care Team (Late st Contact Info) Description 12/21/2025 1:30 PM EDT Blood Draw Laboratory Services, [facility] [address], 2nd [place] [address] Luiz Muse MD [address] [place] [address] [facility] [place] [address] [email or web address] 12/21/2025 2:30 PM EDT Office Visit [place] [facility], Division of Hematologic Oncology, [facility] [address], [address] [place] [address] Luiz Muse MD [address] [place] [address] [facility] [place] [address] [email or web address] Scheduled Orders Name Type Priority Associated Diagnoses Orde r Schedule CBC and Differential Lab Routine Multiple myeloma in remission Expected: 05/10/2025, Expires: 05/10/2026 Serum Protein Electrophoresis (SPEP) Panel, with Immunofixation Lab Routine Multiple myeloma in remission Expected: 05/10/2025, Expires: 05/11/2026 Immunofixation, 24 Hr Urine Lab Routine Multiple myeloma in remission Expected: 05/10/2025, Expires: 05/11/2026 Immunofixation, 24 Hr Urine Lab Routine Multiple myeloma in remission Expected: 05/10/2025, Expires: 05/11/2026 CBC Lab Routine Multiple myeloma in remission Expected: 05/10/2025, Expires: 05/11/2026 Comprehensive Metabolic Panel (CMP) Lab Routine Multiple myeloma in remission Expected: 05/10/2025, Expires: 05/11/2026 Serum Protein Electrophoresis (SPEP) Panel, with Immunofixation Lab Routine Multiple myeloma in remission Expected: 05/10/2025, Expires: 05/10/2026 Light Chains, Free, Serum Lab Routine Multiple myeloma in remission Expected: 05/10/2025, Expires: 05/11/2026 Beta-2 Microglobulin, Blood Lab Routine Multiple myeloma in remission Expected: 05/10/2025, Expires: 05/11/2026 Magnesium Lab Routine Multiple myeloma in remission Expected: 05/10/2025, Expires: 05/11/2026 Phosphorus Lab Routine Multiple myeloma in remission Expected: 05/10/2025, Expires: 05/11/2026 Lactate Dehydrogenase (LDH) Lab Routine Multiple myeloma in remission Expected: 05/10/2025, Expires: 05/11/2026 documented as of this encounter Visit Diagnoses Diagnosis Multiple myeloma in remission- Primary documented in this encounter Care Teams Printing Mechanist Relationship Specialty Start Date End Date Emiliano Guzman MD [address] [place] [address] [place] [address] PCP - General Internal Medicine 11/05/22 Main Lea MD [address] [place] [address] [place] [address] [email or web address] Referring Physician 11/05/22 documented as of this encounter Additional Source Comments The information contained in this document represents components of the legal health record. It is not the complete legal health record.[facility]
[2025-05-11 15:16] VITALS: BP 176/70; BMI 21.8
--- NOTE | 2025-05-11 15:16 | MHC.OFFVIS ---
Vital Signs 05/11/25 15:16 Height 5 ft 3 in Weight 123 lb BMI 21.8 BP 176/70 H Intake Visit Reasons: MRI results Graphics Artist Required: No Information Interpreted: non-clinical & clinical Accompanied by: Self / Same As Patient Allergies shrimp Allergy (Severe, Verified 05/11/25 15:20) SEVERE EDEMA FACE, NECK AND HEAD Sulfa (Sulfonamide Antibiotics) (SULFA (SULFONAMIDE ANTIBIOTICS)) Allergy (Severe, Verified 05/11/25 15:20) VASCULITIS ON BOTH LEGS WITH BLOTCHES AND RASH, vasculitis, vasculitis, vasculitis, vasculitis sulfamethoxazole (From BACTRIM) Allergy (Unknown, Verified 05/11/25 15:20) UNKNOWN trimethoprim (From BACTRIM) Allergy (Unknown, Verified 05/11/25 15:20) UNKNOWN Iodinated Contrast Media (IV CONTRAST) Adverse Reaction (Severe, Verified 05/11/25 15:20) VASOVAGAL REACTION meperidine (From DEMEROL) Adverse Reaction (Severe, Verified 05/11/25 15:20) SEVERE VOMITING AFTER ONE DOSE Contrast dye Allergy (Unknown, Uncoded 05/11/25 15:20) Unknown contrast dye Allergy (Unknown, Uncoded 05/11/25 15:20) shaking, syncope shellfish Allergy (Unknown, Uncoded 05/11/25 15:20) anaphylaxis Shrimp Allergy (Unknown, Uncoded 05/11/25 15:20) Unknown Post menopausal: Yes HPI Comments Details: Presenting for pelvic MRI follow-up regarding abnormal finding on pelvic ultrasound. pelvic MRI showed the following: Prior hysterectomy. Nonvisualization of the bilateral ovaries. There is a moderate amount of fluid within the pelvis. This appears to represent free fluid rather than a cystic mass. Unremarkable bilateral adnexa. Unremarkable urinary bladder. Moderate fecal retention within of the distal colon. No bowel edema or dilatation. Limited evaluation of the upper abdomen. A small amount of free fluid is also present within all 4 quadrants of the abdomen. Cirrhotic liver morphology. No suspicious bone lesion. Impression: 1. There is a moderate amount of pelvic free fluid. This does not appear to represent a cystic mass. 2. Status post hysterectomy. 04/01/2025 pelvic ultrasound showed the following: Transabdominal scanning performed for overall anatomy. Transvaginal scanning performed for additional detail. The vaginal cuff is normal in appearance. Neither normal ovary identified No free fluid. A cystic structure is demonstrated in the uterine bed measuring 8.9 x 3.8 x 7.1 cm. This is separate from the bladder. Impression: 1. Post hysterectomy. Neither normal ovary identified. 2. A cystic structure is situated within the uterine bed does not appear to communicate with the urinary bladder. MRI of the pelvis with contrast is recommended [facility] Medical History (Updated 04/21/25 @ 14:18 by Leno Cruz MD) Hypothyroidism Neuropathy 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 Dyspareunia in female Surgical History (Updated 03/18/25 @ 15:36 by Shavon Del Cid STORE GIFT WRAP ASSOCIATE) Hx of hysterectomy History of colonoscopy (~09/13/17) Family History (Updated 03/18/25 @ 15:38 by Shavon Del Cid CMA) Mother Lung cancer Father HTN (hypertension) Heart attack Diabetes Brother Heart attack Diabetes Sister Diabetes Social History (Updated 03/18/25 @ 15:39 by Shavon Del Cid CMA) Household Members: Spouse Housing: House Alcohol intake: never Patient Tobacco Use Status: Former Tobacco user Tobacco use type: Cigarette e-Cigarette/Vaping Use: Never Used service: No Current occupational status: employed Current occupation: [employer] 3 days a week Sexual orientation: Straight/Heterosexual Gender identity: Female Cognitive needs: No Hearing needs: No Vision needs: Yes (reading glasses) Review of Systems Const All systems reviewed & are unremarkable except as noted in HPI and below Reports as per HPI and Reports no additional complaints GI Reports no additional complaints Reports no additional complaints Physical Exam Vital Signs: BMI result Body Mass Index 21.8 Assessment & Plan Assessment & Plan (1) Pelvic mass in female: Code(s): R19.00 - Intra-abdominal and pelvic swelling, mass and lump, unspecified site Category: Medical Plan: Discussed with the patient the finding on pelvic ultrasound showing no evidence of pelvic mass , no adnexal mass and moderate amount of fluid related to her cirrhosis, recommended the patient to contact her GI for further management , all questions answered, the patient verbalized understanding Coding Level of Care Code Est Pt Level 3 (40261) Diagnoses Pelvic mass in female R19.00
--- OUTSIDE RECORDS SUMMARY | 2025-05-11 19:06 | XMS_ITS | Encounter Summary ---
Author Organization [facility] [employer] and [facility] Address [address] [place] [address] Care Team Providers Care Patient Care Coordinator Name Role Phone Maged Guzman MD Primary Care Provider [phone] Encounter Details Date Type Department Care Team (Late st Contact Info) Description 09/28/2015 Scanned Document [facility] at [address] [address] Jose Min MD [address] [place] [phone] Social History Tobacco Use Types Packs/Day Years [...] on filedocumented in this encounter Care Teams Patient Care Coordinator Relationship Specialty Start Date End Date Maged Guzman MD [address] [place] [address] Dr Fregoso [place] [address] PCP - General Internal Medicine 06/07/14 documented as of this encounter
--- OUTSIDE RECORDS SUMMARY | 2025-05-11 19:06 | XMS_ITS | Encounter Summary ---
Author Organization [facility] [employer] [facility] and [facility] Address [address] [place] [phone] Care Team Providers Care Hotel Sales Manager Name Role Phone Maged Guzman MD Primary Care Provider [phone] Encounter Details Date Type Department Care Team (Late st Contact Info) Description 06/30/2015 Scanned Document [facility] Health Information Management [address] [place] [phone] External, Provider Social History Tobacco Use Types [...] on filedocumented in this encounter Care Teams Hotel Sales Manager Relationship Specialty Start Date End Date Maged Guzman MD [address] [place] [address] [place] [address] PCP - General Internal Medicine 06/07/14 documented as of this encounter
--- OUTSIDE RECORDS SUMMARY | 2025-05-11 19:06 | XMS_ITS | Encounter Summary ---
Author Organization [facility] Address [address] [place] [phone] Care Team Providers Care Wedding Transportation Driver Name Role Phone Maged Guzman MD Primary Care Provider [phone] Encounter Details Date Type Department Care Team (Late st Contact Info) Description 07/05/2015 Scanned Document [facility] Health Information Management [address] [place] [phone] External, Provider Social History Tobacco Use Types [...] External LAB BLOOD ORDERABLES Final Res ult [facility] [place], [place], [place] * Lab Scan (07/05/2015) Blood specimen (specimen) us Provider External LAB BLOOD ORDERABLES Final Res ult [facility] documented in this encounter Visit Diagnoses Not on filedocumented in this encounter Care Teams Wedding Transportation Driver Relationship Specialty Start Date End Date Maged Guzman MD [address] [place] [address] [place] [address] PCP - General Internal Medicine 06/07/14 documented as of this encounter
--- OUTSIDE RECORDS SUMMARY | 2025-05-11 19:06 | XMS_ITS | Encounter Summary ---
Author Organization [facility] Address [address] [place] [phone] Care Team Providers Care Wire Transfer Clerk Name Role Phone Maged Guzman MD Primary Care Provider Encounter Details Date Type Department Care Team (Late st Contact Info) Description 11/14/2015 Scanned Document [facility] [address] [facility] [address] [facility] [address] [place] [address] External, Provider Social History Tobacco Use Types [...] External PATHOLOGY/CYTOLOGY ORDERABLES Final Result [facility] [place], [place], [place] documented in this encounter Visit Diagnoses Not on filedocumented in this encounter Care Teams Wire Transfer Clerk Relationship Specialty Start Date End Date Maged Guzman MD [address] [place] [address] [place] [phone] PCP - General Internal Medicine 06/07/14 documented as of this encounter
--- OUTSIDE RECORDS SUMMARY | 2025-05-11 19:06 | XMS_ITS | Encounter Summary ---
Author Organization [facility] Address [address] [place] [address] Care Team Providers Care Window And Siding Craftsman Name Role Phone Maged Guzman MD Primary Care Provider [phone] Encounter Details Date Type Department Care Team (Late st Contact Info) Description 08/23/2016 Scanned Document [facility] at [address] [address] Guille Schuler MD [address] [place] [phone] Social History Tobacco Use Types Packs/Day Years [...] Schuler MD IMG SCAN REPORTS Final Result [facility] [place], [place], [facility] documented in this encounter Visit Diagnoses Not on filedocumented in this encounter Care Teams Window And Siding Craftsman Relationship Specialty Start Date End Date Maged Guzman MD [address] [place] [address] [place] [phone] PCP - General Internal Medicine 06/07/14 documented as of this encounter
--- OUTSIDE RECORDS SUMMARY | 2025-05-11 19:06 | XMS_ITS | Encounter Summary ---
Author Organization [facility] Address [address] [place] [phone] Care Team Providers Care Chief Information Officer Name Role Phone Maged Guzman MD Primary Care Provider [phone] Encounter Details Date Type Department Care Team (Late st Contact Info) Description 07/06/2015 Scanned Document [facility] Health Information Management [address] [place] [phone] External, Provider Social History Tobacco Use Types [...] us Provider External PATHOLOGY/CYTOLOGY ORDERABLES Final Result [facility] [place], [place], [facility] documented in this encounter Visit Diagnoses Not on filedocumented in this encounter Care Teams Chief Information Officer Relationship Specialty Start Date End Date Maged Guzman MD [address] [place] [address] [place] [phone] PCP - General Internal Medicine 06/07/14 documented as of this encounter
--- OUTSIDE RECORDS SUMMARY | 2025-05-11 19:06 | XMS_ITS | Encounter Summary ---
Author Organization [facility] and [facility] Address [address] [place] [phone] Care Team Providers Care Fire Watcher Name Role Phone Maged Guzman MD Primary Care Provider [phone] Encounter Details Date Type Department Care Team (Late st Contact Info) Description 01/21/2016 Scanned Document [facility] Health Information Management [address] [place] [phone] External, Provider Social History Tobacco Use Types [...] External LAB BLOOD ORDERABLES Final Res ult [facility] [place], [place], [facility] documented in this encounter Visit Diagnoses Not on filedocumented in this encounter Care Teams Fire Watcher Relationship Specialty Start Date End Date Maged Guzman MD [address] [place] [address] [place] [phone] PCP - General Internal Medicine 06/07/14 documented as of this encounter
--- OUTSIDE RECORDS SUMMARY | 2025-05-11 19:06 | XMS_ITS | Encounter Summary ---
Author Organization [facility] [employer] and [facility] Address [address] [place] [phone] Care Team Providers Care Glass Installer Name Role Phone Maged Guzman MD Primary Care Provider Encounter Details Date Type Department Care Team (Late st Contact Info) Description 11/02/2016 Scanned Document [facility] Health Information Management [address] [place] [phone] External, Provider Social History Tobacco Use Types [...] on filedocumented in this encounter Care Teams Glass Installer Relationship Specialty Start Date End Date Maged Guzman MD [address] [place] [address] Dr Fregoso [place]HA [phone] PCP - General Internal Medicine 06/07/14 documented as of this encounter
--- OUTSIDE RECORDS SUMMARY | 2025-05-11 19:06 | XMS_ITS | Encounter Summary ---
Author Organization [facility] and [facility] Address [address] [place] [phone] Care Team Providers Care Legal Assistant Name Role Phone Maged Guzman MD Primary Care Provider [phone] Encounter Details Date Type Department Care Team (Late st Contact Info) Description 10/08/2016 Scanned Document [facility] [address] [facility] [address] [place] [address] External, Provider Social History Tobacco Use Types [...] on filedocumented in this encounter Care Teams Legal Assistant Relationship Specialty Start Date End Date Maged Guzman MD [address] [place] [address] [place] [phone] PCP - General Internal Medicine 06/07/14 documented as of this encounter
--- OUTSIDE RECORDS SUMMARY | 2025-05-11 19:06 | XMS_ITS | Encounter Summary ---
Author Organization [facility] and [facility] Address [address] [place] [phone] Care Team Providers Care Real Estate Intern Name Role Phone Maged Guzman MD Primary Care Provider [phone] Encounter Details Date Type Department Care Team (Late st Contact Info) Description 07/05/2015 Scanned Document [facility] Health Information Management [address] [place] [phone] External, Provider Social History Tobacco Use Types [...] Final Result [facility] [place], [place], [facility] documented in this encounter Visit Diagnoses Not on filedocumented in this encounter Care Teams Real Estate Intern Relationship Specialty Start Date End Date Maged Guzmna MD [address] [place] [address] [place] [phone] PCP - General Internal Medicine 06/07/14 documented as of this encounter
--- OUTSIDE RECORDS SUMMARY | 2025-05-11 19:07 | XMS_ITS | Encounter Summary ---
Author Organization [facility] Address [facility] [employer] [address] [address] Phone Care Team Providers Care Group Home Paraprofessional Name Role Phone Emiliano Guzman MD Primary Care Provider Main Lea MD Unavailable [phone] Encounter Details Date Type Department Care Team (Late st Contact Info) Description 05/10/2025 Orders Only [facility] Multiple [facility], Division of Hematologic Oncology, [facility] [address] [place] [address], 7th [place] [address] Jaquelin Austin, ENTRY LEVEL MACHINE OPERATOR [address] [place] [address] [email or web address] Multiple myeloma, remission status unspecified (Primary Dx) Social History Tobacco Use Types [...] as of this encounter Plan of Treatment Upcoming Encounters Date Type Department Care Team (Late st Contact Info) Description 12/21/2025 1:30 PM EDT Blood Draw Laboratory Services, [address] [place] [address] Luiz Muse MD [address] [place] [address] [facility] [place] [address] [email or web address] 12/21/2025 2:30 PM EDT Office Visit [facility], Division of Hematologic Oncology, [address], [address] [place] [address] Luiz Muse MD [address] [place] [address] [place] [address] [email or web address] Scheduled Orders Name Type Priority Associated Diagnoses Orde r Schedule XR Chest Imaging Routine Multiple myeloma, remission status unspecified Expected: 05/10/2025, Expires: 08/08/2025 documented as of this encounter Visit Diagnoses Diagnosis Multiple myeloma, remission status unspecified- Primary documented in this encounter Care Teams Group Home Paraprofessional Relationship Specialty Start Date End Date Emiliano Guzman MD [address] [place] [address] [address] [place] [address] PCP - General Internal Medicine 11/05/22 Main Lea MD [address] [place] [address] [address] [place] [address] [email or web address] Referring Physician 11/05/22 documented as of this encounter Additional Source Comments The information contained in this document represents components of the legal health record. It is not the complete legal health record.[facility]
--- OUTSIDE RECORDS SUMMARY | 2025-05-11 19:07 | XMS_ITS | Encounter Summary ---
Author Organization [facility] [employer] and [facility] Address [address] [place] [phone] Care Team Providers Care Milking Machine Operator Name Role Phone Maged Guzman MD Primary Care Provider [phone] Encounter Details Date Type Department Care Team (Late st Contact Info) Description 07/05/2017 Scanned Document [facility] Health Information Management [address] [place] [phone] External, Provider Social History Tobacco Use Types [...] on filedocumented in this encounter Care Teams Milking Machine Operator Relationship Specialty Start Date End Date Maged Guzman MD [address] [place] [address] Dr Fregoso [place]RADHA [phone] PCP - General Internal Medicine 06/07/14 documented as of this encounter
--- OUTSIDE RECORDS SUMMARY | 2025-05-11 19:07 | XMS_ITS | Encounter Summary ---
Author Organization [facility] [employer] [facility] and [facility] Address [address] [place] [address] Care Team Providers Care Dry Mop Maker Name Role Phone Maged Guzman MD Primary Care Provider [phone] Reason for Referral * Imaging (Routine) - Closed Specialty Diagnoses / Procedures Referred By Contac t Referred To Contact Diagnostic Radiology Procedures MRI Abdomen Pelvis w wo IV Contrast([facility]) Guille Schuler MD [address] [place] [address] Dr Rosen [address] [place] [phone] Phone: tel: fax: Referral ID Status Reason Start Date Expiration Date Visits Re quested Visits Authorized [id number] Closed 09/06/2017 09/06/2018 1 1 Encounter Details Date Type Department Care Team (Late st Contact Info) Description 09/06/2017 Scanned Document [facility] [address] [place] [address] [address] [place] [address] Guille Schuler MD [address] [place] [address] Dr Rosen [address] [place] [phone] Social History Tobacco Use Types Packs/Day [...] ABDOMEN PELVIS W WO IV CONTRAST([facility]) Routine 08/01/2017 LAB SCAN Routine 07/27/2017 documented in this encounter Results * MRI Abdomen Pelvis w wo IV Contrast([facility]) (08/01/2017) Anatomical Region Laterality Modality Abdomen, Pelvis, Ortho Pelvi s, Abdomen and Pelvis, RCC Abdomen/Pelvis Magnetic Resonance us Guille Schuler MD IMG MRI ORDERABLES Final Resul t * Lab Scan (07/27/2017) Blood specimen (specimen) us Guille Schuler MD LAB BLOOD ORDERABLES Final Res ult documented in this encounter Visit Diagnoses Not on filedocumented in this encounter Care Teams Dry Mop Maker Relationship Specialty Start Date End Date Maged Guzman MD [address] [place] [address] [place] [phone] PCP - General Internal Medicine 06/07/14 documented as of this encounter
--- OUTSIDE RECORDS SUMMARY | 2025-05-11 19:07 | XMS_ITS | Encounter Summary ---
Author Organization [facility] [employer] [facility] and [facility] Address [address] [place] [address] Care Team Providers Care Law Writer Name Role Phone Maged Guzman MD Primary Care Provider [phone] Encounter Details Date Type Department Care Team (Late st Contact Info) Description 08/01/2017 Scanned Document [facility] Health Information Management [address] [place] [phone] External, Provider Social History Tobacco Use Types [...] on filedocumented in this encounter Care Teams Law Writer Relationship Specialty Start Date End Date Maged Guzman MD [address] [place] [address] Dr MckeonyoRADHA rivera [phone] PCP - General Internal Medicine 06/07/14 documented as of this encounter
--- OUTSIDE RECORDS SUMMARY | 2025-05-11 19:07 | XMS_ITS | Encounter Summary ---
Author Organization [facility] [employer] [facility] and [facility] Address [address] [place] [address] Care Team Providers Care Wax Room Supervisor Name Role Phone Maged Guzman MD Primary Care Provider [phone] Reason for Referral * Imaging (Routine) - Closed Specialty Diagnoses / Procedures Referred By Too t Referred To Contact Diagnostic Radiology Procedures MRI Abdomen w wo IV Contrast Guille Schuler MD [address] [place] [address] Dr Rosen [address] [place] [phone] Phone: tel: fax: Referral ID Status Reason Start Date Expiration Date Visits Re quested Visits Authorized [id number] Closed 01/06/2019 01/06/2020 1 1 Encounter Details Date Type Department Care Team (Late st Contact Info) Description 01/06/2019 Scanned Document [facility] [address] [place] [address] [address] [place] [address] Guille Schuler MD [address] [place] [address] Dr Rosen [address] [place] [phone] Social History Tobacco Use Types Packs/Day [...] filedocumented in this encounter Care Teams Wax Room Supervisor Relationship Specialty Start Date End Date Maged Guzman MD [address] [place] [address] [place] [phone] PCP - General Internal Medicine 06/07/14 documented as of this encounter
--- OUTSIDE RECORDS SUMMARY | 2025-05-11 19:07 | XMS_ITS | Encounter Summary ---
Author Organization [facility] [employer] [facility] and [facility] Address [address] [place] [address] Care Team Providers Care Eradicator Name Role Phone Maged Guzman MD Primary Care Provider [phone] Encounter Details Date Type Department Care Team (Late st Contact Info) Description 08/01/2017 Scanned Document [facility] Health Information Management [address] [place] [phone] External, Provider Social History Tobacco Use Types [...] on filedocumented in this encounter Care Teams Eradicator Relationship Specialty Start Date End Date Maged Guzman MD [address] [place] [address] [place] [phone] PCP - General Internal Medicine 06/07/14 documented as of this encounter
--- OUTSIDE RECORDS SUMMARY | 2025-05-11 19:07 | XMS_ITS | Encounter Summary ---
Author Organization [facility] [employer] [facility] and [facility] Address [address] [place] [address] Care Team Providers Care Boss Dyer Name Role Phone Maged Guzman MD Primary Care Provider [phone] Encounter Details Date Type Department Care Team (Late st Contact Info) Description 03/08/2017 Scanned Document [facility] [address] [facility] [address] [facility] [address] [place] [address] External, Provider Social History Tobacco Use Types [...] on filedocumented in this encounter Care Teams Boss Dyer Relationship Specialty Start Date End Date Maged Guzman MD [address] [place] [address] [place] [phone] PCP - General Internal Medicine 06/07/14 documented as of this encounter
--- OUTSIDE RECORDS SUMMARY | 2025-05-11 19:07 | XMS_ITS | Encounter Summary ---
Author Organization [facility] [employer] [facility] and [facility] Address [address] [place] [phone] Care Team Providers Care Quality Assurance Analyst Name Role Phone Maged Guzman MD Primary Care Provider [phone] Reason for Referral * Imaging (Routine) - Closed Specialty Diagnoses / Procedures Referred By Too flood Referred To Contact Diagnostic Radiology Procedures MRI Abdomen w wo IV Contrast MRCP Guille Schuler MD [address] [place] [address] Dr Rosen [address] [place] [phone] Phone: tel: fax: Referral ID Status Reason Start Date Expiration Date Visits Re quested Visits Authorized [id number] Closed 06/05/2019 06/04/2020 1 1 Encounter Details Date Type Department Care Team (Late st Contact Info) Description 06/05/2019 Scanned Document [facility] [address] [place] [address] [address] [place] [address] Guille Schuler MD [address] [place] [address] Dr Rosen [address] [place] [phone] Social History Tobacco Use Types Packs/Day [...] on filedocumented in this encounter Care Teams Quality Assurance Analyst Relationship Specialty Start Date End Date Maged Guzman MD [address] [place] [address] [place] [phone] PCP - General Internal Medicine 06/07/14 documented as of this encounter
--- OUTSIDE RECORDS SUMMARY | 2025-05-11 19:07 | XMS_ITS | Patient Health Record ---
Author Organization [facility] Address [address] [place] [address] Care Team Providers Care Pecan Grower Name Role Phone Brooklyn Garza M.D. Primary Care Provider Guille Martínez [phone] Allergies Allergen (clinical drug ingredient) Drug/Non Drug [...] INR Reviewed date:11/21/2024 07:26:05 PM Interpretation: Performing Lab:[facility], [address] [place] [phone] Notes/Report: Prothrombin Time 11.8 10.9-12.4 SEC N [...] Electrolytes Reviewed date:11/20/2024 04:55:55 PM Interpretation: Performing Lab:[facility], [address] [place] [phone] Notes/Report: Sodium 143 135-145 mmol/L N Potassium 3.5 3.3-5.1 mmol/L Chloride 109 96-108 mmol/L H Carbon Dioxide 24 22-29 mmol/L N Anion Gap 14 12-20 N Creatinine Reviewed date:11/20/2024 04:56:03 PM Interpretation: Performing Lab:[facility], [address] [place] [phone] Notes/Report: Creatinine 0.80 0.5-1.4 mg/dL N Estimated Glomerular Filt Rate > 60 Chronic Kidney Disease: Estimated GFR < 60 mL/min/1.73m2 Severe Kidney Disease: Estimated GFR < 15 mL/min/1.73m2 US abdomen complete Reviewed date:11/26/2024 12:54:15 AM Interpretation: Performing Lab: Notes/Report: [address] [address] Ultrasound Report Signed Patient: James Snow MR#: [id number] : 1950 Acct:[id number] Age/Sex: 74 / F ADM Date: 11/25/24 Loc: HO.US Attending Dr: Guille Schuler MD Ordering Physician: Guille Schuler MD Date of Service: 11/25/24 Procedure(s): US abdomen complete Accession Number(s): [id number] cc: Brooklyn Garza MD; Guille Schuler MD [...] 11/25/24 1609 DD/ 1024 TD/TT: 11/25/24 1108 Patient Safety Coordinator: US duplex arterial venous co mp Reviewed date:11/26/2024 12:55:40 AM Interpretation: Performing Lab: Notes/Report: [address] [address] Ultrasound Report Signed Patient: James Snow MR#: [id number] : 1950 Acct:[id number] Age/Sex: 74 / F ADM Date: 11/25/24 Loc: HO.US Attending Dr: Guille Schuler MD Ordering Physician: Guille Schuler MD Date of Service: 11/25/24 Procedure(s): US duplex arterial venous comp Accession Number(s): [id number] cc: Brooklyn Garza MD; Guille Schuler MD [...] 11/25/24 1609 DD/ 1024 TD/TT: 11/25/24 1108 Patient Safety Coordinator: US abdomen complete Reviewed date:03/05/2025 07:44:05 PM Interpretation: Performing Lab: Notes/Report: [address] [address] Ultrasound Report Signed Patient: James Snow MR#: [id number] : 1950 Acct:[id number] Age/Sex: 74 / F ADM Date: 03/05/25 Loc: HO.US Attending Dr: Guille Schuler MD Ordering Physician: Guille Schuler MD Date of Service: 03/05/25 Procedure(s): US abdomen complete Accession Number(s): [id number] cc: Maciej Ambriz MD; Guille Schuler MD [...] 03/05/25 1640 DD/ 1500 TD/TT: 03/05/25 1530 Patient Safety Coordinator: US duplex arterial venous co mp Reviewed date:03/08/2025 01:39:53 PM Interpretation: Performing Lab: Notes/Report: [address] [address] Ultrasound Report Signed Patient: James Snow MR#: [id number] : 1950 Acct:[id number] Age/Sex: 74 / F ADM Date: 03/05/25 Loc: HO.US Attending Dr: Guille Schuler MD Ordering Physician: Guille Schuler MD Date of Service: 03/05/25 Procedure(s): US duplex arterial venous comp Accession Number(s): [id number] cc: Maciej Ambriz MD; Guille Schuler MD [...] 03/05/25 1640 DD/ 1437 TD/TT: 03/05/25 1530 Patient Safety Coordinator: Complete Blood Count Auto Di ff Reviewed date:11/20/2024 04:55:40 PM Interpretation: Performing Lab:[facility], [address] [place] [phone] Notes/Report: White Blood Count 8.0 4.8-10.8 X10*3/uL [...] Panel Reviewed date:11/20/2024 04:55:15 PM Interpretation: Performing Lab:[facility], [address] [place] [phone] Notes/Report: Bilirubin Total 0.9 0.0-1.0 mg/dL N Bilirubin Direct 0.4 0.0-0.5 mg/dL N Aspartate Amino Transferase 28 5-31 U/L N Alanine Aminotransferase 21 0-31 U/L N Total Protein 6.0 6.5-8.0 g/dL L Albumin Level 4.1 3.5-5.0 g/dL N Alkaline Phosphatase 134 39-117 U/L H Blood Urea Nitrogen Reviewed date:11/20/2024 04:54:59 PM Interpretation: Performing Lab:[facility], [address] [place] [phone] Notes/Report: Blood Urea Nitrogen 18 9-16 mg/dL H Alpha Fetoprotein Reviewed date:11/25/2024 06:03:10 PM Interpretation: Performing Lab:[address] [address] Notes/Report: Alpha Fetoprotein 3.8 N Reference Range: [...] of disease. THIS TEST WAS PERFORMED AT: [facility] [address] [address] KAMLA ALONSO MD Blood Urea Nitrogen Reviewed date:12/03/2024 11:50:16 PM Interpretation: Performing Lab:[address] [address] Notes/Report: Blood Urea Nitrogen 15 9-16 mg/dL N Basic Metabolic Panel Reviewed date:12/20/2024 07:47:10 PM Interpretation: Performing Lab:[facility], [address] [place] [phone] Notes/Report: Sodium 143 135-145 mmol/L N Potassium [...] y et reviewed by provider) Interpretation: Performing Lab:[facility], [address] [place] [address] Notes/Report: Sodium 142 135-145 mmol/L N Potassium [...] Panel Reviewed date:01/18/2025 11:37:29 PM Interpretation: Performing Lab:[facility], [address] [place] [phone] Notes/Report: Sodium 142 135-145 mmol/L N Potassium [...] y et reviewed by provider) Interpretation: Performing Lab:[facility], [address] [place] [phone] Notes/Report: Sodium 141 135-145 mmol/L N Potassium [...] Panel Reviewed date:02/27/2025 10:15:33 PM Interpretation: Performing Lab:[facility], [address] [place] [phone] Notes/Report: Sodium 143 135-145 mmol/L N Potassium [...] Notes Problem Gastro-esophageal reflux disease without esophagitis (722371367) Gastro-esophageal reflux disease without esophagitis (K21.9) Active confirmed Problem Screening for malignant neoplasm of colon (905995676) Encounter for screening for malignant neoplasm of colon (Z12.11) Active confirmed Problem History of adenomatous polyp of colon (632809689) History of adenomatous polyp of colon (Z86.010) Active confirmed Problem Flatulence, eructation and gas pain (189541107) Bloating (R14.0) Active confirmed Problem Adenocarcinoma of duodenum (803155617) 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 Problem Cirrhosis of liver (13132638) Other cirrhosis of liver (K74.69) Active confirmed Problem Ascites (123761685) Other ascite s (R18.8) Active confirmed Problem Abnormal findings diagnostic imaging of liver and biliary tract (356221296) Abnormal findings on diagnostic imaging of liver and biliary tract (R93.2) Active confirmed Problem Abnormal findings diagnostic imaging of liver and biliary tract (183015287) Abnormal CT of liver (R93.2) Active confirmed Problem Gastroesophageal reflux disease without esophagitis (208359338) Gastroesophageal reflux disease without esophagitis (K21.9) Active confirmed Problem Elevated liver enzymes level (120262816) Elevated liver enzymes (R74.8) Active confirmed Problem Fatty liver (440636894) Fatty liver (K76.0) Active confirmed Problem Cirrhosis - non-alcoholic (959300364) Cirrhosis of liver with ascites, unspecified hepatic cirrhosis type (K74.60) Active confirmed Problem Lesion of liver (244846770) Liver lesion (K76.9) Active confirmed Problem Duodenal cancer (814947463) 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 Problem 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 Problem Cirrhosis - non-alcoholic (537298812) 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) Active confirmed Problem Liver nodule (086637202) Liver nodule (K76.89) Active confirmed Vital Signs Temperature 98.0 degrees Fahrenheit 04/30/2025 Blood pressure diastolic 01 mm Hg 04/30/2025 Height 61 in 04/30/2025 Blood pressure systolic 001 mm Hg 04/30/2025 Weight 131.8 lbs 04/30/2025 BMI 24.9 kg/m2 04/30/2025 Encounters Encounter Location Date Provider Diagnosis [facility] [address] [place] [phone] 12/04/2024 Guille Schuler Fatty liver K76.0 ; Cirrhosis of liver with ascites, unspecified hepatic cirrhosis type K74.60 ; Other ascites R18.8 and Gastroesophageal reflux disease without esophagitis K21.9 [facility] [address] [place] [phone] 04/30/2025 Guille Schuler Other ascites R18.8 and Cirrhosis of liver with ascites, unspecified hepatic cirrhosis type K74.60 [facility] [address] [place] [phone] 08/07/2024 Guille Schuler [facility] [address] [place] [phone] 11/19/2024 Guille Schuler Cirrhosis of liver w ith ascites K74.60 and Bloating R14.0 [facility] [address] [place] [phone] 11/26/2024 Guille Schuler [facility] [address] [place] [phone] 12/04/2024 Guille Schuler [facility] [address] [place] [phone] 12/20/2024 Guille Schuler [facility] [address] [place] [phone] 03/04/2025 Guille Schuler Cirrhosis of liver w [...] have lab work every other week at [facility] and I advised her to be [...] have lab work every other week at [facility] and I advised her to be [...] keep you advised of her progress. 04/30/2025 Other ascites (ICD-10 - R18.8) Overall, [...] have lab work every other week at [facility] and I advised her to be [...] have lab work every other week at [facility] and I advised her to be [...] Timmons Harini , 05/06/2026 01:20:00 PM, [address] [facility], [address], [place], [address], Insurance Providers Payer Name Payer Address Payer Phone Subscriber Number Group Number Insured Name Patient Relationship to Insured Coverage Start Date Coverage End Date MEDICARE OF [place] [address] [place] [phone] [id number] JAMES SNOW Self - patient is the insured [employer] ATT[employer] CLAIMS [address] [place] [address] [id number] JAMES SNOW Self - patient is the insured Medical (General) History Medical History History ICD Code 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 w/u for hemochromatosis- -started Tamica in 08/2014 Denies AR,CVA,Lung disease,renal disease Tubular adenoma removed by colonoscopy [...] after November 08, 2022- Dr. Lea at [facility] Neuropathy in her feet Increased ascites [...] in 02/2010- done by Dr. Min at [facility] Cholecystectomy the Umbilical hernia surgery Tubal ligation C-sections Hemorrhoidectomy Hysterectomy Cataracts 2011 Incisional hernia repair 05/[address] Amin- limited small bowel resection as well Incisional hernia repair- Dr Cyrus Hancock- -negative cytology on the ascites- needed a temporary drain for the ascites jun 15 2015 Hernia repair with mesh 2015 Right rotator cuff 04/2022 Chemo port november 2023
--- OUTSIDE RECORDS SUMMARY | 2025-05-11 19:07 | XMS_ITS | Encounter Summary ---
Author Organization [facility] [employer] [facility] and [facility] Address [address] [place] [phone] Care Team Providers Care Chief Customer Officer Name Role Phone Maged Guzman MD Primary Care Provider [phone] Encounter Details Date Type Department Care Team (Late st Contact Info) Description 08/07/2018 Scanned Document [facility] Health Information Management [address] [place] [phone] External, Provider Social History Tobacco Use Types [...] filedocumented in this encounter Care Teams Chief Customer Officer Relationship Specialty Start Date End Date Maged Guzman MD [address] [place] [address] [place] [address] PCP - General Internal Medicine 06/07/14 documented as of this encounter
--- OUTSIDE RECORDS SUMMARY | 2025-05-11 19:07 | XMS_ITS | Encounter Summary ---
Author Organization [facility] [employer] [facility] and [facility] Address [address] [place] [address] Care Team Providers Care Chain Sales Representative Name Role Phone Maged Guzman MD Primary Care Provider [phone] Encounter Details Date Type Department Care Team (Late st Contact Info) Description 09/07/2022 Scanned Document [facility] [address] [facility] [address] [place] [address] External, Provider Social History Tobacco Use Types [...] on filedocumented in this encounter Care Teams Chain Sales Representative Relationship Specialty Start Date End Date Maged Guzman MD [address] [place] [address] [place] [phone] PCP - General Internal Medicine 06/07/14 documented as of this encounter
--- OUTSIDE RECORDS SUMMARY | 2025-05-11 19:07 | XMS_ITS | Encounter Summary ---
Author Organization [facility] [employer] [facility] and [facility] Address [address] [place] [address] Care Team Providers Care Aviation Technician Aircraft Name Role Phone Maged Guzman MD Primary Care Provider [phone] Encounter Details Date Type Department Care Team (Late st Contact Info) Description 2015 Scanned Document [facility] Health Information Management [address] [place] [phone] External, Provider Social History Tobacco Use Types [...] on filedocumented in this encounter Care Teams Aviation Technician Aircraft Relationship Specialty Start Date End Date Maged Guzman MD [address] [place] [address] [place] [address] PCP - General Internal Medicine 06/07/14 documented as of this encounter
--- OUTSIDE RECORDS SUMMARY | 2025-05-11 19:07 | XMS_ITS | Encounter Summary ---
Author Organization [facility] [employer] [facility] and [facility] Address [address] [place] [phone] Care Team Providers Care Transmission And Coordination Engineer Name Role Phone Maged Guzman MD Primary Care Provider [phone] Encounter Details Date Type Department Care Team ([facility] st Contact Info) Description 02/20/2019 Scanned Document [facility] [address] [address] Blanca Carpenter MD [address] [place] [phone] Social History Tobacco Use Types Packs/Day Years [...] on filedocumented in this encounter Care Teams Transmission And Coordination Engineer Relationship Specialty Start Date End Date Maged Guzman MD [address] [place] [address] [place] [phone] PCP - General Internal Medicine 06/07/14 documented as of this encounter
--- OUTSIDE RECORDS SUMMARY | 2025-05-11 19:07 | XMS_ITS | Clinical Summary ---
Author Organization [facility] Address [address] [facility] [address] [place] [address] Phone Care Team Providers Care Stagecraft Teacher Name Role Phone Emiliano Guzman MD Primary Care Provider Main Lea MD Unavailable Medications No known medications Active Problems Patient Care Coordination No te Formatting of this note migh t be different from the original. 05/10/2025- copy of port id card sent to medical records - we still need tip confirmation- provider was informed today need for CXR for tip placement No known active problems Encounters Date Type Department Care Team Description 05/10/2025 3:30 PM EST Office Visit [facility], Division of Hematologic Oncology, [facility] [address], 7th [place] [address] Luiz Muse MD Multiple myeloma in remission (Primary Dx) 05/10/2025 Orders Only [facility], Division of Hematologic Oncology, [facility] [address], 7th [place] [address] Jaquelin Austin NP Multiple myeloma, remission status unspecified (Primary Dx) from Last 3 Months Social History Tobacco Use Types Packs/Day Years [...] oz) 05/10/2025 2:45 P M EST Height 158.6 cm (5' 2.44 ) 02/25/2024 2:25 PM ED T Body Mass Index 24.09 02/25/2024 2:25 PM EDT Plan of Treatment Upcoming Encounters Date Type Department Care Team (Late st Contact Info) Description 12/21/2025 1:30 PM EDT Blood Draw Laboratory Services, [address], 2nd [place] [address] Luiz Muse MD [address] [place] [address] [place] [address] [email or web address] 12/21/2025 2:30 PM EDT Office Visit [facility], Division of Hematologic Oncology, [address], [address] [place] [address] Luiz Muse MD [address] [place] [address] [place] [address] [email or web address] Health Maintenance Due Date Last Done Comments Adult Td,Tdap Booster 1950 LIPID PANEL 1951 DEPRESSION SCREENING 1963 SMOKING Hx and SMOKELESS TOBACCO SCREENING 10/02/1964 HEPATITIS C SCREENING 10/02/1969 PNEUMOCOCCAL VACCINES (50+ years) (1 of 2 - PCV) 10/02/1970 MAMMOGRAM 1991 COLOGUARD 10/02/1996 COLONOSCOPY 10/02/1996 COLORECTAL CANCER SCREENING 10/02/1996 FIT TEST 10/02/1996 FOBT 10/02/1996 SIGMOIDOSCOPY 10/02/1996 VIRTUAL COLONOSCOPY 10/02/1996 ZOSTER VACCINES (1 of 2) 01/06/2016 11/11/2015 OSTEOPOROSIS SCREENING INITIAL (ONE-TIME) 10/02/2016 COVID-19 VACCINE ( season) 2025 03/09/2022, 09/21/2021, 09/21/2021, Additional history exists RSV VACCINE (1 - 1-dose 75+ series) 10/02/2026 INFLUENZA VACCINE Completed 03/23/2025, , 03/17/2020 HEPATITIS A VACCINES Aged Out No long [...] this topic Medical Devices Not on file Procedures Procedure Name Priority Date/Time Associated Diagnosis Comments IMMUNOGLOBULINS IGG, IGA, IGM Routine 05/10/2025 2:25 PM EST Multiple myeloma in remission TOTAL PROTEIN Routine 05/10/2025 2:25 PM EST Multiple myeloma in remission IMMATURE PLT FRACTION Routine 05/10/2025 2:25 PM EST Multiple myeloma in remission CBC AND DIFFERENTIAL Routine 05/10/2025 2:25 PM EST Multiple myeloma in remission LDH Routine 05/10/2025 2:25 PM EST Multiple myeloma in remission PHOSPHORUS Routine 05/10/2025 2:25 PM EST Multiple myeloma in remission MAGNESIUM Routine 05/10/2025 2:25 PM EST Multiple myeloma in remission BETA-2 MICROGLOBULIN, BLOOD Routine 05/10/2025 2:25 PM EST Multiple myeloma in remission FREE LIGHT CHAINS, SERUM Routine 05/10/2025 2:25 PM EST Multiple myeloma in remission COMPREHENSIVE METABOLIC PANEL (CMP) Routine 05/10/2025 2:25 PM EST Multiple myeloma in remission CBC AND DIFFERENTIAL Routine 05/10/2025 2:25 PM EST Multiple myeloma in remission from Last 3 Months Results * Lactate Dehydrogenase (LDH) (05/10/2025 2:25 PM EST) Pathologist [facility] LDH 180 135 - 214 U/L 05/10/2025 3:17 PM EST [facility] Blood (Blood) Venipuncture / Unknown 05/10/2025 2:25 PM EST 05/10/2025 2:44 PM EST Luiz Muse MD LAB BLOOD BKR ORDERABLES Fi nal Result [facility] [address] [place] [address] * (ABNORMAL) Immunoglobulins IgG, IgA, IgM (05/10/2025 2:25 PM EST) Immunoglobulin G 306(L) 700 - 1,600 mg/dL 05/11/2025 12:15 PM EST [facility] Immunoglobulin A 50(L) 70 - 400 mg/dL 05/11/2025 12:15 PM EST [facility] Immunoglobulin M 27(L) 40 - 230 mg/dL 05/11/2025 12:15 PM EST [facility] Blood (Blood) Venipuncture / Unknown 05/10/2025 2:25 PM EST 05/10/2025 2:44 PM EST us Luiz Muse MD LAB BLOOD BKR ORDERABLES Fi nal Result [facility] [address] [place] [address] * (ABNORMAL) Comprehensive Metabolic Panel (CMP) (05/10/2025 2:25 PM EST) Sodium 142 136 - 145 mmol/L 05/10/2025 3:17 PM EST [facility] Potassium 4.5 3.4 - 5.1 mmol/L 05/10/2025 3:17 PM EST [facility] Chloride 108(H) 98 - 107 mmol/L 05/10/2025 3:17 PM EST [facility] CO2 26 20 - 31 mmol/L 05/10/2025 3:17 PM EST [facility] BUN 17 6 - 23 mg/dL 05/10/2025 3:17 PM EST [facility] Creatinine 0.97 0.50 - 1.00 mg/dL 05/10/2025 3:17 PM EST [facility] Glucose 194(H) 70 - 99 mg/dL 05/10/2025 3:17 PM EST [facility] Calcium 8.9 8.5 - 10.5 mg/dL 05/10/2025 3:17 PM EST [facility] AST 22 <33 U/L 05/10/2025 3:17 PM EST [facility] ALT 26 <34 U/L 05/10/2025 3:17 PM EST [facility] Alkaline Phosphatase 146(H) 40 - 130 U/L 05/10/2025 3:17 PM EST [facility] Bilirubin, Total 0.8 0.0 - 1.2 mg/dL 05/10/2025 3:17 PM EST [facility] Total Protein 5.9(L) 6.4 - 8.3 g/dL 05/10/2025 3:17 PM EST [facility] Albumin 3.9 3.5 - 5.2 g/dL 05/10/2025 3:17 PM EST [facility] Globulin 2.0 1.9 - 4.1 g/dL 05/10/2025 3:17 PM EST [facility] eGFR 62 >59 mL/min/1.7 3m2 05/10/2025 3:17 PM EST [facility] Comment:Estimated glomerular filtration rate calculated using the CKD-EPI refit equation. Anion Gap 8 3 - 17 mmol/L 05/10/2025 3:17 PM EST [facility] Blood (Blood) Venipuncture / Unknown 05/10/2025 2:25 PM EST 05/10/2025 2:44 PM EST us Luiz Muse MD LAB BLOOD BKR ORDERABLES Fi nal Result Performing Organization Address [facility] Co de Phone Number [facility] [address] [place] [address] * Immature Plt Fraction (05/10/2025 2:25 PM EST) Pathologist [facility] Immature PLT Fraction 4.5 1.2 - 8.7 % 05/10/2025 3:01 PM EST [facility] Blood (Blood) Venipuncture / Unknown 05/10/2025 2:25 PM EST 05/10/2025 2:44 PM EST us Luiz Muse MD LAB BLOOD BKR ORDERABLES Fi nal Result Performing Organization Address City/[facility]/ZIP Co de Phone Number [facility] [address] [place] [address] * (ABNORMAL) CBC and Differential (05/10/2025 2:25 PM EST) Pathologist [facility] WBC 1.84(L) 4.00 - 11.00 K/uL 05/10/2025 3:01 PM EST [facility] RBC 3.17(L) 4.00 - 5.20 M/uL 05/10/2025 3:01 PM EST [facility] Hemoglobin 10.4(L) 12.0 - 16.0 g/dL 05/10/2025 3:01 PM [facility] Hematocrit 31.5(L) 36.0 - 46.0 % 05/10/2025 3:01 PM [facility] MCV 99.4 80.0 - 100.0 fL 05/10/2025 3:01 PM [facility] MCH 32.8(H) 27.0 - 31.0 pg 05/10/2025 3:01 PM [facility] MCHC 33.0 32.0 - 36.0 g/dL 05/10/2025 3:01 PM [facility] MPV 12.3(H) 8.4 - 12.0 fL 05/10/2025 3:01 PM [facility] RDW-CV 14.1 11.5 - 14.5 % 05/10/2025 3:01 PM [facility] PLT 51(L) 150 - 450 K/uL 05/10/2025 3:01 PM [facility] Neutrophils 53.3 % 05/10/2025 3:01 PM [facility] Lymphocytes 26.1 % 05/10/2025 3:01 PM [facility] Monocytes 13.0 % 05/10/2025 3:01 PM [facility] Eosinophils 6.0 % 05/10/2025 3:01 PM [facility] Basophils 1.1 % 05/10/2025 3:01 PM [facility] Imm Grans 0.5 % 05/10/2025 3:01 PM [facility] NRBC 0.0 <=0.0 /100 WBCs 05/10/2025 3:01 PM [facility] Absolute Neutrophils 0.98(L) 1.92 - 7.60 K/uL 05/10/2025 3:01 PM EST [facility] Comment:The reference range for individuals with the Orr null phenotype (Fy(a-b-)) is 1.21-5.39 K/uL. Absolute Lymphocytes 0.48(L) 0.72 - 4.10 K/uL 05/10/2025 3:01 PM EST [facility] Absolute Monocytes 0.24 0.16 - 1.10 K/uL 05/10/2025 3:01 PM EST [facility] Absolute Eosinophils 0.11 0.00 - 0.50 K/uL 05/10/2025 3:01 PM EST [facility] Absolute Basophils 0.02 0.00 - 0.15 K/uL 05/10/2025 3:01 PM EST [facility] Absolute Imm Grans 0.01 0.00 - 0.09 K/uL 05/10/2025 3:01 PM EST [facility] Absolute NRBC 0.00 <=0.00 K cells/uL 05/10/2025 3:01 PM EST [facility] Absolute Neutrophils 0.98(L) 1.92 - 7.60 K/uL 05/10/2025 3:01 PM EST [facility] Diff Type Auto 05/10/2025 3:01 PM EST [facility] Blood (Blood) Venipuncture / Unknown 05/10/2025 2:25 PM EST 05/10/2025 2:44 PM EST us Luiz Muse MD LAB BLOOD BKR ORDERABLES Fi nal Result [facility] [address] [place] [address] * Light Chains, Free, Serum (05/10/2025 2:25 PM EST) Free [place] Light Chain 12.4 3.3 - 19.4 mg/L 05/11/2025 12:15 PM EST [facility] Free Lambda Light Chain 14.3 5.7 - 26.3 mg/L 05/11/2025 12:15 PM EST [facility] Free [place] Lambda Ratio 0.87 0.26 - 1.65 05/11/2025 12:15 PM EST [facility] Blood (Blood) Venipuncture / Unknown 05/10/2025 2:25 PM EST 05/10/2025 2:44 PM EST us Luiz Muse MD LAB BLOOD BKR ORDERABLES Fi nal Result [facility] [address] [place] [address] * (ABNORMAL) Protein, Total (05/10/2025 2:25 PM EST) Pathologist [facility] Total Protein 5.3(L) 6.4 - 8.3 g/dL 05/10/2025 3:33 PM EST [facility] Blood (Blood) Venipuncture / Unknown 05/10/2025 2:25 PM EST 05/10/2025 2:44 PM EST us Luiz Muse MD LAB BLOOD BKR ORDERABLES Fi nal Result Performing Organization Address [facility] Co de Phone Number [facility] [address] [place] [phone] * Phosphorus (05/10/2025 2:25 PM EST) Pathologist [facility] Phosphorus 3.1 2.5 - 4.5 mg/dL 05/10/2025 3:17 PM EST [facility] Blood (Blood) Venipuncture / Unknown 05/10/2025 2:25 PM EST 05/10/2025 2:44 PM EST us Luiz Muse MD LAB BLOOD BKR ORDERABLES Fi nal Result Performing Organization Address City/[facility]/ZIP Co de Phone Number [facility] [address] [place] [address] * Magnesium (05/10/2025 2:25 PM EST) Magnesium 2.1 1.7 - 2.6 mg/dL 05/10/2025 3:17 PM EST [facility] Blood (Blood) Venipuncture / Unknown 05/10/2025 2:25 PM EST 05/10/2025 2:44 PM EST us Luiz Muse MD LAB BLOOD BKR ORDERABLES Fi nal Result Performing Organization Address [facility] Co de Phone Number [facility] [address] [place] [phone] * (ABNORMAL) Beta-2 Microglobulin, Blood (05/10/2025 2:25 PM EST) Beta-2 Microglobulin 2.80(H) 0.80 - 2.20 mcg/mL 05/10/2025 3:17 PM EST [facility] Blood (Blood) Venipuncture / Unknown 05/10/2025 2:25 PM EST 05/10/2025 2:44 PM EST us Luiz Muse MD LAB BLOOD BKR ORDERABLES Fi nal Result Performing Organization Address [facility] Co de Phone Number [facility] [address] [place] [phone] from Last 3 Months Insurance [place] [id number] [employer] SUPPLEMENT MEDICARE PART A & B [employer] SUPPLEMENT MEDICARE PART A & B [employer] SUPPLEMENT MEDICARE PART A & B [employer] SU[employer] MEDICARE PART A & B [employer] SU[employer] MEDICARE PART A & B [employer] SUPPLEMENT Care Teams Stagecraft Teacher Relationship Specialty Start Date End Date Emiliano Guzman MD [address] [place] [address] [place] [address] PCP - General Internal Medicine 11/05/22 Main Lea MD [address] [place] [address] [place] [address] [email or web address] Referring Physician 11/05/22 Additional Source Comments The information contained in this document represents components of the legal health record. It is not the complete legal health record.[facility]
--- OUTSIDE RECORDS SUMMARY | 2025-05-11 19:07 | XMS_ITS | Encounter Summary ---
Author Organization [facility] and [facility] Address [address] [place] [phone] Care Team Providers Care Meat Puller Name Role Phone Maged Guzman MD Primary Care Provider [phone] Reason for Referral * Imaging (Routine) - Closed Specialty Diagnoses / Procedures Referred By Contkenna t Referred To Contact Diagnostic Radiology Procedures US Abdomen Complete Guille Schuler MD [address] [place] [address] Dr Rosen [facility] [place] [address] Phone: tel: fax: Referral ID Status Reason Start Date Expiration Date Visits Re quested Visits Authorized [id number] Closed 03/23/2019 03/22/2020 1 1 Encounter Details Date Type Department Care Team (Late st Contact Info) Description 03/23/2019 Scanned Document [facility] [address] [facility] [address] [place] [address] Guille Schuler MD [address] [place] [address] Dr Rosen [address] [place] [address] [place] [address] Social History Tobacco Use Types Packs/Day [...] on filedocumented in this encounter Care Teams Meat Puller Relationship Specialty Start Date End Date Maged Guzman MD [address] [place] [address] [place] [address] PCP - General Internal Medicine 06/07/14 documented as of this encounter
--- OUTSIDE RECORDS SUMMARY | 2025-05-11 19:07 | XMS_ITS | Encounter Summary ---
Author Organization [facility] [employer] [facility] and [facility] Address [address] [place] [phone] Care Team Providers Care Education Faculty Member Name Role Phone Maged Guzman MD Primary Care Provider [phone] Encounter Details Date Type Department Care Team (Late st Contact Info) Description 06/14/2012 Abstract [facility] Health Information Management [address] [place] [phone] [place], Primary Care [address] [place] [phone] Social History Tobacco Use Types Packs/Day Years [...] filedocumented in this encounter Care Teams Education Faculty Member Relationship Specialty Start Date End Date Maged Guzman MD [address] [place] [address] [place] [address] PCP - General Internal Medicine 06/07/14 documented as of this encounter
--- OUTSIDE RECORDS SUMMARY | 2025-05-11 19:07 | XMS_ITS | Encounter Summary ---
Author Organization [facility] [employer] [facility] and [facility] Address [address] [place] [address] Care Team Providers Care Tufting Creeler Name Role Phone Maged Guzman MD Primary Care Provider [phone] Encounter Details Date Type Department Care Team (Late st Contact Info) Description 10/28/2022 Scanned Document [facility] [address] [facility] [address] [place] [address] Main Lea MD [address] [place] [address] Social History Tobacco Use Types Packs/Day Years [...] on filedocumented in this encounter Care Teams Tufting Creeler Relationship Specialty Start Date End Date Maged Guzman MD [address] [place] [address] Dr Fregoso Mitali RADHA [phone] PCP - General Internal Medicine 06/07/14 documented as of this encounter
--- OUTSIDE RECORDS SUMMARY | 2025-05-11 19:07 | XMS_ITS | Encounter Summary ---
Author Organization [facility] [employer] [facility] and [facility] Address [address] [place] [phone] Care Team Providers Care Partner Management Consultant Name Role Phone Maged Guzman MD Primary Care Provider [phone] Encounter Details Date Type Department Care Team (Late st Contact Info) Description 09/01/2021 Scanned Document [facility] [address] [facility] [address] [place] [address] External, Provider Social History Tobacco Use Types [...] on filedocumented in this encounter Care Teams Partner Management Consultant Relationship Specialty Start Date End Date Maged Guzman MD [address] [place] [address] [place] [address] PCP - General Internal Medicine 06/07/14 documented as of this encounter
--- OUTSIDE RECORDS SUMMARY | 2025-05-11 19:07 | XMS_ITS | Encounter Summary ---
Author Organization [facility] [employer] [facility] and [facility] Address [address] [place] [address] Care Team Providers Care User Interface Artist Name Role Phone Maged Guzman MD Primary Care Provider [phone] Encounter Details Date Type Department Care Team (Late st Contact Info) Description 02/28/2018 Scanned Document [facility] [address] [facility] [address] [place] [address] Maged Guzman MD [address] [place] [address] [place] [address] Social History Tobacco Use Types Packs/Day Years [...] on filedocumented in this encounter Care Teams User Interface Artist Relationship Specialty Start Date End Date Maged Guzman MD [address] [place] [address] [place] [phone] PCP - General Internal Medicine 06/07/14 documented as of this encounter
--- OUTSIDE RECORDS SUMMARY | 2025-05-11 19:07 | XMS_ITS | Clinical Summary ---
Author Organization [address] Address [address] [place] [phone] Phone Care Team Providers Care Review Manager Name Role Phone Maged Guzman MD Primary Care Provider [phone] Allergies Active Allergy Reactions Criticality Noted Date [...] age to complete this topic Insurance MEDICARE [facility] Care Teams Review Manager Relationship Specialty Start Date End Date Maged Guzman MD [address] [place] [address] [place] [address] PCP - General Internal Medicine 06/07/14
--- OUTSIDE RECORDS SUMMARY | 2025-05-11 19:07 | XMS_ITS | Encounter Summary ---
Author Organization [facility] [employer] [facility] and [facility] Address [address] [place] [address] Care Team Providers Care Jukebox Coin Collector Name Role Phone Maged Guzman MD Primary Care Provider Encounter Details Date Type Department Care Team (Late st Contact Info) Description 09/20/2022 Scanned Document [facility] [address] [facility] [address] [place] [address] Main Lea MD [address] [place] [address] Social History Tobacco Use Types Packs/Day Years [...] on filedocumented in this encounter Care Teams Jukebox Coin Collector Relationship Specialty Start Date End Date Maged Guzman MD [address] [place] [address] [place] [address] PCP - General Internal Medicine 06/07/14 documented as of this encounter
== END 2025-05-11 15:24 | disposition home or self-care (01) ==
LOC: HO.HWS 14:47
PROVIDERS: PCP Student in an Organized Health Care Education/Training Program; Visit Provider Obstetrics & Gynecology
DX: R19.00 Intra-abdominal and pelvic swelling, mass and lump, unspecified site (principal)
CPT/HCPCS: 99213

== ENCOUNTER → 2025-05-11 14:46 | Outpatient (BNVA) | payer MEDICARE, SELFPAY | PROVIDERS: PCP Student in an Organized Health Care Education/Training Program; Visit Provider Obstetrics & Gynecology | DX: Z71.2 Person consulting for explanation of examination or test findings (principal) | CPT/HCPCS: 99212 ==